=== PATIENT | female | born 1965 | race African-American/Black ===

== ENCOUNTER 2017-01-18 07:54 | Inpatient (IN) ==
--- NOTE | 2017-01-18 08:09 | Oncology History&Physical ---
History of Present Illness History of present illness: Ms. Nicole is a 51 year old female with sickle cell disease who is admitted in crisis. She was supposed to be a direct admit but her medical care is being disrupted by the fact that she is down in admissions when she should be up here on the floor. She is admitted with recurrent sickle crisis and I am planning to transfuse her. I am also planning to administer her usual pain medications. Ms. Niocle is a 51 year old female that I have followed for a long time for sickle cell disease. She is admitted intermittently for blood transfusions and for pain control. Her pain was actually worse last night. At that point she hurt all over. She has had a cough and scratchy throat but no sputum production and no pleurisy. She is currently having pain in her right arm that is fairly severe. This patient is not drug seeking and therefore I do not hesitate to administer parenteral narcotics in her case. She actually sounds better today than she did last night. 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 She complains of diffuse bone pains without focal areas that are particularly severe. Past medical history: She is allergic to hydromorphone, butorphanol, meperidine and morphine. She has multiple admissions for sickle cell crises. She has had a cholecystectomy. 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 He has had breast biopsies in the past because of breast lumps but no malignancy. Social history: She does not use alcohol or tobacco Family history: Positive for sickle cell disease and schizophrenia in her sister and positive for colon cancer and pancreatic cancer in her brother. Her brother of pancreatic cancer. Review of systems: Gen.: She usually remains active. She is not drug seeking and takes narcotics very sparingly. Eyes: She has had some problem with her retina the required surgery on her right eye recently. She has a gas bubble in the right eye and the pupil is dilated. ENT: No history of chronic sinus infections, epistaxis, carcinoma or malignancies of the head or neck, chronic hoarseness or loss of hearing. Pulmonary: Pulmonary: No history of asthma, emphysema or pneumonia, TB or chronic pleuritic chest pain or pain with respiration. Cardiovascular: No history of coronary artery disease, congestive heart failure , heart valvular disease, cardiac chest pain, syncope or arrhythmias. She does have a history of a flow murmur. GI: Negative for chronic GI disorders including liver, pancreas, stomach, large bowel, colitis, hematemesis, melena or hematochezia. : She has occasional urinary tract infections but these are not chronic or recurrent on a regular basis and there is no history of kidney stones, hematuria or renal failure. Musculoskeletal: She has had significant bone pain with sickle crises and she's had aseptic necrosis of the femoral heads as result of her sickle cell disease and crisis. Neurologic: Negative for seizures, convulsions or paralysis. Psychiatric: Negative for psychiatric illness or psychosis. Also negative for mood swings or memory loss. Breasts: Positive for fibrocystic disease. No history of breast malignancies. Skin: Negative for chronic skin rashes or infections. Physical examination: Gen.: The patient appears acutely ill but in only moderate distress. Eyes: Normal lids and conjunctivae. Her right pupil is dilated and there appears to be a gas bubble in the anterior chamber. ENT: She has significant nasal congestion. Oral mucosa and pharynx are normal. Trachea is midline. There are no neck masses. Her hearing is normal. Thyroid is normal. Lungs: Breath sounds are normal except for a few faint rales without rubs or rhonchi. There is symmetrical unlabored chest motion with respiration. Cardiovascular: Her heart rhythm is regular with grade 3/6 systolic ejection murmur heard best in the second right intercostal space adjacent to the sternum. There is no jugular venous distention, clubbing, cyanosis or edema. Abdomen: She has no abdominal masses, organomegaly or significant tenderness. Bowel sounds are hyperactive. Musculoskeletal: There is no focal muscle atrophy or bone or joint deformity. Neurologic: Cranial nerves II through XII are intact and no focal neurologic deficits. Psychiatric: She is oriented to time, place, person and situation with normal mood and affect Skin: Skin turgor is poor. Breasts: She has fibrocystic changes in her breasts but no actual solid lumps or masses. Impression: Acute upper respiratory tract infection. Influenza has been ruled out. Acute sickle cell crisis Required red cell antibodies Anemia low enough to warrant transfusion Additional complications of sickle cell disease including aseptic necrosis of the femoral heads and cholelithiasis Home Medications Medication Instructions Recorded Confirmed Type HYDROcodone/ACETAMIN 10-325 [[place] 1 tablet PO Q4H PRN 07/07/15 12/03/16 History 10-325] Folic Acid Tab 1 mg PO DAILY tablet 03/16/16 12/03/16 Rx Levofloxacin Tab [Levaquin Tab] 750 mg PO DAILY tablet 12/05/16 Rx Ketorolac Tab [Toradol Tab] 10 mg PO Q8H #14 tablet 01/03/17 Rx Allergies Allergy/AdvReac Type Severity Reaction Status Date / Time Hydromorphone [From Dilaudid] Allergy Mild ITCHING Verified 01/03/17 20:23 butorphanol [From Stadol] AdvReac Severe Chest Pain Verified 01/03/17 20:23 meperidine AdvReac Mild ITCHING Verified 01/03/17 20:23 morphine AdvReac RASH Verified 01/03/17 20:23 Medical,Surgical,& Family Hx - Medical History Cardio: History of: Cardiovascular Problems (heart murmur) Neurology: No history of: Seizures HEENT: History of: Eye Problem (surgery for torn retina 08/30/16) Respiratory: History of: Respiratory Problems (sickle cell crisis) Genitourinary: No history of: Problems Gastrointestinal: History of: GERD (doesn/t use ppi) Musculoskeletal: History of: Musculoskeletal Problems (pain in all joints) Hematology: History of: Anemia, Sickle Cell Disease No history of: Blood Transfusion Reaction (has multiple antibodies) Reproductive: History of: Reproductive Problems (partial hysterectomy) Other: No history of: Anesthesia Reactions - Surgical History Cardiac Surgeries: Sugical HX of: Vascular Access Devices (mediport to right chest) Patient Denies: Cardiac Catheterization Thoracic Surgeries: Patient denies;: Organ Transplant HEENT Surgeries: Surgical HX of: Eye Surgery (08/30/16) Patient denies: Tonsilectomy & Adenoidectomy Abdominal Surgeries: Surgical HX of: Abdominal Surgery, Cholecystectomy, Colonoscopy, EGD Reproductive Surgeries: Surgical HX of;: Breast Surgery (breast biopsy), Gynecologic Surgery, Hysterectomy Orthopedic Surgeries: Surgical HX of;: Total Hip Replacement (Right) - Family History Family History: Reports;: Family Cancer (brother, colon ca, sister, breast ca), Family Diabetes - Social History Smoking Status: Never smoker Results - Labs CBC & BMP: 01/18/17 08:46
[2017-01-18] MEDS ORDERED: chlorproMAZINE INJ 25 MG in SODIUM CHLORIDE 0.9% 100 ML IV PRN (08:30)
[2017-01-18] MEDS ORDERED: BENZTROPINE 2 MG/2 ML AMP IV PRN (08:30)
[2017-01-18] MEDS ORDERED: ACETAMINOPHEN 325 MG TABLET PO PRN (08:30)
[2017-01-18] MEDS ORDERED: LOPERAMIDE 2 MG CAPSULE PO PRN ×2 (08:30)
[2017-01-18] MEDS ORDERED: LACTULOSE 20 GM/30 ML UDCUP PO PRN (08:30)
[2017-01-18] MEDS ORDERED: MYLANTA/LIDO VISC 2:1 300 ML BOTTLE SWISH/SWAL PRN (08:30)
[2017-01-18] MEDS ORDERED: TEMAZEPAM 7.5 MG CAPSULE PO PRN (08:30)
[2017-01-18] MEDS ORDERED: chlorproMAZINE INJ 50 MG in SODIUM CHLORIDE 0.9% 100 ML IV PRN (08:30)
[2017-01-18] MEDS ORDERED: MAGNESIUM HYDROXIDE SUSP 30 ML UDCUP PO PRN (08:30)
[2017-01-18] MEDS ORDERED: ALUMINUM/MAGNES/SIMETH MAX STR 30 ML UDCUP PO PRN (08:30)
[2017-01-18] MEDS ORDERED: traMADol 50 MG TABLET PO PRN (08:30)
[2017-01-18] MEDS ORDERED: MYLANTA/LIDO VISC 2:1 300 ML BOTTLE SWISH/SPIT PRN (08:30)
[2017-01-18] MEDS ORDERED: ALPRAZolam 0.25 MG TABLET PO PRN (08:30)
[2017-01-18] MEDS ORDERED: PROMETHAZINE INJ 25 MG in SODIUM CHLORIDE 0.9% 50 ML IV PRN (08:30)
[2017-01-18] MEDS ORDERED: diphenhydrAMINE CAP 25 MG CAPSULE PO PRN (08:30)
[2017-01-18] MEDS ORDERED: chlorproMAZINE 25 MG TABLET PO PRN (08:30)
[2017-01-18 08:56] LABS: Basophils % 0.2 % (0.0-0.8); Eosinophils # 0.1 10*3/uL (0.0-0.87); Eosinophils % 1.1 % (0.00-10.9); Hematocrit 20.9 VOL% (35.7-47.0); Hemoglobin 7.5 GM/DL (12.0-16.0); Immature Granulocytes % 0.6 %; Immature Granulocytes Absolute 0.07 #; Lymphocytes # 3.5 10*3/uL (1.4-4.0); Lymphocytes % 30.8 % (21.3-54.2); Mean Corpuscular HGB Conc 35.9 GM/DL (32-36); Mean Corpuscular Hemoglobin 36 PG (27-34); Mean Platelet Volume 11.4 FL (9.6-12.0); Monocytes # 1.6 10*3/uL (0.11-0.8); Monocytes % 14.3 % (1.7-12.7); NRBC # 0.86 10*3/uL; Platelet Count 230 T/CUMM (130-400); Red Blood Count 2.07 MC/CUMM (3.8-5.5); Red Cell Distribution Width 24.4 % (9.3-17.3); White Blood Count 11.3 T/CUMM (4-12)
[2017-01-18] MEDS: SODIUM CHLORIDE 0.9% 1,000 ML IV SCH ×2 (09:01→20:26)
[2017-01-18 09:22] LABS: Band Neutrophils 2 % (0-10); Eosinophils 2 % (0-10); Lymphocytes 31 % (20-55); Myelocytes 1 %; Nucleated Red Blood Cells 9 (0-5); Segmented Neutrophils 50 % (50-85); Total Cells Counted 100
[2017-01-18 09:23] LABS: Elliptocytes Few; Hypochromasia 1+; Macrocytosis Slight; Platelet Estimate Adequate; Polychromasia Slight; Sickle Cells Few; Target Cells Few
[2017-01-18] MEDS ORDERED: fentaNYL 25 MCG/HR PATCH TRANSDERM SCH (09:30)
[2017-01-18 10:22] LABS: Albumin 3.9 G/DL (3.4-5.0); Bilirubin,Total 7.1 MG/DL (0.2-1.0); Magnesium 2.1 MG/DL (1.8-2.4); Osmolality,Calculated 276.4 MOS/KG (273-304); Potassium 4.1 MMOL/L (3.5-5.1); Uric Acid 7.9 MG/DL (2.6-6.0)
[2017-01-18] MEDS: ONDANSETRON 4 MG/2 ML VIAL IV PRN ×2 (11:11→23:46)
[2017-01-18] MEDS: fentaNYL 100 MCG/2 ML VIAL IV PRN ×3 (11:14→23:44)
[2017-01-18 16:10] LABS: Apearance,Urine CLEAR (Clear); Bilirubin,Urine Negative (Negative); Blood, Urine Small mg/dL (Negative); Glucose,Urine (UA) Negative (Negative); Ketones,Urine Negative (Negative); Nitrite,Urine Negative (Negative); Protein,Urine Negative; RBC,Urine 1 /HPF (0-4); Squamous Epithelial Cell,Urine Occasional /HPF (0-10); Urine Color Yellow (Yellow); Urine Specific Gravity 1.005 (1.001-1.035); WBC,Urine 2 /HPF (0-6)
[2017-01-18] MEDS: guaiFENesin 200 MG/10 ML UDCUP PO PRN ×2 (18:37→22:57)
[2017-01-19] MEDS: fentaNYL 100 MCG/2 ML VIAL IV PRN (06:04)
[2017-01-19 08:02] LABS: Basophils # 0.1 10*3/uL (0.0-0.2); Basophils % 0.5 % (0.0-0.8); Eosinophils # 0.2 10*3/uL (0.0-0.87); Eosinophils % 2.1 % (0.00-10.9); Hematocrit 23.6 VOL% (35.7-47.0); Hemoglobin 8.3 GM/DL (12.0-16.0); Immature Granulocytes % 0.7 %; Immature Granulocytes Absolute 0.08 #; Lymphocytes # 3.9 10*3/uL (1.4-4.0); Lymphocytes % 36.1 % (21.3-54.2); Mean Corpuscular HGB Conc 35.2 GM/DL (32-36); Mean Corpuscular Hemoglobin 34 PG (27-34); Mean Corpuscular Volume 97.9 FL (87-102); Monocytes # 1.4 10*3/uL (0.11-0.8); Monocytes % 13.2 % (1.7-12.7); NRBC # 0.99 10*3/uL; Neutrophils # 5.1 10*3/uL (1.4-7.4); Neutrophils % 47.4 % (38.7-73.9); Platelet Count 201 T/CUMM (130-400); Red Blood Count 2.41 MC/CUMM (3.8-5.5); Red Cell Distribution Width 23.9 % (9.3-17.3); White Blood Count 10.7 T/CUMM (4-12)
[2017-01-19 08:18] LABS: Band Neutrophils 1 % (0-10); Elliptocytes Few; Eosinophils 1 % (0-10); Hypochromasia 1+; Lymphocytes 37 % (20-55); Nucleated Red Blood Cells 4 (0-5); Platelet Estimate Adequate; Segmented Neutrophils 47 % (50-85); Sickle Cells Few; Total Cells Counted 100
[2017-01-19 08:19] LABS: Macrocytosis Slight; Polychromasia Slight; Target Cells Few
[2017-01-19 08:28] LABS: Albumin 3.5 G/DL (3.4-5.0); Bilirubin,Total 5.2 MG/DL (0.2-1.0); Calcium 9.7 MG/DL (8.5-10.1); Osmolality,Calculated 279.1 MOS/KG (273-304); Potassium 4.6 MMOL/L (3.5-5.1); Total Protein 7.3 G/DL (6.4-8.3)
[2017-01-19] MEDS ORDERED: SODIUM CHLORIDE 0.9% 250 ML IV PRN (09:05)
--- NOTE | 2017-01-19 09:05 | Oncology Progress Note ---
Oncology Subjective PN Interval history: This patient was admitted with sickle crisis. I attempted to direct admit her yesterday and was interfered with by admissions. She was admitted with sickle crisis. This is improved but I am continuing to monitor CBCs. Her hemoglobin is 8.3 today with a platelet count 201,000 white cell count of 10.7. Her hemoglobin was 7.5 on admission. I am proceeding with transfusion of a third unit of packed red cells today. Exam - Constitutional Vitals: Period Temp Pulse Resp BP Sys/[place] Pulse Ox Last 24 Hr 97.0 F-98.5 F 65-82 18-20 113-140/56-74 90-98 Results - Labs CBC & BMP: 01/19/17 07:30 01/19/17 07:30
[2017-01-19] MEDS: guaiFENesin 200 MG/10 ML UDCUP PO PRN (10:32)
[2017-01-19] MEDS: FOLIC ACID 1 MG TABLET PO SCH (10:33)
[2017-01-19] MEDS: OFLOXACIN 0.3% OPH SOLN 10 ML BOTTLE RIGHT EYE SCH ×2 (10:33→21:13)
[2017-01-19] MEDS: prednisoLONE ACETATE 1% OPH SUSP 5 ML BOTTLE RIGHT EYE SCH ×2 (10:33→21:13)
[2017-01-19] MEDS: SODIUM CHLORIDE 0.9% 1,000 ML IV SCH ×3 (11:27→21:21)
[2017-01-20 05:17] LABS: Basophils % 0.3 % (0.0-0.8); Eosinophils # 0.3 10*3/uL (0.0-0.87); Eosinophils % 2.7 % (0.00-10.9); Hematocrit 24.4 VOL% (35.7-47.0); Hemoglobin 8.3 GM/DL (12.0-16.0); Immature Granulocytes % 0.6 %; Immature Granulocytes Absolute 0.06 #; Lymphocytes # 4.2 10*3/uL (1.4-4.0); Lymphocytes % 38.8 % (21.3-54.2); Mean Corpuscular Hemoglobin 34 PG (27-34); Mean Corpuscular Volume 100.8 FL (87-102); Mean Platelet Volume 12.7 FL (9.6-12.0); Monocytes # 1.3 10*3/uL (0.11-0.8); Monocytes % 12.5 % (1.7-12.7); NRBC # 0.98 10*3/uL; Neutrophils # 4.9 10*3/uL (1.4-7.4); Neutrophils % 45.1 % (38.7-73.9); Platelet Count 187 T/CUMM (130-400); Red Blood Count 2.42 MC/CUMM (3.8-5.5); Red Cell Distribution Width 24.2 % (9.3-17.3); White Blood Count 10.7 T/CUMM (4-12)
[2017-01-20 05:29] LABS: Albumin 3.4 G/DL (3.4-5.0); Bilirubin,Total 4.9 MG/DL (0.2-1.0); Calcium 9.8 MG/DL (8.5-10.1); Osmolality,Calculated 281.1 MOS/KG (273-304); Potassium 4.7 MMOL/L (3.5-5.1); Total Protein 7.3 G/DL (6.4-8.3)
[2017-01-20 07:30] LABS: Eosinophils 5 % (0-10); Lymphocytes 41 % (20-55); Nucleated Red Blood Cells 13 (0-5); Segmented Neutrophils 47 % (50-85); Total Cells Counted 100
[2017-01-20 07:31] LABS: Elliptocytes Few; Hypochromasia 1+; Macrocytosis Slight; Platelet Estimate Normal; Polychromasia Slight; Sickle Cells Slight; Target Cells Few
--- NOTE | 2017-01-20 07:55 | Oncology Progress Note ---
Oncology Subjective PN Interval history: Patient with a long history of sickle cell disease with recurrent sickle cell crisis. She has a history of red cell antibodies making it difficult to crossmatch her. She was admitted with anemia and I have ordered blood transfusions. Lab work today includes white cell count of 10,700 with a hemoglobin of 8.3 and a platelet count of 187,000. Exam - Constitutional Vitals: Period Temp Pulse Resp BP Sys/[place] Pulse Ox Last 24 Hr 97.2 F-98.8 F 64-69 18-20 136-163/63-77 92-94 Results - Labs CBC & BMP: 01/20/17 04:37 01/20/17 04:37
[2017-01-20 08:05] VITALS: BP 158/77
[2017-01-20] MEDS: ONDANSETRON 4 MG/2 ML VIAL IV PRN (08:22)
[2017-01-20] MEDS: fentaNYL 100 MCG/2 ML VIAL IV PRN (08:24)
[2017-01-20] MEDS: SODIUM CHLORIDE 0.9% 1,000 ML IV SCH (09:37)
[2017-01-20] MEDS: prednisoLONE ACETATE 1% OPH SUSP 5 ML BOTTLE RIGHT EYE SCH (09:38)
[2017-01-20] MEDS: FOLIC ACID 1 MG TABLET PO SCH (09:39)
[2017-01-20] MEDS: OFLOXACIN 0.3% OPH SOLN 10 ML BOTTLE RIGHT EYE SCH (09:39)
--- NOTE | 2017-01-20 10:45 | Discharge Summary ---
Hospital Course - Hospital Course Hospital Course: Diagnoses: Acute sickle crisis requiring narcotic therapy Anemia requiring blood transfusion Autoantibodies to red cells causing difficulty in cross-matching Status post cholecystectomy due to sickle cell disease Status post surgical repair of aseptic necrosis of the femoral head fibrocystic disease of the breast This patient that I have been following for a long time was admitted with acute sickle crisis requiring blood transfusion. Lab work on admission included a white cell count of 11,300 with a hemoglobin of 7.5 and a platelet count of 230,000. The patient actually has 1 more unit of packed red cells to be transfused but it is hard to acquire it. She has been hydrated and her crisis has resolved. I am going to discharge her today. If she can be transfused prior to discharge , we will do so. It will be her third unit of packed red cells. If the blood does not arrive in a timely fashion, she will return outpatient. She already has an appointment to see me in follow-up. Discharge Plan - Discharge Data Disposition: Disch To Home/Self Care Condition at Discharge: Guarded Discharge Diet: advance to your usual diet Activity: resume usual activities as tolerated Hygiene: no restrictions Weight Bearing at Discharge: weight bear as tolerated Driving: other Contact your physician if you experience:: fever over 101, Difficulty voiding, Redness or swelling, Nausea/Vomiting, Shortness of breath, Bleeding, pain uncontrolled by pain medications - Discharge Medications Continue HYDROcodone/ACETAMIN 10-325 [[place] 10-325] 1 tablet PO Q4H PRN PRN Reason: Pain Mild To Moderate (1-7) Folic Acid Tab 1 mg PO DAILY tablet Ofloxacin [Ofloxacin 0.3% Oph Soln] 1 drop RIGHT EYE BID prednisoLONE acetate [PrednisoLONE Acetate 1% Oph Susp] 1 drop RIGHT EYE BID - Follow Up or Referral - Forms/Instructions Additional Discharge Instructions: Discharge today. Transfuse the third unit of packed red cells of possible before discharge. If it is not available today , she can return outpatient to receive it. She had an appointment to see me that she should keep. Exam - Constitutional Vitals: Period Temp Pulse Resp BP Sys/[place] Pulse Ox Last 24 Hr 97.2 F-98.8 F 59-69 18-20 147-163/65-77 92-94 Discharge Results Procedures and tests throughout hospitalization: Pending Orders 01/19/17 09:05 Red Blood Cells Leuko Red Stat 01/21/17 04:00 Comp Blood Count Auto Diff IN AM Comprehensive Metabolic Panel IN AM LDH [Lactate Dehydrogenase] IN AM 01/22/17 04:00 Comp Blood Count Auto Diff IN AM Comprehensive Metabolic Panel IN AM LDH [Lactate Dehydrogenase] IN AM 01/23/17 04:00 Comp Blood Count Auto Diff IN AM Comprehensive Metabolic Panel IN AM LDH [Lactate Dehydrogenase] IN AM 01/24/17 04:00 Comp Blood Count Auto Diff IN AM Comprehensive Metabolic Panel IN AM LDH [Lactate Dehydrogenase] IN AM 01/25/17 04:00 Comp Blood Count Auto Diff IN AM Comprehensive Metabolic Panel IN AM LDH [Lactate Dehydrogenase] IN AM 01/26/17 04:00 Comp Blood Count Auto Diff IN AM Comprehensive Metabolic Panel IN AM Labs on day of discharge: Labs from last 24 hours 01/20/17 01/20/17 04:37 04:37 WBC 10.7 RBC 2.42 L Hgb 8.3 L Hct 24.4 L MCV 100.8 MCH 34 MCHC 34.0 RDW 24.2 H Plt Count 187 MPV 12.7 H Neut % (Auto) 45.1 Lymph % (Auto) 38.8 [place] % (Auto) 12.5 Eos % (Auto) 2.7 Baso % (Auto) 0.3 Neut # (Auto) 4.9 Lymph # (Auto) 4.2 H [place] # (Auto) 1.3 H Eos # (Auto) 0.3 Baso # (Auto) 0.0 Total Counted 100 Immature Gran % 0.6 Nucleated RBC % 9.1 Immature Gran # 0.06 Segmented Neutrophils 47 L Lymphocytes 41 Monocytes 7 Eosinophils 5 Nucleated RBCs 13 H Nucleated RBCs # 0.98 Platelet Estimate Normal Polychromasia Slight Hypochromasia 1+ Macrocytosis Slight Sickle Cells Slight Target Cells Few Elliptocytes Few Morphology Comment Sodium 142 Potassium 4.7 Chloride 109 H Carbon Dioxide 26 Anion Gap 11.7 BUN 9 Creatinine 0.50 L GFR Calculation 148 BUN/Creatinine Ratio 18.00 Glucose 96 Calculated Osmolality 281.1 Calcium 9.8 Total Bilirubin 4.90 H AST 69 H ALT 32 Alkaline Phosphatase 155 H Lactate Dehydrogenase 528 H Total Protein 7.3 Albumin 3.4 Globulin 3.9 H Albumin/Globulin Ratio 0.8 L DS: Provider Date of admission: 01/18/17 08:01 Primary care physician: Heath Saenz MD Attending physician on admission: Heath Saenz MD Discharging clinician: Heath Sanez MD
[2017-01-20] MEDS ORDERED: HEPARIN LOCK FLUSH 500 UNIT/5 ML SYRINGE IV PRN (11:05)
[2017-01-20] MEDS ORDERED: HEPARIN LOCK FLUSH 500 UNIT/5 ML SYRINGE IV ONE (11:07)
== END 2017-01-20 12:44 | disposition home or self-care (01) | DRG 812 ==
LOC: N.4E
PROVIDERS: ADMIT Specialist; ATTEND Specialist

== ENCOUNTER 2017-03-21 14:07 | Inpatient (IN) ==
[2017-03-21] MEDS ORDERED: ASPIRIN 325 MG TABLET PO STA (15:26)
[2017-03-21] MEDS ORDERED: ALUM/MAG/SIMETH/LIDO VISC 1:1 30 ML BOTTLE PO STA (15:27)
--- NOTE | 2017-03-21 15:30 | EKG Report ---
Stationary ECG Study [facility] ER Test Date: 03/21/2017 2:25:40 PM Pat Name: RANULFO MEDEROS Department: Room: 418 Gender: F [employer] Representative: : 1965 Requested by: Pravin Rivera Order Number: [id number] Reading MD: IQRA ALBERTS Intervals [place] Rate: 71 P: 61 NC: 181 QRS: 46 QRSD: 97 T: 12 QT: 404 QTc: 427 Interpretive Statements SINUS RHYTHM NONSPECIFIC T WAVE ABNORMALITY Electronically Signed On 03-22-17 17:06:15 CDT by IQRA ALBERTS [email or web address]
[2017-03-21] MEDS ORDERED: ASPIRIN 325 MG TABLET ONE (15:36)
[2017-03-21] MEDS ORDERED: ALUM/MAG/SIMETH/LIDO VISC 1:1 30 ML BOTTLE PO ONE (15:36)
--- NOTE | 2017-03-21 15:43 | Emergency Department Note ---
Eli Fraser Gwan, am scribing for, and in the presence of, Pravin Street MD 15:36 . Yenifer Fraser James D, MD, personally performed the services described in this documentation, ascribed by Jose Francisco Benitez in my presence, and it is both accurate and complete [id number] . Arrival - Arrival Chief Complaint: Chest Pain Stated Complaint: chest pain, sob ED Nursing Triage Note: c/o chest tightness onset yesterday. states is worrse today. pt had eye surgery yesterday before pain started. + sob. states pain doesnt feel like sc crisis pain. cp increased with walking Mode of Arrival: Ambulatory Limitations: No Limitations Source: Patient, Old Records Reviewed, RN Notes Reviewed Time Seen by Provider: 03/21/17 15:20 - History of Present Illness HPI Narrative: Patient is a 51 y/o black female who presents to the ED with a c/o chest tightness and generalized soreness with an onset yesterday. Patient has a PMHx of sickle cell disease. She confirmed that she had eye surgery performed yesterday by Dr. Chavez in [place] due to detached retina in her right eye. Her associated sxs have been nausea and SOB that worsens with exertion. With onset of sxs today, pt stated that she called her PCP Dr. Saenz office and was instructed by staff to report to ED for further evaluation. Patient then said that this discomfort is similar to that of a sickle cell crisis and that she has had this discomfort before but she denies remembering when her last blood transfusion was. She is scheduled to report back to Dr. Chavez tomorrow at [facility] for f/u. While in ED, pt stated that she is nauseous. No other problems/complaints reported in ED. Onset (ago): day(s) Consistency: constant Severity: moderate Date of Last Menstrual Period: part-hyst Allergies/Adverse Reactions: Allergies Allergy/AdvReac Type Severity Reaction Status Date / Time Hydromorphone [From Dilaudid] Allergy Mild ITCHING Verified 01/03/17 20:23 butorphanol [From Stadol] AdvReac Severe Chest Pain Verified 01/03/17 20:23 meperidine AdvReac Mild ITCHING Verified 01/03/17 20:23 morphine AdvReac RASH Verified 01/03/17 20:23 Home Medications: Home Medications Medication Instructions Recorded Confirmed Type HYDROcodone/ACETAMIN 10-325 [[place] 1 tablet PO Q4H PRN 07/07/15 03/21/17 History 10-325] Ofloxacin [Ofloxacin 0.3% Oph Soln] 1 drop RIGHT EYE BID 01/18/17 01/18/17 History prednisoLONE acetate [PrednisoLONE 1 drop RIGHT EYE BID 01/18/17 01/18/17 History Acetate 1% Oph Susp] Review of System - Review of System 12 point system: reviewed and no additional remarkable complaints except as stated - Review of System Constitutional: Absent: chills, fever Eyes: Absent: discharge Head/Ears/Nose/Throat: Absent: earache Respiratory: Absent: cough Cardiovascular: Present: as per HPI, chest pain Gastrointestinal: Present: as per HPI, nausea. Absent: abdominal pain, vomiting Genitourinary female: Absent: dysuria Musculoskeletal: Absent: arm pain, arthralgia, leg pain, neck pain Skin: Absent: rash, lesions Neurological: Absent: headache, weakness Medical,Surgical,& Family Hx - Medical History Cardio: History of: Cardiovascular Problems (heart murmur) Neurology: No history of: Seizures HEENT: History of: Eye Problem (surgery for torn retina 08/30/16) Respiratory: History of: Respiratory Problems (sickle cell crisis) Genitourinary: No history of: Problems Gastrointestinal: History of: GERD (doesn/t use ppi) Musculoskeletal: History of: Musculoskeletal Problems (pain in all joints) Hematology: History of: Anemia, Sickle Cell Disease No history of: Blood Transfusion Reaction (has multiple antibodies) Reproductive: History of: Reproductive Problems (partial hysterectomy) Other: No history of: Anesthesia Reactions - Surgical History Cardiac Surgeries: Sugical HX of: Vascular Access Devices (mediport to right chest) Patient Denies: Cardiac Catheterization Thoracic Surgeries: Patient denies;: Organ Transplant HEENT Surgeries: Surgical HX of: Eye Surgery (08/30/16) Patient denies: Tonsilectomy & Adenoidectomy Abdominal Surgeries: Surgical HX of: Abdominal Surgery, Cholecystectomy, Colonoscopy, EGD Reproductive Surgeries: Surgical HX of;: Breast Surgery (breast biopsy), Gynecologic Surgery, Hysterectomy Orthopedic Surgeries: Surgical HX of;: Total Hip Replacement (Right) - Family History Family History: Reports;: Family Cancer (brother, colon ca, sister, breast ca), Family Diabetes - Social History Smoking Status: Never smoker Frequency of Alcohol Use: None Type of Drug Use: None Exam Physical Examination: GENERAL: This is a black female in no apparent distress. VITAL SIGNS: HEENT: Head is normocephalic and atraumatic. Pupils are equally round and reactive to light. Extraocular movement are intact. Oropharynx is benign with moist mucous membranes. NECK: Neck is soft and supple without tenderness. There are no masses. There is no lymphadenopathy. LUNGS: Lungs are clear to auscultation bilaterally. Chest rises symmetrically. There is no chest wall tenderness. CV: Heart is regular rate and rhythm without murmurs, rubs, or gallops. ABDOMEN: Abdomen is soft, non-tender to palpation. There are no abnormal masses palpated. There is no organomegaly. Bowel sounds are present and active. SKIN: Skin is warm and dry. No rash. EXTREMITIES: Patient has full range of motion without tenderness. There is no pedal edema. NEUROLOGIC: Awake, alert, and oriented x4. Cranial nerves II through XII are grossly intact. There are no motorsensory deficits. PSYCHIATRIC: Normal affect. Normal mood. Vital Signs: Vital Signs Temperature 97.7 F 03/21/17 15:20 Pulse Rate 82 03/21/17 15:20 Respiratory Rate 18 03/21/17 15:20 Blood Pressure 156/84 03/21/17 15:20 O2 Sat by Pulse Oximetry 94 L 03/21/17 14:21 Course - Consultations Consultation #1: Discussed with Dr. Shepherd carbon paper coating machine setter for Dr. Saenz. Patient will be admitted to Dr. Saenz service. Care will be assumed by hematology upon patient's arrival to the [facility]. Time: 17:06 Results - Labs CBC & BMP: 03/21/17 15:57 03/21/17 15:57 Lab Results: I have reviewed the patients labs Labs: Laboratory Tests 03/21/17 03/21/17 03/21/17 15:57 15:57 15:57 WBC 12.8 H RBC 2.11 L Hgb 7.6 L Hct 21.0 L MCH 36 H MCHC 36.2 H RDW 23.9 H Plt Count 209 [place] % (Auto) 13.2 H Lymph # (Auto) 5.9 H [place] # (Auto) 1.7 H INR 1.1 PT Patient/Control Mix 11.2 Circ Anticoag PTT 49.7 H D Urine Opiates Screen Positive H Ur Barbiturates Screen Negative Ur Phencyclidine Scrn Negative U Amphetamine/Methamph Negative U Benzodiazepines Scrn Positive H U Cocaine Metab Screen Negative U Cannabinoids Screen Negative Laboratory Tests 03/21/17 03/21/17 15:57 15:57 Sodium 142 Potassium 4.0 Chloride 109 H Carbon Dioxide 23 BUN 10 Creatinine 0.60 Glucose 114 H Calcium 10.5 H Total Bilirubin 5.10 H AST 65 H Alkaline Phosphatase 156 H Globulin 4.0 H Albumin/Globulin Ratio 0.9 L Lipase 157.0 Blood Type O POSITIVE Antibody Screen Positive - EKG EKG results: interpreted by ERMD - Impressions EKG: Normal sinus rhythm with a rate of 71, nonspecific ST-T wave changes. Normal axis. - Diagnostic Findings Procedure: Abdominal x-ray: report reviewed by me (no acute abdominal process is identified. ), Chest x-ray: image reviewed by me, report reviewed by me (1. Cardiomegaly. 2. The interstitial markings are slightly prominent bilaterally, which could reflect mild pulmonary edema. There is also minimal atelectasis or scarring within the left mid/lower lung zone. ) Disposition Clinical Impression: Chest pain, Sickle cell disease, Abdominal pain Case discussed with: patient Disposition: Still a Patient Condition: Stable Time of Disposition: 17:03
--- NOTE | 2017-03-21 15:52 | XRay Report ---
Exam: Chest 2 views Date: March 21, 2017 at 3:37 PM Comparison: Chest one view portable December 03, 2016 Reason: Chest pain Findings: A right-sided Mediport is in place with its distal tip within the right atrium. The cardiac silhouette is again enlarged. The interstitial markings are slightly prominent bilaterally, which could reflect mild pulmonary edema. There is also minimal atelectasis or scarring within the left mid/lower lung zone. No pneumothorax or pleural effusion is identified. No acute osseous process is seen. Surgical clips are noted within the right abdomen. Impression: 1. Cardiomegaly. 2. The interstitial markings are slightly prominent bilaterally, which could reflect mild pulmonary edema. There is also minimal atelectasis or scarring within the left mid/lower lung zone. PROCEDURE INTERPRETED AT [facility] DEPARTMENT OF RADIOLOGY Final Report Signed by: Dr. Nate Black
--- NOTE | 2017-03-21 15:54 | XRay Report ---
Referring Physician: Pravin Street Exam: XR abdomen 2V Date: March 21, 2017 at 3:37 PM Reason: Generalized abdominal pain Comparison: [facility] February 28, 2014 Findings: There are surgical clips within the right upper abdomen, suggesting cholecystectomy. There is no evidence of bowel obstruction or free air. Moderate stool is noted within the colon. No definite renal calculi are identified. The patient is status post right total hip replacement. No acute osseous process is seen. Impression: No acute abdominal process is identified. PROCEDURE INTERPRETED AT [facility] DEPARTMENT OF RADIOLOGY Final Report Signed by: Dr. Nate Black
[2017-03-21 16:09] LABS: Basophils % 0.2 % (0.0-0.8); Eosinophils % 0.3 % (0.00-10.9); Hemoglobin 7.6 GM/DL (12.0-16.0); Immature Granulocytes % 0.3 %; Immature Granulocytes Absolute 0.04 #; Lymphocytes # 5.9 10*3/uL (1.4-4.0); Lymphocytes % 46.6 % (21.3-54.2); Mean Corpuscular HGB Conc 36.2 GM/DL (32-36); Mean Corpuscular Hemoglobin 36 PG (27-34); Mean Corpuscular Volume 99.5 FL (87-102); Mean Platelet Volume 11.3 FL (9.6-12.0); Monocytes # 1.7 10*3/uL (0.11-0.8); Monocytes % 13.2 % (1.7-12.7); NRBC # 0.41 10*3/uL; Neutrophils % 39.4 % (38.7-73.9); Platelet Count 209 T/CUMM (130-400); Red Blood Count 2.11 MC/CUMM (3.8-5.5); Red Cell Distribution Width 23.9 % (9.3-17.3); White Blood Count 12.8 T/CUMM (4-12)
[2017-03-21 16:20] LABS: INR 1.1; PT Patient Result 11.2 SECS
[2017-03-21 16:21] LABS: Partial Thromboplastin Time 49.7 SECS (0-40)
[2017-03-21 16:28] LABS: Barbiturates Screen,Urine Negative (Negative); Benzodiazepines Screen,Urine Positive (Negative); Cannabinoid Screen,Urine Negative (Negative); Opiate Screen,Urine Positive (Negative); Phencyclidine Screen,Urine Negative (Negative)
[2017-03-21 16:57] LABS: Albumin 3.8 G/DL (3.4-5.0); Bilirubin,Total 5.1 MG/DL (0.2-1.0); Calcium 10.5 MG/DL (8.5-10.1); Osmolality,Calculated 282.1 MOS/KG (273-304); Total Protein 7.8 G/DL (6.4-8.3)
[2017-03-21] MEDS ORDERED: diphenhydrAMINE CAP 25 MG CAPSULE PO PRN ×2 (18:06→18:35)
[2017-03-21] MEDS ORDERED: guaiFENesin 200 MG/10 ML UDCUP PO PRN ×2 (18:06→18:35)
[2017-03-21] MEDS ORDERED: chlorproMAZINE 25 MG TABLET PO PRN ×2 (18:06→18:35)
[2017-03-21] MEDS ORDERED: ALUMINUM/MAGNES/SIMETH MAX STR 30 ML UDCUP PO PRN ×2 (18:06→18:35)
[2017-03-21] MEDS ORDERED: MAGNESIUM HYDROXIDE SUSP 30 ML UDCUP PO PRN ×2 (18:06→18:35)
[2017-03-21] MEDS ORDERED: PROMETHAZINE INJ 25 MG in SODIUM CHLORIDE 0.9% 50 ML IV PRN ×2 (18:06→18:35)
[2017-03-21] MEDS ORDERED: MYLANTA/LIDO VISC 2:1 300 ML BOTTLE SWISH/SWAL PRN ×2 (18:06→18:35)
[2017-03-21] MEDS ORDERED: fentaNYL 100 MCG/2 ML VIAL IV PRN (18:06)
[2017-03-21] MEDS ORDERED: ACETAMINOPHEN 325 MG TABLET PO PRN ×2 (18:06→18:35)
[2017-03-21] MEDS ORDERED: MYLANTA/LIDO VISC 2:1 300 ML BOTTLE SWISH/SPIT PRN ×2 (18:06→18:35)
[2017-03-21] MEDS ORDERED: TEMAZEPAM 7.5 MG CAPSULE PO PRN ×2 (18:06→18:35)
[2017-03-21] MEDS ORDERED: BENZTROPINE 2 MG/2 ML AMP IV PRN ×2 (18:06→18:35)
[2017-03-21] MEDS ORDERED: ALPRAZolam 0.25 MG TABLET PO PRN ×2 (18:06→18:35)
[2017-03-21] MEDS ORDERED: LACTULOSE 20 GM/30 ML UDCUP PO PRN ×2 (18:06→18:35)
[2017-03-21] MEDS ORDERED: LOPERAMIDE 2 MG CAPSULE PO PRN ×4 (18:06→18:35)
[2017-03-21] MEDS ORDERED: chlorproMAZINE INJ 50 MG in SODIUM CHLORIDE 0.9% 100 ML IV PRN ×2 (18:06→18:35)
[2017-03-21] MEDS ORDERED: ONDANSETRON 4 MG/2 ML VIAL IV PRN (18:35)
[2017-03-21] MEDS ORDERED: chlorproMAZINE INJ 25 MG in SODIUM CHLORIDE 0.9% 100 ML IV PRN (18:35)
[2017-03-21] MEDS: SODIUM CHLORIDE 0.9% 1,000 ML IV SCH (19:07)
[2017-03-21] MEDS: fentaNYL 25 MCG/HR PATCH TRANSDERM SCH (19:07)
[2017-03-21] MEDS: ONDANSETRON 4 MG/2 ML VIAL IV PRN (19:07)
[2017-03-21] MEDS: fentaNYL 100 MCG/2 ML VIAL IV PRN ×2 (20:29→22:08)
[2017-03-22] MEDS: fentaNYL 100 MCG/2 ML VIAL IV PRN ×6 (01:14→22:44)
[2017-03-22 05:40] LABS: Basophils % 0.3 % (0.0-0.8); Eosinophils # 0.1 10*3/uL (0.0-0.87); Eosinophils % 0.5 % (0.00-10.9); Hematocrit 19.7 VOL% (35.7-47.0); Hemoglobin 6.9 GM/DL (12.0-16.0); Immature Granulocytes % 0.6 %; Immature Granulocytes Absolute 0.07 #; Lymphocytes # 5.6 10*3/uL (1.4-4.0); Lymphocytes % 49.3 % (21.3-54.2); Mean Corpuscular Hemoglobin 35 PG (27-34); Mean Platelet Volume 12.4 FL (9.6-12.0); Monocytes # 1.2 10*3/uL (0.11-0.8); Monocytes % 10.8 % (1.7-12.7); NRBC # 0.44 10*3/uL; Neutrophils # 4.3 10*3/uL (1.4-7.4); Neutrophils % 38.5 % (38.7-73.9); Platelet Count 187 T/CUMM (130-400); Red Blood Count 1.97 MC/CUMM (3.8-5.5); Red Cell Distribution Width 22.9 % (9.3-17.3); White Blood Count 11.3 T/CUMM (4-12)
[2017-03-22 06:06] LABS: Band Neutrophils 1 % (0-10); Lymphocytes 55 % (20-55); Segmented Neutrophils 38 % (50-85); Total Cells Counted 100
[2017-03-22 06:07] LABS: Anisocytosis 2+; Hypochromasia 2+; Macrocytosis 1+; Microcytosis 1+; Ovalocytes 1+; Platelet Estimate Normal
[2017-03-22 06:08] LABS: Target Cells 1+
[2017-03-22] MEDS ORDERED: diphenhydrAMINE 50 MG/1 ML VIAL IV ONE (06:17)
[2017-03-22] MEDS ORDERED: methylPREDNISolone SOD SUC 40 MG/1 ML VIAL IV ONE (06:17)
[2017-03-22] MEDS ORDERED: diphenhydrAMINE 50 MG/1 ML VIAL ONE (06:19)
[2017-03-22] MEDS ORDERED: methylPREDNISolone SOD SUC 40 MG/1 ML VIAL ONE (06:19)
--- NOTE | 2017-03-22 07:35 | Oncology History&Physical ---
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 Ms. Nicole is a 51 year old female with sickle cell disease who was admitted with chest pain. This pain is described by the patient has constricting substernal with radiation into her arms. I have identified a relatively loud systolic murmur over the aortic valve region in the past and it appears lateral on this admission. She also has had left flank pain but this is less intense. Lab work on this admission included a white cell count of 12,800 with a hemoglobin of 7.6 yesterday that dropped to 6.9 today and a platelet count of 209,000. In addition, a lipase was checked and is normal. Troponins were checked and they are normal. Her total bilirubin is 5.1 and she does have an elevated serum calcium of 10.5 with a normal albumin of 3.8. Her alkaline phosphatase is 156. Toxicology screen tested positive for opiates but the patient has prescription narcotics that she takes occasionally for pain. I do not consider her to be a narcotic abuser. I am proceeding with cardiac workup while she is here because her heart murmur seems louder on this visit than usual. In addition, she identified an upper outer quadrant left breast mass that I think is a cyst. I reexamined it today and it is stable. Past medical history: She is allergic to hydromorphone, butorphanol, meperidine and morphine. She has multiple admissions for sickle cell crises. She has had a cholecystectomy. 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 He has had breast biopsies in the past because of breast lumps but no malignancy. Social history: She does not use alcohol or tobacco Family history: Positive for sickle cell disease and schizophrenia in her sister and positive for colon cancer and pancreatic cancer in her brother. Her brother of pancreatic cancer. Review of systems: Gen.: She usually remains active. She is not drug seeking and takes narcotics very sparingly. Eyes: She has had some problem with her retina the required surgery on her right eye recently. She has a gas bubble in the right eye and the pupil is dilated. ENT: No history of chronic sinus infections, epistaxis, carcinoma or malignancies of the head or neck, chronic hoarseness or loss of hearing. Pulmonary: Pulmonary: No history of asthma, emphysema or pneumonia, TB or chronic pleuritic chest pain or pain with respiration. Cardiovascular: She has been having more chest pain than usual and she describes it is constricting and resulting in radiation of the pain into her neck and both arms. No history of coronary artery disease, congestive heart failure, heart valvular disease, cardiac chest pain, syncope or arrhythmias. She does have a history of a flow murmur and it is louder on this admission than I recall it being. GI: She has previously undergone cholecystectomy. Negative for chronic GI disorders including liver, pancreas, stomach, large bowel, colitis, hematemesis , melena or hematochezia. : She is having left flank pain that may or may not be . I am checking a renal ultrasound. She has occasional urinary tract infections but these are not chronic or recurrent on a regular basis and there is no history of kidney stones, hematuria or renal failure. Musculoskeletal: She has had significant bone pain with sickle crises and she's had aseptic necrosis of the femoral heads as result of her sickle cell disease and crisis. Neurologic: Negative for seizures, convulsions or paralysis. Psychiatric: Negative for psychiatric illness or psychosis. Also negative for mood swings or memory loss. Breasts: Positive for fibrocystic disease. No history of breast malignancies. Skin: Negative for chronic skin rashes or infections. Physical examination: Gen.: The patient appears acutely ill but in only moderate distress. Eyes: Her right eye is patched due to recent surgery. Her left lids and conjunctivae appear normal. ENT: She has significant nasal congestion. Oral mucosa and pharynx are normal. Trachea is midline. There are no neck masses. Her hearing is normal. Thyroid is normal. Lungs: Breath sounds are normal except for a few faint rales without rubs or rhonchi. There is symmetrical unlabored chest motion with respiration. Cardiovascular: Her heart rhythm is regular with grade 4/6 systolic ejection murmur heard best in the second right intercostal space adjacent to the sternum. There is no jugular venous distention, clubbing, cyanosis or edema. Abdomen: She has no abdominal masses, organomegaly or significant tenderness. Bowel sounds are hyperactive. Musculoskeletal: There is no focal muscle atrophy or bone or joint deformity. Neurologic: Cranial nerves II through XII are intact and no focal neurologic deficits. Psychiatric: She is oriented to time, place, person and situation with normal mood and affect Skin: Skin turgor is poor. Breasts: She has fibrocystic changes in her breasts and I examined her closely because of recent identification of 1 more prominent lump in the upper outer quadrant of her left breast. It is smooth and less than a centimeter and nontender I suspect it is a cyst. 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 Home Medications Medication Instructions Recorded Confirmed Type HYDROcodone/ACETAMIN 10-325 [[place] 1 tablet PO Q4H PRN 07/07/15 03/21/17 History 10-325] Ofloxacin [Ofloxacin 0.3% Oph Soln] 1 drop RIGHT EYE BID 01/18/17 03/21/17 History prednisoLONE acetate [PrednisoLONE 1 drop RIGHT EYE BID 01/18/17 03/21/17 History Acetate 1% Oph Susp] Allergies Allergy/AdvReac Type Severity Reaction Status Date / Time Hydromorphone [From Dilaudid] Allergy Mild ITCHING Verified 01/03/17 20:23 butorphanol [From Stadol] AdvReac Severe Chest Pain Verified 01/03/17 20:23 meperidine AdvReac Mild ITCHING Verified 01/03/17 20:23 morphine AdvReac RASH Verified 01/03/17 20:23 Medical,Surgical,& Family Hx - Medical History Cardio: History of: Cardiovascular Problems (heart murmur) Neurology: No history of: Seizures HEENT: History of: Eye Problem (surgery for torn retina 03/20/17) Respiratory: History of: Respiratory Problems (sickle cell crisis) Genitourinary: No history of: Problems Gastrointestinal: History of: GERD (doesn/t use ppi) Musculoskeletal: History of: Musculoskeletal Problems (pain in all joints) Hematology: History of: Anemia, Sickle Cell Disease No history of: Blood Transfusion Reaction (has multiple antibodies) Reproductive: History of: Reproductive Problems (partial hysterectomy) Other: No history of: Anesthesia Reactions - Surgical History Cardiac Surgeries: Sugical HX of: Vascular Access Devices (mediport to right chest) Patient Denies: Cardiac Catheterization Thoracic Surgeries: Patient denies;: Organ Transplant HEENT Surgeries: Surgical HX of: Eye Surgery (08/30/16) Patient denies: Tonsilectomy & Adenoidectomy Abdominal Surgeries: Surgical HX of: Abdominal Surgery, Cholecystectomy, Colonoscopy, EGD Reproductive Surgeries: Surgical HX of;: Breast Surgery (breast biopsy), Gynecologic Surgery, Hysterectomy Orthopedic Surgeries: Surgical HX of;: Total Hip Replacement (Right) - Family History Family History: Reports;: Family Cancer (brother, colon ca, sister, breast ca), Family Diabetes - Social History Smoking Status: Never smoker Frequency of Alcohol Use: None Type of Drug Use: None Exam - Constitutional Vitals: Period Temp Pulse Resp BP Sys/Borrego Pulse Ox Last 24 Hr 97.3 F-98.5 F 56-82 16-18 125-157/61-84 90-98 Results - Labs CBC & BMP: 03/22/17 04:00 03/21/17 15:57
--- NOTE | 2017-03-22 08:20 | EKG Report ---
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
[2017-03-22] MEDS: PANTOPRAZOLE 40 MG VIAL IV SCH (09:37)
[2017-03-22] MEDS: OFLOXACIN 0.3% OPH SOLN 10 ML BOTTLE RIGHT EYE SCH ×2 (10:00→22:06)
[2017-03-22] MEDS: prednisoLONE ACETATE 1% OPH SUSP 5 ML BOTTLE RIGHT EYE SCH ×2 (10:00→22:06)
[2017-03-22] MEDS: SODIUM CHLORIDE 0.9% 1,000 ML IV SCH ×2 (13:15→22:05)
[2017-03-22 15:13] LABS: Apearance,Urine CLEAR (Clear); Bilirubin,Urine Negative (Negative); Blood, Urine Moderate mg/dL (Negative); Glucose,Urine (UA) Negative (Negative); Ketones,Urine Negative (Negative); Mucus,Urine Occasional /LPF (Occasional); Nitrite,Urine Negative (Negative); Protein,Urine 100 MG/DL; RBC,Urine <1 /HPF (0-4); Squamous Epithelial Cell,Urine Occasional /HPF (0-10); Urine Color Yellow (Yellow); Urine Specific Gravity 1.009 (1.001-1.035); Urine Urobilinogen < 2.0 EU/DL (0.2-1.0); WBC,Urine <1 /HPF (0-6)
--- NOTE | 2017-03-22 15:17 | ECHO Report ---
Deena Nicole Exam Date: 03/22/2017 10:27 Referring Physician: Technologist: Eladia Linn Age: 51 Ht (in): 69 Wt (lb): 185 Gender: F Exam Location: [facility] Echo Indications: heart murmur, abd. pain, sickle cell disease, chest pain, anemia BP: 136 / 65 HR: 65 Rhythm: Sinus Technical Quality: Fair IMPRESSIONS Moderate concentric left ventricular hypertrophy. Left ventricular ejection fraction is estimated at 55-60 %. Mildly increased right ventricular size. Moderately increased right atrial size. Severely increased left atrial diameter. Mild mitral valve sclerosis. Mild mitral valve regurgitation. Mild aortic valve sclerosis without stenosis or regurgitation. Morphologically normal tricuspid valve. Mild tricuspid valve regurgitation. Tricuspid regurgitation velocities suggest a PAP of 34 mmHg. Morphologically normal pulmonic valve. No pericardial effusion. Normal size aortic root and proximal ascending aorta. MEASUREMENTS (Male / Female) Normal Values 2D ECHO LV Diastolic Diameter PLAX 5.5 cm 4.2 - 5.9 / 3.9 - 5.3 cm LV Systolic Diameter PLAX 3.6 cm LV Fractional Shortening PLAX 34.3 % IVS Diastolic Thickness 1.4 cm 0.6 - 1.0 / 0.6 - 0.9 cm LVPW Diastolic Thickness 1.6 cm 0.6 - 1.0 / 0.6 - 0.9 cm RV Internal Dim ED PLAX 2.5 cm Aortic Root Diameter 3.1 cm LA Systolic Diameter LX 4.9 cm 3.0 - 4.0 / 2.7 - 3.8 cm DOPPLER TR Peak Velocity 243.0 cm/s TR Peak Gradient 23.6 mmHg FINDINGS Left Ventricle Moderate concentric left ventricular hypertrophy. Left ventricular ejection fraction is estimated at 55-60 %. Right Ventricle Mildly increased right ventricular size. Right Atrium Moderately increased right atrial size. Left Atrium Severely increased left atrial diameter. Mitral Valve Mild mitral valve sclerosis. Mild mitral valve regurgitation. Aortic Valve Mild aortic valve sclerosis without stenosis or regurgitation. Tricuspid Valve Morphologically normal tricuspid valve. Mild tricuspid valve regurgitation. Tricuspid regurgitation velocities suggest a PAP of 34 mmHg. Pulmonic Valve Morphologically normal pulmonic valve. Pericardium No pericardial effusion. Aorta Normal size aortic root and proximal ascending aorta. Jaren Ac MD (Electronically Signed) Final Date: 22 March 2017 15:16
--- NOTE | 2017-03-22 15:31 | Cardiology Consult Note ---
Jori Fraser Vanessa RN, am scribing for, and in the presence of, Jaren Ac MD 15:30. Assessment and Plan - Time spent with patient Time spent with patient: Greater than 30 minutes (Due to assessment, planning, documentation, and medication review) (1) Chest pain Status: Acute Current Visit: Yes (2) Cardiac murmur Status: Acute Assessment and plan: 2D echocardiogram was ordered and we will review Current Visit: Yes (3) Anemia of chronic disease Status: Chronic Assessment and plan: Chronic anemia. Her hemoglobin has decreased somewhat this morning and is 6.9. She is receiving 2 units PRBCs today. Current Visit: No (4) Sickle cell pain crisis Status: Acute Assessment and plan: She is routinely followed by Dr. Saenz. 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 AC ([facility]) CARDIOLOGY NOTE: CHEST PAIN, CARDIAC MURMUR Ms. Nicole is a 51 year old black female with no identifiable risk factors for coronary artery disease. 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 She is routinely followed by Dr. Saenz. Reports she has been evaluated by a geodetic survey director before (Dr. George) but this was many years ago. Denies previous cardiac history except for being told she has an "enlarged heart" in the past. Denies family history of coronary artery disease. Reports she has a sister who also has undergone cardiac cath at [facility] per Dr. Urban and had no significant coronary disease. She presented to [facility] ER on the afternoon of March 21 with complaints of chest tightness/soreness with associated shortness of breath and nausea. Reported this was different from pain she normally experiences during sickle cell crises. EKG was negative for acute ischemic finding, and troponin level was normal. Chest x-ray with interstitial markings bilaterally possibly suggestive of mild pulmonary edema with slight atelectasis in left mid and lower lung lobe. She was admitted to Dr. Saenz's service. Cardiology is asked to see for further cardiac workup of chest pain and also evaluation cardiac murmur noted to be more pronounced than previous exams. Patient is awake and alert upon exam and in no acute distress. She is being transfused with a total of 2 units PRBCs currently as her hemoglobin is decreased from 7.9 yesterday to 6.9 this morning. HCT is 19.7. Serial troponin levels have all been normal. 12 lead EKG this morning reveals sinus rhythm with pulse rate in the 60s and no acute ST segment changes or dysrhythmia seen. Patient describes intermittent episodes of exertional substernal chest tightness and "pressure" for the past 2-3 weeks. She tells me she has been trying to get back into a normal exercise routine, and when she is attempting to walk, she is having to stop and rest at least twice due her symptoms. She has associated shortness of breath with these episodes, some dizziness, and yesterday she experienced nausea with no vomiting. Confirms radiation down bilateral arms and once into scapular area. Reports radiation of chest pain into her legs at times, and states some left flank pain but none currently. She has taken Mylanta a few times over the past few weeks as she thought she was experiencing acid reflux, but this did not relieve her discomfort. BP stable, 140/73. She has not experienced orthopnea, PND, palpitations, or lower extremity edema. No dysphagia, abdominal pain, black/tarry stools, hemoptysis, hematuria. Labs reviewed. As above. Sodium 142. Potassium 4.0. Creatinine 0.6 with GFR 140. Urine tox screen positive for opiates and benzodiazepines, but she has prescribed pain medication which is noted is taken sparingly. Of note, she has had several procedures recently due to having a detached retina , and she did have a procedure yesterday morning. She initially contributed her nausea yesterday as a side effect of sedation she received. Echocardiogram has been ordered, and we will review this. She has mild mitral and tricuspid insufficiency. She has normal LV function and of course her chest pain could easily be microvascular insufficiency. I think is reasonable to continue as you plan currently and treat her underlying issues with cautious hydration and oxygen supplementation. She I think overall is reasonably stable. CC: Heath Saenz MD - Home Medications and Allergies Home Medications: Home Medications Medication Instructions Recorded Confirmed Type HYDROcodone/ACETAMIN 10-325 [[place] 1 tablet PO Q4H PRN 07/07/15 03/21/17 History 10-325] Ofloxacin [Ofloxacin 0.3% Oph Soln] 1 drop RIGHT EYE BID 01/18/17 03/21/17 History prednisoLONE acetate [PrednisoLONE 1 drop RIGHT EYE BID 01/18/17 03/21/17 History Acetate 1% Oph Susp] Allergies/Adverse Reactions: Allergies Allergy/AdvReac Type Severity Reaction Status Date / Time Hydromorphone [From Dilaudid] Allergy Mild ITCHING Verified 01/03/17 20:23 butorphanol [From Stadol] AdvReac Severe Chest Pain Verified 01/03/17 20:23 meperidine AdvReac Mild ITCHING Verified 01/03/17 20:23 morphine AdvReac RASH Verified 01/03/17 20:23 - Constitutional Constitutional: Present: as per HPI - EENT Eyes: Present: as per HPI Nose, mouth and throat: Present: as per HPI - Cardiovascular Cardiovascular: Present: as per HPI - Respiratory Respiratory: Present: as per HPI - Gastrointestinal Gastrointestinal: Present: as per HPI - Genitourinary Genitourinary: Present: as per HPI - Musculoskeletal Musculoskeletal: Present: as per HPI - Neurological Neurological: Present: as per HPI - Psychiatric Psychiatric: Present: as per HPI - Endocrine Endocrine: Present: as per HPI - Hematologic/Lymphatic Hematologic/Lymphatic: Present: as per HPI Medical,Surgical,& Family Hx - Medical History Cardio: History of: Cardiovascular Problems (heart murmur) No history of: Aneurysm, Cardiac Dysrhythmia, CAD, Hypertension, CA Psychological: No history of: Anxiety Disorders, Depression Neurology: No history of: Cerebrovascular Accident, Seizures, TIA HEENT: History of: Eye Problem (surgery for torn retina 03/20/17) Endocrine: No history of: Diabetes Mellitus (IDDM), Diabetes Mellitus (NIDDM), Dyslipidemia, Thyroid Disorder Respiratory: No history of: COPD, Obstructive Sleep Apnea Genitourinary: No history of: Problems Gastrointestinal: History of: GERD Musculoskeletal: History of: Musculoskeletal Problems (pain in all joints) Hematology: History of: Anemia, Sickle Cell Disease No history of: Blood Transfusion Reaction (has multiple antibodies) Reproductive: History of: Reproductive Problems (partial hysterectomy) Other: No history of: Anesthesia Reactions - Surgical History Cardiac Surgeries: Sugical HX of: Vascular Access Devices (mediport to right chest) Patient Denies: Cardiac Catheterization, Carotid Endarterectomy Thoracic Surgeries: Patient denies;: Organ Transplant HEENT Surgeries: Surgical HX of: Eye Surgery (08/30/16) Patient denies: Tonsilectomy & Adenoidectomy Abdominal Surgeries: Surgical HX of: Abdominal Surgery, Cholecystectomy, Colonoscopy, EGD Reproductive Surgeries: Surgical HX of;: Breast Surgery (breast biopsy), Gynecologic Surgery, Hysterectomy Orthopedic Surgeries: Surgical HX of;: Total Hip Replacement (Right) - Family History Family History: Reports;: Family Cancer (brother, colon ca, sister, breast ca), Family Diabetes - Social History Smoking Status: Never smoker Frequency of Alcohol Use: None Type of Drug Use: None Functional capacity: independent ambulation Physical Examination Vital Signs Temp Pulse Resp BP Pulse Ox 97.7 F 82 18 156/84 94 L 03/21/17 14:21 03/21/17 14:21 03/21/17 14:21 03/21/17 14:21 03/21/17 14:21 General: Present: No Apparent Distress, Other (well developed) HEENT: Present: PERRL, Normocephaly Neck: Present: Supple Neck, Midline Trachea, No JVD/HJR, No Masses, No Bruit Cardiac: Present: Reg Rate and Rhythm, Systolic Murmur Lungs: Present: Normal Exam, Normal Breath Sounds, No Wheeze, Rales, Rhonchi. Absent: Oxygen Neuro: Present: Grossly Intact. Absent: Numbness, Tingling, Resting Tremor, Essential Tremor Abdomen: Present: Soft, Active Bowel Sounds, No Pulsations/Bruits. Absent: Ascites, Tender, Firm, Distended Skin: Present: Clear. Absent: Rash, Suspicious Lesions Extremities: Present: No Clubbing, No Cyanosis, No Edema, Normal Upper Extr. Pulses (3+ bilaterally), Normal Lower Extr. Pulses (3+ bilaterally), Capillary Refill (Normal) Result/EKG - Labs CBC & BMP: 03/22/17 04:00 03/21/17 15:57 Lab Results: I have reviewed the past 24 hour labs Labs: Laboratory Results - last 24 hr 03/21/17 03/21/17 03/21/17 15:57 15:57 15:57 WBC RBC Hgb Hct MCV MCH MCHC RDW Plt Count MPV Neut % (Auto) Lymph % (Auto) [place] % (Auto) Eos % (Auto) Baso % (Auto) Neut # (Auto) Lymph # (Auto) [place] # (Auto) Eos # (Auto) Baso # (Auto) Total Counted Immature Gran % Nucleated RBC % Immature Gran # Segmented Neutrophils Band Neutrophils Lymphocytes Monocytes Nucleated RBCs # Platelet Estimate Hypochromasia Anisocytosis Microcytosis Macrocytosis Target Cells Ovalocytes INR 1.1 PT Patient/Control Mix 11.2 Circ Anticoag PTT 49.7 H D Sodium 142 Potassium 4.0 Chloride 109 H Carbon Dioxide 23 Anion Gap 14.0 BUN 10 Creatinine 0.60 GFR Calculation 140 BUN/Creatinine Ratio 16.00 Glucose 114 H Calculated Osmolality 282.1 Calcium 10.5 H Total Bilirubin 5.10 H AST 65 H ALT 35 Alkaline Phosphatase 156 H Troponin I Total Protein 7.8 Albumin 3.8 Globulin 4.0 H Albumin/Globulin Ratio 0.9 L Lipase 157.0 Urine Opiates Screen Positive H Ur Barbiturates Screen Negative Ur Phencyclidine Scrn Negative U Amphetamine/Methamph Negative U Benzodiazepines Scrn Positive H U Cocaine Metab Screen Negative U Cannabinoids Screen Negative Blood Type Antibody Screen Antibody Identification Crossmatch Blood Bank Comment 03/21/17 03/21/17 03/21/17 15:57 15:57 15:57 WBC 12.8 H RBC 2.11 L Hgb 7.6 L Hct 21.0 L MCV 99.5 MCH 36 H MCHC 36.2 H RDW 23.9 H Plt Count 209 MPV 11.3 Neut % (Auto) 39.4 Lymph % (Auto) 46.6 [place] % (Auto) 13.2 H Eos % (Auto) 0.3 Baso % (Auto) 0.2 Neut # (Auto) 5.0 Lymph # (Auto) 5.9 H [place] # (Auto) 1.7 H Eos # (Auto) 0.0 Baso # (Auto) 0.0 Total Counted Immature Gran % 0.3 Nucleated RBC % 3.2 Immature Gran # 0.04 Segmented Neutrophils Band Neutrophils Lymphocytes Monocytes Nucleated RBCs # 0.41 Platelet Estimate Hypochromasia Anisocytosis Microcytosis Macrocytosis Target Cells Ovalocytes INR PT Patient/Control Mix Circ Anticoag PTT Sodium Potassium Chloride Carbon Dioxide Anion Gap BUN Creatinine GFR Calculation BUN/Creatinine Ratio Glucose Calculated Osmolality Calcium Total Bilirubin AST ALT Alkaline Phosphatase Troponin I < 0.015 Total Protein Albumin Globulin Albumin/Globulin Ratio Lipase Urine Opiates Screen Ur Barbiturates Screen Ur Phencyclidine Scrn U Amphetamine/Methamph U Benzodiazepines Scrn U Cocaine Metab Screen U Cannabinoids Screen Blood Type O POSITIVE Antibody Screen Positive Antibody Identification Cancelled Crossmatch Blood Bank Comment 03/21/17 03/21/17 03/21/17 15:57 18:02 22:38 WBC RBC Hgb Hct MCV MCH MCHC RDW Plt Count MPV Neut % (Auto) Lymph % (Auto) [place] % (Auto) Eos % (Auto) Baso % (Auto) Neut # (Auto) Lymph # (Auto) [place] # (Auto) Eos # (Auto) Baso # (Auto) Total Counted Immature Gran % Nucleated RBC % Immature Gran # Segmented Neutrophils Band Neutrophils Lymphocytes Monocytes Nucleated RBCs # Platelet Estimate Hypochromasia Anisocytosis Microcytosis Macrocytosis Target Cells Ovalocytes INR PT Patient/Control Mix Circ Anticoag PTT Sodium Potassium Chloride Carbon Dioxide Anion Gap BUN Creatinine GFR Calculation BUN/Creatinine Ratio Glucose Calculated Osmolality Calcium Total Bilirubin AST ALT Alkaline Phosphatase Troponin I < 0.015 < 0.015 Total Protein Albumin Globulin Albumin/Globulin Ratio Lipase Urine Opiates Screen Ur Barbiturates Screen Ur Phencyclidine Scrn U Amphetamine/Methamph U Benzodiazepines Scrn U Cocaine Metab Screen U Cannabinoids Screen Blood Type Cancelled Antibody Screen Cancelled Antibody Identification Crossmatch See Detail Blood Bank Comment Cancelled 03/22/17 04:00 WBC 11.3 RBC 1.97 L Hgb 6.9 L Hct 19.7 L MCV 100.0 MCH 35 H MCHC 35.0 RDW 22.9 H Plt Count 187 MPV 12.4 H Neut % (Auto) 38.5 L Lymph % (Auto) 49.3 [place] % (Auto) 10.8 Eos % (Auto) 0.5 Baso % (Auto) 0.3 Neut # (Auto) 4.3 Lymph # (Auto) 5.6 H [place] # (Auto) 1.2 H Eos # (Auto) 0.1 Baso # (Auto) 0.0 Total Counted 100 Immature Gran % 0.6 Nucleated RBC % 3.9 Immature Gran # 0.07 Segmented Neutrophils 38 L Band Neutrophils 1 Lymphocytes 55 Monocytes 6 Nucleated RBCs # 0.44 Platelet Estimate Normal Hypochromasia 2+ Anisocytosis 2+ Microcytosis 1+ Macrocytosis 1+ Target Cells 1+ Ovalocytes 1+ INR PT Patient/Control Mix Circ Anticoag PTT Sodium Potassium Chloride Carbon Dioxide Anion Gap BUN Creatinine GFR Calculation BUN/Creatinine Ratio Glucose Calculated Osmolality Calcium Total Bilirubin AST ALT Alkaline Phosphatase Troponin I Total Protein Albumin Globulin Albumin/Globulin Ratio Lipase Urine Opiates Screen Ur Barbiturates Screen Ur Phencyclidine Scrn U Amphetamine/Methamph U Benzodiazepines Scrn U Cocaine Metab Screen U Cannabinoids Screen Blood Type Antibody Screen Antibody Identification Crossmatch Blood Bank Comment - Diagnostic Findings Procedure: Chest x-ray: image reviewed by me, report reviewed by me - EKG EKG results: interpreted by me, no acute changes EKG shows: sinus rhythm Osorio Fraser Wesley, MD, personally performed the services described in this documentation, ascribed by Breanne Hsieh RN in my presence, and it is both accurate and complete [id number] .
--- NOTE | 2017-03-22 15:39 | Ultrasound Report ---
Bilateral renal ultrasound. Indication: Left flank pain. The kidneys are normal in size. The right kidney measures 11.3 x 6.8 x 6.3 cm and the left measures 12.3 x 6.7 x 5.2 cm. There is a 1 cm cyst at the lower pole of the right kidney. The parenchymal echogenicity is normal. The cortical thickness is normal. No solid masses. No abnormal calcifications. No hydronephrosis. Impression: Small right renal cyst. The exam is otherwise unremarkable. PROCEDURE INTERPRETED AT [facility] DEPARTMENT OF RADIOLOGY Final Report Signed by: Dr. Renata Cr
[2017-03-23] MEDS: fentaNYL 100 MCG/2 ML VIAL IV PRN ×4 (02:22→20:24)
[2017-03-23] MEDS: ONDANSETRON 4 MG/2 ML VIAL IV PRN (02:27)
--- NOTE | 2017-03-23 07:18 | Oncology Progress Note ---
Oncology Subjective PN Interval history: Lab work today is pending. I am ordering it stat. This is a patient who is admitted with anemia and was transfused. 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 She still has a cough and some congestion and I am rechecking a chest x-ray today. 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 However, none of her valvular heart disease appears to be significant. In addition, an ultrasound of her kidneys was normal also, therefore the left flank pain is more likely to be from sickle crisis or simply musculoskeletal because she has no GI symptoms. On physical examination she appears acutely ill. Lids and conjunctive are normal. Oral mucosa is normal. Her heart rhythm is regular with the loudest murmur being a systolic ejection murmur in the second left intercostal space adjacent to the sternum. She has rales in the right posterior and lateral lung base. She has no abdominal masses, organomegaly, distention or significant tenderness. Cranial nerves II through XII are intact. There are no focal neurologic deficits. She is fully oriented and alert. See my orders. Exam - Constitutional Vitals: Period Temp Pulse Resp BP Sys/[place]reg[place] Pulse Ox Last 24 Hr 97.5 F-98.6 F 61-68 18-20 127-164/60-78 95-97 Results - Labs CBC & BMP: 03/22/17 04:00 03/21/17 15:57
[2017-03-23 07:41] LABS: Basophils # 0.1 10*3/uL (0.0-0.2); Basophils % 0.4 % (0.0-0.8); Eosinophils % 0.2 % (0.00-10.9); Hematocrit 24.8 VOL% (35.7-47.0); Immature Granulocytes % 0.3 %; Immature Granulocytes Absolute 0.04 #; Lymphocytes # 5.4 10*3/uL (1.4-4.0); Lymphocytes % 41.5 % (21.3-54.2); Mean Corpuscular HGB Conc 35.5 GM/DL (32-36); Mean Corpuscular Hemoglobin 35 PG (27-34); Mean Platelet Volume 11.4 FL (9.6-12.0); Monocytes # 1.6 10*3/uL (0.11-0.8); NRBC # 0.72 10*3/uL; Neutrophils % 45.6 % (38.7-73.9); Platelet Count 189 T/CUMM (130-400); Red Cell Distribution Width 22.9 % (9.3-17.3); White Blood Count 13.1 T/CUMM (4-12)
[2017-03-23 07:53] LABS: Red Blood Count 2.53 MC/CUMM (3.8-5.5)
[2017-03-23 07:54] LABS: Hemoglobin 8.8 GM/DL (12.0-16.0)
[2017-03-23 07:59] LABS: Macrocytosis 1+; Sickle Cells Slight
[2017-03-23 08:00] LABS: Polychromasia Slight; Target Cells Few
[2017-03-23] MEDS ORDERED: SODIUM CHLORIDE 0.9% 250 ML IV PRN (08:00)
[2017-03-23 08:01] LABS: Hypochromasia 1+; Ovalocytes Few
[2017-03-23 08:02] LABS: Howell-Jolly Bodies Slight; Pappenheimer Bodies Slight
[2017-03-23 08:03] LABS: Platelet Estimate Normal
[2017-03-23 08:30] LABS: Albumin 3.3 G/DL (3.4-5.0); Bilirubin,Total 4.7 MG/DL (0.2-1.0); Calcium 10.2 MG/DL (8.5-10.1); Potassium 4.4 MMOL/L (3.5-5.1); Total Protein 7.1 G/DL (6.4-8.3)
[2017-03-23] MEDS: PANTOPRAZOLE 40 MG VIAL IV SCH (09:13)
[2017-03-23] MEDS: OFLOXACIN 0.3% OPH SOLN 10 ML BOTTLE RIGHT EYE SCH ×2 (09:15→20:28)
[2017-03-23] MEDS: prednisoLONE ACETATE 1% OPH SUSP 5 ML BOTTLE RIGHT EYE SCH ×2 (09:15→20:28)
[2017-03-23] MEDS: SODIUM CHLORIDE 0.9% 1,000 ML IV SCH (12:20)
--- NOTE | 2017-03-23 13:23 | Cardiology Progress Note ---
Jori Fraser Vanessa, RN, am scribing for, and in the presence of, Jaren Ac MD 13:23. Assessment and Plan - Time spent with patient Time spent with patient: Greater than 30 minutes (1) Chest pain Status: Acute Assessment and plan: Clinically, no findings for acute coronary syndrome. Chest pain could very easily be due to microvascular insufficiency. Recommended to continue current plan and treat underlying issues via cautious hydration and oxygen supplementation. Current Visit: Yes (2) Cardiac murmur Status: Acute Assessment and plan: 2D echocardiogram with mild mitral and tricuspid insufficiency and normal LV function. Current Visit: Yes (3) Anemia of chronic disease Status: Chronic Assessment and plan: Chronic anemia. Hemoglobin 8.8 today. She is planned to receive 1 unit PRBC today for a total of 3 units PRBCs since admission. Current Visit: No (4) Sickle cell pain crisis Status: Acute Assessment and plan: She is routinely followed by Dr. Saenz, and she has prescribed narcotics to take as needed. 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 Nicole is a 51 year old black female with no identifiable risk factors for coronary artery disease. 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 She is routinely followed by Dr. Saenz. 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 George) but this was many years ago. Denies previous cardiac history except for being told she has an "enlarged heart" in the past. Denies family history of coronary artery disease. Reports she has a sister who also has undergone cardiac cath at [facility] per Dr. Urban and had no significant coronary disease. She presented to [facility] ER on the afternoon of March 21 with complaints of chest tightness/soreness with associated shortness of breath and nausea. Reported this was different from pain she normally experiences during sickle cell crises. EKG was negative for acute ischemic finding, and troponin level was normal. Chest x-ray with interstitial markings bilaterally possibly suggestive of mild pulmonary edema with slight atelectasis in left mid and lower lung lobe. She was admitted to Dr. Saenz's service. Cardiology is asked to see for further cardiac workup of chest pain and also evaluation of cardiac murmur noted to be more pronounced than previous exams. March: 2D echo yesterday with mild mitral and tricuspid insufficiency and normal LV function. Afebrile overnight, vital signs overall stable with exception of systolic BP 150-160 mmHg. Patient is awake and alert eating lunch this morning without difficulty. No acute distress noted. Reports she has not had further chest pain, but did have some left arm pain earlier. Left arm pain resolved after receiving pain medication. Denies shortness of breath labs reviewed. WBC 13,100. H&H is 8.8/24.8. Noted she is receiving 1 unit PRBC today. Potassium 4.4. Creatinine 0.7 with a GFR of 134. She is hypertensive minimal try adding Norvasc 5 mg daily to see if that helps as far a her blood pressure is concerned. Exam (Progress Note) - Constitutional Vitals: Period Temp Pulse Resp BP Sys/Borreg[place] Pulse Ox Last 24 Hr 98.2 F-98.6 F 60-68 18-20 133-164/60-78 90-97 Exam: General: Present: No Apparent Distress, Other (well developed) HEENT: Present: PERRL, Normocephaly Neck: Present: Supple Neck, Midline Trachea, No JVD/HJR, No Masses, No Bruit Cardiac: Present: Reg Rate and Rhythm, Systolic Murmur Lungs: Present: Minimal rales bibasilarly. No Wheeze, Rhonchi. Absent: Oxygen Neuro: Present: Grossly Intact. Absent: Numbness, Tingling, Resting Tremor, Essential Tremor Abdomen: Present: Soft, Active Bowel Sounds, No Pulsations/Bruits. Absent: Ascites, Tender, Firm, Distended Skin: Present: Clear, warm, dry. Absent: Rash, Suspicious Lesions Extremities: Present: No Clubbing, No Cyanosis, No Edema, Normal Upper Extr. Pulses (3+ bilaterally), Normal Lower Extr. Pulses (3+ bilaterally), Capillary Refill (Normal) Result/EKG - Labs CBC & BMP: 03/23/17 07:30 03/23/17 07:34 Lab Results: I have reviewed the past 24 hour labs Labs: Laboratory Results - last 24 hr 03/21/17 03/22/17 03/23/17 15:57 14:45 07:30 WBC 13.1 H RBC 2.53 L D Hgb 8.8 L D Hct 24.8 L MCV 98.0 MCH 35 H MCHC 35.5 RDW 22.9 H Plt Count 189 MPV 11.4 Neut % (Auto) 45.6 Lymph % (Auto) 41.5 [place] % (Auto) 12.0 Eos % (Auto) 0.2 Baso % (Auto) 0.4 Neut # (Auto) 6.0 Lymph # (Auto) 5.4 H [place] # (Auto) 1.6 H Eos # (Auto) 0.0 Baso # (Auto) 0.1 Immature Gran % 0.3 Nucleated RBC % 5.5 Immature Gran # 0.04 Nucleated RBCs # 0.72 Platelet Estimate Normal Polychromasia Slight Hypochromasia 1+ Macrocytosis 1+ Pappenheimer Bodies Slight Sickle Cells Slight Target Cells Few Ovalocytes Few Reilly-[place]orn[place] Bodies Slight Morphology Comment Sodium Potassium Chloride Carbon Dioxide Anion Gap BUN Creatinine GFR Calculation BUN/Creatinine Ratio Glucose Calculated Osmolality Calcium Total Bilirubin AST ALT Alkaline Phosphatase Lactate Dehydrogenase Total Protein Albumin Globulin Albumin/Globulin Ratio Urine Color Yellow Urine Appearance Clear Urine pH 6.0 Ur Specific [place] 1.009 Urine Protein 100 Urine Glucose (UA) Negative Urine Ketones Negative Urine Blood Moderate Urine Nitrate Negative Urine Bilirubin Negative Urine Urobilinogen < 2.0 H Urine Leukocytes Negative Urine RBC <1 Urine WBC <1 Ur Squamous Epith Cells Occasional Urine Mucus Occasional Ur Culture Indicated? Not indicated Crossmatch See Detail 03/23/17 07:34 WBC RBC Hgb Hct MCV MCH MCHC RDW Plt Count MPV Neut % (Auto) Lymph % (Auto) [place] % (Auto) Eos % (Auto) Baso % (Auto) Neut # (Auto) Lymph # (Auto) [place] # (Auto) Eos # (Auto) Baso # (Auto) Immature Gran % Nucleated RBC % Immature Gran # Nucleated RBCs # Platelet Estimate Polychromasia Hypochromasia Macrocytosis Pappenheimer Bodies Sickle Cells Target Cells Ovalocytes [place]illy-[place] Bodies Morphology Comment Sodium 143 Potassium 4.4 Chloride 110 H Carbon Dioxide 28 Anion Gap 9.4 BUN 12 Creatinine 0.70 GFR Calculation 134 BUN/Creatinine Ratio 17.00 Glucose 94 Calculated Osmolality 284.0 Calcium 10.2 H Total Bilirubin 4.70 H AST 52 H ALT 32 Alkaline Phosphatase 143 H Lactate Dehydrogenase 476 H Total Protein 7.1 Albumin 3.3 L Globulin 3.8 H Albumin/Globulin Ratio 0.8 L Urine Color Urine Appearance Urine pH Ur Specific [place] Urine Protein Urine Glucose (UA) Urine Ketones Urine Blood Urine Nitrate Urine Bilirubin Urine Urobilinogen Urine Leukocytes Urine RBC Urine WBC Ur Squamous Epith Cells Urine Mucus Ur Culture Indicated? Crossmatch - EKG EKG results: interpreted by me, no acute changes EKG shows: sinus rhythm Osorio Fraser Wesley, MD, personally performed the services described in this documentation, ascribed by Breanne Hsieh RN in my presence, and it is both accurate and complete 323 .
[2017-03-23] MEDS ORDERED: methylPREDNISolone SOD SUC 125 MG/2 ML VIAL IV ONE (16:16)
[2017-03-23] MEDS ORDERED: diphenhydrAMINE 50 MG/1 ML VIAL IV ONE (16:17)
[2017-03-23] MEDS ORDERED: methylPREDNISolone SOD SUC 125 MG/2 ML VIAL ONE (16:22)
[2017-03-24 04:41] LABS: Hematocrit 28.5 VOL% (35.7-47.0); Immature Granulocytes % 0.5 %; Immature Granulocytes Absolute 0.04 #; Lymphocytes # 2.3 10*3/uL (1.4-4.0); Lymphocytes % 27.9 % (21.3-54.2); Mean Corpuscular HGB Conc 35.1 GM/DL (32-36); Mean Corpuscular Hemoglobin 34 PG (27-34); Mean Corpuscular Volume 96.6 FL (87-102); Mean Platelet Volume 11.9 FL (9.6-12.0); Monocytes # 0.9 10*3/uL (0.11-0.8); Monocytes % 10.3 % (1.7-12.7); NRBC # 0.74 10*3/uL; Neutrophils # 5.1 10*3/uL (1.4-7.4); Neutrophils % 61.3 % (38.7-73.9); Platelet Count 188 T/CUMM (130-400); Red Blood Count 2.95 MC/CUMM (3.8-5.5); Red Cell Distribution Width 22.6 % (9.3-17.3); White Blood Count 8.3 T/CUMM (4-12)
[2017-03-24] MEDS: SODIUM CHLORIDE 0.9% 1,000 ML IV SCH ×5 (04:44→18:11)
[2017-03-24 05:07] LABS: Hypochromasia 1+; Macrocytosis 1+; Sickle Cells Slight
[2017-03-24 05:08] LABS: Albumin 3.6 G/DL (3.4-5.0); Calcium 10.7 MG/DL (8.5-10.1); Osmolality,Calculated 282.1 MOS/KG (273-304); Potassium 4.4 MMOL/L (3.5-5.1); Total Protein 7.7 G/DL (6.4-8.3)
[2017-03-24 05:10] LABS: Ovalocytes Few; Polychromasia Slight
[2017-03-24 05:11] LABS: Anisocytosis 1+; Howell-Jolly Bodies Slight; Pappenheimer Bodies Slight; Platelet Estimate Adequate; Poikilocytosis 1+
--- NOTE | 2017-03-24 07:29 | Oncology Progress Note ---
Oncology Subjective PN Interval history: Ms. Nicole was admitted with severe symptomatic anemia and sickle crisis. She has been transfused to a hemoglobin of 10.0 as of today. She was having left flank pain and I obtained an ultrasound of her kidneys which is normal. She has had an echocardiogram of her heart because her heart murmurs have appeared to be latter on this admission than previously. She has sclerotic valves including mild aortic valve sclerosis without stenosis or regurgitation and mitral valve sclerosis with mitral valve regurgitation and she also has mild tricuspid valve regurgitation. She still has some pulmonary congestion and is not totally comfortable going home yet. She should be ready for discharge tomorrow and she should already have appointments set up to see me in follow-up. Her blood pressure is up a little bit today and she does not have a history of hypertension. I do not think I am going to prescribe anything for hypertension for her at this point. She should not need any additional medications when she is discharged. She is still on parenteral narcotics for pain. Exam - Constitutional Vitals: Period Temp Pulse Resp BP Sys/Borrego Pulse Ox Last 24 Hr 97.9 F-98.6 F 53-72 18-20 159-197/72-96 90-95 Results - Labs CBC & BMP: 03/24/17 04:10 03/24/17 04:10
[2017-03-24] MEDS: PANTOPRAZOLE 40 MG VIAL IV SCH (08:49)
[2017-03-24] MEDS: fentaNYL 25 MCG/HR PATCH TRANSDERM SCH (08:49)
[2017-03-24] MEDS: prednisoLONE ACETATE 1% OPH SUSP 5 ML BOTTLE RIGHT EYE SCH ×2 (08:50→21:19)
[2017-03-24] MEDS: OFLOXACIN 0.3% OPH SOLN 10 ML BOTTLE RIGHT EYE SCH ×2 (08:50→21:19)
[2017-03-24] MEDS: ONDANSETRON 4 MG/2 ML VIAL IV PRN (09:02)
--- NOTE | 2017-03-24 11:23 | XRay Report ---
History: Rales in right lung base Date: 03/24/2017 Study: Chest x-ray PA and lateral Comparison exam: March 21, 2017 The cardiac silhouette is mildly prominent. There is no mediastinal mass. The pulmonary vasculature is upper normal. A right upper extremity Mediport-type catheter is stable in position. There is no confluent airspace disease to suggest pneumonia. There is mild coarsening of interstitial markings in the lower lung zones which could represent some stable chronic interstitial disease rather than mild residual pulmonary edema or acute interstitial infiltrate. There is no obvious interval worsening. Osseous structures are similar. Impression: The exam is grossly unchanged from the previous study PROCEDURE INTERPRETED AT [facility] DEPARTMENT OF RADIOLOGY Final Report Signed by: Dr. Francia Marcano
--- NOTE | 2017-03-24 15:48 | Cardiology Progress Note ---
Jori Fraser Vanessa, RN, am scribing for, and in the presence of, Jaren Ac MD 15:48. Assessment and Plan - Time spent with patient Time spent with patient: Greater than 30 minutes (1) Chest pain Status: Acute Assessment and plan: Clinically, no findings for acute coronary syndrome. Chest pain could very easily be due to microvascular insufficiency. Recommended to continue current plan and treat underlying issues via cautious hydration and oxygen supplementation. Current Visit: Yes (2) Cardiac murmur Status: Acute Assessment and plan: 2D echocardiogram with mild mitral and tricuspid insufficiency and normal LV function. Current Visit: Yes (3) Anemia of chronic disease Status: Chronic Assessment and plan: Chronic anemia. Hemoglobin 8.8 today. She is planned to receive 1 unit PRBC today for a total of 3 units PRBCs since admission. Current Visit: No (4) Sickle cell pain crisis Status: Acute Assessment and plan: She is routinely followed by Dr. Saenz, and she has prescribed narcotics to take as needed. 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 Nicole is a 51 year old black female with no identifiable risk factors for coronary artery disease. 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 She is routinely followed by Dr. Saenz. Reports she has been evaluated by a sandwich board carrier before (Dr. George) but this was many years ago. Denies previous cardiac history except for being told she has an "enlarged heart" in the past. Denies family history of coronary artery disease. Reports she has a sister who also has undergone cardiac cath at [place] per Dr. Urban and had no significant coronary disease. She presented to [place] ER on the afternoon of March 21 with complaints of chest tightness/soreness with associated shortness of breath and nausea. Reported this was different from pain she normally experiences during sickle cell crises. EKG was negative for acute ischemic finding, and troponin level was normal. Chest x-ray with interstitial markings bilaterally possibly suggestive of mild pulmonary edema with slight atelectasis in left mid and lower lung lobe. She was admitted to Dr. Saenz's service. Cardiology is asked to see for further cardiac workup of chest pain and also evaluation of cardiac murmur noted to be more pronounced than previous exams. March: Ms. Nicole is doing well this morning and she is pleasant and in no acute distress. Appetite is good at breakfast. No chest pain or overt shortness of breath. Reports she had a "bad night" and just "didn't feel good" due to some congestion. H&H 10.0/28.5. She will not require blood transfusion. Electrolytes within acceptable range. Systolic BP is 165-185 mmHg. She is tentatively planned for discharge home tomorrow pending no acute changes. Exam (Progress Note) - Constitutional Vitals: Period Temp Pulse Resp BP Sys/Borrego Pulse Ox Last 24 Hr 97.9 F-98.6 F 53-72 16-20 159-197/72-96 90-96 Exam: General: Present: No Apparent Distress, Other (well developed) HEENT: Present: PERRL, Normocephaly Neck: Present: Supple Neck, Midline Trachea, No JVD/HJR, No Masses, No Bruit Cardiac: Present: Reg Rate and Rhythm, Systolic Murmur Lungs: Present: Minimal rales improving and lungs overall CTA. No Wheeze, Rhonchi. Absent: Oxygen Neuro: Present: Grossly Intact. Absent: Numbness, Tingling, Resting Tremor, Essential Tremor Abdomen: Present: Soft, Active Bowel Sounds, No Pulsations/Bruits. Absent: Ascites, Tender, Firm, Distended Skin: Present: Clear, warm, dry. Absent: Rash, Suspicious Lesions Extremities: Present: No Clubbing, No Cyanosis, No Edema, Normal Upper Extr. Pulses (3+ bilaterally), Normal Lower Extr. Pulses (3+ bilaterally), Capillary Refill (Normal) Result/EKG - Labs CBC & BMP: 03/24/17 04:10 03/24/17 04:10 Lab Results: I have reviewed the past 24 hour labs Labs: Laboratory Results - last 24 hr 03/23/17 03/24/17 03/24/17 08:00 04:10 04:10 WBC 8.3 D RBC 2.95 L Hgb 10.0 L Hct 28.5 L MCV 96.6 MCH 34 MCHC 35.1 RDW 22.6 H Plt Count 188 MPV 11.9 Neut % (Auto) 61.3 Lymph % (Auto) 27.9 [place] % (Auto) 10.3 Eos % (Auto) 0.0 Baso % (Auto) 0.0 Neut # (Auto) 5.1 Lymph # (Auto) 2.3 [place] # (Auto) 0.9 H Eos # (Auto) 0.0 Baso # (Auto) 0.0 Immature Gran % 0.5 Nucleated RBC % 8.9 Immature Gran # 0.04 Nucleated RBCs # 0.74 Platelet Estimate Adequate Polychromasia Slight Hypochromasia 1+ Poikilocytosis 1+ Anisocytosis 1+ Macrocytosis 1+ Pappenheimer Bodies Slight Sickle Cells Slight Ovalocytes Few [place] Bodies Slight Morphology Comment Sodium 142 Potassium 4.4 Chloride 107 Carbon Dioxide 27 Anion Gap 12.4 BUN 11 Creatinine 0.60 GFR Calculation 141 BUN/Creatinine Ratio 18.00 Glucose 119 H Calculated Osmolality 282.1 Calcium 10.7 H Total Bilirubin 5.00 AST 53 H ALT 34 Alkaline Phosphatase 156 H Lactate Dehydrogenase 510 H Total Protein 7.7 Albumin 3.6 Globulin 4.1 H Albumin/Globulin Ratio 0.8 L Blood Type Cancelled Antibody Screen Cancelled Crossmatch See Detail Blood Bank Comment Cancelled - EKG EKG results: interpreted by me, no acute changes IOsorio Wesley, MD, personally performed the services described in this documentation, ascribed by Breanne Hsieh RN in my presence, and it is both accurate and complete .
[2017-03-25] MEDS: ONDANSETRON 4 MG/2 ML VIAL IV PRN (00:12)
[2017-03-25] MEDS: fentaNYL 100 MCG/2 ML VIAL IV PRN (00:15)
[2017-03-25 05:33] LABS: Basophils % 0.3 % (0.0-0.8); Eosinophils # 0.1 10*3/uL (0.0-0.87); Eosinophils % 0.6 % (0.00-10.9); Hematocrit 28.4 VOL% (35.7-47.0); Hemoglobin 9.8 GM/DL (12.0-16.0); Immature Granulocytes % 0.5 %; Immature Granulocytes Absolute 0.06 #; Lymphocytes # 4.5 10*3/uL (1.4-4.0); Lymphocytes % 40.4 % (21.3-54.2); Mean Corpuscular HGB Conc 34.5 GM/DL (32-36); Mean Corpuscular Hemoglobin 34 PG (27-34); Mean Corpuscular Volume 97.3 FL (87-102); Mean Platelet Volume 11.7 FL (9.6-12.0); Monocytes # 1.1 10*3/uL (0.11-0.8); Monocytes % 9.7 % (1.7-12.7); NRBC # 0.58 10*3/uL; Neutrophils # 5.3 10*3/uL (1.4-7.4); Neutrophils % 48.5 % (38.7-73.9); Platelet Count 178 T/CUMM (130-400); Red Blood Count 2.92 MC/CUMM (3.8-5.5); Red Cell Distribution Width 22.1 % (9.3-17.3)
[2017-03-25 07:18] LABS: Albumin 3.3 G/DL (3.4-5.0); Bilirubin,Total 5.4 MG/DL (0.2-1.0); Calcium 10.3 MG/DL (8.5-10.1); Potassium 4.4 MMOL/L (3.5-5.1); Total Protein 7.1 G/DL (6.4-8.3)
[2017-03-25 07:37] LABS: Hypochromasia Slight; Macrocytosis 1+; Microcytosis 1+; Polychromasia Slight; Sickle Cells 2+
[2017-03-25 07:38] LABS: Pappenheimer Bodies Few
--- NOTE | 2017-03-25 08:48 | Cardiology Progress Note ---
Assessment and Plan (1) Chest pain Status: Acute Assessment and plan: Clinically, no findings for acute coronary syndrome. Chest pain could very easily be due to microvascular insufficiency. Recommended to continue current plan and treat underlying issues via cautious hydration and oxygen supplementation. 03/25: Patient remains clinically stable and without ischemic symptoms. Continue hydration and pain medications as you plan. Current Visit: Yes (2) Cardiac murmur Status: Acute Assessment and plan: 2D echocardiogram with mild mitral and tricuspid insufficiency and normal LV function. Current Visit: Yes (3) Anemia of chronic disease Status: Chronic Assessment and plan: Chronic anemia. Hemoglobin 8.8 today. She is planned to receive 1 unit PRBC today for a total of 3 units PRBCs since admission. Current Visit: No (4) Sickle cell pain crisis Status: Acute Assessment and plan: She is routinely followed by Dr. Saenz, and she has prescribed narcotics to take as needed. Current Visit: No Cardiology - PN: Subj Interval history: 51-year-old lady with sickle cell disease presents with chest discomfort. Her pain is atypical enzymes are negative and she is much improved and likely will be discharged a little later today. She will continue follow-up as outlined and I will see her on a as needed basis. Exam (Progress Note) - Constitutional Vitals: Period Temp Pulse Resp BP Sys/Borrego Pulse Ox Last 24 Hr 97.2 F-98.6 F 52-65 18-20 151-193/70-86 88-98 Exam: General: Present: No Apparent Distress, Other (well developed) HEENT: Present: PERRL, Normocephaly Neck: Present: Supple Neck, Midline Trachea, No JVD/HJR, No Masses, No Bruit Cardiac: Present: Reg Rate and Rhythm, Systolic Murmur Lungs: Present: Minimal rales improving and lungs overall CTA. No Wheeze, Rhonchi. Absent: Oxygen Neuro: Present: Grossly Intact. Absent: Numbness, Tingling, Resting Tremor, Essential Tremor Abdomen: Present: Soft, Active Bowel Sounds, No Pulsations/Bruits. Absent: Ascites, Tender, Firm, Distended Skin: Present: Clear, warm, dry. Absent: Rash, Suspicious Lesions Extremities: Present: No Clubbing, No Cyanosis, No Edema, Normal Upper Extr. Pulses (3+ bilaterally), Normal Lower Extr. Pulses (3+ bilaterally), Capillary Refill (Normal) Result/EKG - Labs CBC & BMP: 03/25/17 04:00 03/25/17 04:00 Labs: Laboratory Results - last 24 hr 03/24/17 03/25/17 03/25/17 04:10 04:00 04:00 WBC 11.0 D RBC 2.92 L Hgb 9.8 L Hct 28.4 L MCV 97.3 MCH 34 MCHC 34.5 RDW 22.1 H Plt Count 178 MPV 11.7 Neut % (Auto) 48.5 Lymph % (Auto) 40.4 [place] % (Auto) 9.7 Eos % (Auto) 0.6 Baso % (Auto) 0.3 Neut # (Auto) 5.3 Lymph # (Auto) 4.5 H [place] # (Auto) 1.1 H Eos # (Auto) 0.1 Baso # (Auto) 0.0 Immature Gran % 0.5 Nucleated RBC % 5.3 Immature Gran # 0.06 Nucleated RBCs # 0.58 Polychromasia Slight Hypochromasia Slight Microcytosis 1+ Macrocytosis 1+ Pappenheimer Bodies Few Sickle Cells 2+ Sodium 143 Potassium 4.4 Chloride 108 H Carbon Dioxide 27 Anion Gap 12.4 BUN 17 Creatinine 0.70 GFR Calculation 134 BUN/Creatinine Ratio 24.00 H Glucose 90 Calculated Osmolality 286.0 Calcium 10.3 H Magnesium Total Bilirubin 5.00 H 5.40 H AST 49 H ALT 31 Alkaline Phosphatase 155 H Lactate Dehydrogenase 471 H Total Protein 7.1 Albumin 3.3 L Globulin 3.8 H Albumin/Globulin Ratio 0.8 L 03/25/17 04:00 WBC RBC Hgb Hct MCV MCH MCHC RDW Plt Count MPV Neut % (Auto) Lymph % (Auto) [place] % (Auto) Eos % (Auto) Baso % (Auto) Neut # (Auto) Lymph # (Auto) [place] # (Auto) Eos # (Auto) Baso # (Auto) Immature Gran % Nucleated RBC % Immature Gran # Nucleated RBCs # Polychromasia Hypochromasia Microcytosis Macrocytosis Pappenheimer Bodies Sickle Cells Sodium Potassium Chloride Carbon Dioxide Anion Gap BUN Creatinine GFR Calculation BUN/Creatinine Ratio Glucose Calculated Osmolality Calcium Magnesium 2.0 Total Bilirubin AST ALT Alkaline Phosphatase Lactate Dehydrogenase Total Protein Albumin Globulin Albumin/Globulin Ratio
[2017-03-25] MEDS: PANTOPRAZOLE 40 MG VIAL IV SCH (09:28)
[2017-03-25] MEDS: prednisoLONE ACETATE 1% OPH SUSP 5 ML BOTTLE RIGHT EYE SCH (09:29)
[2017-03-25] MEDS: OFLOXACIN 0.3% OPH SOLN 10 ML BOTTLE RIGHT EYE SCH (09:29)
--- NOTE | 2017-03-25 09:40 | Discharge Summary ---
Hospital Course - Hospital Course Hospital Course: 51 year old female with PMHx of SSD, retinal detachment admitted for URI and pain crisis. Per patient pain and breathing is much improved today and she feels ready to go home. During her hospitalization she had some chest pain which was atypical for her pain crisis. She was evaluated by cardiology and acute coronary syndrome was ruled out. Chest pain has improved as pain crisis has improved. She states her blurry eye vision is stable and she had appropriate follow up with ophthalmology. She states she is not typically hypertensive and that her blood pressure is elevated secondary to her eye and pain. She does not wish for medications for her blood pressure and is asymptomatic from the elevation. Diagnosis - Discharge Diagnosis (1) Acute sickle cell crisis Status: Acute Specialty Discharge - Follow Up or Referrals Follow up with: Heath Saenz MD [Primary Care Provider] - Discharge Plan - Discharge Data Disposition: Disch To Home/Self Care Condition at Discharge: Stable Discharge Diet: regular diet Activity: resume usual activities as tolerated Hygiene: no restrictions Weight Bearing at Discharge: full weight bearing Driving: no restrictions Contact your physician if you experience:: fever over 101, Difficulty voiding, Nausea/Vomiting, Shortness of breath, pain uncontrolled by pain medications - Discharge Medications No Action HYDROcodone/ACETAMIN 10-325 [[place] 10-325] 1 tablet PO Q4H PRN PRN Reason: Pain Mild To Moderate (1-7) Ofloxacin [Ofloxacin 0.3% Oph Soln] 1 drop RIGHT EYE BID prednisoLONE acetate [PrednisoLONE Acetate 1% Oph Susp] 1 drop RIGHT EYE BID - Follow Up or Referral - Forms/Instructions Additional Discharge Instructions: Please seek medical attention if worsening of pain or change in vision. Please call patient line if fevers, nausea, vomiting, or diarrhea. Please follow up with scheduled appointment with Dr. Saenz. Exam - Constitutional Vitals: Period Temp Pulse Resp BP Sys/Borrgeo Pulse Ox Last 24 Hr 97.2 F-98.6 F 52-65 18-20 151-193/70-86 88-98 General appearance: no acute distress - Eye Eye exam: Present: EOMI Pupils: Present: [place] - Neck Neck exam: Present: normal inspection - Respiratory Respiratory exam: Present: clear to auscultation bilaterally - Cardiovascular Cardiovascular exam: Present: regular rate and rhythm - GI/Abdominal GI/Abdominal exam: Present: normal bowel sounds, soft. Absent: distended, tenderness - Neurological Exam Neurological exam: Present: alert, oriented X3 - Skin Skin exam: Present: warm Discharge Results Procedures and tests throughout hospitalization: Pending Orders 03/26/17 04:00 Comp Blood Count Auto Diff IN AM Comprehensive Metabolic Panel IN AM LDH [Lactate Dehydrogenase] IN AM 03/27/17 04:00 Comp Blood Count Auto Diff IN AM Comprehensive Metabolic Panel IN AM LDH [Lactate Dehydrogenase] IN AM 03/28/17 04:00 Comp Blood Count Auto Diff IN AM Comprehensive Metabolic Panel IN AM LDH [Lactate Dehydrogenase] IN AM 03/29/17 04:00 Comp Blood Count Auto Diff IN AM Comprehensive Metabolic Panel IN AM Labs on day of discharge: Labs from last 24 hours 03/25/17 03/25/17 03/25/17 04:00 04:00 04:00 WBC 11.0 D RBC 2.92 L Hgb 9.8 L Hct 28.4 L MCV 97.3 MCH 34 MCHC 34.5 RDW 22.1 H Plt Count 178 MPV 11.7 Neut % (Auto) 48.5 Lymph % (Auto) 40.4 [place] % (Auto) 9.7 Eos % (Auto) 0.6 Baso % (Auto) 0.3 Neut # (Auto) 5.3 Lymph # (Auto) 4.5 H [place] # (Auto) 1.1 H Eos # (Auto) 0.1 Baso # (Auto) 0.0 Immature Gran % 0.5 Nucleated RBC % 5.3 Immature Gran # 0.06 Nucleated RBCs # 0.58 Polychromasia Slight Hypochromasia Slight Microcytosis 1+ Macrocytosis 1+ Pappenheimer Bodies Few Sickle Cells 2+ Sodium 143 Potassium 4.4 Chloride 108 H Carbon Dioxide 27 Anion Gap 12.4 BUN 17 Creatinine 0.70 GFR Calculation 134 BUN/Creatinine Ratio 24.00 H Glucose 90 Calculated Osmolality 286.0 Calcium 10.3 H Magnesium 2.0 Total Bilirubin 5.40 H AST 49 H ALT 31 Alkaline Phosphatase 155 H Lactate Dehydrogenase 471 H Total Protein 7.1 Albumin 3.3 L Globulin 3.8 H Albumin/Globulin Ratio 0.8 L 03/24/17 04:10 WBC RBC Hgb Hct MCV MCH MCHC RDW Plt Count MPV Neut % (Auto) Lymph % (Auto) [place] % (Auto) Eos % (Auto) Baso % (Auto) Neut # (Auto) Lymph # (Auto) [place] # (Auto) Eos # (Auto) Baso # (Auto) Immature Gran % Nucleated RBC % Immature Gran # Nucleated RBCs # Polychromasia Hypochromasia Microcytosis Macrocytosis Pappenheimer Bodies Sickle Cells Sodium Potassium Chloride Carbon Dioxide Anion Gap BUN Creatinine GFR Calculation BUN/Creatinine Ratio Glucose Calculated Osmolality Calcium Magnesium Total Bilirubin 5.00 H AST ALT Alkaline Phosphatase Lactate Dehydrogenase Total Protein Albumin Globulin Albumin/Globulin Ratio - Imaging and Cardiology Procedure: Chest x-ray: image reviewed by me DS: Provider Date of admission: 03/21/17 17:09 Primary care physician: Heath Saenz MD Attending physician on admission: Heath Saenz MD Consults: 03/22/17 08:19 Consult to Physician [CONS] Routine Comment: Chest pain and louder mumur aortic area Consulting Provider: Marck Bull Person Notified: Eladia Date Notified: 03/22/17 Time Notified: 08:55 Discharging clinician: Hira Bryan MD
[2017-03-25 11:52] VITALS: BP 168/82
== END 2017-03-25 12:10 | disposition home or self-care (01) | DRG 812 ==
LOC: N.ED 14:07 → N.EDINP 17:09 → N.4E 17:23
PROVIDERS: ADMIT Specialist; ATTEND Specialist

== ENCOUNTER 2017-06-01 22:47 | Inpatient (IN) ==
[2017-06-01] MEDS ORDERED: traMADol 50 MG TABLET PO PRN (23:08)
[2017-06-01] MEDS ORDERED: chlorproMAZINE 25 MG TABLET PO PRN (23:08)
[2017-06-01] MEDS ORDERED: MAGNESIUM HYDROXIDE SUSP 30 ML UDCUP PO PRN (23:08)
[2017-06-01] MEDS ORDERED: diphenhydrAMINE CAP 25 MG CAPSULE PO PRN (23:08)
[2017-06-01] MEDS ORDERED: ALPRAZolam 0.25 MG TABLET PO PRN (23:08)
[2017-06-01] MEDS ORDERED: ALUMINUM/MAGNES/SIMETH MAX STR 30 ML UDCUP PO PRN (23:08)
[2017-06-01] MEDS ORDERED: LOPERAMIDE 2 MG CAPSULE PO PRN ×2 (23:08)
[2017-06-01] MEDS ORDERED: chlorproMAZINE INJ 25 MG in SODIUM CHLORIDE 0.9% 100 ML IV PRN (23:08)
[2017-06-01] MEDS ORDERED: guaiFENesin 200 MG/10 ML UDCUP PO PRN (23:08)
[2017-06-01] MEDS ORDERED: TEMAZEPAM 7.5 MG CAPSULE PO PRN (23:08)
[2017-06-01] MEDS ORDERED: chlorproMAZINE INJ 50 MG in SODIUM CHLORIDE 0.9% 100 ML IV PRN (23:08)
[2017-06-01] MEDS ORDERED: MYLANTA/LIDO VISC 2:1 300 ML BOTTLE SWISH/SWAL PRN (23:08)
[2017-06-01] MEDS ORDERED: LACTULOSE 20 GM/30 ML UDCUP PO PRN (23:08)
[2017-06-01] MEDS ORDERED: BENZTROPINE 2 MG/2 ML AMP IV PRN (23:08)
[2017-06-01] MEDS ORDERED: MYLANTA/LIDO VISC 2:1 300 ML BOTTLE SWISH/SPIT PRN (23:08)
[2017-06-01] MEDS ORDERED: SODIUM CHLORIDE 0.9% 250 ML IV PRN (23:10)
[2017-06-02] MEDS: SODIUM CHLORIDE 0.9% 1,000 ML IV SCH ×3 (00:15→16:17)
[2017-06-02 00:34] LABS: Basophils % 0.2 % (0.0-0.8); Eosinophils # 0.1 10*3/uL (0.0-0.87); Eosinophils % 1.1 % (0.00-10.9); Hematocrit 20.6 VOL% (35.7-47.0); Hemoglobin 7.6 GM/DL (12.0-16.0); Immature Granulocytes % 0.9 %; Immature Granulocytes Absolute 0.09 #; Lymphocytes # 4.1 10*3/uL (1.4-4.0); Mean Corpuscular HGB Conc 36.9 GM/DL (32-36); Mean Corpuscular Hemoglobin 37 PG (27-34); Mean Corpuscular Volume 99.5 FL (87-102); Mean Platelet Volume 11.9 FL (9.6-12.0); Monocytes # 1.3 10*3/uL (0.11-0.8); Neutrophils # 4.9 10*3/uL (1.4-7.4); Neutrophils % 46.8 % (38.7-73.9); Platelet Count 224 T/CUMM (130-400); Red Blood Count 2.07 MC/CUMM (3.8-5.5); Red Cell Distribution Width 23.9 % (9.3-17.3); White Blood Count 10.5 T/CUMM (4-12)
[2017-06-02 01:37] LABS: Anisocytosis 2+; Ovalocytes 1+; Sickle Cells 2+
[2017-06-02 01:38] LABS: Hypochromasia 1+; Platelet Estimate Normal; Target Cells Few
[2017-06-02] MEDS: fentaNYL 100 MCG/2 ML VIAL IV PRN ×7 (01:40→22:40)
[2017-06-02] MEDS: ONDANSETRON 4 MG/2 ML VIAL IV PRN (01:45)
[2017-06-02 01:59] LABS: Apearance,Urine CLEAR (Clear); Bacteria,Urine Occasional /HPF (Few); Bilirubin,Urine Negative (Negative); Blood, Urine Moderate mg/dL (Negative); Glucose,Urine (UA) Negative (Negative); Ketones,Urine Negative (Negative); Nitrite,Urine Negative (Negative); Protein,Urine 30 MG/DL; RBC,Urine 1 /HPF (0-4); Squamous Epithelial Cell,Urine Occasional /HPF (0-10); Urine Color Yellow (Yellow); Urine Specific Gravity 1.005 (1.001-1.035); Urine Urobilinogen < 2.0 EU/DL (0.2-1.0); WBC,Urine 1 /HPF (0-6)
[2017-06-02 02:08] LABS: Albumin 3.7 G/DL (3.4-5.0); Bilirubin,Total 4.3 MG/DL (0.2-1.0); Magnesium 2.2 MG/DL (1.8-2.4); Osmolality,Calculated 281.3 MOS/KG (273-304); Potassium 4.9 MMOL/L (3.5-5.1); Total Protein 7.8 G/DL (6.4-8.3); Uric Acid 8.1 MG/DL (2.6-6.0)
[2017-06-02] MEDS ORDERED: fentaNYL 25 MCG/HR PATCH TRANSDERM SCH (04:30)
[2017-06-02 05:43] LABS: Basophils % 0.3 % (0.0-0.8); Eosinophils # 0.2 10*3/uL (0.0-0.87); Eosinophils % 1.5 % (0.00-10.9); Hematocrit 19.1 VOL% (35.7-47.0); Hemoglobin 6.9 GM/DL (12.0-16.0); Immature Granulocytes % 0.7 %; Immature Granulocytes Absolute 0.07 #; Lymphocytes # 4.3 10*3/uL (1.4-4.0); Lymphocytes % 41.3 % (21.3-54.2); Mean Corpuscular HGB Conc 36.1 GM/DL (32-36); Mean Corpuscular Hemoglobin 37 PG (27-34); Mean Corpuscular Volume 101.1 FL (87-102); Mean Platelet Volume 12.4 FL (9.6-12.0); Monocytes # 1.4 10*3/uL (0.11-0.8); Monocytes % 13.4 % (1.7-12.7); Neutrophils # 4.5 10*3/uL (1.4-7.4); Neutrophils % 42.8 % (38.7-73.9); Platelet Count 195 T/CUMM (130-400); Red Blood Count 1.89 MC/CUMM (3.8-5.5); White Blood Count 10.5 T/CUMM (4-12)
[2017-06-02 06:18] LABS: Anisocytosis 1+; Howell-Jolly Bodies Few; Ovalocytes 2+
[2017-06-02 06:19] LABS: Platelet Estimate Normal; Sickle Cells Few
--- NOTE | 2017-06-02 07:16 | Oncology History&Physical ---
History of Present Illness History of present illness: Ms. Nicole is a 51 year old female with sickle cell disease who was admitted with active crisis. She developed severe generalized pain that started in her legs but has subsequently extended throughout her body. She had no focal signs or symptoms of infection except for an apparent sinus infection almost 2 weeks ago. She has developed antibodies to red cells and she is difficult to crossmatch. We have ordered blood for transfusion but she has not received yet. Her condition usually improves dramatically after transfusion. She is having intense bone pain presently because she is on a fentanyl patch, 25 mcg and she says that it is not holding. She generally does not use a great deal of narcotics and in fact the [place] that she takes as an outpatient by last her several months on occasion. Lab work on this admission includes a white cell count of 10,500 with a hemoglobin of 6.9 after hydration. Her platelet count is normal at 195,000. Her comprehensive metabolic profile and LDH are normal except for the LDH being elevated at 660 with an alkaline phosphatase of 183 and an AST of 80. Her total bilirubin is also elevated at 4.3. It is usually elevated. Her uric acid level is 8.1. In addition, she recently identified an upper outer quadrant left breast mass that I think is a cyst. Past medical history: She is allergic to hydromorphone, butorphanol, meperidine and morphine. She has multiple admissions for sickle cell crises. She has had a cholecystectomy. 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 He has had breast biopsies in the past because of breast lumps but no malignancy. Social history: She does not use alcohol or tobacco Family history: Positive for sickle cell disease and schizophrenia in her sister and positive for colon cancer and pancreatic cancer in her brother. Her brother of pancreatic cancer. Review of systems: Gen.: She usually remains active. She is not drug seeking and takes narcotics very sparingly. Eyes: She has had some problem with her retina the required surgery on her right eye recently. She has a gas bubble in the right eye and the pupil is dilated. ENT: No history of chronic sinus infections, epistaxis, carcinoma or malignancies of the head or neck, chronic hoarseness or loss of hearing. Pulmonary: Pulmonary: No history of asthma, emphysema or pneumonia, TB or chronic pleuritic chest pain or pain with respiration. Cardiovascular: She has been having more chest pain than usual and she describes it is constricting and resulting in radiation of the pain into her neck and both arms. No history of coronary artery disease, congestive heart failure, heart valvular disease, cardiac chest pain, syncope or arrhythmias. She does have a history of a flow murmur and it is louder on this admission than I recall it being. GI: She has previously undergone cholecystectomy. Negative for chronic GI disorders including liver, pancreas, stomach, large bowel, colitis, hematemesis , melena or hematochezia. : She is having left flank pain that may or may not be . I am checking a renal ultrasound. She has occasional urinary tract infections but these are not chronic or recurrent on a regular basis and there is no history of kidney stones, hematuria or renal failure. Musculoskeletal: She has had significant bone pain with sickle crises and she's had aseptic necrosis of the femoral heads as result of her sickle cell disease and crisis. Neurologic: Negative for seizures, convulsions or paralysis. Psychiatric: Negative for psychiatric illness or psychosis. Also negative for mood swings or memory loss. Breasts: Positive for fibrocystic disease. No history of breast malignancies. Skin: Negative for chronic skin rashes or infections. Physical examination: General: The patient appears acutely ill. She appears to be in pain and is significantly uncomfortable. Eyes: Lids and conjunctivae are normal. ENT: Her oral mucosa and pharynx are normal. Her trachea is midline and she has no neck masses. Her hearing is normal. Lungs: Breath sounds are normal throughout without rubs, rales or rhonchi. Abdomen: She has no abdominal masses, organomegaly, distention, tenderness or ascites. Cardiovascular: I can usually hear a murmur but I could not hear one this morning. It is a systolic ejection murmur in the second interspace on the right side of the sternum. There is no clubbing, cyanosis or edema. Musculoskeletal: She has generalized muscle tenderness in bone and joint stiffness but I palpate no bony abnormalities or swelling of the muscles or redness or heat. Neurologic: Cranial nerves II through XII are intact. The no focal neurologic deficits. Nodes: There is no cervical, supraclavicular, submandibular, middle or axillary adenopathy. Breasts: She has significant breast cysts bilaterally related to her fibrocystic disease of the breast. Skin: I see no significant rashes. Impression: Acute sickle crisis: Usually once she is transfused, her crisis clears and she goes home. She actually has an appointment to see me this coming Monday which she may or may not need to keep. 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 Home Medications Medication Instructions Recorded Confirmed Type HYDROcodone/ACETAMIN 10-325 [[place] 1 tablet PO Q4H PRN 07/07/15 06/02/17 History 10-325] Allergies Allergy/AdvReac Type Severity Reaction Status Date / Time Hydromorphone [From Dilaudid] Allergy Mild ITCHING Verified 01/03/17 20:23 butorphanol [From Stadol] AdvReac Severe Chest Pain Verified 01/03/17 20:23 meperidine AdvReac Mild ITCHING Verified 01/03/17 20:23 morphine AdvReac RASH Verified 01/03/17 20:23 Medical,Surgical,& Family Hx - Medical History Cardio: History of: Cardiovascular Problems (heart murmur) No history of: Aneurysm, Cardiac Dysrhythmia, CAD, Hypertension, AL Psychological: No history of: Anxiety Disorders, Depression Neurology: No history of: Cerebrovascular Accident, Seizures, TIA HEENT: History of: Eye Problem (surgery for torn retina 03/20/17) Endocrine: No history of: Diabetes Mellitus (IDDM), Diabetes Mellitus (NIDDM), Dyslipidemia, Thyroid Disorder Respiratory: History of: Respiratory Problems (sickle cell crisis) No history of: COPD, Obstructive Sleep Apnea Genitourinary: No history of: Problems Gastrointestinal: History of: GERD Musculoskeletal: History of: Musculoskeletal Problems (pain in all joints) Hematology: History of: Anemia, Sickle Cell Disease No history of: Blood Transfusion Reaction (has multiple antibodies) Reproductive: History of: Reproductive Problems (partial hysterectomy) Other: No history of: Anesthesia Reactions - Surgical History Cardiac Surgeries: Sugical HX of: Vascular Access Devices (mediport to right chest) Patient Denies: Cardiac Catheterization, Carotid Endarterectomy Thoracic Surgeries: Patient denies;: Organ Transplant HEENT Surgeries: Surgical HX of: Eye Surgery (08/30/16) Patient denies: Carotid Endarterectomy, Tonsilectomy & Adenoidectomy Abdominal Surgeries: Surgical HX of: Abdominal Surgery, Cholecystectomy, Colonoscopy, EGD Reproductive Surgeries: Surgical HX of;: Breast Surgery (breast biopsy), Gynecologic Surgery, Hysterectomy Orthopedic Surgeries: Surgical HX of;: Total Hip Replacement (Right) - Family History Family History: Reports;: Family Cancer (brother, colon ca, sister, breast ca), Family Diabetes - Social History Smoking Status: Never smoker Frequency of Alcohol Use: None Type of Drug Use: None Exam - Constitutional Vitals: Period Temp Pulse Resp BP Sys/[place] Pulse Ox Last 24 Hr 96.8 F-97.6 F -70 18-20 133-136/66-71 91-97 Results - Labs CBC & BMP: 06/02/17 04:00 06/02/17 00:02
[2017-06-02] MEDS: fentaNYL 50 MCG/HR PATCH TRANSDERM SCH (10:36)
[2017-06-02] MEDS ORDERED: methylPREDNISolone SOD SUC 40 MG/1 ML VIAL IV ONE (22:29)
[2017-06-02] MEDS ORDERED: diphenhydrAMINE 50 MG/1 ML VIAL IV ONE (22:29)
[2017-06-03] MEDS: fentaNYL 100 MCG/2 ML VIAL IV PRN ×3 (04:31→19:02)
[2017-06-03] MEDS: SODIUM CHLORIDE 0.9% 1,000 ML IV SCH ×2 (04:37→20:50)
[2017-06-03 06:37] LABS: Basophils % 0.2 % (0.0-0.8); Hematocrit 24.1 VOL% (35.7-47.0); Immature Granulocytes % 1.7 %; Immature Granulocytes Absolute 0.14 #; Lymphocytes # 1.4 10*3/uL (1.4-4.0); Mean Corpuscular HGB Conc 36.1 GM/DL (32-36); Mean Corpuscular Hemoglobin 35 PG (27-34); Mean Corpuscular Volume 95.6 FL (87-102); Mean Platelet Volume 11.9 FL (9.6-12.0); Monocytes # 0.2 10*3/uL (0.11-0.8); Monocytes % 1.8 % (1.7-12.7); NRBC # 0.98 10*3/uL; Neutrophils # 6.4 10*3/uL (1.4-7.4); Neutrophils % 79.3 % (38.7-73.9); Platelet Count 207 T/CUMM (130-400); White Blood Count 8.1 T/CUMM (4-12)
[2017-06-03 06:49] LABS: Hemoglobin 8.7 GM/DL (12.0-16.0); Red Blood Count 2.52 MC/CUMM (3.8-5.5)
[2017-06-03 07:08] LABS: Band Neutrophils 1 % (0-10); Hypochromasia 1+; Lymphocytes 20 % (20-55); Nucleated Red Blood Cells 20 (0-5); Segmented Neutrophils 77 % (50-85); Total Cells Counted 100
[2017-06-03 07:09] LABS: Microcytosis 1+; Sickle Cells Few; Target Cells Few
[2017-06-03 07:10] LABS: Pappenheimer Bodies Slight; Platelet Estimate Normal; Polychromasia Slight
[2017-06-03 07:11] LABS: Anisocytosis 1+
--- NOTE | 2017-06-03 07:57 | Oncology Progress Note ---
Oncology Subjective PN Interval history: Ms. Nicole received red blood cells last night. She is stable at this time and breathing comfortable on room air. She tells me that she has had some recent right retinal surgery. She does not report any specific pain at the moment. She is receiving IV narcotics. She does have evidence of hemolytic crisis by elevated LDH. We will continue to support her as indicated. Exam - Constitutional Vitals: Period Temp Pulse Resp BP Sys/[place] Pulse Ox Last 24 Hr 97.5 F-98.4 F 64-94 18-20 114-159/57-77 91-97 Results - Labs CBC & BMP: 06/03/17 05:40 06/02/17 00:02
[2017-06-03] MEDS ORDERED: SODIUM CHLORIDE 0.9% 1,000 ML IV SCH (08:00)
[2017-06-03] MEDS: FOLIC ACID 1 MG TABLET PO SCH (08:30)
[2017-06-03] MEDS: ONDANSETRON 4 MG/2 ML VIAL IV PRN (19:01)
[2017-06-04] MEDS: fentaNYL 100 MCG/2 ML VIAL IV PRN ×4 (04:36→23:20)
[2017-06-04] MEDS: ONDANSETRON 4 MG/2 ML VIAL IV PRN ×2 (07:42→17:08)
[2017-06-04] MEDS: FOLIC ACID 1 MG TABLET PO SCH ×2 (07:44→10:14)
[2017-06-04] MEDS: SODIUM CHLORIDE 0.9% 1,000 ML IV SCH ×2 (07:50→17:09)
[2017-06-04 08:06] LABS: Basophils % 0.4 % (0.0-0.8); Eosinophils % 0.4 % (0.00-10.9); Hematocrit 22.9 VOL% (35.7-47.0); Hemoglobin 8.4 GM/DL (12.0-16.0); Immature Granulocytes % 0.5 %; Immature Granulocytes Absolute 0.06 #; Lymphocytes # 5.7 10*3/uL (1.4-4.0); Mean Corpuscular HGB Conc 36.7 GM/DL (32-36); Mean Corpuscular Hemoglobin 35 PG (27-34); Mean Corpuscular Volume 95.4 FL (87-102); Mean Platelet Volume 11.4 FL (9.6-12.0); Monocytes # 1.2 10*3/uL (0.11-0.8); Monocytes % 10.6 % (1.7-12.7); NRBC # 1.25 10*3/uL; Neutrophils # 4.4 10*3/uL (1.4-7.4); Neutrophils % 38.1 % (38.7-73.9); Platelet Count 211 T/CUMM (130-400); Red Cell Distribution Width 24.8 % (9.3-17.3); White Blood Count 11.4 T/CUMM (4-12)
[2017-06-04 08:37] LABS: Band Neutrophils 1 % (0-10); Lymphocytes 55 % (20-55); Nucleated Red Blood Cells 11 (0-5); Polychromasia Slight; Segmented Neutrophils 41 % (50-85); Target Cells Few; Total Cells Counted 100
[2017-06-04 08:38] LABS: Anisocytosis 1+; Hypochromasia 1+; Microcytosis 1+; Ovalocytes Few; Sickle Cells Few
[2017-06-04 08:39] LABS: Pappenheimer Bodies Few; Platelet Estimate Normal
[2017-06-04 08:45] LABS: Albumin 3.5 G/DL (3.4-5.0); Bilirubin,Total 4.6 MG/DL (0.2-1.0); Calcium 10.2 MG/DL (8.5-10.1); Osmolality,Calculated 276.5 MOS/KG (273-304); Potassium 4.7 MMOL/L (3.5-5.1); Total Protein 7.6 G/DL (6.4-8.3)
--- NOTE | 2017-06-04 10:19 | Oncology Progress Note ---
Oncology Subjective PN Interval history: Patient is resting this morning. She said some escalation of pain during the overnight hours. We actually had stopped her IV fluids for brief period in anticipation of discharge. She has some mild dyspnea with O2 in use. No significant peripheral edema is appreciated. Her lungs are clear to auscultation bilaterally. Awake alert and oriented appropriately. Continuing current pain control with the addition of some moderate dose nonsteroidals Exam - Constitutional Vitals: Period Temp Pulse Resp BP Sys/[place] Pulse Ox Last 24 Hr 97.3 F-98.6 F 60-93 18-19 130-184/72-83 82-97 Results - Labs CBC & BMP: 06/04/17 07:51 06/04/17 07:51
[2017-06-04] MEDS: IBUPROFEN 400 MG TABLET PO SCH ×3 (10:24→20:26)
[2017-06-05] MEDS: ACETAMINOPHEN 325 MG TABLET PO PRN ×2 (03:05→18:23)
--- NOTE | 2017-06-05 07:51 | Oncology Progress Note ---
Oncology Subjective PN Interval history: Ms. Nicole was admitted with acute sickle crisis and anemia. She has been transfused with 2 units of packed red cells her hemoglobin is 8.4 today. Her white cell count is 11,400 and her platelet count is 211,000. She is continuing to receive parenteral narcotics and she continues to have some pain so I am going to go ahead and transfuse a third unit of packed red cells today. Exam - Constitutional Vitals: Period Temp Pulse Resp BP Sys/[place] Pulse Ox Last 24 Hr 96.9 F-98.3 F 59-93 16-20 137-191/67-91 90-94 Results - Labs CBC & BMP: 06/04/17 07:51 06/04/17 07:51
[2017-06-05] MEDS: IBUPROFEN 400 MG TABLET PO SCH ×2 (08:16→15:04)
[2017-06-05] MEDS: fentaNYL 50 MCG/HR PATCH TRANSDERM SCH (08:17)
[2017-06-05] MEDS: FOLIC ACID 1 MG TABLET PO SCH (08:20)
[2017-06-05] MEDS: ONDANSETRON 4 MG/2 ML VIAL IV PRN (10:55)
[2017-06-05] MEDS: SODIUM CHLORIDE 0.9% 1,000 ML IV SCH (22:13)
[2017-06-06] MEDS: IBUPROFEN 400 MG TABLET PO SCH ×2 (00:53→09:07)
[2017-06-06] MEDS: PROMETHAZINE INJ 25 MG in SODIUM CHLORIDE 0.9% 50 ML IV PRN ×2 (04:01→22:04)
[2017-06-06] MEDS: fentaNYL 100 MCG/2 ML VIAL IV PRN ×3 (04:19→22:05)
[2017-06-06 05:22] LABS: Basophils % 0.5 % (0.0-0.8); Eosinophils # 0.1 10*3/uL (0.0-0.87); Eosinophils % 1.6 % (0.00-10.9); Hematocrit 25.4 VOL% (35.7-47.0); Hemoglobin 9.1 GM/DL (12.0-16.0); Immature Granulocytes % 0.6 %; Immature Granulocytes Absolute 0.05 #; Lymphocytes % 34.1 % (21.3-54.2); Mean Corpuscular HGB Conc 35.8 GM/DL (32-36); Mean Corpuscular Hemoglobin 33 PG (27-34); Mean Corpuscular Volume 92.7 FL (87-102); Mean Platelet Volume 11.8 FL (9.6-12.0); Monocytes # 1.1 10*3/uL (0.11-0.8); Monocytes % 12.1 % (1.7-12.7); NRBC # 1.03 10*3/uL; Neutrophils # 4.5 10*3/uL (1.4-7.4); Neutrophils % 51.1 % (38.7-73.9); Platelet Count 195 T/CUMM (130-400); Red Blood Count 2.74 MC/CUMM (3.8-5.5); White Blood Count 8.8 T/CUMM (4-12)
[2017-06-06 05:51] LABS: Band Neutrophils 1 % (0-10); Elliptocytes Few; Eosinophils 2 % (0-10); Lymphocytes 30 % (20-55); Nucleated Red Blood Cells 12 (0-5); Platelet Estimate Adequate; Segmented Neutrophils 59 % (50-85); Sickle Cells 1+; Total Cells Counted 100
[2017-06-06 05:52] LABS: Giant Platelets Few; Howell-Jolly Bodies Slight; Hypochromasia 1+; Macrocytosis 1+; Pappenheimer Bodies Few; Polychromasia 1+; Target Cells Few
--- NOTE | 2017-06-06 07:51 | Oncology Progress Note ---
Oncology Subjective PN Interval history: Ms. Nicole was admitted with acute sickle crisis and severe symptomatic anemia. She has received 3 units of packed red cells now. Lab work today includes a white cell count of 8800 with a hemoglobin of 9.1 and a platelet count of 195,000. She still having some pain from her sickle crisis she still taking parenteral narcotics. I anticipate discharge tomorrow if she is relatively pain-free. She takes a minimal amount of narcotics, ordinarily, so if she is still taking parenteral narcotics she is in significant pain. Exam - Constitutional Vitals: Period Temp Pulse Resp BP Sys/[place] Pulse Ox Last 24 Hr 97.5 F-98.1 F 58-86 16-20 155-190/72-95 89-95 Results - Labs CBC & BMP: 06/06/17 04:51 06/04/17 07:51
[2017-06-06] MEDS: FOLIC ACID 1 MG TABLET PO SCH (09:06)
[2017-06-06] MEDS: SODIUM CHLORIDE 0.9% 1,000 ML IV SCH (13:58)
[2017-06-06] MEDS ORDERED: PROMETHAZINE 25 MG/1 ML VIAL ONE (21:57)
[2017-06-07] MEDS: SODIUM CHLORIDE 0.9% 1,000 ML IV SCH ×2 (00:38→16:57)
[2017-06-07] MEDS: fentaNYL 100 MCG/2 ML VIAL IV PRN ×4 (06:32→20:17)
--- NOTE | 2017-06-07 08:38 | Oncology Progress Note ---
Oncology Subjective PN Interval history: Ms. Nicole is still having pain and requiring parenteral narcotics. She also has low O2 saturations. She was admitted with sickle crisis. On transfusing her fourth unit of packed red cells. Her sister suffered acute chest syndrome and almost so I am going to get her blood counts up to a more satisfactory level before considering discharge. I will reconsider discharge tomorrow. She has long-standing sickle cell disease with intermittent crises and is currently being treated for acute sickle crisis with parenteral narcotics and with blood transfusions. Exam - Constitutional Vitals: Period Temp Pulse Resp BP Sys/[place] Pulse Ox Last 24 Hr 97.8 F-98.3 F 69-86 18-20 151-177/75-83 89-91 Results - Labs CBC & BMP: 06/06/17 04:51 06/04/17 07:51
[2017-06-07] MEDS: FOLIC ACID 1 MG TABLET PO SCH (08:39)
[2017-06-07 09:38] LABS: Basophils % 0.2 % (0.0-0.8); Eosinophils # 0.1 10*3/uL (0.0-0.87); Eosinophils % 1.2 % (0.00-10.9); Hematocrit 26.9 VOL% (35.7-47.0); Hemoglobin 9.5 GM/DL (12.0-16.0); Immature Granulocytes % 0.6 %; Immature Granulocytes Absolute 0.05 #; Lymphocytes # 3.2 10*3/uL (1.4-4.0); Lymphocytes % 35.7 % (21.3-54.2); Mean Corpuscular HGB Conc 35.3 GM/DL (32-36); Mean Corpuscular Hemoglobin 33 PG (27-34); Mean Corpuscular Volume 93.1 FL (87-102); Mean Platelet Volume 12.4 FL (9.6-12.0); Monocytes # 1.2 10*3/uL (0.11-0.8); Monocytes % 13.9 % (1.7-12.7); Neutrophils # 4.3 10*3/uL (1.4-7.4); Neutrophils % 48.4 % (38.7-73.9); Platelet Count 181 T/CUMM (130-400); Red Blood Count 2.89 MC/CUMM (3.8-5.5); Red Cell Distribution Width 26.6 % (9.3-17.3); White Blood Count 8.9 T/CUMM (4-12)
[2017-06-07] MEDS: ONDANSETRON 4 MG/2 ML VIAL IV PRN ×2 (09:57→16:55)
[2017-06-07 10:06] LABS: Elliptocytes Few; Eosinophils 1 % (0-10); Giant Platelets Few; Howell-Jolly Bodies Slight; Hypochromasia 1+; Lymphocytes 33 % (20-55); Macrocytosis 1+; Nucleated Red Blood Cells 13 (0-5); Pappenheimer Bodies Slight; Platelet Estimate Normal; Polychromasia 1+; Segmented Neutrophils 58 % (50-85); Sickle Cells 1+; Total Cells Counted 100
[2017-06-07 10:18] LABS: Albumin 3.3 G/DL (3.4-5.0); Bilirubin,Total 5.3 MG/DL (0.2-1.0); Calcium 9.7 MG/DL (8.5-10.1); Osmolality,Calculated 281.3 MOS/KG (273-304); Potassium 4.3 MMOL/L (3.5-5.1); Total Protein 7.6 G/DL (6.4-8.3)
[2017-06-07] MEDS ORDERED: diphenhydrAMINE 50 MG/1 ML VIAL IV ONE (14:09)
[2017-06-07] MEDS ORDERED: methylPREDNISolone SOD SUC 125 MG/2 ML VIAL IV ONE (14:09)
[2017-06-08] MEDS: fentaNYL 100 MCG/2 ML VIAL IV PRN (01:29)
[2017-06-08 04:27] LABS: Basophils % 0.2 % (0.0-0.8); Hemoglobin 10.3 GM/DL (12.0-16.0); Immature Granulocytes % 0.4 %; Immature Granulocytes Absolute 0.02 #; Lymphocytes # 1.3 10*3/uL (1.4-4.0); Lymphocytes % 24.7 % (21.3-54.2); Mean Corpuscular HGB Conc 35.5 GM/DL (32-36); Mean Corpuscular Hemoglobin 32 PG (27-34); Mean Corpuscular Volume 90.9 FL (87-102); Mean Platelet Volume 11.6 FL (9.6-12.0); Monocytes # 0.6 10*3/uL (0.11-0.8); Monocytes % 10.5 % (1.7-12.7); NRBC # 1.06 10*3/uL; Neutrophils # 3.4 10*3/uL (1.4-7.4); Neutrophils % 64.2 % (38.7-73.9); Platelet Count 161 T/CUMM (130-400); Red Blood Count 3.19 MC/CUMM (3.8-5.5); Red Cell Distribution Width 25.9 % (9.3-17.3); White Blood Count 5.3 T/CUMM (4-12)
[2017-06-08 04:56] LABS: Band Neutrophils 2 % (0-10); Hypochromasia 1+; Lymphocytes 25 % (20-55); Macrocytosis 1+; Nucleated Red Blood Cells 21 (0-5); Platelet Estimate Normal; Segmented Neutrophils 62 % (50-85); Sickle Cells 1+; Total Cells Counted 100
[2017-06-08 04:57] LABS: Elliptocytes Few; Howell-Jolly Bodies Slight; Pappenheimer Bodies Slight; Polychromasia Slight; Target Cells Few
[2017-06-08] MEDS: SODIUM CHLORIDE 0.9% 1,000 ML IV SCH (06:40)
--- NOTE | 2017-06-08 08:04 | Oncology Progress Note ---
Oncology Subjective PN Interval history: Diagnoses: Severe symptomatic anemia: Acute sickle crisis: Sickle cell disease: Patient admitted with sickle crisis and symptomatic anemia.She apparently received 4 units of red cells now. 2 were leukocyte reduced and the other 2 were "split units". Her hemoglobin today is 10.3. She was treated with parenteral narcotics and remained on them until today. She had generalized bone aches and pains. She had no focal evidence of infection. At this point her condition is stable and I am discharging her to return to my office for a CBC weekly on an appointment to see me in 3 weeks. Exam - Constitutional Vitals: Period Temp Pulse Resp BP Sys/[place] Pulse Ox Last 24 Hr 96.9 F-98.5 F 62-98 18-20 160-186/75-87 90-95 Results - Labs CBC & BMP: 06/08/17 04:00 06/07/17 08:15
[2017-06-08] MEDS: FOLIC ACID 1 MG TABLET PO SCH (08:14)
[2017-06-08 08:31] VITALS: BP 172/74
--- NOTE | 2017-06-08 08:55 | Discharge Summary ---
Hospital Course - Hospital Course Hospital Course: Diagnoses: Severe symptomatic anemia: Acute sickle crisis: Sickle cell disease: Acquired red cell antibodies resulting in difficulty in cross-matching the patient: Patient admitted with sickle crisis and symptomatic anemia.She apparently received 4 units of red cells now. 2 were leukocyte reduced and the other 2 were "split units". Her hemoglobin today is 10.3. She was treated with parenteral narcotics and remained on them until today. She had generalized bone aches and pains. She had no focal evidence of infection. At this point her condition is stable and I am discharging her to return to my office for a CBC weekly on an appointment to see me in 3 weeks. 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 It took us a while to obtain red cells to transfuse her. Discharge Plan - Discharge Data Disposition: Disch To Home/Self Care Condition at Discharge: Guarded Discharge Diet: advance to your usual diet Activity: resume usual activities as tolerated Hygiene: no restrictions Weight Bearing at Discharge: weight bear as tolerated Driving: other Contact your physician if you experience:: fever over 101, Difficulty voiding, Redness or swelling, Nausea/Vomiting, Shortness of breath, Bleeding, pain uncontrolled by pain medications - Discharge Medications Continue HYDROcodone/ACETAMIN 10-325 [[place] 10-325] 1 tablet PO Q4H PRN PRN Reason: Pain Mild To Moderate (1-7) - Follow Up or Referral - Forms/Instructions Additional Discharge Instructions: Discharge today. CBC in 1 and 2 weeks. Appointment to see me in 3 weeks with CBC, CMP and LDH and red top tube. Exam - Constitutional Vitals: Period Temp Pulse Resp BP Sys/[place] Pulse Ox Last 24 Hr 96.9 F-98.5 F 62-98 18-20 160-186/74-87 90-95 Discharge Results Labs on day of discharge: Labs from last 24 hours 06/08/17 06/07/17 06/07/17 04:00 08:31 08:15 WBC 5.3 D RBC 3.19 L Hgb 10.3 L Hct 29.0 L MCV 90.9 MCH 32 MCHC 35.5 RDW 25.9 H Plt Count 161 MPV 11.6 Neut % (Auto) 64.2 Lymph % (Auto) 24.7 [place] % (Auto) 10.5 Eos % (Auto) 0.0 Baso % (Auto) 0.2 Neut # (Auto) 3.4 Lymph # (Auto) 1.3 L [place] # (Auto) 0.6 Eos # (Auto) 0.0 Baso # (Auto) 0.0 Total Counted 100 Immature Gran % 0.4 Nucleated RBC % 20.0 Immature Gran # 0.02 Segmented Neutrophils 62 Band Neutrophils 2 Lymphocytes 25 Monocytes 11 Eosinophils Nucleated RBCs 21 H Nucleated RBCs # 1.06 Platelet Estimate Normal Giant Platelets Immature Plt Fraction 0.0 Polychromasia Slight Hypochromasia 1+ Macrocytosis 1+ Pappenheimer Bodies Slight Sickle Cells 1+ Target Cells Few Reilly-[place] Bodies Slight Elliptocytes Few Sodium 141 Potassium 4.3 Chloride 105 Carbon Dioxide 26 Anion Gap 14.3 BUN 9 Creatinine 0.60 GFR Calculation 141 BUN/Creatinine Ratio 15.00 Glucose 136 H Calculated Osmolality 281.3 Calcium 9.7 Total Bilirubin 5.30 H AST 81 H ALT 27 Alkaline Phosphatase 180 H Total Protein 7.6 Albumin 3.3 L Globulin 4.3 H Albumin/Globulin Ratio 0.7 L Blood Type Cancelled Antibody Screen Cancelled Crossmatch See Detail Blood Bank Comment Cancelled 06/07/17 08:15 WBC 8.9 RBC 2.89 L Hgb 9.5 L Hct 26.9 L MCV 93.1 MCH 33 MCHC 35.3 RDW 26.6 H Plt Count 181 MPV 12.4 H Neut % (Auto) 48.4 Lymph % (Auto) 35.7 [place] % (Auto) 13.9 H Eos % (Auto) 1.2 Baso % (Auto) 0.2 Neut # (Auto) 4.3 Lymph # (Auto) 3.2 [place] # (Auto) 1.2 H Eos # (Auto) 0.1 Baso # (Auto) 0.0 Total Counted 100 Immature Gran % 0.6 Nucleated RBC % 13.5 Immature Gran # 0.05 Segmented Neutrophils 58 Band Neutrophils Lymphocytes 33 Monocytes 8 Eosinophils 1 Nucleated RBCs 13 H Nucleated RBCs # 1.20 Platelet Estimate Normal Giant Platelets Few Immature Plt Fraction 0.0 Polychromasia 1+ Hypochromasia 1+ Macrocytosis 1+ Pappenheimer Bodies Slight Sickle Cells 1+ Target Cells Reilly-[place] Bodies Slight Elliptocytes Few Sodium Potassium Chloride Carbon Dioxide Anion Gap BUN Creatinine GFR Calculation BUN/Creatinine Ratio Glucose Calculated Osmolality Calcium Total Bilirubin AST ALT Alkaline Phosphatase Total Protein Albumin Globulin Albumin/Globulin Ratio Blood Type Antibody Screen Crossmatch Blood Bank Comment DS: Provider Date of admission: 06/01/17 23:08 Primary care physician: Heath Saenz MD Attending physician on admission: Heath Saenz MD Discharging clinician: Heath Saenz MD
[2017-06-08] MEDS: fentaNYL 50 MCG/HR PATCH TRANSDERM SCH (10:13)
[2017-06-08] MEDS ORDERED: HEPARIN LOCK FLUSH 500 UNIT/5 ML SYRINGE IV ONE (11:13)
== END 2017-06-08 11:56 | disposition home or self-care (01) | DRG 812 ==
LOC: N.4E 23:08
PROVIDERS: ADMIT Specialist; ATTEND Specialist

== ENCOUNTER 2017-11-21 15:54 | Inpatient (IN) ==
[2017-11-21] MEDS ORDERED: SODIUM CHLORIDE 0.9% 1,000 ML IV STA (16:13)
[2017-11-21] MEDS ORDERED: fentaNYL 100 MCG/2 ML VIAL IV STA (16:13)
[2017-11-21] MEDS ORDERED: fentaNYL 100 MCG/2 ML VIAL ONE (17:07)
[2017-11-21 17:08] LABS: Basophils % 0.1 % (0.0-0.8); Hematocrit 23.5 VOL% (35.7-47.0); Hemoglobin 8.6 GM/DL (12.0-16.0); Immature Granulocytes % 1.2 %; Lymphocytes # 1.5 10*3/uL (1.4-4.0); Lymphocytes % 17.7 % (21.3-54.2); Mean Corpuscular HGB Conc 36.6 GM/DL (32-36); Mean Corpuscular Hemoglobin 37 PG (27-34); Mean Corpuscular Volume 101.3 FL (87-102); Mean Platelet Volume 11.1 FL (9.6-12.0); Monocytes # 0.6 10*3/uL (0.11-0.8); Monocytes % 7.3 % (1.7-12.7); NRBC # 0.89 10*3/uL; Neutrophils # 6.4 10*3/uL (1.4-7.4); Neutrophils % 73.7 % (38.7-73.9); Platelet Count 225 T/CUMM (130-400); Red Blood Count 2.32 MC/CUMM (3.8-5.5); Red Cell Distribution Width 23.7 % (9.3-17.3); White Blood Count 8.7 T/CUMM (4-12)
[2017-11-21] MEDS ORDERED: ONDANSETRON 4 MG/2 ML VIAL ONE (17:12)
[2017-11-21 17:18] LABS: INR 1.1; PT Patient Result 11.2 SECS
[2017-11-21 17:38] LABS: Albumin 3.8 G/DL (3.4-5.0); Bilirubin,Total 6.7 MG/DL (0.2-1.0); Calcium 10.1 MG/DL (8.5-10.1); Osmolality,Calculated 278.7 MOS/KG (273-304); Potassium 3.9 MMOL/L (3.5-5.1); Total Protein 8.8 G/DL (6.4-8.3)
[2017-11-21] MEDS ORDERED: LEVOFLOXACIN INJ 750 MG in PREMIX 1 EACH IV STA (17:38)
[2017-11-21 17:41] LABS: Troponin I Only < 0.015 NG/ML (0.00-0.045)
[2017-11-21 18:04] LABS: Poikilocytosis 2+; Polychromasia 1+
[2017-11-21 18:05] LABS: Anisocytosis 1+; Macrocytosis 1+; Ovalocytes 1+; Sickle Cells 1+
[2017-11-21] MEDS ORDERED: hydrALAZINE 20 MG/1 ML VIAL IV STA (18:23)
[2017-11-21] MEDS ORDERED: LEVOFLOXACIN INJ 0 ML IV ONE (19:16)
[2017-11-21] MEDS ORDERED: hydrALAZINE 20 MG/1 ML VIAL ONE (19:16)
[2017-11-21] MEDS ORDERED: fentaNYL 100 MCG/2 ML VIAL IV PRN (23:06)
[2017-11-21] MEDS ORDERED: ALBUTEROL/IPRATROPIUM 3 ML NEB RESP TX PRN (23:06)
[2017-11-21] MEDS: LEVOFLOXACIN INJ 750 MG in PREMIX 1 EACH IV SCH (23:47)
[2017-11-21] MEDS: ONDANSETRON 4 MG/2 ML VIAL IV PRN (23:49)
[2017-11-22] MEDS: PANTOPRAZOLE 40 MG TABLET PO SCH (08:57)
[2017-11-22] MEDS: fentaNYL 100 MCG/2 ML VIAL IV PRN ×3 (10:23→22:03)
[2017-11-22] MEDS: fentaNYL 25 MCG/HR PATCH TRANSDERM SCH (10:58)
[2017-11-22] MEDS: DEXTROSE 5% NACL 0.9% 1,000 ML IV SCH ×2 (14:08→19:50)
[2017-11-22 15:08] LABS: Apearance,Urine CLEAR (Clear); Bacteria,Urine Occasional /HPF (Few); Bilirubin,Urine Negative (Negative); Blood, Urine Small mg/dL (Negative); Glucose,Urine (UA) Negative (Negative); Ketones,Urine Negative (Negative); Nitrite,Urine Negative (Negative); Protein,Urine Negative; Squamous Epithelial Cell,Urine Occasional /HPF (0-10); Urine Color Yellow (Yellow); Urine Specific Gravity 1.005 (1.001-1.035); WBC,Urine 10 /HPF (0-6)
[2017-11-22] MEDS: ONDANSETRON 4 MG/2 ML VIAL IV PRN ×2 (15:13→22:07)
[2017-11-22] MEDS ORDERED: SODIUM CHLORIDE 0.9% 1,000 ML IV PRN (20:10)
[2017-11-22] MEDS ORDERED: ACETAMINOPHEN 325 MG TABLET PO ONE (20:11)
[2017-11-22] MEDS ORDERED: diphenhydrAMINE 50 MG/1 ML VIAL IV ONE (20:11)
[2017-11-22] MEDS: LEVOFLOXACIN INJ 750 MG in PREMIX 1 EACH IV SCH (23:30)
[2017-11-23] MEDS: fentaNYL 100 MCG/2 ML VIAL IV PRN ×5 (05:29→23:45)
[2017-11-23] MEDS: DEXTROSE 5% NACL 0.9% 1,000 ML IV SCH ×3 (05:29→20:19)
[2017-11-23] MEDS ORDERED: methylPREDNISolone SOD SUC 125 MG/2 ML VIAL IV SCH (09:30)
[2017-11-23] MEDS ORDERED: diphenhydrAMINE 50 MG/1 ML VIAL IV SCH (09:30)
[2017-11-23] MEDS ORDERED: ACETAMINOPHEN 325 MG TABLET PO SCH (09:30)
[2017-11-23] MEDS: PANTOPRAZOLE 40 MG TABLET PO SCH (09:55)
[2017-11-23] MEDS: ONDANSETRON 4 MG/2 ML VIAL IV PRN ×2 (10:15→23:49)
[2017-11-23] MEDS: prednisoLONE ACETATE 1% OPH SUSP 5 ML BOTTLE RIGHT EYE SCH ×2 (11:41→20:19)
[2017-11-23] MEDS: LEVOFLOXACIN INJ 750 MG in PREMIX 1 EACH IV SCH (23:32)
[2017-11-24] MEDS: fentaNYL 100 MCG/2 ML VIAL IV PRN ×3 (02:11→10:42)
[2017-11-24 04:45] LABS: Basophils % 0.1 % (0.0-0.8); Hematocrit 26.8 VOL% (35.7-47.0); Hemoglobin 9.3 GM/DL (12.0-16.0); Immature Granulocytes % 0.4 %; Immature Granulocytes Absolute 0.04 #; Lymphocytes # 2.8 10*3/uL (1.4-4.0); Lymphocytes % 29.3 % (21.3-54.2); Mean Corpuscular HGB Conc 34.7 GM/DL (32-36); Mean Corpuscular Hemoglobin 34 PG (27-34); Mean Corpuscular Volume 99.3 FL (87-102); Mean Platelet Volume 11.8 FL (9.6-12.0); Monocytes # 1.5 10*3/uL (0.11-0.8); Monocytes % 15.3 % (1.7-12.7); Neutrophils # 5.3 10*3/uL (1.4-7.4); Neutrophils % 54.9 % (38.7-73.9); Platelet Count 196 T/CUMM (130-400); Red Cell Distribution Width 23.6 % (9.3-17.3); White Blood Count 9.7 T/CUMM (4-12)
[2017-11-24 05:23] LABS: Giant Platelets Few; Hypochromasia 1+; Lymphocytes 23 % (20-55); Macrocytosis Slight; Nucleated Red Blood Cells 14 (0-5); Platelet Estimate Adequate; Polychromasia Slight; Segmented Neutrophils 62 % (50-85); Sickle Cells 1+; Target Cells Few; Total Cells Counted 100
[2017-11-24] MEDS: DEXTROSE 5% NACL 0.9% 1,000 ML IV SCH ×5 (06:11→22:11)
[2017-11-24] MEDS: ONDANSETRON 4 MG/2 ML VIAL IV PRN (07:55)
[2017-11-24] MEDS: prednisoLONE ACETATE 1% OPH SUSP 5 ML BOTTLE RIGHT EYE SCH ×2 (09:09→22:07)
[2017-11-24] MEDS: PANTOPRAZOLE 40 MG TABLET PO SCH (09:09)
[2017-11-24] MEDS: IBUPROFEN 400 MG TABLET PO SCH ×2 (10:38→22:01)
[2017-11-24] MEDS: LEVOFLOXACIN INJ 750 MG in PREMIX 1 EACH IV SCH (22:10)
[2017-11-25] MEDS: ONDANSETRON 4 MG/2 ML VIAL IV PRN (01:27)
[2017-11-25 08:05] VITALS: BP 167/81
[2017-11-25] MEDS: IBUPROFEN 400 MG TABLET PO SCH (08:29)
[2017-11-25] MEDS: PANTOPRAZOLE 40 MG TABLET PO SCH (08:31)
[2017-11-25] MEDS: prednisoLONE ACETATE 1% OPH SUSP 5 ML BOTTLE RIGHT EYE SCH (08:31)
[2017-11-25] MEDS: fentaNYL 25 MCG/HR PATCH TRANSDERM SCH (08:31)
[2017-11-25] MEDS: DEXTROSE 5% NACL 0.9% 1,000 ML IV SCH ×2 (08:32→11:54)
[2017-11-25 10:10] LABS: Basophils % 0.4 % (0.0-0.8); Eosinophils # 0.1 10*3/uL (0.0-0.87); Eosinophils % 0.7 % (0.00-10.9); Hematocrit 26.6 VOL% (35.7-47.0); Hemoglobin 9.3 GM/DL (12.0-16.0); Immature Granulocytes % 0.5 %; Immature Granulocytes Absolute 0.05 #; Lymphocytes # 4.2 10*3/uL (1.4-4.0); Lymphocytes % 40.8 % (21.3-54.2); Mean Corpuscular Hemoglobin 35 PG (27-34); Mean Corpuscular Volume 100.8 FL (87-102); Mean Platelet Volume 12.2 FL (9.6-12.0); Monocytes # 1.3 10*3/uL (0.11-0.8); Monocytes % 12.4 % (1.7-12.7); Neutrophils # 4.7 10*3/uL (1.4-7.4); Neutrophils % 45.2 % (38.7-73.9); Platelet Count 172 T/CUMM (130-400); Red Blood Count 2.64 MC/CUMM (3.8-5.5); Red Cell Distribution Width 23.7 % (9.3-17.3); White Blood Count 10.4 T/CUMM (4-12)
[2017-11-25 10:27] LABS: Hypochromasia 1+; Macrocytosis 1+; Target Cells Slight
[2017-11-25 10:28] LABS: Anisocytosis 1+; Ovalocytes Few; Sickle Cells Few
[2017-11-25 10:29] LABS: Albumin 3.2 G/DL (3.4-5.0); Bilirubin,Total 5.3 MG/DL (0.2-1.0); Calcium 9.2 MG/DL (8.5-10.1); Howell-Jolly Bodies Slight; Osmolality,Calculated 282.1 MOS/KG (273-304); Pappenheimer Bodies Slight; Platelet Estimate Adequate; Potassium 3.9 MMOL/L (3.5-5.1); Total Protein 6.8 G/DL (6.4-8.3)
[2017-11-25] MEDS ORDERED: HEPARIN LOCK FLUSH 500 UNIT/5 ML SYRINGE IV ONE (12:20)
== END 2017-11-25 12:50 | disposition home or self-care (01) | DRG 812 ==
LOC: N.ED 15:54 → N.EDINP 19:35 → N.4E 21:51
PROVIDERS: ADMIT Specialist; ATTEND Specialist

== ENCOUNTER 2017-12-01 02:36 | Inpatient (IN) ==
[2017-12-01] MEDS ORDERED: SODIUM CHLORIDE 0.9% 1,000 ML IV STA (03:11)
[2017-12-01] MEDS ORDERED: ONDANSETRON 4 MG/2 ML VIAL IV STA (03:13)
[2017-12-01] MEDS ORDERED: fentaNYL 100 MCG/2 ML VIAL IV STA ×2 (03:13→04:52)
[2017-12-01] MEDS ORDERED: ONDANSETRON 4 MG/2 ML VIAL ONE (03:16)
[2017-12-01] MEDS ORDERED: fentaNYL 100 MCG/2 ML VIAL ONE ×2 (03:17→05:12)
[2017-12-01 03:38] LABS: Basophils % 0.2 % (0.0-0.8); Hematocrit 24.1 VOL% (35.7-47.0); Hemoglobin 8.4 GM/DL (12.0-16.0); Immature Granulocytes % 2.5 %; Immature Granulocytes Absolute 0.32 #; Lymphocytes # 3.1 10*3/uL (1.4-4.0); Mean Corpuscular HGB Conc 34.9 GM/DL (32-36); Mean Corpuscular Hemoglobin 35 PG (27-34); Mean Corpuscular Volume 99.2 FL (87-102); Mean Platelet Volume 11.4 FL (9.6-12.0); Monocytes # 2.2 10*3/uL (0.11-0.8); Monocytes % 17.1 % (1.7-12.7); NRBC # 0.47 10*3/uL; Neutrophils # 7.2 10*3/uL (1.4-7.4); Neutrophils % 56.2 % (38.7-73.9); Platelet Count 208 T/CUMM (130-400); Red Blood Count 2.43 MC/CUMM (3.8-5.5); Red Cell Distribution Width 22.2 % (9.3-17.3); White Blood Count 12.8 T/CUMM (4-12)
[2017-12-01 04:00] LABS: Albumin 3.5 G/DL (3.4-5.0); Bilirubin,Total 5.5 MG/DL (0.2-1.0); Calcium 9.3 MG/DL (8.5-10.1); Osmolality,Calculated 282.1 MOS/KG (273-304); Potassium 3.8 MMOL/L (3.5-5.1); Total Protein 7.2 G/DL (6.4-8.3)
[2017-12-01 04:05] LABS: Anisocytosis 1+; Band Neutrophils 1 % (0-10); Lymphocytes 34 % (20-55); Macrocytosis 3+; Nucleated Red Blood Cells 4 (0-5); Platelet Estimate Normal; Poikilocytosis 1+; Segmented Neutrophils 56 % (50-85); Sickle Cells 1+; Total Cells Counted 100
[2017-12-01] MEDS ORDERED: DIPH/TET/ACEL PERT BOOSTER VACCINE 0.5 ML VIAL IM ONE (05:47)
[2017-12-01] MEDS ORDERED: IBUPROFEN 800 MG TABLET ONE (06:00)
[2017-12-01] MEDS ORDERED: IBUPROFEN 800 MG TABLET PO ONE (06:03)
[2017-12-01] MEDS ORDERED: ENOXAPARIN 40 MG/0.4 ML SYRINGE ONE (06:15)
[2017-12-01] MEDS: ENOXAPARIN 40 MG/0.4 ML SYRINGE SUBCUT SCH (06:38)
[2017-12-01] MEDS ORDERED: KETOROLAC 30 MG/1 ML VIAL ONE (06:44)
[2017-12-01] MEDS: KETOROLAC 30 MG/1 ML VIAL IV PRN ×3 (06:48→21:38)
[2017-12-01] MEDS: SODIUM CHLORIDE 0.9% 1,000 ML IV SCH ×3 (06:49→23:26)
[2017-12-01] MEDS: PANTOPRAZOLE 40 MG TABLET PO SCH (09:18)
[2017-12-01] MEDS: predniSONE 20 MG TABLET PO SCH (09:18)
[2017-12-01] MEDS ORDERED: diphenhydrAMINE CAP 25 MG CAPSULE PO PRN (13:29)
[2017-12-01] MEDS ORDERED: ALUMINUM/MAGNES/SIMETH MAX STR 30 ML UDCUP PO PRN (13:30)
[2017-12-02] MEDS: KETOROLAC 30 MG/1 ML VIAL IV PRN ×3 (05:42→18:48)
[2017-12-02 06:30] LABS: Basophils % 0.2 % (0.0-0.8); Eosinophils % 0.2 % (0.00-10.9); Hematocrit 23.7 VOL% (35.7-47.0); Hemoglobin 8.1 GM/DL (12.0-16.0); Immature Granulocytes % 0.9 %; Immature Granulocytes Absolute 0.15 #; Lymphocytes % 43.4 % (21.3-54.2); Mean Corpuscular HGB Conc 34.2 GM/DL (32-36); Mean Corpuscular Hemoglobin 34 PG (27-34); Mean Corpuscular Volume 99.6 FL (87-102); Mean Platelet Volume 12.3 FL (9.6-12.0); Monocytes % 12.6 % (1.7-12.7); NRBC # 0.69 10*3/uL; Neutrophils # 6.9 10*3/uL (1.4-7.4); Neutrophils % 42.7 % (38.7-73.9); Platelet Count 199 T/CUMM (130-400); Red Blood Count 2.38 MC/CUMM (3.8-5.5); Red Cell Distribution Width 23.3 % (9.3-17.3); White Blood Count 16.2 T/CUMM (4-12)
[2017-12-02 06:48] LABS: Albumin 3.1 G/DL (3.4-5.0); Bilirubin,Total 5.2 MG/DL (0.2-1.0); Calcium 9.9 MG/DL (8.5-10.1); Osmolality,Calculated 283.8 MOS/KG (273-304); Total Protein 6.9 G/DL (6.4-8.3)
[2017-12-02] MEDS: SODIUM CHLORIDE 0.9% 1,000 ML IV SCH ×3 (07:40→18:35)
[2017-12-02 07:42] LABS: Lymphocytes 43 % (20-55); Nucleated Red Blood Cells 10 (0-5); Platelet Estimate Adequate; Segmented Neutrophils 45 % (50-85); Sickle Cells 1+; Target Cells Slight; Total Cells Counted 100
[2017-12-02] MEDS: PANTOPRAZOLE 40 MG TABLET PO SCH (08:28)
[2017-12-02] MEDS: predniSONE 20 MG TABLET PO SCH (08:28)
[2017-12-02] MEDS: ENOXAPARIN 40 MG/0.4 ML SYRINGE SUBCUT SCH (08:28)
[2017-12-02] MEDS ORDERED: MAGNESIUM HYDROXIDE SUSP 30 ML UDCUP PO PRN (12:41)
[2017-12-03] MEDS: KETOROLAC 30 MG/1 ML VIAL IV PRN ×2 (01:42→09:29)
[2017-12-03] MEDS: SODIUM CHLORIDE 0.9% 1,000 ML IV SCH ×5 (01:47→19:41)
[2017-12-03 07:13] LABS: Basophils % 0.2 % (0.0-0.8); Eosinophils # 0.1 10*3/uL (0.0-0.87); Eosinophils % 0.4 % (0.00-10.9); Hematocrit 24.7 VOL% (35.7-47.0); Hemoglobin 8.4 GM/DL (12.0-16.0); Immature Granulocytes % 0.7 %; Immature Granulocytes Absolute 0.11 #; Lymphocytes # 6.9 10*3/uL (1.4-4.0); Lymphocytes % 41.5 % (21.3-54.2); Mean Corpuscular Hemoglobin 34 PG (27-34); Mean Platelet Volume 12.2 FL (9.6-12.0); Monocytes # 2.2 10*3/uL (0.11-0.8); Monocytes % 13.1 % (1.7-12.7); Neutrophils # 7.4 10*3/uL (1.4-7.4); Neutrophils % 44.1 % (38.7-73.9); Platelet Count 225 T/CUMM (130-400); Red Blood Count 2.47 MC/CUMM (3.8-5.5); Red Cell Distribution Width 22.9 % (9.3-17.3); White Blood Count 16.6 T/CUMM (4-12)
[2017-12-03 07:39] LABS: Anisocytosis 1+; Macrocytosis 2+
[2017-12-03 07:40] LABS: Poikilocytosis Few; Sickle Cells Few
[2017-12-03] MEDS: PANTOPRAZOLE 40 MG TABLET PO SCH (08:55)
[2017-12-03] MEDS: predniSONE 20 MG TABLET PO SCH (08:56)
[2017-12-03] MEDS: ENOXAPARIN 40 MG/0.4 ML SYRINGE SUBCUT SCH (08:56)
[2017-12-03] MEDS: fentaNYL 25 MCG/HR PATCH TRANSDERM SCH (12:38)
[2017-12-03] MEDS ORDERED: KETOROLAC 15 MG/1 ML VIAL IV ONE (13:06)
[2017-12-03] MEDS ORDERED: SODIUM CHLORIDE 0.9% 1,000 ML IV PRN (13:26)
[2017-12-03] MEDS ORDERED: fentaNYL 100 MCG/2 ML VIAL IV PRN (13:27)
[2017-12-03] MEDS: ONDANSETRON 4 MG/2 ML VIAL IV PRN (13:54)
[2017-12-03] MEDS: fentaNYL 100 MCG/2 ML VIAL IV PRN ×2 (16:01→21:24)
[2017-12-03] MEDS ORDERED: methylPREDNISolone SOD SUC 125 MG/2 ML VIAL IV ONE (21:30)
[2017-12-03] MEDS ORDERED: diphenhydrAMINE 50 MG/1 ML VIAL IV ONE (21:30)
[2017-12-03] MEDS ORDERED: ACETAMINOPHEN 500 MG TABLET PO ONE (21:30)
[2017-12-04] MEDS: SODIUM CHLORIDE 0.9% 1,000 ML IV SCH ×3 (00:22→20:34)
[2017-12-04] MEDS: fentaNYL 100 MCG/2 ML VIAL IV PRN ×3 (03:35→15:49)
[2017-12-04 05:05] LABS: Basophils % 0.1 % (0.0-0.8); Hematocrit 30.6 VOL% (35.7-47.0); Immature Granulocytes % 0.5 %; Immature Granulocytes Absolute 0.04 #; Lymphocytes # 1.1 10*3/uL (1.4-4.0); Lymphocytes % 13.7 % (21.3-54.2); Mean Corpuscular HGB Conc 35.9 GM/DL (32-36); Mean Corpuscular Hemoglobin 33 PG (27-34); Mean Corpuscular Volume 92.7 FL (87-102); Mean Platelet Volume 11.3 FL (9.6-12.0); Monocytes # 0.1 10*3/uL (0.11-0.8); Monocytes % 1.5 % (1.7-12.7); Neutrophils # 6.5 10*3/uL (1.4-7.4); Neutrophils % 84.2 % (38.7-73.9); Platelet Count 203 T/CUMM (130-400); Red Cell Distribution Width 23.7 % (9.3-17.3)
[2017-12-04 05:23] LABS: White Blood Count 7.8 T/CUMM (4-12)
[2017-12-04 05:29] LABS: Elliptocytes Few; Giant Platelets Few; Hypochromasia 1+; Lymphocytes 19 % (20-55); Nucleated Red Blood Cells 13 (0-5); Platelet Estimate Adequate; Segmented Neutrophils 81 % (50-85); Total Cells Counted 100
[2017-12-04 05:30] LABS: Macrocytosis Slight; Polychromasia Slight; Sickle Cells Few
[2017-12-04] MEDS: PANTOPRAZOLE 40 MG TABLET PO SCH (09:08)
[2017-12-04] MEDS: ENOXAPARIN 40 MG/0.4 ML SYRINGE SUBCUT SCH (09:08)
[2017-12-04] MEDS: ONDANSETRON 4 MG/2 ML VIAL IV PRN ×2 (09:26→15:50)
[2017-12-04 16:47] LABS: Albumin 3.3 G/DL (3.4-5.0); Bilirubin,Total 5.5 MG/DL (0.2-1.0); Calcium 10.2 MG/DL (8.5-10.1); Osmolality,Calculated 281.3 MOS/KG (273-304)
[2017-12-05] MEDS: fentaNYL 100 MCG/2 ML VIAL IV PRN ×3 (01:18→18:04)
[2017-12-05] MEDS: ONDANSETRON 4 MG/2 ML VIAL IV PRN ×3 (01:20→18:05)
[2017-12-05 03:57] LABS: Basophils % 0.2 % (0.0-0.8); Eosinophils % 0.2 % (0.00-10.9); Hemoglobin 9.7 GM/DL (12.0-16.0); Immature Granulocytes % 0.4 %; Immature Granulocytes Absolute 0.05 #; Lymphocytes % 40.4 % (21.3-54.2); Mean Corpuscular HGB Conc 34.6 GM/DL (32-36); Mean Corpuscular Hemoglobin 33 PG (27-34); Mean Corpuscular Volume 95.6 FL (87-102); Mean Platelet Volume 11.5 FL (9.6-12.0); Monocytes # 1.5 10*3/uL (0.11-0.8); Monocytes % 12.2 % (1.7-12.7); NRBC # 0.96 10*3/uL; Neutrophils # 5.7 10*3/uL (1.4-7.4); Neutrophils % 46.6 % (38.7-73.9); Platelet Count 161 T/CUMM (130-400); Red Blood Count 2.93 MC/CUMM (3.8-5.5); Red Cell Distribution Width 24.4 % (9.3-17.3); White Blood Count 12.3 T/CUMM (4-12)
[2017-12-05 04:24] LABS: Sickle Cells Few
[2017-12-05 04:25] LABS: Anisocytosis 1+; Macrocytosis 2+; Platelet Estimate Normal
[2017-12-05] MEDS: SODIUM CHLORIDE 0.9% 1,000 ML IV SCH ×2 (06:38→14:05)
[2017-12-05] MEDS: ENOXAPARIN 40 MG/0.4 ML SYRINGE SUBCUT SCH (09:17)
[2017-12-05] MEDS: PANTOPRAZOLE 40 MG TABLET PO SCH (09:17)
[2017-12-06] MEDS: fentaNYL 100 MCG/2 ML VIAL IV PRN ×2 (00:19→04:39)
[2017-12-06] MEDS: ONDANSETRON 4 MG/2 ML VIAL IV PRN (00:21)
[2017-12-06] MEDS: SODIUM CHLORIDE 0.9% 1,000 ML IV SCH ×2 (00:22→07:19)
[2017-12-06 05:15] LABS: Basophils % 0.2 % (0.0-0.8); Eosinophils # 0.1 10*3/uL (0.0-0.87); Eosinophils % 0.7 % (0.00-10.9); Hematocrit 29.5 VOL% (35.7-47.0); Hemoglobin 10.5 GM/DL (12.0-16.0); Immature Granulocytes % 0.6 %; Immature Granulocytes Absolute 0.07 #; Lymphocytes # 3.2 10*3/uL (1.4-4.0); Lymphocytes % 28.2 % (21.3-54.2); Mean Corpuscular HGB Conc 35.6 GM/DL (32-36); Mean Corpuscular Hemoglobin 34 PG (27-34); Mean Corpuscular Volume 94.6 FL (87-102); Mean Platelet Volume 12.1 FL (9.6-12.0); Monocytes # 1.5 10*3/uL (0.11-0.8); Monocytes % 12.9 % (1.7-12.7); NRBC # 0.75 10*3/uL; Neutrophils # 6.6 10*3/uL (1.4-7.4); Neutrophils % 57.4 % (38.7-73.9); Platelet Count 170 T/CUMM (130-400); Red Blood Count 3.12 MC/CUMM (3.8-5.5); Red Cell Distribution Width 24.4 % (9.3-17.3); White Blood Count 11.5 T/CUMM (4-12)
[2017-12-06 05:44] LABS: Hypochromasia 1+; Lymphocytes 35 % (20-55); Nucleated Red Blood Cells 7 (0-5); Segmented Neutrophils 55 % (50-85); Total Cells Counted 100
[2017-12-06 05:45] LABS: Macrocytosis 1+; Sickle Cells Few; Target Cells Slight
[2017-12-06 05:46] LABS: Howell-Jolly Bodies Slight; Pappenheimer Bodies Few; Platelet Estimate Adequate
[2017-12-06 05:50] LABS: Calcium 9.6 MG/DL (8.5-10.1); Osmolality,Calculated 279.3 MOS/KG (273-304); Potassium 3.9 MMOL/L (3.5-5.1)
[2017-12-06] MEDS: ENOXAPARIN 40 MG/0.4 ML SYRINGE SUBCUT SCH (09:19)
[2017-12-06] MEDS: fentaNYL 25 MCG/HR PATCH TRANSDERM SCH (09:19)
[2017-12-06] MEDS: PANTOPRAZOLE 40 MG TABLET PO SCH (09:19)
[2017-12-06 11:26] VITALS: BP 174/85
[2017-12-06] MEDS ORDERED: amLODIPine 5 MG TABLET PO SCH (13:30)
[2017-12-06] MEDS ORDERED: HEPARIN LOCK FLUSH 500 UNIT/5 ML SYRINGE IV ONE ×2 (13:40→13:48)
== END 2017-12-06 14:00 | disposition home or self-care (01) | DRG 812 ==
LOC: EDBD → EDUNIT# → N.ED 02:36 → SUATTDRO 05:55 → N.EDINP 05:55 → N.5E 06:13 → N.4E 12-03 13:34
PROVIDERS: ADMIT Internal Medicine Nephrology; ATTEND Internal Medicine

== ENCOUNTER 2018-04-05 10:23 | Inpatient (IN) ==
[2018-04-05] MEDS ORDERED: ENOXAPARIN 100 MG/ML SYRINGE SUBCUT STA (11:26)
[2018-04-05] MEDS ORDERED: ASPIRIN 325 MG TABLET PO STA (11:26)
[2018-04-05] MEDS ORDERED: SODIUM CHLORIDE 0.9% 1,000 ML IV STA (11:26)
[2018-04-05] MEDS ORDERED: NITROGLYCERIN SL 0.4 MG TABLET SL PRN (11:26)
[2018-04-05 12:09] LABS: Basophils % 0.3 % (0.0-0.8); Eosinophils # 0.1 10*3/uL (0.0-0.87); Eosinophils % 0.7 % (0.00-10.9); Hemoglobin 8.2 GM/DL (12.0-16.0); Immature Granulocytes % 0.6 %; Immature Granulocytes Absolute 0.07 #; Lymphocytes % 32.2 % (21.3-54.2); Mean Corpuscular HGB Conc 34.2 GM/DL (32-36); Mean Corpuscular Hemoglobin 32 PG (27-34); Mean Corpuscular Volume 94.9 FL (87-102); Mean Platelet Volume 11.6 FL (9.6-12.0); Monocytes # 1.7 10*3/uL (0.11-0.8); Monocytes % 13.7 % (1.7-12.7); NRBC # 0.68 10*3/uL; Neutrophils # 6.5 10*3/uL (1.4-7.4); Neutrophils % 52.5 % (38.7-73.9); Platelet Count 236 T/CUMM (130-400); Red Blood Count 2.53 MC/CUMM (3.8-5.5); Red Cell Distribution Width 27.1 % (9.3-17.3); White Blood Count 12.3 T/CUMM (4-12)
[2018-04-05 12:29] LABS: Albumin 3.6 G/DL (3.4-5.0); Bilirubin,Total 6.2 MG/DL (0.2-1.0); Calcium 9.8 MG/DL (8.5-10.1); Potassium 3.8 MMOL/L (3.5-5.1)
[2018-04-05 12:42] LABS: Hypochromasia 2+; Microcytosis 2+; Pappenheimer Bodies Few; Polychromasia Slight; Sickle Cells 2+; Target Cells Slight
[2018-04-05] MEDS ORDERED: SODIUM CHLORIDE 0.9% 1,000 ML IV PRN (12:45)
[2018-04-05] MEDS ORDERED: fentaNYL 100 MCG/2 ML VIAL IV STA (12:49)
[2018-04-05] MEDS ORDERED: ONDANSETRON 4 MG/2 ML VIAL ONE (13:02)
[2018-04-05] MEDS ORDERED: ONDANSETRON 4 MG/2 ML VIAL IV STA (13:03)
[2018-04-05] MEDS ORDERED: ACETAMINOPHEN 325 MG TABLET PO PRN (14:00)
[2018-04-05] MEDS: SODIUM CHLORIDE 0.9% 1,000 ML IV SCH (17:08)
[2018-04-05] MEDS: OFLOXACIN 0.3% OPH SOLN 10 ML BOTTLE RIGHT EYE SCH (19:41)
[2018-04-05] MEDS: DIFLUPREDNATE 0.05% OPH EMUL 5 ML BOTTLE RIGHT EYE SCH ×2 (19:41→21:55)
[2018-04-05 20:09] LABS: Apearance,Urine CLEAR (Clear); Bilirubin,Urine Negative (Negative); Blood, Urine Moderate mg/dL (Negative); Glucose,Urine (UA) Negative (Negative); Ketones,Urine Negative (Negative); Nitrite,Urine Negative (Negative); Protein,Urine 30 MG/DL; Squamous Epithelial Cell,Urine Occasional /HPF (0-10); Urine Color Yellow (Yellow); Urine Specific Gravity 1.005 (1.001-1.035); WBC,Urine 13 /HPF (0-6)
[2018-04-05 20:11] LABS: Bacteria,Urine Occasional /HPF (Few)
[2018-04-05] MEDS: fentaNYL 100 MCG/2 ML VIAL IV PRN (22:02)
[2018-04-06] MEDS: OFLOXACIN 0.3% OPH SOLN 10 ML BOTTLE RIGHT EYE SCH ×5 (01:29→20:27)
[2018-04-06] MEDS: ONDANSETRON 4 MG/2 ML VIAL IV PRN ×2 (03:36→16:20)
[2018-04-06] MEDS: SODIUM CHLORIDE 0.9% 1,000 ML IV SCH ×2 (06:25→23:01)
[2018-04-06] MEDS: fentaNYL 100 MCG/2 ML VIAL IV PRN ×3 (06:25→20:23)
[2018-04-06 06:44] LABS: Basophils # 0.1 10*3/uL (0.0-0.2); Basophils % 0.4 % (0.0-0.8); Eosinophils # 0.1 10*3/uL (0.0-0.87); Eosinophils % 0.7 % (0.00-10.9); Hematocrit 22.8 VOL% (35.7-47.0); Hemoglobin 7.9 GM/DL (12.0-16.0); Immature Granulocytes % 0.4 %; Immature Granulocytes Absolute 0.06 #; Lymphocytes # 3.7 10*3/uL (1.4-4.0); Lymphocytes % 26.8 % (21.3-54.2); Mean Corpuscular HGB Conc 34.6 GM/DL (32-36); Mean Corpuscular Hemoglobin 33 PG (27-34); Mean Corpuscular Volume 96.2 FL (87-102); Mean Platelet Volume 12.1 FL (9.6-12.0); Monocytes # 1.9 10*3/uL (0.11-0.8); Monocytes % 13.8 % (1.7-12.7); NRBC # 0.74 10*3/uL; Neutrophils # 7.9 10*3/uL (1.4-7.4); Neutrophils % 57.9 % (38.7-73.9); Platelet Count 205 T/CUMM (130-400); Red Blood Count 2.37 MC/CUMM (3.8-5.5); Red Cell Distribution Width 26.9 % (9.3-17.3); White Blood Count 13.6 T/CUMM (4-12)
[2018-04-06 06:47] LABS: Calcium 9.3 MG/DL (8.5-10.1); Potassium 3.6 MMOL/L (3.5-5.1)
[2018-04-06 06:56] LABS: Bilirubin,Direct 1.63 MG/DL (0.0-0.20); Bilirubin,Indirect 6.3 MG/DL (0.0-1.0); Bilirubin,Total 7.9 MG/DL (0.2-1.0); Total Protein 7.5 G/DL (6.4-8.3)
[2018-04-06 07:10] LABS: Anisocytosis 1+; Elliptocytes Few; Macrocytosis 2+; Poikilocytosis 1+; Sickle Cells Few
[2018-04-06 07:11] LABS: Platelet Estimate Normal
[2018-04-06] MEDS: PANTOPRAZOLE 40 MG TABLET PO SCH (08:57)
[2018-04-06] MEDS: DIFLUPREDNATE 0.05% OPH EMUL 5 ML BOTTLE RIGHT EYE SCH ×4 (08:58→20:27)
[2018-04-06] MEDS ORDERED: fentaNYL 25 MCG/HR PATCH TRANSDERM SCH (09:00)
[2018-04-06] MEDS ORDERED: diphenhydrAMINE CAP 25 MG CAPSULE PO ONE (10:29)
[2018-04-06] MEDS ORDERED: methylPREDNISolone SOD SUC 125 MG/2 ML VIAL IV ONE (10:32)
[2018-04-06] MEDS ORDERED: methylPREDNISolone SOD SUC 125 MG/2 ML VIAL ONE (10:47)
[2018-04-06] MEDS ORDERED: diphenhydrAMINE CAP 50 MG CAPSULE ONE (10:47)
[2018-04-06] MEDS ORDERED: diphenhydrAMINE CAP 25 MG CAPSULE ONE (11:03)
[2018-04-06] MEDS ORDERED: MAGNESIUM HYDROXIDE SUSP 30 ML UDCUP PO PRN (21:27)
[2018-04-07] MEDS ORDERED: hydrALAZINE 20 MG/1 ML VIAL IV PRN (02:45)
[2018-04-07 07:09] LABS: Basophils % 0.1 % (0.0-0.8); Hematocrit 27.4 VOL% (35.7-47.0); Hemoglobin 9.5 GM/DL (12.0-16.0); Immature Granulocytes % 0.3 %; Immature Granulocytes Absolute 0.03 #; Lymphocytes % 24.9 % (21.3-54.2); Mean Corpuscular HGB Conc 34.7 GM/DL (32-36); Mean Corpuscular Hemoglobin 33 PG (27-34); Mean Corpuscular Volume 93.8 FL (87-102); Mean Platelet Volume 11.5 FL (9.6-12.0); Monocytes # 1.8 10*3/uL (0.11-0.8); Monocytes % 15.5 % (1.7-12.7); Neutrophils % 59.2 % (38.7-73.9); Platelet Count 199 T/CUMM (130-400); Red Blood Count 2.92 MC/CUMM (3.8-5.5); Red Cell Distribution Width 25.1 % (9.3-17.3); White Blood Count 11.9 T/CUMM (4-12)
[2018-04-07 07:26] LABS: Calcium 9.7 MG/DL (8.5-10.1); Osmolality,Calculated 279.3 MOS/KG (273-304); Potassium 3.5 MMOL/L (3.5-5.1)
[2018-04-07 07:28] LABS: Albumin 3.3 G/DL (3.4-5.0); Bilirubin,Direct 1.43 MG/DL (0.0-0.20); Bilirubin,Indirect 4.2 MG/DL (0.0-1.0); Bilirubin,Total 5.6 MG/DL (0.2-1.0); Total Protein 7.8 G/DL (6.4-8.3)
[2018-04-07 07:57] LABS: Hypochromasia 2+; Macrocytosis 2+; Pappenheimer Bodies Few; Polychromasia Slight; Sickle Cells 1+; Target Cells Slight
[2018-04-07] MEDS ORDERED: cefTRIAXone 1,000 MG in SYRINGE 1 EACH IV SCH (09:00)
[2018-04-07] MEDS: OFLOXACIN 0.3% OPH SOLN 10 ML BOTTLE RIGHT EYE SCH (09:27)
[2018-04-07] MEDS: DIFLUPREDNATE 0.05% OPH EMUL 5 ML BOTTLE RIGHT EYE SCH (09:27)
[2018-04-07] MEDS: PANTOPRAZOLE 40 MG TABLET PO SCH (09:27)
[2018-04-07] MEDS: ONDANSETRON 4 MG/2 ML VIAL IV PRN (11:08)
[2018-04-07] MEDS: fentaNYL 100 MCG/2 ML VIAL IV PRN (11:11)
[2018-04-07 13:05] VITALS: BP 170/79
[2018-04-07] MEDS ORDERED: HEPARIN LOCK FLUSH 500 UNIT/5 ML SYRINGE IV ONE (14:05)
== END 2018-04-07 14:18 | disposition home or self-care (01) | DRG 812 ==
LOC: N.ED 10:23 → SUATTDRO 13:51 → N.EDINP 13:51 → N.4E 14:46
PROVIDERS: ADMIT Internal Medicine; ATTEND Phlebology

== ENCOUNTER 2018-04-20 08:49 | Inpatient (IN) ==
[2018-04-20] MEDS ORDERED: guaiFENesin 200 MG/10 ML UDCUP PO PRN (11:30)
[2018-04-20] MEDS ORDERED: traMADol 50 MG TABLET PO PRN (11:30)
[2018-04-20] MEDS ORDERED: MAGNESIUM HYDROXIDE SUSP 30 ML UDCUP PO PRN (11:30)
[2018-04-20] MEDS ORDERED: PROMETHAZINE INJ 25 MG in SODIUM CHLORIDE 0.9% 50 ML IV PRN (11:30)
[2018-04-20] MEDS ORDERED: chlorproMAZINE INJ 25 MG in SODIUM CHLORIDE 0.9% 100 ML IV PRN (11:30)
[2018-04-20] MEDS ORDERED: ONDANSETRON 4 MG/2 ML VIAL IV PRN (11:30)
[2018-04-20] MEDS ORDERED: BENZTROPINE 2 MG/2 ML AMP IV PRN (11:30)
[2018-04-20] MEDS ORDERED: ALPRAZolam 0.25 MG TABLET PO PRN (11:30)
[2018-04-20] MEDS ORDERED: LACTULOSE 20 GM/30 ML UDCUP PO PRN (11:30)
[2018-04-20] MEDS ORDERED: MYLANTA/LIDO VISC 2:1 300 ML BOTTLE SWISH/SPIT PRN (11:30)
[2018-04-20] MEDS ORDERED: ALUMINUM/MAGNES/SIMETH MAX STR 30 ML UDCUP PO PRN (11:30)
[2018-04-20] MEDS ORDERED: diphenhydrAMINE CAP 25 MG CAPSULE PO PRN (11:30)
[2018-04-20] MEDS ORDERED: TEMAZEPAM 7.5 MG CAPSULE PO PRN (11:30)
[2018-04-20] MEDS ORDERED: chlorproMAZINE 25 MG TABLET PO PRN (11:30)
[2018-04-20] MEDS ORDERED: ACETAMINOPHEN 325 MG TABLET PO PRN (11:30)
[2018-04-20] MEDS ORDERED: chlorproMAZINE INJ 50 MG in SODIUM CHLORIDE 0.9% 100 ML IV PRN (11:30)
[2018-04-20] MEDS ORDERED: LOPERAMIDE 2 MG CAPSULE PO PRN ×2 (11:30)
[2018-04-20] MEDS ORDERED: MYLANTA/LIDO VISC 2:1 300 ML BOTTLE SWISH/SWAL PRN (11:30)
[2018-04-20] MEDS ORDERED: fentaNYL 100 MCG/2 ML VIAL IV PRN (14:37)
[2018-04-20] MEDS: SODIUM BICARB INJ 50 MEQ in DEXTROSE 5% NACL 0.45% 1,000 ML IV SCH (20:43)
[2018-04-21] MEDS: SODIUM BICARB INJ 50 MEQ in DEXTROSE 5% NACL 0.45% 1,000 ML IV SCH (03:26)
[2018-04-21] MEDS ORDERED: HEPARIN LOCK FLUSH 500 UNIT/5 ML SYRINGE IV ONE (11:39)
[2018-04-21 13:41] VITALS: BP 155/75
== END 2018-04-21 13:42 | disposition home or self-care (01) | DRG 812 ==
LOC: N.4E 11:49
PROVIDERS: ADMIT Specialist; ATTEND Specialist

== ENCOUNTER 2018-06-11 09:26 | Inpatient (IN) ==
[2018-06-11] MEDS ORDERED: SODIUM CHLORIDE 0.9% 1,000 ML IV STA (10:28)
[2018-06-11] MEDS ORDERED: KETOROLAC 30 MG/1 ML VIAL IV STA (10:28)
[2018-06-11 10:36] LABS: Basophils # 0.1 10*3/uL (0.0-0.2); Basophils % 0.6 % (0.0-0.8); Eosinophils # 0.1 10*3/uL (0.0-0.87); Eosinophils % 1.1 % (0.00-10.9); Hemoglobin 8.7 GM/DL (12.0-16.0); Immature Granulocytes % 0.6 %; Immature Granulocytes Absolute 0.05 #; Lymphocytes % 33.4 % (21.3-54.2); Mean Corpuscular HGB Conc 34.8 GM/DL (32-36); Mean Corpuscular Hemoglobin 33 PG (27-34); Mean Corpuscular Volume 95.4 FL (87-102); Mean Platelet Volume 11.4 FL (9.6-12.0); Monocytes # 1.5 10*3/uL (0.11-0.8); Monocytes % 17.2 % (1.7-12.7); NRBC # 0.33 10*3/uL; Neutrophils # 4.2 10*3/uL (1.4-7.4); Neutrophils % 47.1 % (38.7-73.9); Platelet Count 241 T/CUMM (130-400); Red Blood Count 2.62 MC/CUMM (3.8-5.5); Red Cell Distribution Width 22.5 % (9.3-17.3); White Blood Count 8.8 T/CUMM (4-12)
[2018-06-11 10:59] LABS: Eosinophils 2 % (0-10); Hypochromasia 1+; Lymphocytes 33 % (20-55); Nucleated Red Blood Cells 3 (0-5); Platelet Estimate Adequate; Segmented Neutrophils 56 % (50-85); Target Cells Few; Total Cells Counted 100
[2018-06-11 10:59] LABS: Albumin 3.7 G/DL (3.4-5.0); Bilirubin,Total 5.5 MG/DL (0.2-1.0); Calcium 10.4 MG/DL (8.5-10.1); Osmolality,Calculated 280.1 MOS/KG (273-304); Potassium 4.3 MMOL/L (3.5-5.1); Total Protein 8.6 G/DL (6.4-8.3)
[2018-06-11 11:00] LABS: Microcytosis Slight; Sickle Cells Slight
[2018-06-11] MEDS ORDERED: ONDANSETRON 4 MG/2 ML VIAL IV STA (11:26)
[2018-06-11] MEDS ORDERED: fentaNYL 100 MCG/2 ML VIAL IV STA (11:26)
[2018-06-11] MEDS ORDERED: SODIUM CHLORIDE 0.9% 1,000 ML IV PRN (11:29)
[2018-06-11] MEDS ORDERED: LOPERAMIDE 2 MG CAPSULE PO PRN ×2 (12:30)
[2018-06-11] MEDS ORDERED: ALUMINUM/MAGNES/SIMETH MAX STR 30 ML UDCUP PO PRN (12:30)
[2018-06-11] MEDS ORDERED: chlorproMAZINE INJ 50 MG in SODIUM CHLORIDE 0.9% 100 ML IV PRN (12:30)
[2018-06-11] MEDS ORDERED: ACETAMINOPHEN 325 MG TABLET PO PRN (12:30)
[2018-06-11] MEDS ORDERED: PROMETHAZINE INJ 25 MG in SODIUM CHLORIDE 0.9% 50 ML IV PRN (12:30)
[2018-06-11] MEDS ORDERED: TEMAZEPAM 7.5 MG CAPSULE PO PRN (12:30)
[2018-06-11] MEDS ORDERED: BENZTROPINE 2 MG/2 ML AMP IV PRN (12:30)
[2018-06-11] MEDS ORDERED: LACTULOSE 20 GM/30 ML UDCUP PO PRN (12:30)
[2018-06-11] MEDS ORDERED: chlorproMAZINE INJ 25 MG in SODIUM CHLORIDE 0.9% 100 ML IV PRN (12:30)
[2018-06-11] MEDS ORDERED: MYLANTA/LIDO VISC 2:1 300 ML BOTTLE SWISH/SWAL PRN (12:30)
[2018-06-11] MEDS ORDERED: guaiFENesin 200 MG/10 ML UDCUP PO PRN (12:30)
[2018-06-11] MEDS ORDERED: MYLANTA/LIDO VISC 2:1 300 ML BOTTLE SWISH/SPIT PRN (12:30)
[2018-06-11] MEDS ORDERED: ALPRAZolam 0.25 MG TABLET PO PRN (12:30)
[2018-06-11] MEDS ORDERED: chlorproMAZINE 25 MG TABLET PO PRN (12:30)
[2018-06-11] MEDS ORDERED: MAGNESIUM HYDROXIDE SUSP 30 ML UDCUP PO PRN (12:30)
[2018-06-11] MEDS ORDERED: diphenhydrAMINE CAP 50 MG CAPSULE PO ONE (17:19)
[2018-06-11] MEDS ORDERED: methylPREDNISolone SOD SUC 125 MG/2 ML VIAL IV ONE (17:21)
[2018-06-11] MEDS ORDERED: ACETAMINOPHEN 325 MG TABLET PO ONE (17:21)
[2018-06-11] MEDS: fentaNYL 100 MCG/2 ML VIAL IV PRN ×2 (17:31→21:34)
[2018-06-11] MEDS: SODIUM CHLORIDE 0.9% 1,000 ML IV SCH (17:33)
[2018-06-11] MEDS: SODIUM BICARB INJ 50 MEQ in DEXTROSE 5% 1,000 ML IV SCH (21:41)
[2018-06-12] MEDS: SODIUM CHLORIDE 0.9% 1,000 ML IV SCH ×2 (04:43→15:17)
[2018-06-12] MEDS: ONDANSETRON 4 MG/2 ML VIAL IV PRN ×2 (05:03→15:15)
[2018-06-12] MEDS: fentaNYL 100 MCG/2 ML VIAL IV PRN ×3 (05:04→21:16)
[2018-06-12 05:15] LABS: Basophils % 0.2 % (0.0-0.8); Hematocrit 30.5 VOL% (35.7-47.0); Hemoglobin 10.2 GM/DL (12.0-16.0); Immature Granulocytes % 0.8 %; Immature Granulocytes Absolute 0.05 #; Lymphocytes # 1.4 10*3/uL (1.4-4.0); Lymphocytes % 23.1 % (21.3-54.2); Mean Corpuscular HGB Conc 33.4 GM/DL (32-36); Mean Corpuscular Hemoglobin 31 PG (27-34); Mean Corpuscular Volume 93.3 FL (87-102); Mean Platelet Volume 11.7 FL (9.6-12.0); Monocytes # 0.2 10*3/uL (0.11-0.8); Monocytes % 2.7 % (1.7-12.7); NRBC # 0.25 10*3/uL; Neutrophils # 4.6 10*3/uL (1.4-7.4); Neutrophils % 73.2 % (38.7-73.9); Platelet Count 239 T/CUMM (130-400); Red Blood Count 3.27 MC/CUMM (3.8-5.5); Red Cell Distribution Width 21.8 % (9.3-17.3); White Blood Count 6.2 T/CUMM (4-12)
[2018-06-12 05:53] LABS: Albumin 3.4 G/DL (3.4-5.0); Bilirubin,Total 4.6 MG/DL (0.2-1.0); Calcium 9.9 MG/DL (8.5-10.1); Osmolality,Calculated 281.4 MOS/KG (273-304); Potassium 4.5 MMOL/L (3.5-5.1); Total Protein 8.6 G/DL (6.4-8.3)
[2018-06-12] MEDS: SODIUM BICARB INJ 50 MEQ in DEXTROSE 5% 1,000 ML IV SCH ×2 (09:11→17:45)
[2018-06-13] MEDS: SODIUM BICARB INJ 50 MEQ in DEXTROSE 5% 1,000 ML IV SCH ×3 (02:02→16:14)
[2018-06-13] MEDS: fentaNYL 100 MCG/2 ML VIAL IV PRN ×5 (05:00→20:27)
[2018-06-13] MEDS: SODIUM CHLORIDE 0.9% 1,000 ML IV SCH ×2 (05:05→17:19)
[2018-06-13 05:38] LABS: Basophils % 0.3 % (0.0-0.8); Eosinophils % 0.3 % (0.00-10.9); Hematocrit 27.2 VOL% (35.7-47.0); Hemoglobin 9.1 GM/DL (12.0-16.0); Immature Granulocytes % 0.4 %; Immature Granulocytes Absolute 0.05 #; Lymphocytes # 5.3 10*3/uL (1.4-4.0); Lymphocytes % 40.4 % (21.3-54.2); Mean Corpuscular HGB Conc 33.5 GM/DL (32-36); Mean Corpuscular Hemoglobin 32 PG (27-34); Mean Corpuscular Volume 94.4 FL (87-102); Monocytes # 1.7 10*3/uL (0.11-0.8); Monocytes % 13.3 % (1.7-12.7); NRBC # 0.27 10*3/uL; Neutrophils % 45.3 % (38.7-73.9); Platelet Count 207 T/CUMM (130-400); Red Blood Count 2.88 MC/CUMM (3.8-5.5); Red Cell Distribution Width 23.2 % (9.3-17.3); White Blood Count 13.1 T/CUMM (4-12)
[2018-06-13 05:59] LABS: Elliptocytes Few; Hypochromasia 1+; Macrocytosis Slight; Polychromasia Slight; Target Cells Few
[2018-06-13 06:00] LABS: Sickle Cells Slight
[2018-06-13 06:06] LABS: Bilirubin,Total 5.4 MG/DL (0.2-1.0); Calcium 9.7 MG/DL (8.5-10.1); Osmolality,Calculated 282.1 MOS/KG (273-304); Potassium 3.9 MMOL/L (3.5-5.1); Total Protein 7.7 G/DL (6.4-8.3)
[2018-06-13] MEDS ORDERED: CETIRIZINE 10 MG TABLET PO PRN (08:25)
[2018-06-13] MEDS: diphenhydrAMINE CAP 25 MG CAPSULE PO PRN (20:32)
[2018-06-14] MEDS: fentaNYL 100 MCG/2 ML VIAL IV PRN ×5 (04:28→21:02)
[2018-06-14 06:02] LABS: Basophils # 0.1 10*3/uL (0.0-0.2); Basophils % 0.4 % (0.0-0.8); Eosinophils # 0.1 10*3/uL (0.0-0.87); Eosinophils % 0.9 % (0.00-10.9); Hematocrit 28.2 VOL% (35.7-47.0); Hemoglobin 9.7 GM/DL (12.0-16.0); Immature Granulocytes % 0.5 %; Immature Granulocytes Absolute 0.06 #; Lymphocytes # 4.2 10*3/uL (1.4-4.0); Lymphocytes % 36.5 % (21.3-54.2); Mean Corpuscular HGB Conc 34.4 GM/DL (32-36); Mean Corpuscular Hemoglobin 32 PG (27-34); Mean Corpuscular Volume 91.9 FL (87-102); Mean Platelet Volume 12.1 FL (9.6-12.0); Monocytes # 1.7 10*3/uL (0.11-0.8); Monocytes % 14.7 % (1.7-12.7); NRBC # 0.28 10*3/uL; Neutrophils # 5.4 10*3/uL (1.4-7.4); Platelet Count 220 T/CUMM (130-400); Red Blood Count 3.07 MC/CUMM (3.8-5.5); Red Cell Distribution Width 23.4 % (9.3-17.3); White Blood Count 11.5 T/CUMM (4-12)
[2018-06-14 06:29] LABS: Elliptocytes 1+; Hypochromasia 2+; Platelet Estimate Normal; Target Cells 2+
[2018-06-14 06:30] LABS: Anisocytosis 1+; Microcytosis 1+; Polychromasia Few
[2018-06-14 07:01] LABS: Albumin 3.2 G/DL (3.4-5.0); Bilirubin,Total 5.6 MG/DL (0.2-1.0); Calcium 9.8 MG/DL (8.5-10.1); Osmolality,Calculated 280.1 MOS/KG (273-304); Potassium 3.9 MMOL/L (3.5-5.1); Total Protein 7.8 G/DL (6.4-8.3)
[2018-06-14] MEDS: SODIUM CHLORIDE 0.9% 1,000 ML IV SCH (07:14)
[2018-06-14] MEDS: SODIUM BICARB INJ 50 MEQ in DEXTROSE 5% 1,000 ML IV SCH (11:50)
[2018-06-14] MEDS: diphenhydrAMINE CAP 25 MG CAPSULE PO PRN (21:02)
[2018-06-15 04:51] LABS: Basophils % 0.3 % (0.0-0.8); Eosinophils # 0.2 10*3/uL (0.0-0.87); Eosinophils % 1.4 % (0.00-10.9); Hemoglobin 9.3 GM/DL (12.0-16.0); Immature Granulocytes % 0.4 %; Immature Granulocytes Absolute 0.04 #; Lymphocytes # 3.9 10*3/uL (1.4-4.0); Lymphocytes % 36.8 % (21.3-54.2); Mean Corpuscular HGB Conc 34.4 GM/DL (32-36); Mean Corpuscular Hemoglobin 32 PG (27-34); Mean Corpuscular Volume 91.8 FL (87-102); Mean Platelet Volume 12.6 FL (9.6-12.0); Monocytes # 1.5 10*3/uL (0.11-0.8); Monocytes % 13.8 % (1.7-12.7); NRBC # 0.25 10*3/uL; Neutrophils % 47.3 % (38.7-73.9); Platelet Count 169 T/CUMM (130-400); Red Blood Count 2.94 MC/CUMM (3.8-5.5); Red Cell Distribution Width 22.8 % (9.3-17.3); White Blood Count 10.6 T/CUMM (4-12)
[2018-06-15 05:17] LABS: Elliptocytes Few; Hypochromasia 1+; Platelet Estimate Adequate; Sickle Cells Slight; Target Cells Few
[2018-06-15 05:18] LABS: Howell-Jolly Bodies Few
[2018-06-15 05:19] LABS: Macrocytosis Slight; Polychromasia Slight
[2018-06-15 05:22] LABS: Albumin 3.1 G/DL (3.4-5.0); Bilirubin,Total 5.4 MG/DL (0.2-1.0); Calcium 9.6 MG/DL (8.5-10.1); Osmolality,Calculated 279.3 MOS/KG (273-304); Potassium 3.7 MMOL/L (3.5-5.1); Total Protein 7.5 G/DL (6.4-8.3)
[2018-06-15 09:20] VITALS: BP 165/77
[2018-06-15] MEDS ORDERED: HEPARIN LOCK FLUSH 500 UNIT/5 ML SYRINGE IV ONE (09:47)
== END 2018-06-15 10:20 | disposition home or self-care (01) | DRG 812 ==
LOC: N.ED 09:26 → N.EDINP 09:26 → N.4E 11:42
PROVIDERS: ADMIT Specialist; ATTEND Specialist

== ENCOUNTER 2018-08-07 08:16 | Inpatient (IN) ==
[2018-08-07 09:02] LABS: Basophils # 0.1 10*3/uL (0.0-0.2); Basophils % 0.5 % (0.0-0.8); Eosinophils # 0.1 10*3/uL (0.0-0.87); Eosinophils % 0.4 % (0.00-10.9); Hematocrit 25.3 VOL% (35.7-47.0); Hemoglobin 8.4 GM/DL (12.0-16.0); Immature Granulocytes % 0.6 %; Immature Granulocytes Absolute 0.09 #; Lymphocytes # 3.5 10*3/uL (1.4-4.0); Lymphocytes % 23.5 % (21.3-54.2); Mean Corpuscular HGB Conc 33.2 GM/DL (32-36); Mean Corpuscular Hemoglobin 33 PG (27-34); Mean Platelet Volume 12.7 FL (9.6-12.0); Monocytes % 13.3 % (1.7-12.7); NRBC # 1.82 10*3/uL; Neutrophils # 9.2 10*3/uL (1.4-7.4); Neutrophils % 61.7 % (38.7-73.9); Platelet Count 272 T/CUMM (130-400); Red Blood Count 2.53 MC/CUMM (3.8-5.5); Red Cell Distribution Width 23.7 % (9.3-17.3); White Blood Count 14.8 T/CUMM (4-12)
[2018-08-07 09:23] LABS: Lymphocytes 25 % (20-55); Macrocytosis Slight; Nucleated Red Blood Cells 11 (0-5); Platelet Estimate Adequate; Polychromasia Slight; Segmented Neutrophils 66 % (50-85); Sickle Cells Slight; Target Cells Few; Total Cells Counted 100
[2018-08-07] MEDS ORDERED: MYLANTA/LIDO VISC 2:1 300 ML BOTTLE SWISH/SWAL PRN (09:23)
[2018-08-07] MEDS ORDERED: TEMAZEPAM 7.5 MG CAPSULE PO PRN (09:23)
[2018-08-07] MEDS ORDERED: MAGNESIUM HYDROXIDE SUSP 30 ML UDCUP PO PRN (09:23)
[2018-08-07] MEDS ORDERED: ALUMINUM/MAGNES/SIMETH MAX STR 30 ML UDCUP PO PRN (09:23)
[2018-08-07] MEDS ORDERED: chlorproMAZINE INJ 25 MG in SODIUM CHLORIDE 0.9% 100 ML IV PRN (09:23)
[2018-08-07] MEDS ORDERED: chlorproMAZINE 25 MG TABLET PO PRN (09:23)
[2018-08-07] MEDS ORDERED: diphenhydrAMINE CAP 25 MG CAPSULE PO PRN (09:23)
[2018-08-07] MEDS ORDERED: MYLANTA/LIDO VISC 2:1 300 ML BOTTLE SWISH/SPIT PRN (09:23)
[2018-08-07] MEDS ORDERED: PROMETHAZINE INJ 25 MG in SODIUM CHLORIDE 0.9% 50 ML IV PRN (09:23)
[2018-08-07] MEDS ORDERED: traMADol 50 MG TABLET PO PRN (09:23)
[2018-08-07] MEDS ORDERED: BENZTROPINE 2 MG/2 ML AMP IV PRN (09:23)
[2018-08-07] MEDS ORDERED: ALPRAZolam 0.25 MG TABLET PO PRN (09:23)
[2018-08-07] MEDS ORDERED: LOPERAMIDE 2 MG CAPSULE PO PRN ×2 (09:23)
[2018-08-07] MEDS ORDERED: chlorproMAZINE INJ 50 MG in SODIUM CHLORIDE 0.9% 100 ML IV PRN (09:23)
[2018-08-07] MEDS ORDERED: ONDANSETRON 4 MG/2 ML VIAL IV PRN (09:23)
[2018-08-07] MEDS ORDERED: ACETAMINOPHEN 325 MG TABLET PO PRN (09:23)
[2018-08-07] MEDS ORDERED: LACTULOSE 20 GM/30 ML UDCUP PO PRN (09:23)
[2018-08-07] MEDS ORDERED: guaiFENesin 200 MG/10 ML UDCUP PO PRN (09:23)
[2018-08-07 09:24] LABS: Elliptocytes Few
[2018-08-07 09:25] LABS: Albumin 3.4 G/DL (3.4-5.0); Calcium 9.6 MG/DL (8.5-10.1); Hypochromasia Slight; Osmolality,Calculated 274.5 MOS/KG (273-304); Potassium 3.4 MMOL/L (3.5-5.1); Total Protein 9.1 G/DL (6.4-8.3)
[2018-08-07] MEDS ORDERED: POTASSIUM CHLORIDE INJ 20 MEQ in DEXTROSE 5% NACL 0.45% 1,000 ML IV SCH (09:30)
[2018-08-07] MEDS ORDERED: cefTRIAXone 1,000 MG in SYRINGE 1 EACH IV ONE (10:00)
[2018-08-07] MEDS: DEXT 5% NACL 0.45% KCL 20 MEQ 20 MEQ/1,000 ML BAG IV SCH ×2 (11:30→22:55)
[2018-08-07] MEDS: fentaNYL 100 MCG/2 ML VIAL IV PRN ×3 (11:45→23:32)
[2018-08-07] MEDS ORDERED: SODIUM CHLORIDE 0.9% 1,000 ML IV PRN (15:36)
[2018-08-07 16:22] LABS: Apearance,Urine Slightly Hazy (Clear); Bacteria,Urine Occasional /HPF (Few); Bilirubin,Urine Negative (Negative); Blood, Urine Small mg/dL (Negative); Calcium Oxalate Crystals,Urine Occasional /HPF (Few); Glucose,Urine (UA) Negative (Negative); Ketones,Urine Negative (Negative); Nitrite,Urine Negative (Negative); Protein,Urine 30 MG/DL; RBC,Urine 2 /HPF (0-4); Squamous Epithelial Cell,Urine Occasional /HPF (0-10); Urine Color Amber (Yellow); Urine Specific Gravity 1.008 (1.001-1.035); WBC,Urine 32 /HPF (0-6)
[2018-08-07] MEDS ORDERED: OFLOXACIN 0.3% OPH SOLN 10 ML BOTTLE RIGHT EYE SCH (21:00)
[2018-08-07] MEDS ORDERED: DIFLUPREDNATE 0.05% OPH EMUL 5 ML BOTTLE RIGHT EYE SCH (21:00)
[2018-08-08] MEDS: fentaNYL 100 MCG/2 ML VIAL IV PRN ×4 (03:57→21:33)
[2018-08-08 05:03] LABS: Basophils % 0.3 % (0.0-0.8); Eosinophils # 0.1 10*3/uL (0.0-0.87); Eosinophils % 0.8 % (0.00-10.9); Hemoglobin 7.3 GM/DL (12.0-16.0); Immature Granulocytes % 0.7 %; Lymphocytes # 3.9 10*3/uL (1.4-4.0); Lymphocytes % 28.6 % (21.3-54.2); Mean Corpuscular HGB Conc 33.2 GM/DL (32-36); Mean Corpuscular Hemoglobin 34 PG (27-34); Mean Corpuscular Volume 102.8 FL (87-102); Mean Platelet Volume 11.9 FL (9.6-12.0); Monocytes % 14.3 % (1.7-12.7); Neutrophils # 7.6 10*3/uL (1.4-7.4); Neutrophils % 55.3 % (38.7-73.9); Platelet Count 254 T/CUMM (130-400); Red Blood Count 2.14 MC/CUMM (3.8-5.5); Red Cell Distribution Width 23.7 % (9.3-17.3); White Blood Count 13.7 T/CUMM (4-12)
[2018-08-08 05:28] LABS: Albumin 2.9 G/DL (3.4-5.0); Bilirubin,Total 4.3 MG/DL (0.2-1.0); Calcium 9.3 MG/DL (8.5-10.1); Osmolality,Calculated 279.3 MOS/KG (273-304); Potassium 3.7 MMOL/L (3.5-5.1); Total Protein 8.2 G/DL (6.4-8.3)
[2018-08-08 05:32] LABS: Eosinophils 1 % (0-10); Hypochromasia 1+; Lymphocytes 26 % (20-55); Microcytosis 1+; Nucleated Red Blood Cells 7 (0-5); Platelet Estimate Normal; Polychromasia Few; Segmented Neutrophils 66 % (50-85); Sickle Cells Few; Total Cells Counted 100
[2018-08-08] MEDS ORDERED: diphenhydrAMINE CAP 50 MG CAPSULE PO ONE (06:30)
[2018-08-08] MEDS ORDERED: fentaNYL 25 MCG/HR PATCH TRANSDERM SCH (09:00)
[2018-08-08] MEDS: DEXT 5% NACL 0.45% KCL 20 MEQ 20 MEQ/1,000 ML BAG IV SCH ×2 (14:23→23:06)
[2018-08-09] MEDS: fentaNYL 100 MCG/2 ML VIAL IV PRN (02:12)
[2018-08-09 05:58] LABS: Basophils % 0.2 % (0.0-0.8); Eosinophils # 0.1 10*3/uL (0.0-0.87); Eosinophils % 0.9 % (0.00-10.9); Hematocrit 24.8 VOL% (35.7-47.0); Immature Granulocytes % 0.6 %; Immature Granulocytes Absolute 0.07 #; Lymphocytes # 2.9 10*3/uL (1.4-4.0); Lymphocytes % 26.4 % (21.3-54.2); Mean Corpuscular HGB Conc 32.3 GM/DL (32-36); Mean Corpuscular Hemoglobin 30 PG (27-34); Mean Corpuscular Volume 93.2 FL (87-102); Mean Platelet Volume 12.8 FL (9.6-12.0); Monocytes # 1.5 10*3/uL (0.11-0.8); Monocytes % 13.4 % (1.7-12.7); NRBC # 0.84 10*3/uL; Neutrophils # 6.5 10*3/uL (1.4-7.4); Neutrophils % 58.5 % (38.7-73.9); Red Blood Count 2.66 MC/CUMM (3.8-5.5); Red Cell Distribution Width 25.8 % (9.3-17.3); White Blood Count 11.1 T/CUMM (4-12)
[2018-08-09 06:05] LABS: Platelet Count 128 T/CUMM (130-400)
[2018-08-09 06:19] LABS: Albumin 2.5 G/DL (3.4-5.0); Bilirubin,Total 4.1 MG/DL (0.2-1.0); Calcium 7.8 MG/DL (8.5-10.1); Osmolality,Calculated 279.1 MOS/KG (273-304); Potassium 3.6 MMOL/L (3.5-5.1); Total Protein 6.6 G/DL (6.4-8.3)
[2018-08-09 06:21] LABS: Platelet Estimate Decreased
[2018-08-09 06:22] LABS: Hypochromasia 2+
[2018-08-09 06:23] LABS: Acanthocytes 1+; Polychromasia 2+; Sickle Cells 1+; Target Cells 3+
[2018-08-09 06:24] LABS: Anisocytosis 2+; Elliptocytes 1+; Macrocytosis 2+; Ovalocytes 2+; Poikilocytosis 3+
[2018-08-09 08:05] VITALS: BP 162/78
[2018-08-09] MEDS ORDERED: cefTRIAXone 1,000 MG in SYRINGE 1 EACH IV ONE (09:03)
[2018-08-09] MEDS ORDERED: HEPARIN LOCK FLUSH 500 UNIT/5 ML SYRINGE IV ONE (10:06)
== END 2018-08-09 10:47 | disposition home or self-care (01) | DRG 812 ==
LOC: N.4E
PROVIDERS: ADMIT Specialist; ATTEND Specialist

== ENCOUNTER 2018-09-22 14:21 | Inpatient (IN) ==
[2018-09-22] MEDS ORDERED: SODIUM CHLORIDE 0.9% 1,000 ML IV STA (15:01)
[2018-09-22] MEDS ORDERED: fentaNYL 100 MCG/2 ML VIAL IV STA (15:09)
[2018-09-22] MEDS ORDERED: ONDANSETRON 4 MG/2 ML VIAL IM STA (15:19)
[2018-09-22] MEDS ORDERED: ONDANSETRON 4 MG/2 ML VIAL ONE (15:19)
[2018-09-22 15:23] LABS: Basophils % 0.1 % (0.0-0.8); Eosinophils % 0.1 % (0.00-10.9); Hematocrit 30.6 VOL% (35.7-47.0); Hemoglobin 10.2 GM/DL (12.0-16.0); Immature Granulocytes % 0.6 %; Immature Granulocytes Absolute 0.12 #; Lymphocytes # 3.1 10*3/uL (1.4-4.0); Lymphocytes % 15.8 % (21.3-54.2); Mean Corpuscular HGB Conc 33.3 GM/DL (32-36); Mean Corpuscular Hemoglobin 32 PG (27-34); Mean Corpuscular Volume 94.4 FL (87-102); Mean Platelet Volume 10.6 FL (9.6-12.0); Monocytes # 3.4 10*3/uL (0.11-0.8); Monocytes % 17.3 % (1.7-12.7); NRBC # 0.16 10*3/uL; Neutrophils # 12.9 10*3/uL (1.4-7.4); Neutrophils % 66.1 % (38.7-73.9); Platelet Count 338 T/CUMM (130-400); Red Blood Count 3.24 MC/CUMM (3.8-5.5); Red Cell Distribution Width 18.6 % (9.3-17.3); White Blood Count 19.5 T/CUMM (4-12)
[2018-09-22] MEDS ORDERED: ONDANSETRON 4 MG/2 ML VIAL IV STA (15:25)
[2018-09-22 15:44] LABS: Albumin 3.3 G/DL (3.4-5.0); Bilirubin,Direct 1.2 MG/DL (0.0-0.20); Bilirubin,Total 4.2 MG/DL (0.2-1.0); Calcium 10.1 MG/DL (8.5-10.1); Osmolality,Calculated 280.4 MOS/KG (273-304); Potassium 3.2 MMOL/L (3.5-5.1); Total Protein 8.3 G/DL (6.4-8.3)
[2018-09-22 16:19] LABS: Apearance,Urine CLEAR (Clear); Bilirubin,Urine Negative (Negative); Blood, Urine Small mg/dL (Negative); Glucose,Urine (UA) Negative (Negative); Hyaline Casts,Urine 3 /LPF (0-3); Ketones,Urine Negative (Negative); Mucus,Urine Occasional /LPF (Occasional); Nitrite,Urine Negative (Negative); Protein,Urine 30 MG/DL; RBC,Urine 3 /HPF (0-4); Urine Color Yellow (Yellow); WBC,Urine 2 /HPF (0-6)
[2018-09-22] MEDS: SODIUM CHLORIDE 0.9% 1,000 ML IV SCH (18:00)
[2018-09-22] MEDS: fentaNYL 100 MCG/2 ML VIAL IV PRN ×3 (18:05→22:33)
[2018-09-22 18:16] LABS: Lymphocytes 9 % (20-55); Segmented Neutrophils 69 % (50-85); Total Cells Counted 100
[2018-09-22 18:17] LABS: Elliptocytes Few; Hypochromasia 1+; Target Cells 1+
[2018-09-22 18:18] LABS: Macrocytosis Slight
[2018-09-22 18:19] LABS: Platelet Estimate Adequate; Sickle Cells Few
[2018-09-22] MEDS: IBUPROFEN 800 MG TABLET PO PRN (19:07)
[2018-09-22] MEDS ORDERED: POTASSIUM CHLORIDE INJ 40 MEQ in SODIUM CHLORIDE 0.9% 380 ML IV SCH (21:00)
[2018-09-22] MEDS: CARVEDILOL 25 MG TABLET PO SCH (21:07)
[2018-09-22] MEDS: traZODone 50 MG TABLET PO PRN (21:07)
[2018-09-23] MEDS: fentaNYL 100 MCG/2 ML VIAL IV PRN ×8 (01:15→23:28)
[2018-09-23] MEDS: IBUPROFEN 800 MG TABLET PO PRN ×4 (03:17→20:59)
[2018-09-23] MEDS: ONDANSETRON 4 MG/2 ML VIAL IV PRN ×2 (03:18→21:26)
[2018-09-23 06:46] LABS: Basophils % 0.1 % (0.0-0.8); Eosinophils % 0.1 % (0.00-10.9); Hematocrit 27.7 VOL% (35.7-47.0); Hemoglobin 9.1 GM/DL (12.0-16.0); Immature Granulocytes % 0.5 %; Immature Granulocytes Absolute 0.08 #; Lymphocytes # 2.7 10*3/uL (1.4-4.0); Lymphocytes % 17.5 % (21.3-54.2); Mean Corpuscular HGB Conc 32.9 GM/DL (32-36); Mean Corpuscular Hemoglobin 31 PG (27-34); Mean Corpuscular Volume 94.5 FL (87-102); Mean Platelet Volume 10.9 FL (9.6-12.0); Monocytes # 2.6 10*3/uL (0.11-0.8); Monocytes % 16.9 % (1.7-12.7); NRBC # 0.12 10*3/uL; Neutrophils % 64.9 % (38.7-73.9); Platelet Count 346 T/CUMM (130-400); Red Blood Count 2.93 MC/CUMM (3.8-5.5); Red Cell Distribution Width 17.9 % (9.3-17.3); White Blood Count 15.4 T/CUMM (4-12)
[2018-09-23 07:16] LABS: Albumin 2.7 G/DL (3.4-5.0); Bilirubin,Total 4.3 MG/DL (0.2-1.0); Calcium 9.1 MG/DL (8.5-10.1); Osmolality,Calculated 282.1 MOS/KG (273-304); Potassium 3.4 MMOL/L (3.5-5.1); Total Protein 7.3 G/DL (6.4-8.3)
[2018-09-23] MEDS: predniSONE 20 MG TABLET PO SCH (09:02)
[2018-09-23] MEDS: CARVEDILOL 25 MG TABLET PO SCH ×2 (09:02→16:03)
[2018-09-23] MEDS: PANTOPRAZOLE 40 MG TABLET PO SCH (09:02)
[2018-09-23] MEDS: FOLIC ACID 1 MG TABLET PO SCH (09:02)
[2018-09-23] MEDS ORDERED: KETOROLAC 15 MG/1 ML VIAL IV ONE ×2 (10:04→23:00)
[2018-09-23] MEDS ORDERED: POTASSIUM CHLORIDE 20 MEQ TABLET PO ONE (11:23)
[2018-09-23 12:14] LABS: Lymphocytes 15 % (20-55); Segmented Neutrophils 72 % (50-85); Target Cells Few; Total Cells Counted 100
[2018-09-23 12:15] LABS: Elliptocytes Few
[2018-09-23 12:16] LABS: Hypochromasia 1+; Platelet Estimate Adequate; Sickle Cells Slight
[2018-09-23] MEDS: SODIUM CHLORIDE 0.9% 1,000 ML IV SCH (12:38)
[2018-09-23] MEDS: amLODIPine 5 MG TABLET PO SCH (14:52)
[2018-09-23] MEDS: traZODone 50 MG TABLET PO PRN (21:00)
[2018-09-23] MEDS ORDERED: fentaNYL 50 MCG/HR PATCH TRANSDERM SCH (21:00)
[2018-09-23] MEDS ORDERED: POTASSIUM CHLORIDE INJ 30 MEQ in SODIUM CHLORIDE 0.9% 285 ML IV SCH (23:30)
[2018-09-24] MEDS: fentaNYL 100 MCG/2 ML VIAL IV PRN ×10 (01:41→22:50)
[2018-09-24] MEDS: SODIUM CHLORIDE 0.9% 1,000 ML IV SCH (04:31)
[2018-09-24 07:01] LABS: Basophils % 0.1 % (0.0-0.8); Hematocrit 27.4 VOL% (35.7-47.0); Hemoglobin 9.4 GM/DL (12.0-16.0); Immature Granulocytes % 0.7 %; Immature Granulocytes Absolute 0.14 #; Lymphocytes # 2.3 10*3/uL (1.4-4.0); Lymphocytes % 11.3 % (21.3-54.2); Mean Corpuscular HGB Conc 34.3 GM/DL (32-36); Mean Corpuscular Hemoglobin 33 PG (27-34); Mean Corpuscular Volume 94.8 FL (87-102); Mean Platelet Volume 10.9 FL (9.6-12.0); Monocytes # 3.1 10*3/uL (0.11-0.8); Monocytes % 15.1 % (1.7-12.7); NRBC # 0.04 10*3/uL; Neutrophils # 14.9 10*3/uL (1.4-7.4); Neutrophils % 72.8 % (38.7-73.9); Platelet Count 340 T/CUMM (130-400); Red Blood Count 2.89 MC/CUMM (3.8-5.5); Red Cell Distribution Width 17.7 % (9.3-17.3); White Blood Count 20.4 T/CUMM (4-12)
[2018-09-24 07:43] LABS: Albumin 2.9 G/DL (3.4-5.0); Calcium 9.8 MG/DL (8.5-10.1); Osmolality,Calculated 280.3 MOS/KG (273-304); Potassium 3.9 MMOL/L (3.5-5.1); Total Protein 7.7 G/DL (6.4-8.3)
[2018-09-24] MEDS ORDERED: SODIUM CHLORIDE 0.9% 1,000 ML IV PRN (08:37)
[2018-09-24 08:39] LABS: Band Neutrophils 1 % (0-10); Hypochromasia 1+; Lymphocytes 11 % (20-55); Segmented Neutrophils 76 % (50-85); Total Cells Counted 100
[2018-09-24 08:40] LABS: Target Cells Slight
[2018-09-24 08:41] LABS: Macrocytosis Slight; Pappenheimer Bodies Slight
[2018-09-24 08:42] LABS: Howell-Jolly Bodies Slight; Ovalocytes Slight; Platelet Estimate Normal
[2018-09-24 08:43] LABS: Sickle Cells Slight
[2018-09-24] MEDS: ERGOCALCIFEROL 50,000 UNIT CAPSULE PO SCH (09:35)
[2018-09-24] MEDS: VANCOMYCIN INJ 1,000 MG in SODIUM CHLORIDE 0.9% 250 ML IV SCH ×2 (09:36→20:55)
[2018-09-24] MEDS: FOLIC ACID 1 MG TABLET PO SCH ×3 (09:36→20:53)
[2018-09-24] MEDS: CARVEDILOL 25 MG TABLET PO SCH ×4 (09:36→16:26)
[2018-09-24] MEDS: amLODIPine 5 MG TABLET PO SCH ×2 (09:36→20:55)
[2018-09-24] MEDS: predniSONE 20 MG TABLET PO SCH ×2 (09:36→09:46)
[2018-09-24] MEDS: PANTOPRAZOLE 40 MG TABLET PO SCH (09:36)
[2018-09-24] MEDS ORDERED: MAGNESIUM SULF RIDER 2 GM in PREMIX 1 EACH IV ONE (14:22)
[2018-09-24] MEDS: ENOXAPARIN 40 MG/0.4 ML SYRINGE SUBCUT SCH (16:16)
[2018-09-24] MEDS: traZODone 50 MG TABLET PO PRN (20:52)
[2018-09-24] MEDS: ONDANSETRON 4 MG/2 ML VIAL IV PRN (22:53)
[2018-09-25] MEDS: fentaNYL 100 MCG/2 ML VIAL IV PRN ×9 (01:29→22:14)
[2018-09-25 05:12] LABS: Basophils % 0.1 % (0.0-0.8); Hematocrit 25.6 VOL% (35.7-47.0); Hemoglobin 8.5 GM/DL (12.0-16.0); Immature Granulocytes % 0.8 %; Immature Granulocytes Absolute 0.19 #; Lymphocytes # 2.3 10*3/uL (1.4-4.0); Lymphocytes % 9.1 % (21.3-54.2); Mean Corpuscular HGB Conc 33.2 GM/DL (32-36); Mean Corpuscular Hemoglobin 32 PG (27-34); Mean Corpuscular Volume 94.8 FL (87-102); Mean Platelet Volume 10.6 FL (9.6-12.0); Monocytes # 3.5 10*3/uL (0.11-0.8); Monocytes % 13.9 % (1.7-12.7); NRBC # 0.03 10*3/uL; Neutrophils # 18.9 10*3/uL (1.4-7.4); Neutrophils % 76.1 % (38.7-73.9); Platelet Count 321 T/CUMM (130-400); Red Cell Distribution Width 17.2 % (9.3-17.3); White Blood Count 24.9 T/CUMM (4-12)
[2018-09-25 05:40] LABS: Hypochromasia 1+; Lymphocytes 8 % (20-55); Macrocytosis Slight; Platelet Estimate Adequate; Segmented Neutrophils 76 % (50-85); Target Cells Few; Total Cells Counted 100
[2018-09-25 05:42] LABS: Albumin 2.6 G/DL (3.4-5.0); Bilirubin,Total 4.3 MG/DL (0.2-1.0); Osmolality,Calculated 274.7 MOS/KG (273-304); Potassium 3.8 MMOL/L (3.5-5.1); Total Protein 7.4 G/DL (6.4-8.3)
[2018-09-25] MEDS: fentaNYL 75 MCG/HR PATCH TRANSDERM SCH (09:36)
[2018-09-25] MEDS: VANCOMYCIN INJ 1,000 MG in SODIUM CHLORIDE 0.9% 250 ML IV SCH ×2 (11:39→20:39)
[2018-09-25] MEDS: CARVEDILOL 25 MG TABLET PO SCH ×3 (11:39→19:32)
[2018-09-25] MEDS: predniSONE 20 MG TABLET PO SCH ×2 (11:40→12:49)
[2018-09-25] MEDS: FOLIC ACID 1 MG TABLET PO SCH ×2 (11:40→12:49)
[2018-09-25] MEDS: amLODIPine 5 MG TABLET PO SCH ×2 (11:42→20:09)
[2018-09-25] MEDS: PANTOPRAZOLE 40 MG TABLET PO SCH (11:42)
[2018-09-25] MEDS: ENOXAPARIN 40 MG/0.4 ML SYRINGE SUBCUT SCH (14:52)
[2018-09-25] MEDS: SODIUM CHLORIDE 0.9% 1,000 ML IV SCH ×3 (19:36→20:48)
[2018-09-25] MEDS: traZODone 50 MG TABLET PO PRN (20:39)
[2018-09-25] MEDS ORDERED: diphenhydrAMINE CAP 50 MG CAPSULE PO ONE (20:58)
[2018-09-25] MEDS ORDERED: DEXAMETHASONE 10 MG/1 ML VIAL IV ONE (21:00)
[2018-09-25] MEDS: ACETAMINOPHEN 325 MG TABLET PO PRN (21:58)
[2018-09-26] MEDS: fentaNYL 100 MCG/2 ML VIAL IV PRN ×8 (04:31→23:51)
[2018-09-26 06:17] LABS: Basophils % 0.1 % (0.0-0.8); Hemoglobin 10.4 GM/DL (12.0-16.0); Immature Granulocytes % 0.5 %; Immature Granulocytes Absolute 0.09 #; Lymphocytes # 0.6 10*3/uL (1.4-4.0); Lymphocytes % 3.1 % (21.3-54.2); Mean Corpuscular HGB Conc 33.5 GM/DL (32-36); Mean Corpuscular Hemoglobin 31 PG (27-34); Mean Corpuscular Volume 91.7 FL (87-102); Mean Platelet Volume 10.7 FL (9.6-12.0); Monocytes # 0.4 10*3/uL (0.11-0.8); Monocytes % 2.3 % (1.7-12.7); NRBC # 0.02 10*3/uL; Neutrophils # 17.5 10*3/uL (1.4-7.4); Platelet Count 331 T/CUMM (130-400); Red Blood Count 3.38 MC/CUMM (3.8-5.5); Red Cell Distribution Width 16.9 % (9.3-17.3); White Blood Count 18.6 T/CUMM (4-12)
[2018-09-26 06:34] LABS: Calcium 10.7 MG/DL (8.5-10.1); Osmolality,Calculated 283.4 MOS/KG (273-304); Potassium 3.9 MMOL/L (3.5-5.1)
[2018-09-26 06:37] LABS: Albumin 2.7 G/DL (3.4-5.0); Bilirubin,Total 3.7 MG/DL (0.2-1.0); Calcium 10.8 MG/DL (8.5-10.1); Osmolality,Calculated 283.4 MOS/KG (273-304); Potassium 3.9 MMOL/L (3.5-5.1); Total Protein 7.8 G/DL (6.4-8.3)
[2018-09-26 06:42] LABS: Eosinophils 1 % (0-10); Hypochromasia 1+; Lymphocytes 8 % (20-55); Ovalocytes Slight; Platelet Estimate Adequate; Segmented Neutrophils 86 % (50-85); Target Cells Few; Total Cells Counted 100
[2018-09-26 06:43] LABS: Macrocytosis Slight
[2018-09-26] MEDS: CARVEDILOL 25 MG TABLET PO SCH ×3 (08:19→18:09)
[2018-09-26] MEDS: FOLIC ACID 1 MG TABLET PO SCH (08:19)
[2018-09-26] MEDS: predniSONE 20 MG TABLET PO SCH (08:19)
[2018-09-26] MEDS: PANTOPRAZOLE 40 MG TABLET PO SCH (08:19)
[2018-09-26] MEDS: VANCOMYCIN INJ 1,000 MG in SODIUM CHLORIDE 0.9% 250 ML IV SCH ×2 (08:20→20:22)
[2018-09-26] MEDS: amLODIPine 5 MG TABLET PO SCH ×2 (08:20→20:22)
[2018-09-26] MEDS: SODIUM CHLORIDE 0.9% 1,000 ML IV SCH ×2 (08:30→17:12)
[2018-09-26] MEDS: ENOXAPARIN 40 MG/0.4 ML SYRINGE SUBCUT SCH (14:35)
[2018-09-26] MEDS: traZODone 50 MG TABLET PO PRN (20:34)
[2018-09-27] MEDS: fentaNYL 100 MCG/2 ML VIAL IV PRN ×8 (02:57→20:35)
[2018-09-27 06:07] LABS: Basophils % 0.1 % (0.0-0.8); Hematocrit 34.1 VOL% (35.7-47.0); Hemoglobin 11.3 GM/DL (12.0-16.0); Immature Granulocytes % 0.9 %; Immature Granulocytes Absolute 0.22 #; Lymphocytes # 2.2 10*3/uL (1.4-4.0); Lymphocytes % 9.1 % (21.3-54.2); Mean Corpuscular HGB Conc 33.1 GM/DL (32-36); Mean Corpuscular Hemoglobin 31 PG (27-34); Mean Corpuscular Volume 93.4 FL (87-102); Mean Platelet Volume 11.1 FL (9.6-12.0); Monocytes # 2.8 10*3/uL (0.11-0.8); Monocytes % 11.5 % (1.7-12.7); NRBC # 0.02 10*3/uL; Neutrophils % 78.4 % (38.7-73.9); Platelet Count 377 T/CUMM (130-400); Red Blood Count 3.65 MC/CUMM (3.8-5.5); Red Cell Distribution Width 16.9 % (9.3-17.3); White Blood Count 24.2 T/CUMM (4-12)
[2018-09-27 06:25] LABS: Albumin 2.9 G/DL (3.4-5.0); Bilirubin,Total 2.9 MG/DL (0.2-1.0); Calcium 11.1 MG/DL (8.5-10.1); Potassium 3.4 MMOL/L (3.5-5.1); Total Protein 8.2 G/DL (6.4-8.3)
[2018-09-27] MEDS: CARVEDILOL 25 MG TABLET PO SCH ×2 (07:45→17:50)
[2018-09-27] MEDS: SODIUM CHLORIDE 0.9% 1,000 ML IV SCH (07:47)
[2018-09-27 07:55] LABS: Anisocytosis Slight; Band Neutrophils 6 % (0-10); Lymphocytes 17 % (20-55); Macrocytosis Slight; Metamyelocytes 3 %; Platelet Estimate Normal; Segmented Neutrophils 69 % (50-85); Total Cells Counted 100
[2018-09-27 07:56] LABS: Atypical Lymphocytes Few
[2018-09-27] MEDS: amLODIPine 5 MG TABLET PO SCH ×2 (09:25→20:40)
[2018-09-27] MEDS: predniSONE 20 MG TABLET PO SCH (09:25)
[2018-09-27] MEDS: FOLIC ACID 1 MG TABLET PO SCH (09:25)
[2018-09-27] MEDS: PANTOPRAZOLE 40 MG TABLET PO SCH (09:25)
[2018-09-27] MEDS: VANCOMYCIN INJ 1,000 MG in SODIUM CHLORIDE 0.9% 250 ML IV SCH ×2 (09:25→20:38)
[2018-09-27] MEDS: ENOXAPARIN 40 MG/0.4 ML SYRINGE SUBCUT SCH (16:06)
[2018-09-27] MEDS: LACTULOSE 20 GM/30 ML UDCUP PO SCH (17:51)
[2018-09-27] MEDS: traZODone 50 MG TABLET PO PRN (20:41)
[2018-09-27] MEDS: IBUPROFEN 800 MG TABLET PO PRN (20:44)
[2018-09-28] MEDS: LACTULOSE 20 GM/30 ML UDCUP PO SCH ×5 (01:14→23:50)
[2018-09-28] MEDS: SODIUM CHLORIDE 0.9% 1,000 ML IV SCH ×2 (01:20→21:35)
[2018-09-28] MEDS: fentaNYL 100 MCG/2 ML VIAL IV PRN ×4 (01:21→11:24)
[2018-09-28 05:50] LABS: Albumin 2.9 G/DL (3.4-5.0); Bilirubin,Total 3.8 MG/DL (0.2-1.0); Calcium 10.6 MG/DL (8.5-10.1); Osmolality,Calculated 284.1 MOS/KG (273-304); Potassium 3.2 MMOL/L (3.5-5.1); Total Protein 7.7 G/DL (6.4-8.3)
[2018-09-28 05:53] LABS: Basophils % 0.1 % (0.0-0.8); Hematocrit 31.6 VOL% (35.7-47.0); Hemoglobin 10.6 GM/DL (12.0-16.0); Immature Granulocytes % 0.5 %; Lymphocytes # 2.6 10*3/uL (1.4-4.0); Lymphocytes % 13.8 % (21.3-54.2); Mean Corpuscular HGB Conc 33.5 GM/DL (32-36); Mean Corpuscular Hemoglobin 31 PG (27-34); Mean Corpuscular Volume 91.9 FL (87-102); Mean Platelet Volume 11.1 FL (9.6-12.0); Monocytes # 2.9 10*3/uL (0.11-0.8); Monocytes % 15.6 % (1.7-12.7); NRBC # 0.03 10*3/uL; Platelet Count 331 T/CUMM (130-400); Red Blood Count 3.44 MC/CUMM (3.8-5.5); White Blood Count 18.6 T/CUMM (4-12)
[2018-09-28] MEDS: POTASSIUM CHLORIDE RIDER 10 MEQ in PREMIX 1 EACH IV PRN ×2 (06:06→08:07)
[2018-09-28 06:40] LABS: Hypochromasia Slight; Lymphocytes 19 % (20-55); Platelet Estimate Normal; Polychromasia Few; Segmented Neutrophils 74 % (50-85); Target Cells Few; Total Cells Counted 100
[2018-09-28] MEDS: fentaNYL 75 MCG/HR PATCH TRANSDERM SCH (09:33)
[2018-09-28] MEDS: FOLIC ACID 1 MG TABLET PO SCH (09:36)
[2018-09-28] MEDS: amLODIPine 5 MG TABLET PO SCH ×2 (09:36→20:55)
[2018-09-28] MEDS: CARVEDILOL 25 MG TABLET PO SCH ×2 (09:36→18:11)
[2018-09-28] MEDS: PANTOPRAZOLE 40 MG TABLET PO SCH (09:37)
[2018-09-28] MEDS: predniSONE 20 MG TABLET PO SCH (09:37)
[2018-09-28] MEDS: VANCOMYCIN INJ 1,000 MG in SODIUM CHLORIDE 0.9% 250 ML IV SCH (09:40)
[2018-09-28] MEDS: POTASSIUM CHLORIDE RIDER 20 MEQ in PREMIX 1 EACH IV PRN (11:31)
[2018-09-28] MEDS: IBUPROFEN 800 MG TABLET PO PRN ×2 (15:13→23:58)
[2018-09-28] MEDS: ENOXAPARIN 40 MG/0.4 ML SYRINGE SUBCUT SCH (15:14)
[2018-09-28] MEDS: VANCOMYCIN INJ 1,500 MG in SODIUM CHLORIDE 0.9% 500 ML IV SCH (22:17)
[2018-09-29 03:04] LABS: Basophils % 0.1 % (0.0-0.8); Eosinophils % 0.1 % (0.00-10.9); Hematocrit 32.9 VOL% (35.7-47.0); Hemoglobin 10.8 GM/DL (12.0-16.0); Immature Granulocytes % 0.6 %; Immature Granulocytes Absolute 0.08 #; Lymphocytes # 1.8 10*3/uL (1.4-4.0); Lymphocytes % 12.4 % (21.3-54.2); Mean Corpuscular HGB Conc 32.8 GM/DL (32-36); Mean Corpuscular Hemoglobin 31 PG (27-34); Mean Corpuscular Volume 93.7 FL (87-102); Mean Platelet Volume 12.4 FL (9.6-12.0); Monocytes # 2.4 10*3/uL (0.11-0.8); Monocytes % 16.4 % (1.7-12.7); NRBC # 0.02 10*3/uL; Neutrophils # 10.2 10*3/uL (1.4-7.4); Neutrophils % 70.4 % (38.7-73.9); Platelet Count 161 T/CUMM (130-400); Red Blood Count 3.51 MC/CUMM (3.8-5.5); Red Cell Distribution Width 16.1 % (9.3-17.3); White Blood Count 14.5 T/CUMM (4-12)
[2018-09-29 03:25] LABS: Albumin 3.1 G/DL (3.4-5.0); Bilirubin,Total 3.1 MG/DL (0.2-1.0); Calcium 10.2 MG/DL (8.5-10.1); Potassium 3.2 MMOL/L (3.5-5.1)
[2018-09-29 04:25] LABS: Hypochromasia 2+; Lymphocytes 15 % (20-55); Platelet Estimate Normal; Segmented Neutrophils 67 % (50-85); Total Cells Counted 100
[2018-09-29 04:26] LABS: Acanthocytes Few; Anisocytosis 1+; Macrocytosis 1+; Ovalocytes 1+; Sickle Cells Few; Target Cells 2+
[2018-09-29] MEDS: LACTULOSE 20 GM/30 ML UDCUP PO SCH ×3 (05:17→17:26)
[2018-09-29] MEDS: hydrALAZINE 20 MG/1 ML VIAL IV PRN ×2 (08:55→14:48)
[2018-09-29] MEDS: POTASSIUM CHLORIDE RIDER 20 MEQ in PREMIX 1 EACH IV PRN ×2 (08:56→14:23)
[2018-09-29] MEDS: IBUPROFEN 800 MG TABLET PO PRN ×2 (09:02→20:56)
[2018-09-29] MEDS: amLODIPine 5 MG TABLET PO SCH ×2 (10:44→20:54)
[2018-09-29] MEDS: FOLIC ACID 1 MG TABLET PO SCH (10:44)
[2018-09-29] MEDS: CARVEDILOL 25 MG TABLET PO SCH ×2 (10:44→17:26)
[2018-09-29] MEDS: PANTOPRAZOLE 40 MG TABLET PO SCH (10:45)
[2018-09-29] MEDS: predniSONE 20 MG TABLET PO SCH (10:47)
[2018-09-29] MEDS: VANCOMYCIN INJ 1,500 MG in SODIUM CHLORIDE 0.9% 500 ML IV SCH ×2 (12:17→20:59)
[2018-09-29] MEDS: fentaNYL 100 MCG/2 ML VIAL IV PRN (16:31)
[2018-09-29] MEDS: ENOXAPARIN 40 MG/0.4 ML SYRINGE SUBCUT SCH (17:26)
[2018-09-29] MEDS: SODIUM CHLORIDE 0.9% 1,000 ML IV SCH (19:32)
[2018-09-30] MEDS: LACTULOSE 20 GM/30 ML UDCUP PO SCH ×5 (00:04→23:41)
[2018-09-30] MEDS: fentaNYL 100 MCG/2 ML VIAL IV PRN ×2 (01:46→21:06)
[2018-09-30 04:47] LABS: Basophils % 0.1 % (0.0-0.8); Eosinophils % 0.2 % (0.00-10.9); Hematocrit 29.5 VOL% (35.7-47.0); Hemoglobin 9.7 GM/DL (12.0-16.0); Immature Granulocytes % 0.5 %; Immature Granulocytes Absolute 0.07 #; Lymphocytes # 2.4 10*3/uL (1.4-4.0); Lymphocytes % 15.8 % (21.3-54.2); Mean Corpuscular HGB Conc 32.9 GM/DL (32-36); Mean Corpuscular Hemoglobin 31 PG (27-34); Mean Corpuscular Volume 92.8 FL (87-102); Mean Platelet Volume 11.6 FL (9.6-12.0); Monocytes # 2.4 10*3/uL (0.11-0.8); Monocytes % 15.8 % (1.7-12.7); Neutrophils # 10.4 10*3/uL (1.4-7.4); Neutrophils % 67.6 % (38.7-73.9); Platelet Count 313 T/CUMM (130-400); Red Blood Count 3.18 MC/CUMM (3.8-5.5); Red Cell Distribution Width 15.9 % (9.3-17.3); White Blood Count 15.3 T/CUMM (4-12)
[2018-09-30 05:16] LABS: Albumin 2.9 G/DL (3.4-5.0); Bilirubin,Total 2.5 MG/DL (0.2-1.0); Calcium 10.7 MG/DL (8.5-10.1); Osmolality,Calculated 281.1 MOS/KG (273-304); Potassium 3.1 MMOL/L (3.5-5.1)
[2018-09-30] MEDS: IBUPROFEN 800 MG TABLET PO PRN ×3 (06:02→23:39)
[2018-09-30 06:03] LABS: Lymphocytes 12 % (20-55); Platelet Estimate Normal; Polychromasia Few; Segmented Neutrophils 80 % (50-85); Target Cells Few; Total Cells Counted 100
[2018-09-30] MEDS: amLODIPine 5 MG TABLET PO SCH ×2 (09:28→21:06)
[2018-09-30] MEDS: POTASSIUM CHLORIDE 20 MEQ TABLET PO SCH ×4 (09:28→21:06)
[2018-09-30] MEDS: CARVEDILOL 25 MG TABLET PO SCH ×2 (09:28→17:35)
[2018-09-30] MEDS: PANTOPRAZOLE 40 MG TABLET PO SCH (09:28)
[2018-09-30] MEDS: FOLIC ACID 1 MG TABLET PO SCH (09:28)
[2018-09-30] MEDS: predniSONE 20 MG TABLET PO SCH (09:29)
[2018-09-30] MEDS: SODIUM CHLORIDE 0.9% 1,000 ML IV SCH (12:31)
[2018-09-30] MEDS: ENOXAPARIN 40 MG/0.4 ML SYRINGE SUBCUT SCH (17:35)
[2018-09-30] MEDS: hydrALAZINE 20 MG/1 ML VIAL IV PRN (19:41)
[2018-09-30] MEDS: VANCOMYCIN INJ 1,250 MG in SODIUM CHLORIDE 0.9% 250 ML IV SCH (21:10)
[2018-09-30] MEDS: traZODone 50 MG TABLET PO PRN (23:40)
[2018-10-01] MEDS: SODIUM CHLORIDE 0.9% 1,000 ML IV SCH ×3 (02:00→20:10)
[2018-10-01 05:16] LABS: Calcium 10.1 MG/DL (8.5-10.1); Osmolality,Calculated 278.3 MOS/KG (273-304); Potassium 3.7 MMOL/L (3.5-5.1)
[2018-10-01] MEDS: LACTULOSE 20 GM/30 ML UDCUP PO SCH ×3 (06:05→17:38)
[2018-10-01 06:09] LABS: Basophils % 0.2 % (0.0-0.8); Eosinophils # 0.1 10*3/uL (0.0-0.87); Eosinophils % 0.4 % (0.00-10.9); Hematocrit 29.7 VOL% (35.7-47.0); Hemoglobin 9.9 GM/DL (12.0-16.0); Immature Granulocytes % 0.6 %; Immature Granulocytes Absolute 0.11 #; Lymphocytes # 2.2 10*3/uL (1.4-4.0); Lymphocytes % 12.9 % (21.3-54.2); Mean Corpuscular HGB Conc 33.3 GM/DL (32-36); Mean Corpuscular Hemoglobin 31 PG (27-34); Mean Corpuscular Volume 92.8 FL (87-102); Mean Platelet Volume 11.2 FL (9.6-12.0); Monocytes # 2.3 10*3/uL (0.11-0.8); Neutrophils # 12.6 10*3/uL (1.4-7.4); Neutrophils % 72.9 % (38.7-73.9); Platelet Count 326 T/CUMM (130-400); Red Cell Distribution Width 15.7 % (9.3-17.3); White Blood Count 17.3 T/CUMM (4-12)
[2018-10-01] MEDS: fentaNYL 75 MCG/HR PATCH TRANSDERM SCH (08:55)
[2018-10-01] MEDS: amLODIPine 5 MG TABLET PO SCH ×2 (08:55→20:07)
[2018-10-01] MEDS: predniSONE 20 MG TABLET PO SCH (08:55)
[2018-10-01] MEDS: ERGOCALCIFEROL 50,000 UNIT CAPSULE PO SCH (08:55)
[2018-10-01] MEDS: CARVEDILOL 25 MG TABLET PO SCH ×2 (08:55→17:36)
[2018-10-01] MEDS: FOLIC ACID 1 MG TABLET PO SCH (08:55)
[2018-10-01] MEDS: PANTOPRAZOLE 40 MG TABLET PO SCH (08:55)
[2018-10-01] MEDS: VANCOMYCIN INJ 1,250 MG in SODIUM CHLORIDE 0.9% 250 ML IV SCH ×2 (09:00→20:10)
[2018-10-01] MEDS: IBUPROFEN 800 MG TABLET PO PRN ×2 (10:38→20:07)
[2018-10-01] MEDS: ENOXAPARIN 40 MG/0.4 ML SYRINGE SUBCUT SCH (15:16)
[2018-10-01] MEDS: traZODone 50 MG TABLET PO PRN (20:07)
[2018-10-01] MEDS: fentaNYL 100 MCG/2 ML VIAL IV PRN (23:26)
[2018-10-02] MEDS: LACTULOSE 20 GM/30 ML UDCUP PO SCH ×4 (00:11→18:03)
[2018-10-02] MEDS: POTASSIUM CHLORIDE RIDER 10 MEQ in PREMIX 1 EACH IV PRN ×4 (00:17→20:45)
[2018-10-02] MEDS: IBUPROFEN 800 MG TABLET PO PRN ×2 (04:06→15:18)
[2018-10-02 04:51] LABS: Basophils % 0.1 % (0.0-0.8); Eosinophils # 0.1 10*3/uL (0.0-0.87); Eosinophils % 0.5 % (0.00-10.9); Hematocrit 26.4 VOL% (35.7-47.0); Hemoglobin 8.6 GM/DL (12.0-16.0); Immature Granulocytes % 0.6 %; Lymphocytes # 3.2 10*3/uL (1.4-4.0); Lymphocytes % 18.2 % (21.3-54.2); Mean Corpuscular HGB Conc 32.6 GM/DL (32-36); Mean Corpuscular Hemoglobin 30 PG (27-34); Mean Corpuscular Volume 93.3 FL (87-102); Mean Platelet Volume 11.1 FL (9.6-12.0); Monocytes # 2.3 10*3/uL (0.11-0.8); Monocytes % 13.1 % (1.7-12.7); Neutrophils # 11.8 10*3/uL (1.4-7.4); Neutrophils % 67.5 % (38.7-73.9); Platelet Count 240 T/CUMM (130-400); Red Blood Count 2.83 MC/CUMM (3.8-5.5); Red Cell Distribution Width 15.9 % (9.3-17.3); White Blood Count 17.4 T/CUMM (4-12)
[2018-10-02 05:11] LABS: Calcium 10.1 MG/DL (8.5-10.1); Osmolality,Calculated 277.5 MOS/KG (273-304); Potassium 3.6 MMOL/L (3.5-5.1)
[2018-10-02 05:13] LABS: Platelet Estimate Adequate
[2018-10-02 05:14] LABS: Polychromasia Few
[2018-10-02] MEDS ORDERED: chlorproMAZINE INJ 25 MG in SODIUM CHLORIDE 0.9% 100 ML IV ONE (06:00)
[2018-10-02] MEDS ORDERED: chlorproMAZINE INJ 50 MG in SODIUM CHLORIDE 0.9% 100 ML IV PRN (07:45)
[2018-10-02] MEDS ORDERED: MAGNESIUM SULF RIDER 4 GM in PREMIX 1 EACH IV PRN (08:20)
[2018-10-02] MEDS: CARVEDILOL 25 MG TABLET PO SCH ×2 (08:28→17:56)
[2018-10-02] MEDS: FOLIC ACID 1 MG TABLET PO SCH (08:28)
[2018-10-02] MEDS: amLODIPine 5 MG TABLET PO SCH (08:28)
[2018-10-02] MEDS: PANTOPRAZOLE 40 MG TABLET PO SCH (08:28)
[2018-10-02] MEDS: SODIUM CHLORIDE 0.9% 1,000 ML IV SCH (08:31)
[2018-10-02 08:43] LABS: Hepatitis A Ab IgM Quant 0.13 Index; Hepatitis A Ab IgM Result Negative (Negative); Hepatitis B Core IgM Quant 0.06 Index; Hepatitis B Core IgM Result Negative (Negative); Hepatitis B Surface Ag Quant < 0.10 Index; Hepatitis B Surface Ag Result Negative (Negative); Hepatitis C Virus Ab Quant 0.44 Index; Hepatitis C Virus Ab Result Negative (Negative)
[2018-10-02 10:03] LABS: Albumin 2.8 G/DL (3.4-5.0); Bilirubin,Total 1.5 MG/DL (0.2-1.0); Calcium 10.1 MG/DL (8.5-10.1); Osmolality,Calculated 278.5 MOS/KG (273-304); Potassium 3.6 MMOL/L (3.5-5.1); Total Protein 7.3 G/DL (6.4-8.3)
[2018-10-02] MEDS: MAGNESIUM SULF RIDER 2 GM in PREMIX 1 EACH IV PRN (10:26)
[2018-10-02] MEDS ORDERED: BUPIVACAINE 0.5% 50 ML VIAL ONE (13:58)
[2018-10-02] MEDS ORDERED: LIDOCAINE 1%/EPI INJ 20 ML VIAL ONE (13:58)
[2018-10-02] MEDS: ENOXAPARIN 40 MG/0.4 ML SYRINGE SUBCUT SCH (15:18)
[2018-10-02] MEDS ORDERED: TISSUE ADHESIVE 1 EACH APPLICATOR TOP ONE (16:24)
[2018-10-02] MEDS ORDERED: PROPOFOL 200 MG/20 ML VIAL IV ONE (16:39)
[2018-10-02] MEDS ORDERED: MIDAZOLAM 2 MG/2 ML VIAL ONE (16:39)
[2018-10-03] MEDS: LACTULOSE 20 GM/30 ML UDCUP PO SCH ×5 (01:56→23:37)
[2018-10-03] MEDS: amLODIPine 5 MG TABLET PO SCH ×4 (01:56→20:08)
[2018-10-03] MEDS: fentaNYL 100 MCG/2 ML VIAL IV PRN (03:52)
[2018-10-03 05:29] LABS: Basophils % 0.3 % (0.0-0.8); Eosinophils # 0.1 10*3/uL (0.0-0.87); Eosinophils % 0.6 % (0.00-10.9); Hematocrit 27.3 VOL% (35.7-47.0); Hemoglobin 8.8 GM/DL (12.0-16.0); Immature Granulocytes % 0.6 %; Immature Granulocytes Absolute 0.08 #; Lymphocytes # 1.7 10*3/uL (1.4-4.0); Lymphocytes % 12.8 % (21.3-54.2); Mean Corpuscular HGB Conc 32.2 GM/DL (32-36); Mean Corpuscular Hemoglobin 30 PG (27-34); Mean Corpuscular Volume 93.2 FL (87-102); Mean Platelet Volume 10.8 FL (9.6-12.0); Monocytes % 14.8 % (1.7-12.7); Neutrophils # 9.5 10*3/uL (1.4-7.4); Neutrophils % 70.9 % (38.7-73.9); Platelet Count 310 T/CUMM (130-400); Red Blood Count 2.93 MC/CUMM (3.8-5.5); White Blood Count 13.4 T/CUMM (4-12)
[2018-10-03 05:55] LABS: Albumin 2.8 G/DL (3.4-5.0); Bilirubin,Total 1.7 MG/DL (0.2-1.0); Osmolality,Calculated 285.1 MOS/KG (273-304); Potassium 3.8 MMOL/L (3.5-5.1); Total Protein 7.8 G/DL (6.4-8.3)
[2018-10-03] MEDS: IBUPROFEN 800 MG TABLET PO PRN (06:10)
[2018-10-03] MEDS: SODIUM CHLORIDE 0.9% 1,000 ML IV SCH (06:25)
[2018-10-03] MEDS ORDERED: DEXTROSE 5% 1,000 ML IV SCH (08:00)
[2018-10-03 09:53] LABS: Ferritin 4604.9 ng/ml (8-252)
[2018-10-03] MEDS: PANTOPRAZOLE 40 MG TABLET PO SCH (10:49)
[2018-10-03] MEDS: CARVEDILOL 25 MG TABLET PO SCH ×2 (10:50→16:59)
[2018-10-03] MEDS: FOLIC ACID 1 MG TABLET PO SCH (10:50)
[2018-10-03] MEDS: predniSONE 20 MG TABLET PO SCH (10:52)
[2018-10-03 11:51] LABS: PT Patient Result 10.7 SECS
[2018-10-03] MEDS: SODIUM BICARB INJ 50 MEQ in DEXTROSE 5% 1,000 ML IV SCH (15:55)
[2018-10-03] MEDS: ENOXAPARIN 40 MG/0.4 ML SYRINGE SUBCUT SCH (16:59)
[2018-10-03] MEDS: OLANZapine 2.5 MG TABLET PO SCH (20:04)
[2018-10-04] MEDS: SODIUM BICARB INJ 50 MEQ in DEXTROSE 5% 1,000 ML IV SCH ×2 (00:16→05:00)
[2018-10-04 04:32] LABS: Basophils % 0.1 % (0.0-0.8); Eosinophils % 0.2 % (0.00-10.9); Hematocrit 27.5 VOL% (35.7-47.0); Hemoglobin 8.9 GM/DL (12.0-16.0); Immature Granulocytes % 0.4 %; Immature Granulocytes Absolute 0.08 #; Lymphocytes # 2.1 10*3/uL (1.4-4.0); Lymphocytes % 11.7 % (21.3-54.2); Mean Corpuscular HGB Conc 32.4 GM/DL (32-36); Mean Corpuscular Hemoglobin 30 PG (27-34); Mean Corpuscular Volume 91.7 FL (87-102); Mean Platelet Volume 10.9 FL (9.6-12.0); Monocytes # 2.4 10*3/uL (0.11-0.8); Monocytes % 13.3 % (1.7-12.7); Neutrophils # 13.4 10*3/uL (1.4-7.4); Neutrophils % 74.3 % (38.7-73.9); Platelet Count 316 T/CUMM (130-400); Red Cell Distribution Width 15.8 % (9.3-17.3); White Blood Count 18.1 T/CUMM (4-12)
[2018-10-04 04:50] LABS: Albumin 3.1 G/DL (3.4-5.0); Bilirubin,Total 1.8 MG/DL (0.2-1.0); Calcium 10.9 MG/DL (8.5-10.1); Osmolality,Calculated 282.4 MOS/KG (273-304); Potassium 3.2 MMOL/L (3.5-5.1); Total Protein 8.1 G/DL (6.4-8.3)
[2018-10-04] MEDS: LACTULOSE 20 GM/30 ML UDCUP PO SCH ×3 (06:12→17:04)
[2018-10-04] MEDS ORDERED: chlorproMAZINE 25 MG TABLET PO SCH (09:00)
[2018-10-04] MEDS: fentaNYL 50 MCG/HR PATCH TRANSDERM SCH (09:33)
[2018-10-04] MEDS: POTASSIUM CHLORIDE 20 MEQ TABLET PO PRN ×4 (09:34→21:12)
[2018-10-04] MEDS: PANTOPRAZOLE 40 MG TABLET PO SCH (09:34)
[2018-10-04] MEDS: FOLIC ACID 1 MG TABLET PO SCH (09:34)
[2018-10-04] MEDS: OLANZapine 2.5 MG TABLET PO SCH (09:34)
[2018-10-04] MEDS: amLODIPine 5 MG TABLET PO SCH ×2 (09:34→21:15)
[2018-10-04] MEDS: hydrALAZINE 10 MG TABLET PO SCH ×2 (09:34→21:13)
[2018-10-04] MEDS: CARVEDILOL 25 MG TABLET PO SCH ×2 (09:35→16:48)
[2018-10-04] MEDS ORDERED: HALOPERIDOL 5 MG/ML AMP IM ONE (10:46)
[2018-10-04] MEDS ORDERED: LORazepam 2 MG/1 ML VIAL IM ONE (10:47)
[2018-10-04] MEDS: ENOXAPARIN 40 MG/0.4 ML SYRINGE SUBCUT SCH (16:04)
[2018-10-04] MEDS: ZOLPIDEM 5 MG TABLET PO SCH (21:13)
[2018-10-04] MEDS: HALOPERIDOL CONCENTRATE 2 MG/ML 15 ML BOTTLE PO SCH (21:14)
[2018-10-05] MEDS: LACTULOSE 20 GM/30 ML UDCUP PO SCH ×5 (02:08→23:35)
[2018-10-05 06:04] LABS: Basophils % 0.3 % (0.0-0.8); Eosinophils # 0.1 10*3/uL (0.0-0.87); Eosinophils % 0.6 % (0.00-10.9); Hematocrit 25.9 VOL% (35.7-47.0); Hemoglobin 8.5 GM/DL (12.0-16.0); Immature Granulocytes % 0.4 %; Immature Granulocytes Absolute 0.05 #; Lymphocytes # 2.9 10*3/uL (1.4-4.0); Lymphocytes % 22.8 % (21.3-54.2); Mean Corpuscular HGB Conc 32.8 GM/DL (32-36); Mean Corpuscular Hemoglobin 31 PG (27-34); Mean Corpuscular Volume 92.8 FL (87-102); Mean Platelet Volume 11.3 FL (9.6-12.0); Monocytes # 1.8 10*3/uL (0.11-0.8); Monocytes % 13.6 % (1.7-12.7); Neutrophils % 62.3 % (38.7-73.9); Platelet Count 312 T/CUMM (130-400); Red Blood Count 2.79 MC/CUMM (3.8-5.5); Red Cell Distribution Width 15.9 % (9.3-17.3); White Blood Count 12.9 T/CUMM (4-12)
[2018-10-05 06:40] LABS: Bilirubin,Total 1.9 MG/DL (0.2-1.0); Calcium 11.3 MG/DL (8.5-10.1); Osmolality,Calculated 283.3 MOS/KG (273-304); Potassium 4.3 MMOL/L (3.5-5.1); Total Protein 8.2 G/DL (6.4-8.3)
[2018-10-05] MEDS ORDERED: SODIUM CHLORIDE 0.9% 1,000 ML IV PRN (07:51)
[2018-10-05] MEDS ORDERED: DEXAMETHASONE INJ 20 MG in SODIUM CHLORIDE 0.9% 50 ML IV ONE (08:30)
[2018-10-05] MEDS: FOLIC ACID 1 MG TABLET PO SCH (09:25)
[2018-10-05] MEDS: PANTOPRAZOLE 40 MG TABLET PO SCH (09:25)
[2018-10-05] MEDS: CARVEDILOL 25 MG TABLET PO SCH ×2 (09:25→18:15)
[2018-10-05] MEDS: hydrALAZINE 10 MG TABLET PO SCH ×2 (09:25→20:27)
[2018-10-05] MEDS: predniSONE 20 MG TABLET PO SCH (09:25)
[2018-10-05] MEDS: amLODIPine 5 MG TABLET PO SCH ×2 (09:25→20:27)
[2018-10-05] MEDS: HALOPERIDOL CONCENTRATE 2 MG/ML 15 ML BOTTLE PO SCH ×2 (09:28→20:28)
[2018-10-05] MEDS: SODIUM CHLORIDE 0.9% IV PRN ×2 (14:20→22:37)
[2018-10-05] MEDS: CHLORPROMAZINE IV PRN ×2 (14:20→22:37)
[2018-10-05] MEDS: SODIUM BICARB INJ 50 MEQ in DEXTROSE 5% 1,000 ML IV SCH ×3 (15:08→23:35)
[2018-10-05] MEDS: ENOXAPARIN 40 MG/0.4 ML SYRINGE SUBCUT SCH (16:19)
[2018-10-05] MEDS: fentaNYL 100 MCG/2 ML VIAL IV PRN ×2 (18:51→22:04)
[2018-10-05] MEDS: ACETAMINOPHEN 325 MG TABLET PO PRN (21:57)
[2018-10-05] MEDS: ZOLPIDEM 5 MG TABLET PO SCH (21:58)
[2018-10-05] MEDS: traZODone 50 MG TABLET PO PRN (22:04)
[2018-10-06] MEDS: CHLORPROMAZINE IV PRN ×3 (04:57→20:45)
[2018-10-06] MEDS: SODIUM CHLORIDE 0.9% IV PRN ×3 (04:57→20:45)
[2018-10-06] MEDS: fentaNYL 100 MCG/2 ML VIAL IV PRN ×5 (05:15→20:47)
[2018-10-06 05:41] LABS: Hematocrit 29.7 VOL% (35.7-47.0); Immature Granulocytes % 0.6 %; Immature Granulocytes Absolute 0.05 #; Lymphocytes # 0.7 10*3/uL (1.4-4.0); Lymphocytes % 8.4 % (21.3-54.2); Mean Corpuscular HGB Conc 33.7 GM/DL (32-36); Mean Corpuscular Hemoglobin 30 PG (27-34); Monocytes # 0.1 10*3/uL (0.11-0.8); Monocytes % 0.8 % (1.7-12.7); Neutrophils # 7.7 10*3/uL (1.4-7.4); Neutrophils % 90.2 % (38.7-73.9); Platelet Count 324 T/CUMM (130-400); Red Cell Distribution Width 16.7 % (9.3-17.3); White Blood Count 8.6 T/CUMM (4-12)
[2018-10-06 06:00] LABS: Albumin 2.9 G/DL (3.4-5.0); Bilirubin,Total 1.9 MG/DL (0.2-1.0); Calcium 11.4 MG/DL (8.5-10.1); Osmolality,Calculated 281.8 MOS/KG (273-304); Potassium 4.3 MMOL/L (3.5-5.1); Total Protein 8.4 G/DL (6.4-8.3)
[2018-10-06] MEDS: LACTULOSE 20 GM/30 ML UDCUP PO SCH ×3 (06:11→18:22)
[2018-10-06] MEDS: SODIUM BICARB INJ 50 MEQ in DEXTROSE 5% 1,000 ML IV SCH ×3 (06:23→21:59)
[2018-10-06 06:40] LABS: Band Neutrophils 2 % (0-10); Lymphocytes 8 % (20-55); Segmented Neutrophils 88 % (50-85); Total Cells Counted 100
[2018-10-06 06:41] LABS: Anisocytosis 1+; Platelet Estimate Adequate; Target Cells Few
[2018-10-06 07:05] LABS: Apearance,Urine CLEAR (Clear); Bacteria,Urine Occasional /HPF (Few); Bilirubin,Urine Negative (Negative); Blood, Urine Negative (Negative); Glucose,Urine (UA) Negative (Negative); Ketones,Urine Negative (Negative); Mucus,Urine Occasional /LPF (Occasional); Nitrite,Urine Negative (Negative); Protein,Urine Negative; RBC,Urine <1 /HPF (0-4); Squamous Epithelial Cell,Urine Occasional /HPF (0-10); Urine Color Yellow (Yellow); Urine Specific Gravity 1.011 (1.001-1.035); Urine Urobilinogen < 2.0 EU/DL (0.2-1.0); WBC,Urine 3 /HPF (0-6)
[2018-10-06] MEDS: hydrALAZINE 10 MG TABLET PO SCH ×2 (09:54→20:46)
[2018-10-06] MEDS: PANTOPRAZOLE 40 MG TABLET PO SCH (09:54)
[2018-10-06] MEDS: CARVEDILOL 25 MG TABLET PO SCH ×2 (09:54→18:07)
[2018-10-06] MEDS: amLODIPine 5 MG TABLET PO SCH ×2 (09:54→20:46)
[2018-10-06] MEDS: FOLIC ACID 1 MG TABLET PO SCH (09:54)
[2018-10-06] MEDS: HALOPERIDOL CONCENTRATE 2 MG/ML 15 ML BOTTLE PO SCH (09:58)
[2018-10-06] MEDS: ENOXAPARIN 40 MG/0.4 ML SYRINGE SUBCUT SCH (15:46)
[2018-10-06] MEDS: traZODone 50 MG TABLET PO PRN (20:46)
[2018-10-06] MEDS: ZOLPIDEM 5 MG TABLET PO SCH (20:52)
[2018-10-07] MEDS: LACTULOSE 20 GM/30 ML UDCUP PO SCH ×4 (00:14→18:28)
[2018-10-07] MEDS: SODIUM BICARB INJ 50 MEQ in DEXTROSE 5% 1,000 ML IV SCH ×3 (04:47→21:17)
[2018-10-07] MEDS: SODIUM CHLORIDE 0.9% IV PRN (04:48)
[2018-10-07] MEDS: CHLORPROMAZINE IV PRN (04:48)
[2018-10-07] MEDS: fentaNYL 100 MCG/2 ML VIAL IV PRN ×3 (04:49→12:03)
[2018-10-07 05:14] LABS: Basophils % 0.1 % (0.0-0.8); Eosinophils % 0.1 % (0.00-10.9); Hematocrit 27.4 VOL% (35.7-47.0); Hemoglobin 9.1 GM/DL (12.0-16.0); Immature Granulocytes % 0.5 %; Immature Granulocytes Absolute 0.07 #; Lymphocytes # 3.2 10*3/uL (1.4-4.0); Mean Corpuscular HGB Conc 33.2 GM/DL (32-36); Mean Corpuscular Hemoglobin 30 PG (27-34); Mean Corpuscular Volume 89.8 FL (87-102); Mean Platelet Volume 10.5 FL (9.6-12.0); Monocytes # 1.6 10*3/uL (0.11-0.8); Monocytes % 10.6 % (1.7-12.7); Neutrophils # 10.3 10*3/uL (1.4-7.4); Neutrophils % 67.7 % (38.7-73.9); Platelet Count 320 T/CUMM (130-400); Red Blood Count 3.05 MC/CUMM (3.8-5.5); Red Cell Distribution Width 16.2 % (9.3-17.3); White Blood Count 15.2 T/CUMM (4-12)
[2018-10-07 05:46] LABS: Albumin 2.7 G/DL (3.4-5.0); Bilirubin,Total 1.4 MG/DL (0.2-1.0); Calcium 10.6 MG/DL (8.5-10.1); Osmolality,Calculated 281.7 MOS/KG (273-304); Potassium 3.5 MMOL/L (3.5-5.1); Total Protein 7.4 G/DL (6.4-8.3)
[2018-10-07] MEDS: POTASSIUM CHLORIDE RIDER 10 MEQ in PREMIX 1 EACH IV PRN ×2 (06:11→07:30)
[2018-10-07] MEDS: FOLIC ACID 1 MG TABLET PO SCH (10:14)
[2018-10-07] MEDS: PANTOPRAZOLE 40 MG TABLET PO SCH (10:14)
[2018-10-07] MEDS: hydrALAZINE 10 MG TABLET PO SCH ×2 (10:14→21:14)
[2018-10-07] MEDS: CARVEDILOL 25 MG TABLET PO SCH ×2 (10:14→16:54)
[2018-10-07] MEDS: predniSONE 20 MG TABLET PO SCH (10:14)
[2018-10-07] MEDS: amLODIPine 5 MG TABLET PO SCH ×2 (10:14→21:15)
[2018-10-07] MEDS: fentaNYL 50 MCG/HR PATCH TRANSDERM SCH (10:17)
[2018-10-07] MEDS: hydrALAZINE 20 MG/1 ML VIAL IV PRN (12:06)
[2018-10-07] MEDS: ENOXAPARIN 40 MG/0.4 ML SYRINGE SUBCUT SCH (16:54)
[2018-10-07] MEDS: ZOLPIDEM 5 MG TABLET PO SCH (21:15)
[2018-10-08] MEDS: LACTULOSE 20 GM/30 ML UDCUP PO SCH ×5 (00:11→23:50)
[2018-10-08] MEDS: SODIUM BICARB INJ 50 MEQ in DEXTROSE 5% 1,000 ML IV SCH ×3 (03:41→19:00)
[2018-10-08 05:45] LABS: Basophils % 0.1 % (0.0-0.8); Eosinophils % 0.1 % (0.00-10.9); Hematocrit 27.1 VOL% (35.7-47.0); Hemoglobin 8.7 GM/DL (12.0-16.0); Immature Granulocytes % 0.5 %; Immature Granulocytes Absolute 0.07 #; Lymphocytes # 3.1 10*3/uL (1.4-4.0); Lymphocytes % 20.5 % (21.3-54.2); Mean Corpuscular HGB Conc 32.1 GM/DL (32-36); Mean Corpuscular Hemoglobin 29 PG (27-34); Mean Corpuscular Volume 90.9 FL (87-102); Mean Platelet Volume 11.2 FL (9.6-12.0); Monocytes # 2.1 10*3/uL (0.11-0.8); Monocytes % 13.7 % (1.7-12.7); Neutrophils # 9.8 10*3/uL (1.4-7.4); Neutrophils % 65.1 % (38.7-73.9); Platelet Count 362 T/CUMM (130-400); Red Blood Count 2.98 MC/CUMM (3.8-5.5); Red Cell Distribution Width 15.9 % (9.3-17.3)
[2018-10-08 06:30] LABS: Albumin 2.8 G/DL (3.4-5.0); Bilirubin,Total 1.1 MG/DL (0.2-1.0); Calcium 10.2 MG/DL (8.5-10.1); Potassium 3.3 MMOL/L (3.5-5.1); Total Protein 7.3 G/DL (6.4-8.3)
[2018-10-08] MEDS: amLODIPine 5 MG TABLET PO SCH ×2 (09:38→20:50)
[2018-10-08] MEDS: POTASSIUM CHLORIDE 20 MEQ TABLET PO PRN ×3 (09:38→18:22)
[2018-10-08] MEDS: CARVEDILOL 25 MG TABLET PO SCH ×2 (09:38→18:21)
[2018-10-08] MEDS: hydrALAZINE 10 MG TABLET PO SCH ×2 (09:38→20:50)
[2018-10-08] MEDS: PANTOPRAZOLE 40 MG TABLET PO SCH (09:39)
[2018-10-08] MEDS: FOLIC ACID 1 MG TABLET PO SCH (09:39)
[2018-10-08] MEDS: ENOXAPARIN 40 MG/0.4 ML SYRINGE SUBCUT SCH (18:21)
[2018-10-08] MEDS: ZOLPIDEM 5 MG TABLET PO SCH (20:50)
[2018-10-09] MEDS: LACTULOSE 20 GM/30 ML UDCUP PO SCH ×4 (05:39→23:42)
[2018-10-09 06:43] LABS: Calcium 10.3 MG/DL (8.5-10.1); Osmolality,Calculated 276.8 MOS/KG (273-304); Potassium 3.6 MMOL/L (3.5-5.1)
[2018-10-09] MEDS: POTASSIUM CHLORIDE 20 MEQ TABLET PO PRN ×2 (08:31→11:43)
[2018-10-09] MEDS: FOLIC ACID 1 MG TABLET PO SCH (08:31)
[2018-10-09] MEDS: predniSONE 20 MG TABLET PO SCH (08:31)
[2018-10-09] MEDS: PANTOPRAZOLE 40 MG TABLET PO SCH (08:32)
[2018-10-09] MEDS: CARVEDILOL 25 MG TABLET PO SCH ×2 (08:32→18:48)
[2018-10-09] MEDS: hydrALAZINE 10 MG TABLET PO SCH ×2 (08:32→20:23)
[2018-10-09] MEDS: amLODIPine 5 MG TABLET PO SCH ×2 (08:32→20:23)
[2018-10-09] MEDS: fentaNYL 100 MCG/2 ML VIAL IV PRN (08:32)
[2018-10-09] MEDS: SODIUM CHLORIDE 0.9% 1,000 ML IV SCH ×2 (08:33→18:48)
[2018-10-09] MEDS: SODIUM BICARB INJ 50 MEQ in DEXTROSE 5% 1,000 ML IV SCH (10:29)
[2018-10-09] MEDS: MAGNESIUM HYDROXIDE SUSP 30 ML UDCUP PO PRN (11:43)
[2018-10-09] MEDS: ENOXAPARIN 40 MG/0.4 ML SYRINGE SUBCUT SCH (18:48)
[2018-10-09] MEDS: traZODone 50 MG TABLET PO PRN (20:24)
[2018-10-09] MEDS: ZOLPIDEM 5 MG TABLET PO SCH (20:25)
[2018-10-10] MEDS: CHLORPROMAZINE IV PRN (00:19)
[2018-10-10] MEDS: SODIUM CHLORIDE 0.9% IV PRN (00:19)
[2018-10-10] MEDS: LACTULOSE 20 GM/30 ML UDCUP PO SCH ×3 (05:03→18:21)
[2018-10-10 08:04] LABS: Basophils % 0.1 % (0.0-0.8); Eosinophils # 0.1 10*3/uL (0.0-0.87); Eosinophils % 0.6 % (0.00-10.9); Hematocrit 29.2 VOL% (35.7-47.0); Hemoglobin 9.3 GM/DL (12.0-16.0); Immature Granulocytes % 0.5 %; Immature Granulocytes Absolute 0.07 #; Lymphocytes # 2.2 10*3/uL (1.4-4.0); Mean Corpuscular HGB Conc 31.8 GM/DL (32-36); Mean Corpuscular Hemoglobin 29 PG (27-34); Mean Corpuscular Volume 91.8 FL (87-102); Mean Platelet Volume 10.6 FL (9.6-12.0); Monocytes # 2.1 10*3/uL (0.11-0.8); Monocytes % 14.3 % (1.7-12.7); Neutrophils # 10.4 10*3/uL (1.4-7.4); Neutrophils % 69.5 % (38.7-73.9); Platelet Count 356 T/CUMM (130-400); Red Blood Count 3.18 MC/CUMM (3.8-5.5); Red Cell Distribution Width 15.1 % (9.3-17.3)
[2018-10-10 08:33] LABS: Bilirubin,Total 1.4 MG/DL (0.2-1.0); Osmolality,Calculated 279.7 MOS/KG (273-304); Potassium 3.8 MMOL/L (3.5-5.1)
[2018-10-10] MEDS ORDERED: DEXTROSE 5% 1,000 ML IV SCH (09:00)
[2018-10-10] MEDS: CARVEDILOL 25 MG TABLET PO SCH ×2 (10:08→18:21)
[2018-10-10] MEDS: amLODIPine 5 MG TABLET PO SCH ×2 (10:08→20:44)
[2018-10-10] MEDS: FOLIC ACID 1 MG TABLET PO SCH (10:08)
[2018-10-10] MEDS: hydrALAZINE 10 MG TABLET PO SCH ×2 (10:08→20:45)
[2018-10-10] MEDS: PANTOPRAZOLE 40 MG TABLET PO SCH (10:08)
[2018-10-10] MEDS: fentaNYL 50 MCG/HR PATCH TRANSDERM SCH (10:08)
[2018-10-10] MEDS: SODIUM BICARB INJ 50 MEQ in DEXTROSE 5% 1,000 ML IV SCH ×2 (10:15→20:15)
[2018-10-10] MEDS: ENOXAPARIN 40 MG/0.4 ML SYRINGE SUBCUT SCH (18:21)
[2018-10-10] MEDS: fentaNYL 100 MCG/2 ML VIAL IV PRN ×2 (20:40→23:41)
[2018-10-10] MEDS: traZODone 50 MG TABLET PO PRN (20:45)
[2018-10-10] MEDS: ZOLPIDEM 5 MG TABLET PO SCH (22:31)
[2018-10-11] MEDS: SODIUM CHLORIDE 0.9% IV PRN (00:36)
[2018-10-11] MEDS: CHLORPROMAZINE IV PRN (00:36)
[2018-10-11] MEDS: LACTULOSE 20 GM/30 ML UDCUP PO SCH ×4 (03:06→17:33)
[2018-10-11] MEDS: SODIUM BICARB INJ 50 MEQ in DEXTROSE 5% 1,000 ML IV SCH ×3 (04:49→22:23)
[2018-10-11 05:23] LABS: Basophils % 0.2 % (0.0-0.8); Eosinophils # 0.2 10*3/uL (0.0-0.87); Eosinophils % 1.1 % (0.00-10.9); Hematocrit 27.3 VOL% (35.7-47.0); Immature Granulocytes % 0.3 %; Immature Granulocytes Absolute 0.04 #; Lymphocytes # 3.1 10*3/uL (1.4-4.0); Lymphocytes % 22.7 % (21.3-54.2); Mean Corpuscular Hemoglobin 30 PG (27-34); Mean Corpuscular Volume 91.6 FL (87-102); Mean Platelet Volume 10.8 FL (9.6-12.0); Monocytes # 1.9 10*3/uL (0.11-0.8); Monocytes % 13.5 % (1.7-12.7); Neutrophils # 8.5 10*3/uL (1.4-7.4); Neutrophils % 62.2 % (38.7-73.9); Platelet Count 332 T/CUMM (130-400); Red Blood Count 2.98 MC/CUMM (3.8-5.5); White Blood Count 13.7 T/CUMM (4-12)
[2018-10-11 05:42] LABS: Albumin 2.7 G/DL (3.4-5.0); Bilirubin,Total 1.7 MG/DL (0.2-1.0); Calcium 10.5 MG/DL (8.5-10.1); Potassium 3.2 MMOL/L (3.5-5.1); Total Protein 7.5 G/DL (6.4-8.3)
[2018-10-11] MEDS: POTASSIUM CHLORIDE RIDER 10 MEQ in PREMIX 1 EACH IV PRN (06:09)
[2018-10-11] MEDS: amLODIPine 5 MG TABLET PO SCH ×2 (10:06→21:16)
[2018-10-11] MEDS: PANTOPRAZOLE 40 MG TABLET PO SCH (10:07)
[2018-10-11] MEDS: FOLIC ACID 1 MG TABLET PO SCH (10:07)
[2018-10-11] MEDS: CARVEDILOL 25 MG TABLET PO SCH ×2 (10:07→17:33)
[2018-10-11] MEDS: POTASSIUM CHLORIDE 20 MEQ TABLET PO PRN ×2 (10:07→14:11)
[2018-10-11] MEDS: predniSONE 20 MG TABLET PO SCH (10:07)
[2018-10-11] MEDS: hydrALAZINE 10 MG TABLET PO SCH ×2 (10:07→21:16)
[2018-10-11] MEDS: fentaNYL 100 MCG/2 ML VIAL IV PRN ×3 (10:08→21:23)
[2018-10-11] MEDS: SODIUM CHLORIDE 0.9% 1,000 ML IV SCH (10:12)
[2018-10-11] MEDS: ENOXAPARIN 40 MG/0.4 ML SYRINGE SUBCUT SCH (14:12)
[2018-10-11] MEDS: ZOLPIDEM 5 MG TABLET PO SCH (21:01)
[2018-10-11] MEDS: ONDANSETRON 4 MG/2 ML VIAL IV PRN (23:56)
[2018-10-12] MEDS: fentaNYL 100 MCG/2 ML VIAL IV PRN ×5 (00:04→20:14)
[2018-10-12] MEDS: LACTULOSE 20 GM/30 ML UDCUP PO SCH ×5 (01:14→23:11)
[2018-10-12 04:59] LABS: Basophils % 0.2 % (0.0-0.8); Eosinophils # 0.1 10*3/uL (0.0-0.87); Eosinophils % 0.6 % (0.00-10.9); Hematocrit 28.5 VOL% (35.7-47.0); Hemoglobin 9.6 GM/DL (12.0-16.0); Immature Granulocytes % 0.4 %; Immature Granulocytes Absolute 0.06 #; Lymphocytes # 2.8 10*3/uL (1.4-4.0); Lymphocytes % 18.4 % (21.3-54.2); Mean Corpuscular HGB Conc 33.7 GM/DL (32-36); Mean Corpuscular Hemoglobin 31 PG (27-34); Mean Corpuscular Volume 91.1 FL (87-102); Mean Platelet Volume 10.8 FL (9.6-12.0); Monocytes # 2.1 10*3/uL (0.11-0.8); Monocytes % 13.9 % (1.7-12.7); Neutrophils # 10.3 10*3/uL (1.4-7.4); Neutrophils % 66.5 % (38.7-73.9); Platelet Count 352 T/CUMM (130-400); Red Blood Count 3.13 MC/CUMM (3.8-5.5); Red Cell Distribution Width 14.9 % (9.3-17.3); White Blood Count 15.4 T/CUMM (4-12)
[2018-10-12 05:25] LABS: Albumin 3.1 G/DL (3.4-5.0); Bilirubin,Total 1.4 MG/DL (0.2-1.0); Calcium 11.2 MG/DL (8.5-10.1); Osmolality,Calculated 273.1 MOS/KG (273-304); Potassium 3.5 MMOL/L (3.5-5.1); Total Protein 8.5 G/DL (6.4-8.3)
[2018-10-12] MEDS: hydrALAZINE 10 MG TABLET PO SCH ×2 (09:12→20:21)
[2018-10-12] MEDS: FOLIC ACID 1 MG TABLET PO SCH (09:12)
[2018-10-12] MEDS: PANTOPRAZOLE 40 MG TABLET PO SCH (09:12)
[2018-10-12] MEDS: CARVEDILOL 25 MG TABLET PO SCH ×2 (09:12→17:44)
[2018-10-12] MEDS: amLODIPine 5 MG TABLET PO SCH ×2 (09:12→20:13)
[2018-10-12] MEDS: SODIUM BICARB INJ 50 MEQ in DEXTROSE 5% 1,000 ML IV SCH ×2 (09:17→20:17)
[2018-10-12] MEDS: ENOXAPARIN 40 MG/0.4 ML SYRINGE SUBCUT SCH (17:44)
[2018-10-12] MEDS: MAGNESIUM HYDROXIDE SUSP 30 ML UDCUP PO PRN (17:48)
[2018-10-12 18:18] LABS: % Iron Saturation 32.4 % (18-50)
[2018-10-13] MEDS: fentaNYL 100 MCG/2 ML VIAL IV PRN ×4 (00:51→21:29)
[2018-10-13] MEDS: LACTULOSE 20 GM/30 ML UDCUP PO SCH ×4 (00:55→18:48)
[2018-10-13 05:25] LABS: Basophils % 0.2 % (0.0-0.8); Eosinophils # 0.2 10*3/uL (0.0-0.87); Eosinophils % 1.2 % (0.00-10.9); Hematocrit 28.8 VOL% (35.7-47.0); Hemoglobin 9.3 GM/DL (12.0-16.0); Immature Granulocytes % 0.6 %; Immature Granulocytes Absolute 0.08 #; Lymphocytes # 2.2 10*3/uL (1.4-4.0); Lymphocytes % 17.9 % (21.3-54.2); Mean Corpuscular HGB Conc 32.3 GM/DL (32-36); Mean Corpuscular Hemoglobin 29 PG (27-34); Mean Corpuscular Volume 90.6 FL (87-102); Mean Platelet Volume 11.2 FL (9.6-12.0); Monocytes # 1.9 10*3/uL (0.11-0.8); Neutrophils # 8.1 10*3/uL (1.4-7.4); Neutrophils % 65.1 % (38.7-73.9); Platelet Count 332 T/CUMM (130-400); Red Blood Count 3.18 MC/CUMM (3.8-5.5); Red Cell Distribution Width 14.9 % (9.3-17.3); White Blood Count 12.5 T/CUMM (4-12)
[2018-10-13 05:46] LABS: Albumin 3.2 G/DL (3.4-5.0); Bilirubin,Direct 0.54 MG/DL (0.0-0.20); Bilirubin,Indirect 1.6 MG/DL (0.0-1.0); Bilirubin,Total 2.1 MG/DL (0.2-1.0); Total Protein 8.1 G/DL (6.4-8.3)
[2018-10-13 05:55] LABS: Albumin 3.1 G/DL (3.4-5.0); Bilirubin,Total 1.3 MG/DL (0.2-1.0); Calcium 10.2 MG/DL (8.5-10.1); Osmolality,Calculated 267.4 MOS/KG (273-304); Potassium 3.2 MMOL/L (3.5-5.1); Total Protein 8.1 G/DL (6.4-8.3)
[2018-10-13] MEDS: SODIUM BICARB INJ 50 MEQ in DEXTROSE 5% 1,000 ML IV SCH ×3 (06:08→21:32)
[2018-10-13] MEDS: fentaNYL 50 MCG/HR PATCH TRANSDERM SCH (10:38)
[2018-10-13] MEDS: hydrALAZINE 10 MG TABLET PO SCH ×2 (10:39→21:29)
[2018-10-13] MEDS: predniSONE 20 MG TABLET PO SCH (10:39)
[2018-10-13] MEDS: CARVEDILOL 25 MG TABLET PO SCH ×2 (10:39→18:46)
[2018-10-13] MEDS: FOLIC ACID 1 MG TABLET PO SCH (10:39)
[2018-10-13] MEDS: amLODIPine 5 MG TABLET PO SCH ×2 (10:40→21:29)
[2018-10-13] MEDS: PANTOPRAZOLE 40 MG TABLET PO SCH (10:40)
[2018-10-13] MEDS: ENOXAPARIN 40 MG/0.4 ML SYRINGE SUBCUT SCH (14:25)
[2018-10-14] MEDS: LACTULOSE 20 GM/30 ML UDCUP PO SCH ×4 (01:02→19:18)
[2018-10-14] MEDS: fentaNYL 100 MCG/2 ML VIAL IV PRN ×3 (01:03→20:16)
[2018-10-14 05:20] LABS: Basophils % 0.2 % (0.0-0.8); Eosinophils # 0.1 10*3/uL (0.0-0.87); Eosinophils % 0.6 % (0.00-10.9); Hematocrit 27.1 VOL% (35.7-47.0); Hemoglobin 9.1 GM/DL (12.0-16.0); Immature Granulocytes % 0.4 %; Immature Granulocytes Absolute 0.05 #; Lymphocytes # 3.3 10*3/uL (1.4-4.0); Lymphocytes % 26.4 % (21.3-54.2); Mean Corpuscular HGB Conc 33.6 GM/DL (32-36); Mean Corpuscular Hemoglobin 30 PG (27-34); Mean Platelet Volume 10.9 FL (9.6-12.0); Monocytes # 1.9 10*3/uL (0.11-0.8); Monocytes % 15.5 % (1.7-12.7); Neutrophils # 7.1 10*3/uL (1.4-7.4); Neutrophils % 56.9 % (38.7-73.9); Platelet Count 318 T/CUMM (130-400); Red Blood Count 3.01 MC/CUMM (3.8-5.5); Red Cell Distribution Width 14.7 % (9.3-17.3); White Blood Count 12.5 T/CUMM (4-12)
[2018-10-14 05:45] LABS: Bilirubin,Total 1.2 MG/DL (0.2-1.0); Calcium 10.9 MG/DL (8.5-10.1); Osmolality,Calculated 271.1 MOS/KG (273-304); Potassium 2.7 MMOL/L (3.5-5.1)
[2018-10-14 05:54] LABS: Albumin 3.2 G/DL (3.4-5.0); Bilirubin,Direct 0.46 MG/DL (0.0-0.20); Bilirubin,Indirect 0.8 MG/DL (0.0-1.0); Bilirubin,Total 1.3 MG/DL (0.2-1.0); Total Protein 7.6 G/DL (6.4-8.3)
[2018-10-14] MEDS: SODIUM BICARB INJ 50 MEQ in DEXTROSE 5% 1,000 ML IV SCH ×3 (06:08→23:41)
[2018-10-14] MEDS: FOLIC ACID 1 MG TABLET PO SCH (09:39)
[2018-10-14] MEDS: CARVEDILOL 25 MG TABLET PO SCH ×2 (09:39→18:26)
[2018-10-14] MEDS: PANTOPRAZOLE 40 MG TABLET PO SCH (09:39)
[2018-10-14] MEDS: hydrALAZINE 10 MG TABLET PO SCH ×2 (09:39→20:18)
[2018-10-14] MEDS: POTASSIUM CHLORIDE 20 MEQ TABLET PO SCH ×4 (09:39→18:26)
[2018-10-14] MEDS: amLODIPine 5 MG TABLET PO SCH ×2 (09:39→20:18)
[2018-10-14] MEDS: ONDANSETRON 4 MG/2 ML VIAL IV PRN ×2 (12:54→23:38)
[2018-10-14] MEDS: ENOXAPARIN 40 MG/0.4 ML SYRINGE SUBCUT SCH (18:26)
[2018-10-15] MEDS: LACTULOSE 20 GM/30 ML UDCUP PO SCH ×4 (01:06→18:08)
[2018-10-15] MEDS: fentaNYL 100 MCG/2 ML VIAL IV PRN ×3 (02:49→21:32)
[2018-10-15 05:01] LABS: Basophils % 0.2 % (0.0-0.8); Eosinophils # 0.1 10*3/uL (0.0-0.87); Eosinophils % 0.9 % (0.00-10.9); Hematocrit 27.8 VOL% (35.7-47.0); Hemoglobin 9.3 GM/DL (12.0-16.0); Immature Granulocytes % 0.4 %; Immature Granulocytes Absolute 0.05 #; Lymphocytes # 2.5 10*3/uL (1.4-4.0); Lymphocytes % 21.3 % (21.3-54.2); Mean Corpuscular HGB Conc 33.5 GM/DL (32-36); Mean Corpuscular Hemoglobin 31 PG (27-34); Mean Corpuscular Volume 91.1 FL (87-102); Mean Platelet Volume 11.3 FL (9.6-12.0); Monocytes # 1.8 10*3/uL (0.11-0.8); Monocytes % 15.8 % (1.7-12.7); Neutrophils # 7.2 10*3/uL (1.4-7.4); Neutrophils % 61.4 % (38.7-73.9); Platelet Count 323 T/CUMM (130-400); Red Blood Count 3.05 MC/CUMM (3.8-5.5); Red Cell Distribution Width 14.7 % (9.3-17.3); White Blood Count 11.7 T/CUMM (4-12)
[2018-10-15 05:18] LABS: Albumin 3.2 G/DL (3.4-5.0); Bilirubin,Total 1.8 MG/DL (0.2-1.0); Osmolality,Calculated 269.2 MOS/KG (273-304); Potassium 3.3 MMOL/L (3.5-5.1); Total Protein 8.4 G/DL (6.4-8.3)
[2018-10-15 05:48] LABS: Eosinophils 2 % (0-10); Lymphocytes 23 % (20-55); Platelet Estimate Normal; Polychromasia Few; Segmented Neutrophils 65 % (50-85); Total Cells Counted 100
[2018-10-15 09:55] LABS: CKMB % 0.8 %
[2018-10-15] MEDS: FOLIC ACID 1 MG TABLET PO SCH (10:41)
[2018-10-15] MEDS: SODIUM BICARB INJ 50 MEQ in DEXTROSE 5% 1,000 ML IV SCH ×2 (10:42→18:02)
[2018-10-15] MEDS: POTASSIUM CHLORIDE 20 MEQ TABLET PO SCH ×3 (10:45→17:57)
[2018-10-15] MEDS: amLODIPine 5 MG TABLET PO SCH ×2 (10:46→21:23)
[2018-10-15] MEDS: CARVEDILOL 25 MG TABLET PO SCH ×2 (10:46→17:57)
[2018-10-15] MEDS: PANTOPRAZOLE 40 MG TABLET PO SCH (10:46)
[2018-10-15] MEDS: hydrALAZINE 10 MG TABLET PO SCH ×2 (10:46→21:23)
[2018-10-15] MEDS: predniSONE 20 MG TABLET PO SCH (10:46)
[2018-10-15] MEDS: ENOXAPARIN 40 MG/0.4 ML SYRINGE SUBCUT SCH (17:57)
[2018-10-16] MEDS: LACTULOSE 20 GM/30 ML UDCUP PO SCH ×4 (00:03→17:25)
[2018-10-16] MEDS: SODIUM BICARB INJ 50 MEQ in DEXTROSE 5% 1,000 ML IV SCH ×3 (02:08→20:25)
[2018-10-16] MEDS: fentaNYL 100 MCG/2 ML VIAL IV PRN ×4 (02:19→20:17)
[2018-10-16 05:20] LABS: Basophils % 0.2 % (0.0-0.8); Eosinophils # 0.1 10*3/uL (0.0-0.87); Eosinophils % 0.4 % (0.00-10.9); Hematocrit 26.2 VOL% (35.7-47.0); Hemoglobin 8.6 GM/DL (12.0-16.0); Immature Granulocytes % 0.3 %; Immature Granulocytes Absolute 0.04 #; Lymphocytes # 3.5 10*3/uL (1.4-4.0); Lymphocytes % 28.4 % (21.3-54.2); Mean Corpuscular HGB Conc 32.8 GM/DL (32-36); Mean Corpuscular Hemoglobin 30 PG (27-34); Mean Corpuscular Volume 92.6 FL (87-102); Mean Platelet Volume 11.3 FL (9.6-12.0); Monocytes # 1.7 10*3/uL (0.11-0.8); Monocytes % 14.1 % (1.7-12.7); Neutrophils % 56.6 % (38.7-73.9); Platelet Count 311 T/CUMM (130-400); Red Blood Count 2.83 MC/CUMM (3.8-5.5); Red Cell Distribution Width 14.6 % (9.3-17.3); White Blood Count 12.3 T/CUMM (4-12)
[2018-10-16 05:51] LABS: Bilirubin,Total 1.2 MG/DL (0.2-1.0); Calcium 10.9 MG/DL (8.5-10.1); Potassium 4.1 MMOL/L (3.5-5.1); Total Protein 8.1 G/DL (6.4-8.3)
[2018-10-16] MEDS: CARVEDILOL 25 MG TABLET PO SCH ×2 (10:23→17:28)
[2018-10-16] MEDS: amLODIPine 5 MG TABLET PO SCH ×2 (10:23→20:28)
[2018-10-16] MEDS: hydrALAZINE 10 MG TABLET PO SCH ×2 (10:23→20:28)
[2018-10-16] MEDS: FOLIC ACID 1 MG TABLET PO SCH (10:24)
[2018-10-16] MEDS: fentaNYL 50 MCG/HR PATCH TRANSDERM SCH (10:24)
[2018-10-16] MEDS: PANTOPRAZOLE 40 MG TABLET PO SCH (10:24)
[2018-10-16] MEDS: ONDANSETRON 4 MG/2 ML VIAL IV PRN (10:31)
[2018-10-16] MEDS ORDERED: SODIUM CHLORIDE 0.9% 1,000 ML IV ONE (11:38)
[2018-10-16] MEDS: ENOXAPARIN 40 MG/0.4 ML SYRINGE SUBCUT SCH (15:15)
[2018-10-17] MEDS: ONDANSETRON 4 MG/2 ML VIAL IV PRN ×2 (00:03→09:51)
[2018-10-17] MEDS: fentaNYL 100 MCG/2 ML VIAL IV PRN ×3 (00:06→16:39)
[2018-10-17] MEDS: LACTULOSE 20 GM/30 ML UDCUP PO SCH ×5 (02:17→19:24)
[2018-10-17] MEDS: SODIUM BICARB INJ 50 MEQ in DEXTROSE 5% 1,000 ML IV SCH ×3 (04:00→20:15)
[2018-10-17 05:09] LABS: Basophils # 0.1 10*3/uL (0.0-0.2); Basophils % 0.4 % (0.0-0.8); Eosinophils # 0.1 10*3/uL (0.0-0.87); Eosinophils % 0.9 % (0.00-10.9); Hematocrit 25.4 VOL% (35.7-47.0); Hemoglobin 8.4 GM/DL (12.0-16.0); Immature Granulocytes % 1.2 %; Immature Granulocytes Absolute 0.14 #; Lymphocytes # 3.3 10*3/uL (1.4-4.0); Lymphocytes % 28.6 % (21.3-54.2); Mean Corpuscular HGB Conc 33.1 GM/DL (32-36); Mean Corpuscular Hemoglobin 31 PG (27-34); Mean Corpuscular Volume 92.4 FL (87-102); Mean Platelet Volume 11.4 FL (9.6-12.0); Monocytes # 1.5 10*3/uL (0.11-0.8); Monocytes % 13.2 % (1.7-12.7); Neutrophils # 6.4 10*3/uL (1.4-7.4); Neutrophils % 55.7 % (38.7-73.9); Platelet Count 297 T/CUMM (130-400); Red Blood Count 2.75 MC/CUMM (3.8-5.5); Red Cell Distribution Width 14.9 % (9.3-17.3); White Blood Count 11.5 T/CUMM (4-12)
[2018-10-17 05:35] LABS: Bilirubin,Direct 0.3 MG/DL (0.0-0.20); Bilirubin,Indirect 1.3 MG/DL (0.0-1.0); Bilirubin,Total 1.6 MG/DL (0.2-1.0); Calcium 10.6 MG/DL (8.5-10.1); Osmolality,Calculated 275.7 MOS/KG (273-304); Potassium 3.5 MMOL/L (3.5-5.1)
[2018-10-17] MEDS: CARVEDILOL 25 MG TABLET PO SCH ×2 (09:49→16:39)
[2018-10-17] MEDS: amLODIPine 5 MG TABLET PO SCH ×2 (09:49→20:14)
[2018-10-17] MEDS: PANTOPRAZOLE 40 MG TABLET PO SCH (09:50)
[2018-10-17] MEDS: CYCLOBENZAPRINE 10 MG TABLET PO SCH ×2 (09:50→20:13)
[2018-10-17] MEDS: POTASSIUM CHLORIDE 20 MEQ TABLET PO PRN ×2 (09:50→20:13)
[2018-10-17] MEDS: FOLIC ACID 1 MG TABLET PO SCH (09:50)
[2018-10-17] MEDS: predniSONE 20 MG TABLET PO SCH (09:54)
[2018-10-17] MEDS: hydrALAZINE 10 MG TABLET PO SCH ×2 (09:54→20:13)
[2018-10-17] MEDS ORDERED: MAGNESIUM SULF RIDER 2 GM in PREMIX 1 EACH IV ONE (13:14)
[2018-10-17] MEDS: ENOXAPARIN 40 MG/0.4 ML SYRINGE SUBCUT SCH (14:53)
[2018-10-18] MEDS: LACTULOSE 20 GM/30 ML UDCUP PO SCH ×4 (00:35→19:23)
[2018-10-18] MEDS: fentaNYL 100 MCG/2 ML VIAL IV PRN ×4 (02:06→23:39)
[2018-10-18] MEDS: SODIUM BICARB INJ 50 MEQ in DEXTROSE 5% 1,000 ML IV SCH ×3 (04:15→20:30)
[2018-10-18 05:18] LABS: Basophils % 0.3 % (0.0-0.8); Eosinophils # 0.1 10*3/uL (0.0-0.87); Eosinophils % 0.5 % (0.00-10.9); Hematocrit 24.2 VOL% (35.7-47.0); Hemoglobin 7.9 GM/DL (12.0-16.0); Immature Granulocytes % 0.4 %; Immature Granulocytes Absolute 0.04 #; Mean Corpuscular HGB Conc 32.6 GM/DL (32-36); Mean Corpuscular Hemoglobin 30 PG (27-34); Mean Platelet Volume 10.7 FL (9.6-12.0); Monocytes # 1.4 10*3/uL (0.11-0.8); Monocytes % 13.3 % (1.7-12.7); Neutrophils # 4.9 10*3/uL (1.4-7.4); Neutrophils % 47.5 % (38.7-73.9); Platelet Count 311 T/CUMM (130-400); Red Blood Count 2.63 MC/CUMM (3.8-5.5); White Blood Count 10.4 T/CUMM (4-12)
[2018-10-18 06:25] LABS: Bilirubin,Direct 0.4 MG/DL (0.0-0.20); Bilirubin,Indirect 0.8 MG/DL (0.0-1.0); Bilirubin,Total 1.2 MG/DL (0.2-1.0); Calcium 10.5 MG/DL (8.5-10.1); Osmolality,Calculated 267.2 MOS/KG (273-304); Potassium 3.4 MMOL/L (3.5-5.1); Total Protein 7.8 G/DL (6.4-8.3)
[2018-10-18] MEDS ORDERED: SODIUM CHLORIDE 0.9% 1,000 ML IV PRN (08:06)
[2018-10-18] MEDS: CYCLOBENZAPRINE 10 MG TABLET PO SCH ×2 (09:09→20:28)
[2018-10-18] MEDS: PANTOPRAZOLE 40 MG TABLET PO SCH (09:09)
[2018-10-18] MEDS: FOLIC ACID 1 MG TABLET PO SCH (09:09)
[2018-10-18] MEDS: CARVEDILOL 25 MG TABLET PO SCH ×2 (09:09→16:35)
[2018-10-18] MEDS: POTASSIUM CHLORIDE 20 MEQ TABLET PO PRN (09:09)
[2018-10-18] MEDS: hydrALAZINE 10 MG TABLET PO SCH ×2 (09:10→20:28)
[2018-10-18] MEDS: amLODIPine 5 MG TABLET PO SCH ×2 (09:10→20:29)
[2018-10-18] MEDS: POTASSIUM CHLORIDE 20 MEQ TABLET PO SCH ×2 (11:00→20:28)
[2018-10-18] MEDS: ENOXAPARIN 40 MG/0.4 ML SYRINGE SUBCUT SCH (16:36)
[2018-10-18] MEDS ORDERED: diphenhydrAMINE CAP 50 MG CAPSULE PO ONE (18:56)
[2018-10-18] MEDS ORDERED: methylPREDNISolone SOD SUC 40 MG/1 ML VIAL IV ONE (19:42)
[2018-10-18] MEDS: ACETAMINOPHEN 325 MG TABLET PO PRN (22:24)
[2018-10-18] MEDS: ONDANSETRON 4 MG/2 ML VIAL IV PRN (23:36)
[2018-10-19] MEDS: LACTULOSE 20 GM/30 ML UDCUP PO SCH ×4 (01:08→19:13)
[2018-10-19 08:14] LABS: Basophils % 0.2 % (0.0-0.8); Hematocrit 31.9 VOL% (35.7-47.0); Immature Granulocytes % 0.3 %; Immature Granulocytes Absolute 0.02 #; Lymphocytes # 1.3 10*3/uL (1.4-4.0); Lymphocytes % 21.7 % (21.3-54.2); Mean Corpuscular HGB Conc 31.7 GM/DL (32-36); Mean Corpuscular Hemoglobin 29 PG (27-34); Mean Corpuscular Volume 90.6 FL (87-102); Mean Platelet Volume 10.6 FL (9.6-12.0); Monocytes # 0.2 10*3/uL (0.11-0.8); Monocytes % 2.5 % (1.7-12.7); Neutrophils # 4.6 10*3/uL (1.4-7.4); Neutrophils % 75.3 % (38.7-73.9); Platelet Count 327 T/CUMM (130-400); Red Blood Count 3.52 MC/CUMM (3.8-5.5); Red Cell Distribution Width 16.1 % (9.3-17.3); White Blood Count 6.1 T/CUMM (4-12)
[2018-10-19 08:15] LABS: Hemoglobin 10.1 GM/DL (12.0-16.0)
[2018-10-19] MEDS: POTASSIUM CHLORIDE 20 MEQ TABLET PO SCH ×2 (08:38→20:58)
[2018-10-19] MEDS: CARVEDILOL 25 MG TABLET PO SCH ×2 (08:39→16:57)
[2018-10-19] MEDS: FOLIC ACID 1 MG TABLET PO SCH (08:39)
[2018-10-19] MEDS: hydrALAZINE 10 MG TABLET PO SCH ×2 (08:39→20:57)
[2018-10-19] MEDS: predniSONE 20 MG TABLET PO SCH (08:39)
[2018-10-19] MEDS: PANTOPRAZOLE 40 MG TABLET PO SCH (08:39)
[2018-10-19] MEDS: amLODIPine 5 MG TABLET PO SCH ×2 (08:39→20:57)
[2018-10-19] MEDS: CYCLOBENZAPRINE 10 MG TABLET PO SCH ×2 (08:39→20:57)
[2018-10-19] MEDS: fentaNYL 50 MCG/HR PATCH TRANSDERM SCH (08:40)
[2018-10-19] MEDS: fentaNYL 100 MCG/2 ML VIAL IV PRN ×2 (08:41→15:19)
[2018-10-19 08:42] LABS: Albumin 3.3 G/DL (3.4-5.0); Bilirubin,Direct 0.55 MG/DL (0.0-0.20); Bilirubin,Indirect 1.1 MG/DL (0.0-1.0); Bilirubin,Total 1.6 MG/DL (0.2-1.0); Calcium 11.1 MG/DL (8.5-10.1); Potassium 3.9 MMOL/L (3.5-5.1); Total Protein 8.5 G/DL (6.4-8.3)
[2018-10-19] MEDS: SODIUM BICARB INJ 50 MEQ in DEXTROSE 5% 1,000 ML IV SCH ×2 (12:17→20:12)
[2018-10-19] MEDS: ENOXAPARIN 40 MG/0.4 ML SYRINGE SUBCUT SCH (15:21)
[2018-10-19] MEDS: POTASSIUM CHLORIDE RIDER 10 MEQ in PREMIX 1 EACH IV PRN (20:58)
[2018-10-20] MEDS: LACTULOSE 20 GM/30 ML UDCUP PO SCH ×4 (01:37→18:31)
[2018-10-20] MEDS: fentaNYL 100 MCG/2 ML VIAL IV PRN ×5 (04:05→18:56)
[2018-10-20] MEDS: SODIUM BICARB INJ 50 MEQ in DEXTROSE 5% 1,000 ML IV SCH ×3 (05:16→22:31)
[2018-10-20 05:20] LABS: Basophils % 0.2 % (0.0-0.8); Eosinophils % 0.2 % (0.00-10.9); Hematocrit 29.4 VOL% (35.7-47.0); Hemoglobin 9.5 GM/DL (12.0-16.0); Immature Granulocytes % 0.5 %; Immature Granulocytes Absolute 0.07 #; Lymphocytes # 4.5 10*3/uL (1.4-4.0); Lymphocytes % 35.2 % (21.3-54.2); Mean Corpuscular HGB Conc 32.3 GM/DL (32-36); Mean Corpuscular Hemoglobin 29 PG (27-34); Mean Corpuscular Volume 89.6 FL (87-102); Mean Platelet Volume 10.4 FL (9.6-12.0); Monocytes # 1.5 10*3/uL (0.11-0.8); Monocytes % 11.7 % (1.7-12.7); NRBC # 0.02 10*3/uL; Neutrophils # 6.7 10*3/uL (1.4-7.4); Neutrophils % 52.2 % (38.7-73.9); Platelet Count 305 T/CUMM (130-400); Red Blood Count 3.28 MC/CUMM (3.8-5.5); Red Cell Distribution Width 16.1 % (9.3-17.3); White Blood Count 12.9 T/CUMM (4-12)
[2018-10-20 05:58] LABS: Albumin 3.1 G/DL (3.4-5.0); Bilirubin,Direct 0.41 MG/DL (0.0-0.20); Bilirubin,Indirect 1.4 MG/DL (0.0-1.0); Bilirubin,Total 1.8 MG/DL (0.2-1.0); Calcium 11.2 MG/DL (8.5-10.1); Osmolality,Calculated 276.8 MOS/KG (273-304); Potassium 4.3 MMOL/L (3.5-5.1); Total Protein 8.1 G/DL (6.4-8.3)
[2018-10-20] MEDS: hydrALAZINE 10 MG TABLET PO SCH ×2 (08:29→20:52)
[2018-10-20] MEDS: CARVEDILOL 25 MG TABLET PO SCH ×2 (08:29→16:28)
[2018-10-20] MEDS: FOLIC ACID 1 MG TABLET PO SCH (08:29)
[2018-10-20] MEDS: CYCLOBENZAPRINE 10 MG TABLET PO SCH ×2 (08:29→20:52)
[2018-10-20] MEDS: POTASSIUM CHLORIDE 20 MEQ TABLET PO SCH ×2 (08:29→20:53)
[2018-10-20] MEDS: amLODIPine 5 MG TABLET PO SCH ×2 (08:29→20:52)
[2018-10-20] MEDS: PANTOPRAZOLE 40 MG TABLET PO SCH (08:29)
[2018-10-20] MEDS: ENOXAPARIN 40 MG/0.4 ML SYRINGE SUBCUT SCH (14:23)
[2018-10-21] MEDS: LACTULOSE 20 GM/30 ML UDCUP PO SCH ×5 (00:54→17:17)
[2018-10-21] MEDS: fentaNYL 100 MCG/2 ML VIAL IV PRN ×4 (02:54→20:52)
[2018-10-21] MEDS: SODIUM BICARB INJ 50 MEQ in DEXTROSE 5% 1,000 ML IV SCH ×3 (06:17→22:20)
[2018-10-21 07:09] LABS: Basophils % 0.3 % (0.0-0.8); Eosinophils # 0.1 10*3/uL (0.0-0.87); Eosinophils % 0.9 % (0.00-10.9); Hematocrit 30.3 VOL% (35.7-47.0); Immature Granulocytes % 0.4 %; Immature Granulocytes Absolute 0.05 #; Lymphocytes # 4.1 10*3/uL (1.4-4.0); Lymphocytes % 36.4 % (21.3-54.2); Mean Corpuscular Hemoglobin 30 PG (27-34); Mean Corpuscular Volume 89.6 FL (87-102); Mean Platelet Volume 10.2 FL (9.6-12.0); Monocytes # 1.6 10*3/uL (0.11-0.8); Monocytes % 14.3 % (1.7-12.7); NRBC # 0.02 10*3/uL; Neutrophils # 5.3 10*3/uL (1.4-7.4); Neutrophils % 47.7 % (38.7-73.9); Platelet Count 290 T/CUMM (130-400); Red Blood Count 3.38 MC/CUMM (3.8-5.5); Red Cell Distribution Width 16.3 % (9.3-17.3); White Blood Count 11.1 T/CUMM (4-12)
[2018-10-21 07:45] LABS: Albumin 3.1 G/DL (3.4-5.0); Bilirubin,Direct 0.4 MG/DL (0.0-0.20); Bilirubin,Total 1.4 MG/DL (0.2-1.0); Calcium 10.8 MG/DL (8.5-10.1); Osmolality,Calculated 272.1 MOS/KG (273-304); Potassium 3.9 MMOL/L (3.5-5.1)
[2018-10-21] MEDS: hydrALAZINE 10 MG TABLET PO SCH ×2 (08:11→20:50)
[2018-10-21] MEDS: CYCLOBENZAPRINE 10 MG TABLET PO SCH ×2 (08:11→20:50)
[2018-10-21] MEDS: FOLIC ACID 1 MG TABLET PO SCH (08:11)
[2018-10-21] MEDS: predniSONE 20 MG TABLET PO SCH (08:11)
[2018-10-21] MEDS: CARVEDILOL 25 MG TABLET PO SCH ×2 (08:11→16:11)
[2018-10-21] MEDS: PANTOPRAZOLE 40 MG TABLET PO SCH (08:11)
[2018-10-21] MEDS: amLODIPine 5 MG TABLET PO SCH ×2 (08:12→20:50)
[2018-10-21] MEDS: POTASSIUM CHLORIDE 20 MEQ TABLET PO SCH ×2 (08:16→20:50)
[2018-10-21] MEDS: ENOXAPARIN 40 MG/0.4 ML SYRINGE SUBCUT SCH (16:11)
[2018-10-21] MEDS: MAGNESIUM HYDROXIDE SUSP 30 ML UDCUP PO PRN (20:49)
[2018-10-21] MEDS: traZODone 50 MG TABLET PO PRN (20:51)
[2018-10-22] MEDS: LACTULOSE 20 GM/30 ML UDCUP PO SCH ×4 (00:48→19:59)
[2018-10-22] MEDS: fentaNYL 100 MCG/2 ML VIAL IV PRN ×4 (02:44→23:10)
[2018-10-22 05:28] LABS: Basophils % 0.2 % (0.0-0.8); Eosinophils # 0.1 10*3/uL (0.0-0.87); Eosinophils % 0.7 % (0.00-10.9); Hematocrit 28.7 VOL% (35.7-47.0); Hemoglobin 9.3 GM/DL (12.0-16.0); Immature Granulocytes % 0.4 %; Immature Granulocytes Absolute 0.04 #; Lymphocytes # 4.1 10*3/uL (1.4-4.0); Lymphocytes % 37.3 % (21.3-54.2); Mean Corpuscular HGB Conc 32.4 GM/DL (32-36); Mean Corpuscular Hemoglobin 29 PG (27-34); Mean Platelet Volume 10.5 FL (9.6-12.0); Monocytes # 1.5 10*3/uL (0.11-0.8); Monocytes % 13.3 % (1.7-12.7); Neutrophils # 5.3 10*3/uL (1.4-7.4); Neutrophils % 48.1 % (38.7-73.9); Platelet Count 274 T/CUMM (130-400); Red Blood Count 3.19 MC/CUMM (3.8-5.5); White Blood Count 11.1 T/CUMM (4-12)
[2018-10-22 05:46] LABS: Albumin 3.1 G/DL (3.4-5.0); Bilirubin,Direct 0.29 MG/DL (0.0-0.20); Bilirubin,Indirect 0.9 MG/DL (0.0-1.0); Bilirubin,Total 1.2 MG/DL (0.2-1.0); Calcium 10.3 MG/DL (8.5-10.1); Osmolality,Calculated 273.1 MOS/KG (273-304); Potassium 3.9 MMOL/L (3.5-5.1); Total Protein 7.8 G/DL (6.4-8.3)
[2018-10-22] MEDS: SODIUM BICARB INJ 50 MEQ in DEXTROSE 5% 1,000 ML IV SCH ×2 (10:00→18:02)
[2018-10-22] MEDS: fentaNYL 75 MCG/HR PATCH TRANSDERM SCH (10:02)
[2018-10-22] MEDS: CYCLOBENZAPRINE 10 MG TABLET PO SCH ×2 (10:07→20:57)
[2018-10-22] MEDS: FOLIC ACID 1 MG TABLET PO SCH (10:07)
[2018-10-22] MEDS: hydrALAZINE 10 MG TABLET PO SCH ×2 (10:07→20:57)
[2018-10-22] MEDS: POTASSIUM CHLORIDE 20 MEQ TABLET PO SCH ×2 (10:07→20:57)
[2018-10-22] MEDS: CARVEDILOL 25 MG TABLET PO SCH ×2 (10:07→17:41)
[2018-10-22] MEDS: PANTOPRAZOLE 40 MG TABLET PO SCH (10:07)
[2018-10-22] MEDS: amLODIPine 5 MG TABLET PO SCH ×2 (10:07→20:56)
[2018-10-22] MEDS: ENOXAPARIN 40 MG/0.4 ML SYRINGE SUBCUT SCH (17:41)
[2018-10-23] MEDS: LACTULOSE 20 GM/30 ML UDCUP PO SCH ×5 (00:58→23:52)
[2018-10-23] MEDS: SODIUM BICARB INJ 50 MEQ in DEXTROSE 5% 1,000 ML IV SCH ×5 (02:09→19:00)
[2018-10-23 04:36] LABS: Basophils % 0.2 % (0.0-0.8); Eosinophils # 0.1 10*3/uL (0.0-0.87); Eosinophils % 1.3 % (0.00-10.9); Hematocrit 29.4 VOL% (35.7-47.0); Hemoglobin 9.5 GM/DL (12.0-16.0); Immature Granulocytes % 0.3 %; Immature Granulocytes Absolute 0.03 #; Lymphocytes # 3.6 10*3/uL (1.4-4.0); Lymphocytes % 35.4 % (21.3-54.2); Mean Corpuscular HGB Conc 32.3 GM/DL (32-36); Mean Corpuscular Hemoglobin 29 PG (27-34); Mean Corpuscular Volume 89.6 FL (87-102); Mean Platelet Volume 10.5 FL (9.6-12.0); Monocytes # 1.5 10*3/uL (0.11-0.8); Monocytes % 14.6 % (1.7-12.7); Neutrophils # 4.9 10*3/uL (1.4-7.4); Neutrophils % 48.2 % (38.7-73.9); Platelet Count 276 T/CUMM (130-400); Red Blood Count 3.28 MC/CUMM (3.8-5.5); Red Cell Distribution Width 16.4 % (9.3-17.3); White Blood Count 10.1 T/CUMM (4-12)
[2018-10-23 04:56] LABS: Albumin 3.3 G/DL (3.4-5.0); Calcium 10.6 MG/DL (8.5-10.1); Potassium 4.1 MMOL/L (3.5-5.1); Total Protein 7.9 G/DL (6.4-8.3)
[2018-10-23] MEDS: CARVEDILOL 25 MG TABLET PO SCH ×2 (08:05→17:15)
[2018-10-23] MEDS: FOLIC ACID 1 MG TABLET PO SCH (09:24)
[2018-10-23] MEDS: amLODIPine 5 MG TABLET PO SCH ×2 (09:24→20:31)
[2018-10-23] MEDS: PANTOPRAZOLE 40 MG TABLET PO SCH (09:24)
[2018-10-23] MEDS: POTASSIUM CHLORIDE 20 MEQ TABLET PO SCH ×2 (09:25→20:31)
[2018-10-23] MEDS: hydrALAZINE 10 MG TABLET PO SCH ×2 (09:25→20:31)
[2018-10-23] MEDS: CYCLOBENZAPRINE 10 MG TABLET PO SCH ×2 (09:25→20:31)
[2018-10-23] MEDS: predniSONE 20 MG TABLET PO SCH (09:25)
[2018-10-23] MEDS: fentaNYL 100 MCG/2 ML VIAL IV PRN ×3 (11:00→20:47)
[2018-10-23] MEDS: ENOXAPARIN 40 MG/0.4 ML SYRINGE SUBCUT SCH (15:55)
[2018-10-24] MEDS: SODIUM BICARB INJ 50 MEQ in DEXTROSE 5% 1,000 ML IV SCH ×3 (03:43→22:04)
[2018-10-24] MEDS: LACTULOSE 20 GM/30 ML UDCUP PO SCH ×3 (05:50→17:11)
[2018-10-24] MEDS: fentaNYL 100 MCG/2 ML VIAL IV PRN ×4 (05:55→21:49)
[2018-10-24 07:54] LABS: Basophils % 0.2 % (0.0-0.8); Eosinophils # 0.1 10*3/uL (0.0-0.87); Hematocrit 28.9 VOL% (35.7-47.0); Hemoglobin 9.3 GM/DL (12.0-16.0); Immature Granulocytes % 0.3 %; Immature Granulocytes Absolute 0.03 #; Lymphocytes # 4.1 10*3/uL (1.4-4.0); Lymphocytes % 36.6 % (21.3-54.2); Mean Corpuscular HGB Conc 32.2 GM/DL (32-36); Mean Corpuscular Hemoglobin 29 PG (27-34); Mean Corpuscular Volume 89.8 FL (87-102); Mean Platelet Volume 10.4 FL (9.6-12.0); Monocytes # 1.6 10*3/uL (0.11-0.8); Monocytes % 13.8 % (1.7-12.7); Neutrophils # 5.4 10*3/uL (1.4-7.4); Neutrophils % 48.1 % (38.7-73.9); Platelet Count 259 T/CUMM (130-400); Red Blood Count 3.22 MC/CUMM (3.8-5.5); Red Cell Distribution Width 16.2 % (9.3-17.3); White Blood Count 11.2 T/CUMM (4-12)
[2018-10-24 08:35] LABS: Albumin 3.2 G/DL (3.4-5.0); Bilirubin,Direct 0.4 MG/DL (0.0-0.20); Bilirubin,Total 1.4 MG/DL (0.2-1.0); Calcium 10.4 MG/DL (8.5-10.1); Osmolality,Calculated 271.1 MOS/KG (273-304); Total Protein 8.3 G/DL (6.4-8.3)
[2018-10-24] MEDS: PANTOPRAZOLE 40 MG TABLET PO SCH (09:06)
[2018-10-24] MEDS: amLODIPine 5 MG TABLET PO SCH ×2 (09:06→21:48)
[2018-10-24] MEDS: POTASSIUM CHLORIDE 20 MEQ TABLET PO SCH ×2 (09:06→21:48)
[2018-10-24] MEDS: hydrALAZINE 10 MG TABLET PO SCH ×2 (09:06→21:48)
[2018-10-24] MEDS: CYCLOBENZAPRINE 10 MG TABLET PO SCH ×2 (09:06→21:48)
[2018-10-24] MEDS: MAGNESIUM SULF RIDER 2 GM in PREMIX 1 EACH IV PRN (09:07)
[2018-10-24] MEDS: FOLIC ACID 1 MG TABLET PO SCH (09:07)
[2018-10-24] MEDS: CARVEDILOL 25 MG TABLET PO SCH ×2 (09:07→17:27)
[2018-10-24] MEDS ORDERED: MAGNESIUM SULF RIDER 2 GM in PREMIX 1 EACH IV ONE (09:25)
[2018-10-25] MEDS: LACTULOSE 20 GM/30 ML UDCUP PO SCH ×5 (00:03→23:43)
[2018-10-25] MEDS: fentaNYL 100 MCG/2 ML VIAL IV PRN ×3 (01:19→17:33)
[2018-10-25] MEDS ORDERED: DIAZEPAM 5 MG TABLET PO ONE (06:00)
[2018-10-25 06:10] LABS: Basophils % 0.4 % (0.0-0.8); Eosinophils # 0.2 10*3/uL (0.0-0.87); Eosinophils % 1.5 % (0.00-10.9); Hematocrit 31.2 VOL% (35.7-47.0); Immature Granulocytes % 0.5 %; Immature Granulocytes Absolute 0.06 #; Lymphocytes # 3.6 10*3/uL (1.4-4.0); Lymphocytes % 32.7 % (21.3-54.2); Mean Corpuscular HGB Conc 32.1 GM/DL (32-36); Mean Corpuscular Hemoglobin 29 PG (27-34); Mean Corpuscular Volume 89.9 FL (87-102); Mean Platelet Volume 10.6 FL (9.6-12.0); Monocytes # 1.4 10*3/uL (0.11-0.8); Neutrophils # 5.7 10*3/uL (1.4-7.4); Neutrophils % 51.9 % (38.7-73.9); Platelet Count 268 T/CUMM (130-400); Red Blood Count 3.47 MC/CUMM (3.8-5.5); Red Cell Distribution Width 16.2 % (9.3-17.3)
[2018-10-25 06:45] LABS: Albumin 3.4 G/DL (3.4-5.0); Bilirubin,Direct 0.48 MG/DL (0.0-0.20); Bilirubin,Indirect 1.3 MG/DL (0.0-1.0); Bilirubin,Total 1.8 MG/DL (0.2-1.0); Calcium 10.9 MG/DL (8.5-10.1); Osmolality,Calculated 269.2 MOS/KG (273-304); Potassium 4.4 MMOL/L (3.5-5.1); Total Protein 8.5 G/DL (6.4-8.3)
[2018-10-25] MEDS: LACTATED RINGERS 1,000 ML IV SCH (08:55)
[2018-10-25] MEDS ORDERED: TISSUE ADHESIVE 1 EACH APPLICATOR TOP ONE (10:22)
[2018-10-25] MEDS ORDERED: PROPOFOL 200 MG/20 ML VIAL IV ONE (10:47)
[2018-10-25] MEDS ORDERED: SEVOFLURANE 1 UNIT/15 MINUTE INH ONE (10:47)
[2018-10-25] MEDS ORDERED: fentaNYL 100 MCG/2 ML VIAL ONE (10:48)
[2018-10-25] MEDS ORDERED: METOPROLOL TARTRATE 5 MG/5 ML VIAL IV ONE (10:48)
[2018-10-25] MEDS ORDERED: methylPREDNISolone SOD SUC 125 MG/2 ML VIAL ONE (10:48)
[2018-10-25] MEDS ORDERED: MIDAZOLAM 2 MG/2 ML VIAL ONE (10:48)
[2018-10-25] MEDS ORDERED: ONDANSETRON 4 MG/2 ML VIAL ONE (10:48)
[2018-10-25] MEDS ORDERED: ROCURONIUM 100 MG/10 ML VIAL IV ONE (10:49)
[2018-10-25] MEDS ORDERED: NEOSTIGMINE 10 MG/10 ML VIAL ONE (10:49)
[2018-10-25] MEDS ORDERED: GLYCOPYRROLATE 0.4 MG/2 ML VIAL ONE (10:49)
[2018-10-25] MEDS: CYCLOBENZAPRINE 10 MG TABLET PO SCH ×2 (11:59→20:24)
[2018-10-25] MEDS: amLODIPine 5 MG TABLET PO SCH ×2 (11:59→20:24)
[2018-10-25] MEDS: CARVEDILOL 25 MG TABLET PO SCH ×2 (11:59→17:24)
[2018-10-25] MEDS: POTASSIUM CHLORIDE 20 MEQ TABLET PO SCH ×2 (11:59→20:24)
[2018-10-25] MEDS: hydrALAZINE 10 MG TABLET PO SCH ×2 (11:59→20:24)
[2018-10-25] MEDS: FOLIC ACID 1 MG TABLET PO SCH (11:59)
[2018-10-25] MEDS: PANTOPRAZOLE 40 MG TABLET PO SCH (12:00)
[2018-10-25] MEDS: predniSONE 20 MG TABLET PO SCH (12:00)
[2018-10-25] MEDS: fentaNYL 75 MCG/HR PATCH TRANSDERM SCH (12:04)
[2018-10-25] MEDS: SODIUM BICARB INJ 50 MEQ in DEXTROSE 5% 1,000 ML IV SCH ×2 (12:08→20:26)
[2018-10-26] MEDS: SODIUM BICARB INJ 50 MEQ in DEXTROSE 5% 1,000 ML IV SCH ×2 (00:54→03:37)
[2018-10-26] MEDS: LACTATED RINGERS 1,000 ML IV SCH (00:55)
[2018-10-26] MEDS: fentaNYL 100 MCG/2 ML VIAL IV PRN ×3 (02:56→17:34)
[2018-10-26 03:13] LABS: Basophils % 0.1 % (0.0-0.8); Hematocrit 25.6 VOL% (35.7-47.0); Hemoglobin 8.4 GM/DL (12.0-16.0); Immature Granulocytes % 0.3 %; Immature Granulocytes Absolute 0.03 #; Lymphocytes # 2.6 10*3/uL (1.4-4.0); Mean Corpuscular HGB Conc 32.8 GM/DL (32-36); Mean Corpuscular Hemoglobin 29 PG (27-34); Mean Corpuscular Volume 88.9 FL (87-102); Mean Platelet Volume 10.5 FL (9.6-12.0); Neutrophils % 68.6 % (38.7-73.9); Platelet Count 241 T/CUMM (130-400); Red Blood Count 2.88 MC/CUMM (3.8-5.5); White Blood Count 11.6 T/CUMM (4-12)
[2018-10-26 03:44] LABS: Bilirubin,Direct 0.52 MG/DL (0.0-0.20); Bilirubin,Indirect 1.2 MG/DL (0.0-1.0); Bilirubin,Total 1.7 MG/DL (0.2-1.0); Osmolality,Calculated 270.4 MOS/KG (273-304); Potassium 4.2 MMOL/L (3.5-5.1); Total Protein 7.8 G/DL (6.4-8.3)
[2018-10-26] MEDS: LACTULOSE 20 GM/30 ML UDCUP PO SCH ×4 (06:39→23:54)
[2018-10-26] MEDS: CARVEDILOL 25 MG TABLET PO SCH ×2 (08:21→17:33)
[2018-10-26] MEDS: FOLIC ACID 1 MG TABLET PO SCH (08:21)
[2018-10-26] MEDS: hydrALAZINE 10 MG TABLET PO SCH ×2 (08:21→20:09)
[2018-10-26] MEDS: amLODIPine 5 MG TABLET PO SCH ×2 (08:21→20:09)
[2018-10-26] MEDS: CYCLOBENZAPRINE 10 MG TABLET PO SCH ×2 (08:21→20:08)
[2018-10-26] MEDS: PANTOPRAZOLE 40 MG TABLET PO SCH (08:21)
[2018-10-26] MEDS: POTASSIUM CHLORIDE 20 MEQ TABLET PO SCH ×2 (08:21→20:08)
[2018-10-26] MEDS: ENOXAPARIN 40 MG/0.4 ML SYRINGE SUBCUT SCH (14:29)
[2018-10-27] MEDS: fentaNYL 100 MCG/2 ML VIAL IV PRN ×4 (01:49→20:25)
[2018-10-27 04:04] LABS: Basophils # 0.1 10*3/uL (0.0-0.2); Basophils % 0.4 % (0.0-0.8); Eosinophils # 0.1 10*3/uL (0.0-0.87); Eosinophils % 0.6 % (0.00-10.9); Hematocrit 25.7 VOL% (35.7-47.0); Hemoglobin 8.2 GM/DL (12.0-16.0); Immature Granulocytes % 0.4 %; Immature Granulocytes Absolute 0.05 #; Lymphocytes # 5.2 10*3/uL (1.4-4.0); Lymphocytes % 40.5 % (21.3-54.2); Mean Corpuscular HGB Conc 31.9 GM/DL (32-36); Mean Corpuscular Hemoglobin 29 PG (27-34); Mean Corpuscular Volume 89.9 FL (87-102); Mean Platelet Volume 10.4 FL (9.6-12.0); Monocytes # 1.6 10*3/uL (0.11-0.8); Monocytes % 12.5 % (1.7-12.7); Neutrophils # 5.9 10*3/uL (1.4-7.4); Neutrophils % 45.6 % (38.7-73.9); Platelet Count 229 T/CUMM (130-400); Red Blood Count 2.86 MC/CUMM (3.8-5.5); Red Cell Distribution Width 16.2 % (9.3-17.3)
[2018-10-27 04:25] LABS: Bilirubin,Direct 0.5 MG/DL (0.0-0.20); Bilirubin,Indirect 1.2 MG/DL (0.0-1.0); Bilirubin,Total 1.7 MG/DL (0.2-1.0); Calcium 8.9 MG/DL (8.5-10.1); Osmolality,Calculated 280.5 MOS/KG (273-304); Potassium 4.2 MMOL/L (3.5-5.1); Total Protein 7.4 G/DL (6.4-8.3)
[2018-10-27] MEDS: LACTULOSE 20 GM/30 ML UDCUP PO SCH ×4 (06:30→23:50)
[2018-10-27] MEDS: CARVEDILOL 25 MG TABLET PO SCH ×2 (09:02→16:25)
[2018-10-27] MEDS: predniSONE 20 MG TABLET PO SCH (09:03)
[2018-10-27] MEDS: hydrALAZINE 10 MG TABLET PO SCH ×2 (09:03→20:29)
[2018-10-27] MEDS: FOLIC ACID 1 MG TABLET PO SCH (09:03)
[2018-10-27] MEDS: amLODIPine 5 MG TABLET PO SCH ×2 (09:03→20:29)
[2018-10-27] MEDS: PANTOPRAZOLE 40 MG TABLET PO SCH (09:03)
[2018-10-27] MEDS: POTASSIUM CHLORIDE 20 MEQ TABLET PO SCH ×2 (09:03→20:28)
[2018-10-27] MEDS: CYCLOBENZAPRINE 10 MG TABLET PO SCH ×2 (09:05→20:29)
[2018-10-27] MEDS ORDERED: diphenhydrAMINE CAP 50 MG CAPSULE PO ONE (15:05)
[2018-10-27] MEDS ORDERED: ACETAMINOPHEN 500 MG TABLET PO ONE (15:05)
[2018-10-27] MEDS ORDERED: methylPREDNISolone SOD SUC 40 MG/1 ML VIAL IV ONE (15:06)
[2018-10-27] MEDS: ACETAMINOPHEN 325 MG TABLET PO PRN (15:14)
[2018-10-27] MEDS: ENOXAPARIN 40 MG/0.4 ML SYRINGE SUBCUT SCH (15:15)
[2018-10-28 05:21] LABS: Hematocrit 31.8 VOL% (35.7-47.0); Hemoglobin 10.2 GM/DL (12.0-16.0); Immature Granulocytes % 0.2 %; Immature Granulocytes Absolute 0.02 #; Lymphocytes # 2.6 10*3/uL (1.4-4.0); Lymphocytes % 27.9 % (21.3-54.2); Mean Corpuscular HGB Conc 32.1 GM/DL (32-36); Mean Corpuscular Hemoglobin 29 PG (27-34); Mean Corpuscular Volume 89.3 FL (87-102); Monocytes % 10.8 % (1.7-12.7); Neutrophils # 5.7 10*3/uL (1.4-7.4); Neutrophils % 61.1 % (38.7-73.9); Platelet Count 253 T/CUMM (130-400); Red Blood Count 3.56 MC/CUMM (3.8-5.5); Red Cell Distribution Width 16.1 % (9.3-17.3); White Blood Count 9.3 T/CUMM (4-12)
[2018-10-28] MEDS: LACTULOSE 20 GM/30 ML UDCUP PO SCH ×4 (05:31→23:42)
[2018-10-28 05:51] LABS: Albumin 3.1 G/DL (3.4-5.0); Bilirubin,Direct 0.46 MG/DL (0.0-0.20); Bilirubin,Indirect 0.8 MG/DL (0.0-1.0); Bilirubin,Total 1.3 MG/DL (0.2-1.0); Calcium 9.2 MG/DL (8.5-10.1); Osmolality,Calculated 279.5 MOS/KG (273-304); Total Protein 8.2 G/DL (6.4-8.3)
[2018-10-28] MEDS: amLODIPine 5 MG TABLET PO SCH ×2 (08:37→19:59)
[2018-10-28] MEDS: POTASSIUM CHLORIDE 20 MEQ TABLET PO SCH ×2 (08:37→19:59)
[2018-10-28] MEDS: FOLIC ACID 1 MG TABLET PO SCH (08:37)
[2018-10-28] MEDS: PANTOPRAZOLE 40 MG TABLET PO SCH (08:38)
[2018-10-28] MEDS: fentaNYL 100 MCG/2 ML VIAL IV PRN ×4 (08:38→19:43)
[2018-10-28] MEDS: hydrALAZINE 10 MG TABLET PO SCH ×2 (08:38→19:59)
[2018-10-28] MEDS: CARVEDILOL 25 MG TABLET PO SCH ×2 (08:38→16:20)
[2018-10-28] MEDS: fentaNYL 75 MCG/HR PATCH TRANSDERM SCH (08:38)
[2018-10-28] MEDS: CYCLOBENZAPRINE 10 MG TABLET PO SCH ×2 (08:42→19:59)
[2018-10-28] MEDS: ENOXAPARIN 40 MG/0.4 ML SYRINGE SUBCUT SCH (16:20)
[2018-10-29] MEDS: fentaNYL 100 MCG/2 ML VIAL IV PRN ×5 (00:08→20:51)
[2018-10-29] MEDS: LACTULOSE 20 GM/30 ML UDCUP PO SCH ×3 (06:08→17:34)
[2018-10-29] MEDS: CARVEDILOL 25 MG TABLET PO SCH ×3 (08:09→17:34)
[2018-10-29] MEDS: amLODIPine 5 MG TABLET PO SCH ×2 (08:09→20:54)
[2018-10-29] MEDS: hydrALAZINE 10 MG TABLET PO SCH ×2 (08:09→20:55)
[2018-10-29] MEDS: POTASSIUM CHLORIDE 20 MEQ TABLET PO SCH ×2 (08:09→20:54)
[2018-10-29] MEDS: FOLIC ACID 1 MG TABLET PO SCH (08:09)
[2018-10-29] MEDS: PANTOPRAZOLE 40 MG TABLET PO SCH (08:09)
[2018-10-29] MEDS: CYCLOBENZAPRINE 10 MG TABLET PO SCH ×2 (08:09→20:55)
[2018-10-29] MEDS: predniSONE 20 MG TABLET PO SCH (08:09)
[2018-10-29 08:45] LABS: Basophils % 0.2 % (0.0-0.8); Eosinophils # 0.1 10*3/uL (0.0-0.87); Eosinophils % 0.5 % (0.00-10.9); Hematocrit 32.5 VOL% (35.7-47.0); Hemoglobin 10.4 GM/DL (12.0-16.0); Immature Granulocytes % 0.3 %; Immature Granulocytes Absolute 0.04 #; Lymphocytes # 5.5 10*3/uL (1.4-4.0); Lymphocytes % 40.8 % (21.3-54.2); Mean Corpuscular Hemoglobin 29 PG (27-34); Mean Corpuscular Volume 90.3 FL (87-102); Monocytes # 1.5 10*3/uL (0.11-0.8); Monocytes % 11.4 % (1.7-12.7); Neutrophils # 6.3 10*3/uL (1.4-7.4); Neutrophils % 46.8 % (38.7-73.9); Platelet Count 250 T/CUMM (130-400); Red Cell Distribution Width 16.5 % (9.3-17.3); White Blood Count 13.4 T/CUMM (4-12)
[2018-10-29 09:29] LABS: Albumin 3.2 G/DL (3.4-5.0); Bilirubin,Total 1.8 MG/DL (0.2-1.0); Osmolality,Calculated 277.7 MOS/KG (273-304); Potassium 3.9 MMOL/L (3.5-5.1); Total Protein 7.9 G/DL (6.4-8.3)
[2018-10-29] MEDS: ENOXAPARIN 40 MG/0.4 ML SYRINGE SUBCUT SCH (15:55)
[2018-10-29] MEDS ORDERED: TUBERCULIN SKIN TEST 0.1 ML SYRINGE INTRADERM ONE (16:30)
[2018-10-30] MEDS: LACTULOSE 20 GM/30 ML UDCUP PO SCH ×3 (00:36→12:12)
[2018-10-30] MEDS: fentaNYL 100 MCG/2 ML VIAL IV PRN ×6 (01:37→22:56)
[2018-10-30] MEDS: PANTOPRAZOLE 40 MG TABLET PO SCH (08:07)
[2018-10-30] MEDS: hydrALAZINE 10 MG TABLET PO SCH ×2 (08:07→20:52)
[2018-10-30] MEDS: POTASSIUM CHLORIDE 20 MEQ TABLET PO SCH ×2 (08:07→20:52)
[2018-10-30] MEDS: amLODIPine 5 MG TABLET PO SCH ×2 (08:07→20:52)
[2018-10-30] MEDS: FOLIC ACID 1 MG TABLET PO SCH (08:07)
[2018-10-30] MEDS: CYCLOBENZAPRINE 10 MG TABLET PO SCH ×2 (08:07→20:52)
[2018-10-30] MEDS: CARVEDILOL 25 MG TABLET PO SCH ×2 (08:07→17:58)
[2018-10-30] MEDS: ENOXAPARIN 40 MG/0.4 ML SYRINGE SUBCUT SCH ×2 (13:54→14:08)
[2018-10-31] MEDS: fentaNYL 100 MCG/2 ML VIAL IV PRN ×4 (03:18→15:41)
[2018-10-31] MEDS: fentaNYL 75 MCG/HR PATCH TRANSDERM SCH (09:44)
[2018-10-31] MEDS: PANTOPRAZOLE 40 MG TABLET PO SCH (09:44)
[2018-10-31] MEDS: CYCLOBENZAPRINE 10 MG TABLET PO SCH ×2 (09:45→22:15)
[2018-10-31] MEDS: amLODIPine 5 MG TABLET PO SCH ×2 (09:45→22:15)
[2018-10-31] MEDS: POTASSIUM CHLORIDE 20 MEQ TABLET PO SCH ×2 (09:45→22:14)
[2018-10-31] MEDS: hydrALAZINE 10 MG TABLET PO SCH ×2 (09:45→22:15)
[2018-10-31] MEDS: FOLIC ACID 1 MG TABLET PO SCH (09:45)
[2018-10-31] MEDS: predniSONE 20 MG TABLET PO SCH (09:45)
[2018-10-31] MEDS: CARVEDILOL 25 MG TABLET PO SCH ×2 (09:45→18:09)
[2018-10-31] MEDS: ENOXAPARIN 40 MG/0.4 ML SYRINGE SUBCUT SCH (15:41)
[2018-11-01] MEDS: FOLIC ACID 1 MG TABLET PO SCH (09:16)
[2018-11-01] MEDS: PANTOPRAZOLE 40 MG TABLET PO SCH (09:17)
[2018-11-01] MEDS: POTASSIUM CHLORIDE 20 MEQ TABLET PO SCH ×2 (09:17→21:14)
[2018-11-01] MEDS: CARVEDILOL 25 MG TABLET PO SCH ×2 (09:17→16:44)
[2018-11-01] MEDS: CYCLOBENZAPRINE 10 MG TABLET PO SCH ×2 (09:18→21:14)
[2018-11-01] MEDS: amLODIPine 5 MG TABLET PO SCH ×2 (09:18→21:19)
[2018-11-01] MEDS: hydrALAZINE 10 MG TABLET PO SCH ×2 (09:18→21:14)
[2018-11-01] MEDS: GABAPENTIN 100 MG CAPSULE PO SCH ×2 (15:03→21:14)
[2018-11-01] MEDS: ENOXAPARIN 40 MG/0.4 ML SYRINGE SUBCUT SCH (15:04)
[2018-11-02] MEDS: GABAPENTIN 100 MG CAPSULE PO SCH ×2 (08:01→17:08)
[2018-11-02] MEDS: CARVEDILOL 25 MG TABLET PO SCH (08:02)
[2018-11-02] MEDS: predniSONE 20 MG TABLET PO SCH (08:02)
[2018-11-02] MEDS: hydrALAZINE 10 MG TABLET PO SCH (08:02)
[2018-11-02] MEDS: PANTOPRAZOLE 40 MG TABLET PO SCH (08:02)
[2018-11-02] MEDS: amLODIPine 5 MG TABLET PO SCH (08:02)
[2018-11-02] MEDS: FOLIC ACID 1 MG TABLET PO SCH (08:02)
[2018-11-02] MEDS: POTASSIUM CHLORIDE 20 MEQ TABLET PO SCH (08:02)
[2018-11-02] MEDS: CYCLOBENZAPRINE 10 MG TABLET PO SCH (08:02)
[2018-11-02] MEDS: ENOXAPARIN 40 MG/0.4 ML SYRINGE SUBCUT SCH (16:17)
[2018-11-02 16:21] VITALS: BP 187/66
== END 2018-11-02 17:05 | DRG 982 ==
LOC: EDBD → EDUNIT# → N.ED 14:21 → N.EDINP 16:39 → SUATTDRO 16:39 → N.EDINP 17:44 → N.4E 18:03
PROVIDERS: ADMIT Internal Medicine; ATTEND Family Medicine

== ENCOUNTER 2019-01-27 09:07 | Observation (INO) ==
[2019-01-27] MEDS ORDERED: LOPERAMIDE 2 MG CAPSULE PO PRN ×2 (09:34)
[2019-01-27] MEDS ORDERED: traMADol 50 MG TABLET PO PRN (09:34)
[2019-01-27] MEDS ORDERED: PROMETHAZINE INJ 25 MG in SODIUM CHLORIDE 0.9% 50 ML IV PRN (09:34)
[2019-01-27] MEDS ORDERED: MYLANTA/LIDO VISC 2:1 300 ML BOTTLE SWISH/SWAL PRN (09:34)
[2019-01-27] MEDS ORDERED: BENZTROPINE 2 MG/2 ML AMP IV PRN (09:34)
[2019-01-27] MEDS ORDERED: TEMAZEPAM 7.5 MG CAPSULE PO PRN (09:34)
[2019-01-27] MEDS ORDERED: chlorproMAZINE 25 MG TABLET PO PRN (09:34)
[2019-01-27] MEDS ORDERED: guaiFENesin 200 MG/10 ML UDCUP PO PRN (09:34)
[2019-01-27] MEDS ORDERED: LACTULOSE 20 GM/30 ML UDCUP PO PRN (09:34)
[2019-01-27] MEDS ORDERED: ALUMINUM/MAGNES/SIMETH MAX STR 30 ML UDCUP PO PRN (09:34)
[2019-01-27] MEDS ORDERED: MYLANTA/LIDO VISC 2:1 300 ML BOTTLE SWISH/SPIT PRN (09:34)
[2019-01-27] MEDS ORDERED: ACETAMINOPHEN 325 MG TABLET PO PRN (09:34)
[2019-01-27] MEDS ORDERED: ALPRAZolam 0.25 MG TABLET PO PRN (09:34)
[2019-01-27] MEDS ORDERED: MAGNESIUM HYDROXIDE SUSP 30 ML UDCUP PO PRN (09:34)
[2019-01-27] MEDS ORDERED: chlorproMAZINE INJ 50 MG in SODIUM CHLORIDE 0.9% 100 ML IV PRN (09:34)
[2019-01-27] MEDS ORDERED: chlorproMAZINE INJ 25 MG in SODIUM CHLORIDE 0.9% 100 ML IV PRN (09:34)
[2019-01-27] MEDS ORDERED: diphenhydrAMINE CAP 25 MG CAPSULE PO PRN (09:34)
[2019-01-27] MEDS: SODIUM BICARB INJ 150 MEQ in DEXTROSE 5% 1,000 ML IV SCH ×2 (10:10→23:26)
[2019-01-27 10:38] LABS: Basophils # 0.1 10*3/uL (0.0-0.2); Basophils % 0.4 % (0.0-0.8); Eosinophils # 0.1 10*3/uL (0.0-0.87); Eosinophils % 0.4 % (0.00-10.9); Hematocrit 23.7 VOL% (35.7-47.0); Hemoglobin 7.7 GM/DL (12.0-16.0); Immature Granulocytes % 1.4 %; Immature Granulocytes Absolute 0.23 #; Lymphocytes # 5.9 10*3/uL (1.4-4.0); Lymphocytes % 34.9 % (21.3-54.2); Mean Corpuscular HGB Conc 32.5 GM/DL (32-36); Mean Corpuscular Hemoglobin 31 PG (27-34); Mean Corpuscular Volume 94.4 FL (87-102); Mean Platelet Volume 10.8 FL (9.6-12.0); Monocytes # 2.4 10*3/uL (0.11-0.8); Monocytes % 13.8 % (1.7-12.7); NRBC # 0.63 10*3/uL; Neutrophils # 8.4 10*3/uL (1.4-7.4); Neutrophils % 49.1 % (38.7-73.9); Platelet Count 277 T/CUMM (130-400); Red Blood Count 2.51 MC/CUMM (3.8-5.5); Red Cell Distribution Width 23.9 % (9.3-17.3)
[2019-01-27 10:58] LABS: Albumin 3.4 G/DL (3.4-5.0); Bilirubin,Total 5.3 MG/DL (0.2-1.0); Calcium 8.8 MG/DL (8.5-10.1); Osmolality,Calculated 280.3 MOS/KG (273-304); Potassium 3.7 MMOL/L (3.5-5.1); Total Protein 8.1 G/DL (6.4-8.3); Uric Acid 7.8 MG/DL (2.6-6.0)
[2019-01-27 11:17] LABS: Anisocytosis 2+; Platelet Estimate Normal; Poikilocytosis 1+; Polychromasia 1+; Target Cells Few
[2019-01-27 11:22] LABS: Pappenheimer Bodies Few; Sickle Cells Few
[2019-01-27] MEDS: fentaNYL 100 MCG/2 ML VIAL IV PRN ×3 (12:19→20:23)
[2019-01-27] MEDS: ONDANSETRON 4 MG/2 ML VIAL IV PRN (16:00)
[2019-01-27] MEDS: CARVEDILOL 25 MG TABLET PO SCH (20:08)
[2019-01-27] MEDS: amLODIPine 5 MG TABLET PO SCH (20:08)
[2019-01-27] MEDS: GABAPENTIN 600 MG TABLET PO SCH (20:08)
[2019-01-27] MEDS: FOLIC ACID 1 MG TABLET PO SCH (20:08)
[2019-01-27] MEDS ORDERED: ACETAMINOPHEN 325 MG TABLET PO ONE (23:51)
[2019-01-27] MEDS ORDERED: diphenhydrAMINE 50 MG/1 ML VIAL IV ONE (23:52)
[2019-01-28] MEDS: fentaNYL 100 MCG/2 ML VIAL IV PRN ×4 (00:12→20:28)
[2019-01-28] MEDS ORDERED: methylPREDNISolone SOD SUC 125 MG/2 ML VIAL IV ONE (08:42)
[2019-01-28] MEDS: CARVEDILOL 25 MG TABLET PO SCH ×2 (08:57→17:46)
[2019-01-28] MEDS: FOLIC ACID 1 MG TABLET PO SCH ×2 (08:57→20:23)
[2019-01-28] MEDS: GABAPENTIN 600 MG TABLET PO SCH ×3 (08:57→20:23)
[2019-01-28] MEDS: amLODIPine 5 MG TABLET PO SCH ×2 (08:57→20:23)
[2019-01-28 09:32] LABS: Apearance,Urine CLEAR (Clear); Bacteria,Urine Occasional /HPF (Few); Bilirubin,Urine Negative (Negative); Blood, Urine Small mg/dL (Negative); Glucose,Urine (UA) Negative (Negative); Ketones,Urine Negative (Negative); Nitrite,Urine Negative (Negative); Protein,Urine 30 MG/DL; RBC,Urine <1 /HPF (0-4); Squamous Epithelial Cell,Urine Occasional /HPF (0-10); Urine Color Yellow (Yellow); Urine Specific Gravity 1.006 (1.001-1.035); WBC,Urine 15 /HPF (0-6)
[2019-01-28] MEDS: SODIUM BICARB INJ 150 MEQ in DEXTROSE 5% 1,000 ML IV SCH ×2 (18:32→21:26)
[2019-01-28] MEDS: ONDANSETRON 4 MG/2 ML VIAL IV PRN (21:30)
[2019-01-29] MEDS: fentaNYL 100 MCG/2 ML VIAL IV PRN (01:53)
[2019-01-29 05:37] LABS: Albumin 3.3 G/DL (3.4-5.0); Bilirubin,Total 5.6 MG/DL (0.2-1.0); Calcium 9.1 MG/DL (8.5-10.1); Osmolality,Calculated 280.3 MOS/KG (273-304); Potassium 3.6 MMOL/L (3.5-5.1)
[2019-01-29 06:00] LABS: Basophils % 0.1 % (0.0-0.8); Hematocrit 32.5 VOL% (35.7-47.0); Hemoglobin 11.1 GM/DL (12.0-16.0); Immature Granulocytes % 0.7 %; Immature Granulocytes Absolute 0.08 #; Lymphocytes % 25.3 % (21.3-54.2); Mean Corpuscular HGB Conc 34.2 GM/DL (32-36); Mean Corpuscular Hemoglobin 31 PG (27-34); Mean Corpuscular Volume 92.1 FL (87-102); Monocytes # 1.8 10*3/uL (0.11-0.8); Monocytes % 15.5 % (1.7-12.7); NRBC # 0.87 10*3/uL; Neutrophils # 6.9 10*3/uL (1.4-7.4); Neutrophils % 58.4 % (38.7-73.9); Platelet Count 287 T/CUMM (130-400); Red Blood Count 3.53 MC/CUMM (3.8-5.5); Red Cell Distribution Width 23.2 % (9.3-17.3); White Blood Count 11.8 T/CUMM (4-12)
[2019-01-29 07:58] VITALS: BP 136/84
[2019-01-29] MEDS: SODIUM BICARB INJ 150 MEQ in DEXTROSE 5% 1,000 ML IV SCH (08:56)
[2019-01-29] MEDS: amLODIPine 5 MG TABLET PO SCH (09:04)
[2019-01-29] MEDS: CARVEDILOL 25 MG TABLET PO SCH (09:05)
[2019-01-29] MEDS: GABAPENTIN 600 MG TABLET PO SCH (09:05)
[2019-01-29] MEDS: FOLIC ACID 1 MG TABLET PO SCH (09:05)
[2019-01-30] MEDS ORDERED: fentaNYL 75 MCG/HR PATCH TRANSDERM SCH (09:00)
== END 2019-01-29 10:38 | disposition home or self-care (01) ==
LOC: N.4EOUT 09:07 → N.4E 14:06 → INTOOBSV 14:06
PROVIDERS: ADMIT Specialist; ATTEND Specialist

== ENCOUNTER 2019-11-13 18:41 | Inpatient (IN) ==
[2019-11-13] MEDS ORDERED: fentaNYL 100 MCG/2 ML VIAL IV STA (20:33)
[2019-11-13] MEDS ORDERED: ASPIRIN 325 MG TABLET PO STA (20:33)
[2019-11-13] MEDS ORDERED: SODIUM CHLORIDE 0.9% 1,000 ML IV STA (20:33)
[2019-11-13] MEDS ORDERED: ONDANSETRON 4 MG/2 ML VIAL IV STA (20:33)
[2019-11-13 21:24] LABS: Basophils # 0.1 10*3/uL (0.0-0.2); Basophils % 0.3 % (0.0-0.8); Eosinophils # 0.1 10*3/uL (0.0-0.87); Eosinophils % 0.7 % (0.00-10.9); Hemoglobin 7.8 GM/DL (12.0-16.0); Immature Granulocytes % 1.1 %; Immature Granulocytes Absolute 0.17 #; Lymphocytes # 4.5 10*3/uL (1.4-4.0); Lymphocytes % 28.3 % (21.3-54.2); Mean Corpuscular HGB Conc 33.9 GM/DL (32-36); Mean Corpuscular Volume 98.7 FL (87-102); Mean Platelet Volume 11.1 FL (9.6-12.0); NRBC # 0.82 10*3/uL; Neutrophils % 57.6 % (38.7-73.9); Platelet Count 214 T/CUMM (130-400); Red Blood Count 2.33 MC/CUMM (3.8-5.5)
[2019-11-13 21:36] LABS: PT Patient Result 10.8 SECS (9.6-12.2)
[2019-11-13 21:43] LABS: Anisocytosis 1+; Polychromasia 1+; Target Cells Few
[2019-11-13 21:44] LABS: Elliptocytes Few; Hypochromasia 1+; Platelet Estimate Adequate; Schistocytes Few; Sickle Cells 1+
[2019-11-13 21:45] LABS: Albumin 3.4 G/DL (3.4-5.0); Bilirubin,Total 5.6 MG/DL (0.2-1.0); Calcium 8.6 MG/DL (8.5-10.1); Osmolality,Calculated 283.3 MOS/KG (273-304); Total Protein 7.3 G/DL (6.4-8.3)
[2019-11-13] MEDS: SODIUM CHLORIDE 0.9% 1,000 ML IV SCH (22:30)
[2019-11-13] MEDS ORDERED: ENOXAPARIN 100 MG/ML SYRINGE SUBCUT STA (23:29)
[2019-11-14] MEDS ORDERED: ONDANSETRON 4 MG/2 ML VIAL IV PRN (02:06)
[2019-11-14] MEDS ORDERED: DOCUSATE SODIUM 100 MG CAPSULE PO PRN (02:06)
[2019-11-14] MEDS ORDERED: ACETAMINOPHEN 325 MG TABLET PO PRN ×2 (02:06→02:46)
[2019-11-14] MEDS ORDERED: SODIUM CHLORIDE 0.9% 1,000 ML IV PRN ×2 (02:06→02:46)
[2019-11-14] MEDS ORDERED: diphenhydrAMINE CAP 25 MG CAPSULE PO PRN (02:46)
[2019-11-14] MEDS: fentaNYL 100 MCG/2 ML VIAL IV PRN ×4 (03:05→19:19)
[2019-11-14 03:10] LABS: Basophils # 0.1 10*3/uL (0.0-0.2); Basophils % 0.4 % (0.0-0.8); Eosinophils # 0.1 10*3/uL (0.0-0.87); Eosinophils % 0.8 % (0.00-10.9); Hemoglobin 7.7 GM/DL (12.0-16.0); Immature Granulocytes % 0.8 %; Immature Granulocytes Absolute 0.13 #; Lymphocytes # 5.5 10*3/uL (1.4-4.0); Lymphocytes % 32.2 % (21.3-54.2); Mean Corpuscular HGB Conc 33.5 GM/DL (32-36); Mean Corpuscular Volume 99.1 FL (87-102); Mean Platelet Volume 11.1 FL (9.6-12.0); Monocytes % 12.2 % (1.7-12.7); NRBC # 0.81 10*3/uL; Neutrophils % 53.6 % (38.7-73.9); Platelet Count 216 T/CUMM (130-400); Red Blood Count 2.32 MC/CUMM (3.8-5.5); Red Cell Distribution Width 25.6 % (9.3-17.3); White Blood Count 17.1 T/CUMM (4-12)
[2019-11-14 03:38] LABS: Howell-Jolly Bodies Slight; Hypochromasia 1+; Macrocytosis Slight; Pappenheimer Bodies Slight; Platelet Estimate Adequate; Polychromasia Slight; Sickle Cells 1+
[2019-11-14 03:39] LABS: Ovalocytes Slight
[2019-11-14 03:56] LABS: Albumin 3.4 G/DL (3.4-5.0); Bilirubin,Total 4.6 MG/DL (0.2-1.0); Calcium 8.1 MG/DL (8.5-10.1); Osmolality,Calculated 281.4 MOS/KG (273-304); Total Protein 7.6 G/DL (6.4-8.3)
[2019-11-14] MEDS: GABAPENTIN 600 MG TABLET PO SCH ×2 (08:57→21:19)
[2019-11-14] MEDS: amLODIPine 5 MG TABLET PO SCH (08:58)
[2019-11-14] MEDS: ENOXAPARIN 100 MG/ML SYRINGE SUBCUT SCH ×2 (08:58→21:18)
[2019-11-14] MEDS: FOLIC ACID 1 MG TABLET PO SCH (08:58)
[2019-11-14] MEDS: DULoxetine 30 MG CAPSULE PO SCH (08:58)
[2019-11-14 12:44] LABS: Apearance,Urine CLEAR (Clear); Bilirubin,Urine Negative (Negative); Blood, Urine Small mg/dL (Negative); Glucose,Urine (UA) Negative (Negative); Ketones,Urine Negative (Negative); Nitrite,Urine Negative (Negative); Protein,Urine Negative; RBC,Urine 1 /HPF (0-4); Squamous Epithelial Cell,Urine Occasional /HPF (0-10); Urine Color Yellow (Yellow); Urine Specific Gravity 1.011 (1.001-1.035); WBC,Urine 2 /HPF (0-6)
[2019-11-14] MEDS: SODIUM CHLORIDE 0.9% 1,000 ML IV SCH ×2 (12:51→19:23)
[2019-11-15] MEDS ORDERED: diphenhydrAMINE CAP 25 MG CAPSULE PO PRN (00:24)
[2019-11-15] MEDS ORDERED: ACETAMINOPHEN 325 MG TABLET PO PRN (00:24)
[2019-11-15] MEDS ORDERED: diphenhydrAMINE 25 MG/10 ML UDCUP PO PRN (00:30)
[2019-11-15] MEDS ORDERED: diphenhydrAMINE 50 MG/1 ML VIAL IV STA (00:54)
[2019-11-15] MEDS: SODIUM CHLORIDE 0.9% 1,000 ML IV SCH ×2 (05:30→09:59)
[2019-11-15 09:20] LABS: Basophils # 0.1 10*3/uL (0.0-0.2); Basophils % 0.4 % (0.0-0.8); Eosinophils # 0.2 10*3/uL (0.0-0.87); Eosinophils % 1.5 % (0.00-10.9); Hematocrit 27.1 VOL% (35.7-47.0); Immature Granulocytes % 0.6 %; Immature Granulocytes Absolute 0.07 #; Lymphocytes # 2.7 10*3/uL (1.4-4.0); Lymphocytes % 22.4 % (21.3-54.2); Mean Corpuscular HGB Conc 33.9 GM/DL (32-36); Mean Corpuscular Volume 94.4 FL (87-102); Mean Platelet Volume 10.9 FL (9.6-12.0); Monocytes % 14.4 % (1.7-12.7); NRBC # 0.66 10*3/uL; Neutrophils % 60.7 % (38.7-73.9); Platelet Count 201 T/CUMM (130-400); Red Blood Count 2.87 MC/CUMM (3.8-5.5); Red Cell Distribution Width 24.7 % (9.3-17.3); White Blood Count 11.9 T/CUMM (4-12)
[2019-11-15 09:21] LABS: Hemoglobin 9.2 GM/DL (12.0-16.0)
[2019-11-15 09:40] LABS: Albumin 3.1 G/DL (3.4-5.0); Bilirubin,Total 4.9 MG/DL (0.2-1.0); Calcium 8.4 MG/DL (8.5-10.1); Osmolality,Calculated 282.3 MOS/KG (273-304); Total Protein 7.4 G/DL (6.4-8.3)
[2019-11-15] MEDS: GABAPENTIN 600 MG TABLET PO SCH (09:57)
[2019-11-15] MEDS: FOLIC ACID 1 MG TABLET PO SCH (09:57)
[2019-11-15] MEDS: amLODIPine 5 MG TABLET PO SCH (09:57)
[2019-11-15] MEDS: DULoxetine 30 MG CAPSULE PO SCH (09:57)
[2019-11-15] MEDS: ENOXAPARIN 100 MG/ML SYRINGE SUBCUT SCH (09:58)
[2019-11-15 10:05] LABS: Howell-Jolly Bodies Slight; Hypochromasia 1+; Pappenheimer Bodies Slight; Platelet Estimate Adequate; Sickle Cells Few; Target Cells Few
[2019-11-15 10:06] LABS: Elliptocytes Few; Macrocytosis Slight; Polychromasia Slight
[2019-11-15 12:34] VITALS: BP 126/63
[2019-11-15] MEDS ORDERED: HEPARIN LOCK FLUSH 500 UNIT/5 ML SYRINGE IV ONE (13:31)
== END 2019-11-15 14:00 | disposition home or self-care (01) | DRG 175 ==
LOC: N.ED 18:41 → N.EDINP 11-14 01:41 → N.4E 11-14 02:05
PROVIDERS: ADMIT Internal Medicine; ATTEND Internal Medicine

== ENCOUNTER 2019-11-19 04:54 | Inpatient (IN) ==
[2019-11-19] MEDS ORDERED: SODIUM CHLORIDE 0.9% 1,000 ML IV STA (05:07)
[2019-11-19 05:24] LABS: Basophils # 0.1 10*3/uL (0.0-0.2); Basophils % 0.4 % (0.0-0.8); Eosinophils % 0.2 % (0.00-10.9); Hematocrit 24.3 VOL% (35.7-47.0); Hemoglobin 8.3 GM/DL (12.0-16.0); Immature Granulocytes % 4.5 %; Lymphocytes # 4.2 10*3/uL (1.4-4.0); Lymphocytes % 19.1 % (21.3-54.2); Mean Corpuscular HGB Conc 34.2 GM/DL (32-36); Mean Corpuscular Volume 94.2 FL (87-102); Mean Platelet Volume 11.2 FL (9.6-12.0); Monocytes % 14.3 % (1.7-12.7); NRBC # 0.57 10*3/uL; Neutrophils % 61.5 % (38.7-73.9); Platelet Count 164 T/CUMM (130-400); Red Blood Count 2.58 MC/CUMM (3.8-5.5)
[2019-11-19] MEDS ORDERED: ONDANSETRON 4 MG/2 ML VIAL IV ONE (05:38)
[2019-11-19] MEDS ORDERED: fentaNYL 100 MCG/2 ML VIAL IV STA ×2 (05:38→09:23)
[2019-11-19 05:45] LABS: Band Neutrophils 2 % (0-10); Hypochromasia 1+; Lymphocytes 21 % (20-55); Macrocytosis 1+; Metamyelocytes 2 %; Myelocytes 1 %; Nucleated Red Blood Cells 6 (0-5); Segmented Neutrophils 60 % (50-85); Total Cells Counted 100
[2019-11-19 05:46] LABS: Ovalocytes Slight; Pappenheimer Bodies Slight; Platelet Estimate Adequate; Polychromasia Slight; Target Cells Slight
[2019-11-19 05:47] LABS: Sickle Cells Few
[2019-11-19 06:08] LABS: Albumin 3.5 G/DL (3.4-5.0); Calcium 8.7 MG/DL (8.5-10.1); Osmolality,Calculated 278.7 MOS/KG (273-304); Total Protein 8.2 G/DL (6.4-8.3)
[2019-11-19 06:42] LABS: Apearance,Urine CLEAR (Clear); Bacteria,Urine Occasional /HPF (Few); Bilirubin,Urine Negative (Negative); Blood, Urine Moderate mg/dL (Negative); Glucose,Urine (UA) Negative (Negative); Ketones,Urine Negative (Negative); Mucus,Urine Occasional /LPF (Occasional); Nitrite,Urine Negative (Negative); Protein,Urine 100 MG/DL; RBC,Urine 6 /HPF (0-4); Squamous Epithelial Cell,Urine Few /HPF (0-10); Urine Color Amber (Yellow); Urine Specific Gravity 1.012 (1.001-1.035); WBC,Urine 4 /HPF (0-6)
[2019-11-19] MEDS ORDERED: ACETAMINOPHEN 325 MG TABLET PO PRN (08:01)
[2019-11-19 08:29] LABS: Thyroid Stimulating Hormone 3.98 uIU/ml (0.358-3.74)
[2019-11-19] MEDS ORDERED: ONDANSETRON 4 MG/2 ML VIAL IM STA (09:30)
[2019-11-19] MEDS: ENOXAPARIN 40 MG/0.4 ML SYRINGE SUBCUT SCH (11:19)
[2019-11-19] MEDS: SODIUM CHLORIDE 0.9% 1,000 ML IV SCH ×2 (11:19→18:25)
[2019-11-19] MEDS: predniSONE 20 MG TABLET PO SCH (11:20)
[2019-11-19] MEDS: DULoxetine 30 MG CAPSULE PO SCH (11:20)
[2019-11-19] MEDS: MONTELUKAST 10 MG TABLET PO SCH (11:20)
[2019-11-19] MEDS: GABAPENTIN 300 MG CAPSULE PO SCH ×2 (11:20→22:05)
[2019-11-19] MEDS: PANTOPRAZOLE 40 MG TABLET PO SCH (11:21)
[2019-11-19] MEDS: KETOROLAC 30 MG/1 ML VIAL IV PRN (11:32)
[2019-11-19] MEDS: fentaNYL 100 MCG/2 ML VIAL IV PRN ×3 (13:28→22:05)
[2019-11-19] MEDS ORDERED: fentaNYL 100 MCG/2 ML VIAL IV SCH (14:00)
[2019-11-19] MEDS: FOLIC ACID 1 MG TABLET PO SCH (22:06)
[2019-11-19] MEDS: DOCUSATE SODIUM 100 MG CAPSULE PO PRN (22:06)
[2019-11-19] MEDS: APIXABAN 5 MG TABLET PO SCH (22:06)
[2019-11-20] MEDS: KETOROLAC 30 MG/1 ML VIAL IV PRN (00:23)
[2019-11-20] MEDS: fentaNYL 100 MCG/2 ML VIAL IV PRN ×5 (02:15→20:36)
[2019-11-20] MEDS: SODIUM CHLORIDE 0.9% 1,000 ML IV SCH ×3 (02:15→16:38)
[2019-11-20 05:33] LABS: Basophils # 0.1 10*3/uL (0.0-0.2); Basophils % 0.4 % (0.0-0.8); Eosinophils # 0.1 10*3/uL (0.0-0.87); Eosinophils % 0.2 % (0.00-10.9); Hematocrit 19.4 VOL% (35.7-47.0); Hemoglobin 6.6 GM/DL (12.0-16.0); Immature Granulocytes % 4.4 %; Immature Granulocytes Absolute 0.98 #; Lymphocytes # 5.8 10*3/uL (1.4-4.0); Lymphocytes % 25.9 % (21.3-54.2); Mean Corpuscular Volume 95.6 FL (87-102); Mean Platelet Volume 11.7 FL (9.6-12.0); NRBC # 1.64 10*3/uL; Neutrophils % 55.1 % (38.7-73.9); Platelet Count 150 T/CUMM (130-400); Red Blood Count 2.03 MC/CUMM (3.8-5.5); White Blood Count 22.3 T/CUMM (4-12)
[2019-11-20 05:49] LABS: Bilirubin,Total 7.4 MG/DL (0.2-1.0); Calcium 8.2 MG/DL (8.5-10.1); Osmolality,Calculated 284.1 MOS/KG (273-304)
[2019-11-20 06:15] LABS: Band Neutrophils 3 % (0-10); Eosinophils 1 % (0-10); Lymphocytes 25 % (20-55); Metamyelocytes 1 %; Myelocytes 3 %; Nucleated Red Blood Cells 12 (0-5); Segmented Neutrophils 51 % (50-85); Total Cells Counted 100
[2019-11-20 06:16] LABS: Hypochromasia 1+; Macrocytosis 1+; Target Cells Slight
[2019-11-20 06:17] LABS: Pappenheimer Bodies Slight; Polychromasia Few; Sickle Cells Few
[2019-11-20 06:18] LABS: Anisocytosis 1+; Howell-Jolly Bodies Slight; Platelet Estimate Adequate
[2019-11-20] MEDS: fentaNYL 75 MCG/HR PATCH TRANSDERM SCH (08:45)
[2019-11-20] MEDS: MONTELUKAST 10 MG TABLET PO SCH (08:46)
[2019-11-20] MEDS: PANTOPRAZOLE 40 MG TABLET PO SCH (08:46)
[2019-11-20] MEDS: GABAPENTIN 300 MG CAPSULE PO SCH ×2 (08:46→20:37)
[2019-11-20] MEDS: DULoxetine 30 MG CAPSULE PO SCH (08:46)
[2019-11-20] MEDS: amLODIPine 10 MG TABLET PO SCH (08:46)
[2019-11-20] MEDS: ENOXAPARIN 40 MG/0.4 ML SYRINGE SUBCUT SCH (08:48)
[2019-11-20] MEDS: APIXABAN 5 MG TABLET PO SCH ×2 (08:52→20:37)
[2019-11-20] MEDS ORDERED: SODIUM CHLORIDE 0.9% 1,000 ML IV PRN (09:02)
[2019-11-20] MEDS ORDERED: diphenhydrAMINE 50 MG/1 ML VIAL IV ONE (11:16)
[2019-11-20] MEDS ORDERED: DEXAMETHASONE INJ 10 MG in SODIUM CHLORIDE 0.9% 50 ML IV ONE (11:17)
[2019-11-20] MEDS ORDERED: ACETAMINOPHEN 325 MG TABLET PO ONE (11:31)
[2019-11-20] MEDS: ONDANSETRON 4 MG/2 ML VIAL IV PRN (11:48)
[2019-11-20] MEDS ORDERED: VANCOMYCIN INJ 1,500 MG in SODIUM CHLORIDE 0.9% 500 ML IV SCH (18:30)
[2019-11-20] MEDS: DOCUSATE SODIUM 100 MG CAPSULE PO PRN (20:37)
[2019-11-20] MEDS: FOLIC ACID 1 MG TABLET PO SCH (20:37)
[2019-11-20 23:22] LABS: Hematocrit 23.4 VOL% (35.7-47.0); Hemoglobin 7.9 GM/DL (12.0-16.0)
[2019-11-21] MEDS: fentaNYL 100 MCG/2 ML VIAL IV PRN ×5 (00:56→19:54)
[2019-11-21] MEDS: SODIUM CHLORIDE 0.9% 1,000 ML IV SCH ×3 (05:24→20:01)
[2019-11-21 06:50] LABS: Basophils % 0.2 % (0.0-0.8); Hematocrit 22.9 VOL% (35.7-47.0); Hemoglobin 7.6 GM/DL (12.0-16.0); Immature Granulocytes % 4.3 %; Immature Granulocytes Absolute 0.73 #; Lymphocytes # 3.9 10*3/uL (1.4-4.0); Mean Corpuscular HGB Conc 33.2 GM/DL (32-36); Mean Corpuscular Volume 95.8 FL (87-102); Mean Platelet Volume 12.3 FL (9.6-12.0); NRBC # 3.71 10*3/uL; Neutrophils % 58.5 % (38.7-73.9); Platelet Count 154 T/CUMM (130-400); Red Blood Count 2.39 MC/CUMM (3.8-5.5); Red Cell Distribution Width 21.9 % (9.3-17.3); White Blood Count 16.9 T/CUMM (4-12)
[2019-11-21 06:54] LABS: Calcium 8.5 MG/DL (8.5-10.1); Osmolality,Calculated 279.4 MOS/KG (273-304)
[2019-11-21 07:12] LABS: Band Neutrophils 1 % (0-10); Hypochromasia 1+; Lymphocytes 12 % (20-55); Macrocytosis Slight; Nucleated Red Blood Cells 30 (0-5); Platelet Estimate Adequate; Polychromasia Slight; Segmented Neutrophils 74 % (50-85); Sickle Cells 1+; Target Cells Few; Total Cells Counted 100
[2019-11-21 07:13] LABS: Howell-Jolly Bodies Slight; Pappenheimer Bodies Slight
[2019-11-21] MEDS ORDERED: SODIUM CHLORIDE 0.9% 1,000 ML IV PRN (07:15)
[2019-11-21] MEDS: DOCUSATE SODIUM 100 MG CAPSULE PO PRN (09:25)
[2019-11-21] MEDS: MONTELUKAST 10 MG TABLET PO SCH (09:25)
[2019-11-21] MEDS: DULoxetine 30 MG CAPSULE PO SCH (09:25)
[2019-11-21] MEDS: amLODIPine 10 MG TABLET PO SCH (09:26)
[2019-11-21] MEDS: GABAPENTIN 300 MG CAPSULE PO SCH ×2 (09:26→20:01)
[2019-11-21] MEDS: APIXABAN 5 MG TABLET PO SCH ×2 (09:26→20:00)
[2019-11-21] MEDS: PANTOPRAZOLE 40 MG TABLET PO SCH (09:27)
[2019-11-21] MEDS: predniSONE 20 MG TABLET PO SCH (09:27)
[2019-11-21] MEDS: methylPREDNISolone SOD SUC 125 MG/2 ML VIAL IV SCH ×2 (09:42→20:00)
[2019-11-21] MEDS ORDERED: MYLANTA/LIDO VISC 2:1 300 ML BOTTLE SWISH/SPIT PRN (09:48)
[2019-11-21] MEDS ORDERED: MYLANTA/LIDO VISC 2:1 300 ML BOTTLE SWISH/SWAL PRN (09:48)
[2019-11-21] MEDS ORDERED: LACTULOSE 20 GM/30 ML UDCUP PO PRN (09:48)
[2019-11-21] MEDS ORDERED: traMADol 50 MG TABLET PO PRN (09:48)
[2019-11-21] MEDS ORDERED: ONDANSETRON 4 MG/2 ML VIAL IV PRN (09:48)
[2019-11-21] MEDS ORDERED: MAGNESIUM HYDROXIDE SUSP 30 ML UDCUP PO PRN (09:48)
[2019-11-21] MEDS ORDERED: TEMAZEPAM 7.5 MG CAPSULE PO PRN (09:48)
[2019-11-21] MEDS ORDERED: LOPERAMIDE 2 MG CAPSULE PO PRN ×2 (09:48)
[2019-11-21] MEDS ORDERED: guaiFENesin 200 MG/10 ML UDCUP PO PRN (09:48)
[2019-11-21] MEDS ORDERED: ALUMINUM/MAGNES/SIMETH MAX STR 30 ML UDCUP PO PRN (09:48)
[2019-11-21] MEDS ORDERED: chlorproMAZINE INJ 25 MG in SODIUM CHLORIDE 0.9% 100 ML IV PRN (09:48)
[2019-11-21] MEDS ORDERED: PROMETHAZINE INJ 25 MG in SODIUM CHLORIDE 0.9% 50 ML IV PRN (09:48)
[2019-11-21] MEDS ORDERED: chlorproMAZINE INJ 50 MG in SODIUM CHLORIDE 0.9% 100 ML IV PRN (09:48)
[2019-11-21 14:49] LABS: Albumin 3.1 G/DL (3.4-5.0); Bilirubin,Direct 2.11 MG/DL (0.0-0.20); Bilirubin,Indirect 4.1 MG/DL (0.0-1.0); Bilirubin,Total 6.2 MG/DL (0.2-1.0); Total Protein 7.1 G/DL (6.4-8.3)
[2019-11-21] MEDS ORDERED: MAGNESIUM HYDROXIDE SUSP 30 ML UDCUP PO ONE (15:50)
[2019-11-21] MEDS ORDERED: diphenhydrAMINE 50 MG/1 ML VIAL IV ONE (17:42)
[2019-11-21] MEDS ORDERED: ACETAMINOPHEN 500 MG TABLET ONE (17:45)
[2019-11-21] MEDS ORDERED: ACETAMINOPHEN 500 MG TABLET PO ONE (18:24)
[2019-11-21] MEDS: ALPRAZolam 0.25 MG TABLET PO PRN (19:57)
[2019-11-21] MEDS: diphenhydrAMINE CAP 25 MG CAPSULE PO PRN (19:58)
[2019-11-21] MEDS: FOLIC ACID 1 MG TABLET PO SCH (20:00)
[2019-11-21] MEDS: DOCUSATE SODIUM 100 MG CAPSULE PO SCH (20:00)
[2019-11-21] MEDS: POLYETHYLENE GLYCOL POWDER 17 GM PACK PO SCH (20:01)
[2019-11-21] MEDS: SENNA 8.6 MG TABLET PO SCH (20:04)
[2019-11-22] MEDS: diphenhydrAMINE CAP 25 MG CAPSULE PO PRN ×2 (01:43→21:07)
[2019-11-22] MEDS: fentaNYL 100 MCG/2 ML VIAL IV PRN ×4 (01:43→21:08)
[2019-11-22 05:49] LABS: Basophils % 0.2 % (0.0-0.8); Hematocrit 26.4 VOL% (35.7-47.0); Hemoglobin 8.9 GM/DL (12.0-16.0); Immature Granulocytes Absolute 0.24 #; Lymphocytes # 2.2 10*3/uL (1.4-4.0); Lymphocytes % 18.2 % (21.3-54.2); Mean Corpuscular HGB Conc 33.7 GM/DL (32-36); Mean Platelet Volume 13.2 FL (9.6-12.0); Monocytes % 8.5 % (1.7-12.7); NRBC # 4.72 10*3/uL; Neutrophils % 71.1 % (38.7-73.9); Platelet Count 145 T/CUMM (130-400); Red Blood Count 2.81 MC/CUMM (3.8-5.5); Red Cell Distribution Width 22.1 % (9.3-17.3)
[2019-11-22 06:10] LABS: Albumin 3.2 G/DL (3.4-5.0); Bilirubin,Total 4.6 MG/DL (0.2-1.0); Calcium 8.8 MG/DL (8.5-10.1); Osmolality,Calculated 287.3 MOS/KG (273-304); Total Protein 7.6 G/DL (6.4-8.3)
[2019-11-22 06:21] LABS: Band Neutrophils 1 % (0-10); Lymphocytes 13 % (20-55); Metamyelocytes 3 %; Nucleated Red Blood Cells 75 (0-5); Platelet Estimate Decreased; Segmented Neutrophils 79 % (50-85); Total Cells Counted 100
[2019-11-22 06:22] LABS: Acanthocytes 1+; Anisocytosis 3+; Atypical Lymphocytes Few; Macrocytosis 2+; Microcytosis 1+; Polychromasia Few; Sickle Cells 3+
[2019-11-22 06:23] LABS: Elliptocytes 1+; Howell-Jolly Bodies 1+; Hypochromasia 2+; Ovalocytes Few; Poikilocytosis 3+; Target Cells 2+
[2019-11-22] MEDS: POLYETHYLENE GLYCOL POWDER 17 GM PACK PO SCH ×2 (08:38→21:10)
[2019-11-22] MEDS: APIXABAN 5 MG TABLET PO SCH ×2 (08:38→21:07)
[2019-11-22] MEDS: MONTELUKAST 10 MG TABLET PO SCH (08:38)
[2019-11-22] MEDS: GABAPENTIN 300 MG CAPSULE PO SCH ×2 (08:38→21:06)
[2019-11-22] MEDS: DULoxetine 30 MG CAPSULE PO SCH (08:38)
[2019-11-22] MEDS: methylPREDNISolone SOD SUC 125 MG/2 ML VIAL IV SCH ×2 (08:38→21:07)
[2019-11-22] MEDS: PANTOPRAZOLE 40 MG TABLET PO SCH (08:39)
[2019-11-22] MEDS: DOCUSATE SODIUM 100 MG CAPSULE PO SCH ×2 (08:39→21:06)
[2019-11-22] MEDS: amLODIPine 10 MG TABLET PO SCH (08:39)
[2019-11-22] MEDS: VANCOMYCIN INJ 1,500 MG in SODIUM CHLORIDE 0.9% 500 ML IV SCH ×2 (11:27→23:58)
[2019-11-22] MEDS: SODIUM CHLORIDE 0.9% 1,000 ML IV SCH ×2 (13:36→21:13)
[2019-11-22] MEDS: ONDANSETRON 4 MG/2 ML VIAL IV PRN (13:37)
[2019-11-22] MEDS ORDERED: ACETAMINOPHEN 325 MG TABLET PO SCH (15:30)
[2019-11-22] MEDS ORDERED: diphenhydrAMINE 50 MG/1 ML VIAL IV SCH (15:30)
[2019-11-22] MEDS: SENNA 8.6 MG TABLET PO SCH (21:07)
[2019-11-22] MEDS: ALPRAZolam 0.25 MG TABLET PO PRN (21:07)
[2019-11-22] MEDS: FOLIC ACID 1 MG TABLET PO SCH (21:07)
[2019-11-23] MEDS: fentaNYL 100 MCG/2 ML VIAL IV PRN ×4 (05:25→21:28)
[2019-11-23 05:53] LABS: Basophils % 0.3 % (0.0-0.8); Hematocrit 29.8 VOL% (35.7-47.0); Hemoglobin 10.1 GM/DL (12.0-16.0); Immature Granulocytes % 1.7 %; Immature Granulocytes Absolute 0.24 #; Lymphocytes # 1.6 10*3/uL (1.4-4.0); Lymphocytes % 11.6 % (21.3-54.2); Mean Corpuscular HGB Conc 33.9 GM/DL (32-36); Mean Corpuscular Volume 95.2 FL (87-102); Mean Platelet Volume 12.3 FL (9.6-12.0); Monocytes % 6.6 % (1.7-12.7); NRBC # 5.62 10*3/uL; Neutrophils % 79.8 % (38.7-73.9); Platelet Count 201 T/CUMM (130-400); Red Blood Count 3.13 MC/CUMM (3.8-5.5); Red Cell Distribution Width 23.2 % (9.3-17.3); White Blood Count 14.1 T/CUMM (4-12)
[2019-11-23 06:04] LABS: Albumin 3.1 G/DL (3.4-5.0); Bilirubin,Total 3.7 MG/DL (0.2-1.0); Calcium 8.3 MG/DL (8.5-10.1); Osmolality,Calculated 287.3 MOS/KG (273-304); Total Protein 7.3 G/DL (6.4-8.3)
[2019-11-23 06:14] LABS: Macrocytosis Slight; Pappenheimer Bodies Slight; Platelet Estimate Adequate; Polychromasia Slight; Sickle Cells Few
[2019-11-23 06:15] LABS: Howell-Jolly Bodies Few; Hypochromasia 1+; Target Cells Few
[2019-11-23] MEDS: MONTELUKAST 10 MG TABLET PO SCH (08:41)
[2019-11-23] MEDS: PANTOPRAZOLE 40 MG TABLET PO SCH (08:41)
[2019-11-23] MEDS: DULoxetine 30 MG CAPSULE PO SCH (08:41)
[2019-11-23] MEDS: GABAPENTIN 300 MG CAPSULE PO SCH ×2 (08:41→21:21)
[2019-11-23] MEDS: APIXABAN 5 MG TABLET PO SCH ×2 (08:41→21:22)
[2019-11-23] MEDS: DOCUSATE SODIUM 100 MG CAPSULE PO SCH ×2 (08:43→21:21)
[2019-11-23] MEDS: amLODIPine 10 MG TABLET PO SCH (08:44)
[2019-11-23] MEDS: fentaNYL 75 MCG/HR PATCH TRANSDERM SCH (08:44)
[2019-11-23] MEDS: POLYETHYLENE GLYCOL POWDER 17 GM PACK PO SCH ×2 (08:45→21:21)
[2019-11-23] MEDS: methylPREDNISolone SOD SUC 125 MG/2 ML VIAL IV SCH ×2 (08:51→21:19)
[2019-11-23] MEDS: SODIUM CHLORIDE 0.9% 1,000 ML IV SCH ×2 (10:02→19:09)
[2019-11-23] MEDS: VANCOMYCIN INJ 1,500 MG in SODIUM CHLORIDE 0.9% 500 ML IV SCH ×2 (10:59→23:46)
[2019-11-23] MEDS: FOLIC ACID 1 MG TABLET PO SCH (21:21)
[2019-11-23] MEDS: SENNA 8.6 MG TABLET PO SCH (21:21)
[2019-11-24] MEDS: SODIUM CHLORIDE 0.9% 1,000 ML IV SCH ×2 (05:12→17:24)
[2019-11-24 05:57] LABS: Basophils % 0.2 % (0.0-0.8); Hematocrit 30.9 VOL% (35.7-47.0); Hemoglobin 10.4 GM/DL (12.0-16.0); Immature Granulocytes % 1.5 %; Immature Granulocytes Absolute 0.19 #; Lymphocytes # 1.2 10*3/uL (1.4-4.0); Lymphocytes % 9.5 % (21.3-54.2); Mean Corpuscular HGB Conc 33.7 GM/DL (32-36); Mean Corpuscular Volume 96.3 FL (87-102); Mean Platelet Volume 12.2 FL (9.6-12.0); Monocytes % 6.7 % (1.7-12.7); NRBC # 4.65 10*3/uL; Neutrophils % 82.1 % (38.7-73.9); Platelet Count 217 T/CUMM (130-400); Red Blood Count 3.21 MC/CUMM (3.8-5.5); Red Cell Distribution Width 24.2 % (9.3-17.3)
[2019-11-24 06:25] LABS: Albumin 3.2 G/DL (3.4-5.0); Bilirubin,Total 3.7 MG/DL (0.2-1.0); Calcium 8.5 MG/DL (8.5-10.1); Osmolality,Calculated 282.5 MOS/KG (273-304); Total Protein 7.2 G/DL (6.4-8.3)
[2019-11-24 06:40] LABS: Lymphocytes 12 % (20-55); Nucleated Red Blood Cells 40 (0-5); Segmented Neutrophils 80 % (50-85); Total Cells Counted 100
[2019-11-24 06:41] LABS: Elliptocytes Few; Howell-Jolly Bodies Slight; Hypochromasia 1+; Macrocytosis Slight; Platelet Estimate Adequate; Polychromasia Slight; Sickle Cells 1+; Target Cells Few
[2019-11-24] MEDS: fentaNYL 100 MCG/2 ML VIAL IV PRN ×3 (08:53→22:59)
[2019-11-24] MEDS: PANTOPRAZOLE 40 MG TABLET PO SCH (08:54)
[2019-11-24] MEDS: GABAPENTIN 300 MG CAPSULE PO SCH ×2 (08:54→20:48)
[2019-11-24] MEDS: MONTELUKAST 10 MG TABLET PO SCH (08:55)
[2019-11-24] MEDS: APIXABAN 5 MG TABLET PO SCH ×2 (08:55→20:48)
[2019-11-24] MEDS: DULoxetine 30 MG CAPSULE PO SCH (08:55)
[2019-11-24] MEDS: amLODIPine 10 MG TABLET PO SCH (08:55)
[2019-11-24] MEDS: DOCUSATE SODIUM 100 MG CAPSULE PO SCH ×2 (08:55→20:48)
[2019-11-24] MEDS: POLYETHYLENE GLYCOL POWDER 17 GM PACK PO SCH ×2 (08:56→20:49)
[2019-11-24] MEDS: methylPREDNISolone SOD SUC 125 MG/2 ML VIAL IV SCH ×2 (08:56→20:45)
[2019-11-24] MEDS: VANCOMYCIN INJ 1,500 MG in SODIUM CHLORIDE 0.9% 500 ML IV SCH (11:08)
[2019-11-24] MEDS: FOLIC ACID 1 MG TABLET PO SCH (20:48)
[2019-11-24] MEDS: SENNA 8.6 MG TABLET PO SCH (20:48)
[2019-11-25] MEDS: SODIUM CHLORIDE 0.9% 1,000 ML IV SCH ×2 (01:25→09:50)
[2019-11-25 04:33] LABS: Basophils % 0.1 % (0.0-0.8); Hematocrit 32.4 VOL% (35.7-47.0); Hemoglobin 10.6 GM/DL (12.0-16.0); Immature Granulocytes Absolute 0.11 #; Lymphocytes # 0.8 10*3/uL (1.4-4.0); Lymphocytes % 7.5 % (21.3-54.2); Mean Corpuscular HGB Conc 32.7 GM/DL (32-36); Mean Corpuscular Volume 97.3 FL (87-102); Mean Platelet Volume 10.6 FL (9.6-12.0); Monocytes % 8.1 % (1.7-12.7); NRBC # 2.93 10*3/uL; Neutrophils % 83.3 % (38.7-73.9); Platelet Count 208 T/CUMM (130-400); Red Blood Count 3.33 MC/CUMM (3.8-5.5); Red Cell Distribution Width 24.2 % (9.3-17.3); White Blood Count 11.3 T/CUMM (4-12)
[2019-11-25 04:50] LABS: Albumin 3.3 G/DL (3.4-5.0); Bilirubin,Total 3.6 MG/DL (0.2-1.0); Calcium 8.8 MG/DL (8.5-10.1); Osmolality,Calculated 282.8 MOS/KG (273-304); Total Protein 7.5 G/DL (6.4-8.3)
[2019-11-25 04:58] LABS: Howell-Jolly Bodies Slight; Hypochromasia 1+; Pappenheimer Bodies Slight; Platelet Estimate Adequate; Sickle Cells Slight
[2019-11-25 04:59] LABS: Macrocytosis Slight
[2019-11-25] MEDS ORDERED: VANCOMYCIN INJ 1,500 MG in SODIUM CHLORIDE 0.9% 500 ML IV SCH (06:00)
[2019-11-25] MEDS: DULoxetine 30 MG CAPSULE PO SCH (09:46)
[2019-11-25] MEDS: DOCUSATE SODIUM 100 MG CAPSULE PO SCH (09:46)
[2019-11-25] MEDS: APIXABAN 5 MG TABLET PO SCH (09:47)
[2019-11-25] MEDS: GABAPENTIN 300 MG CAPSULE PO SCH (09:47)
[2019-11-25] MEDS: methylPREDNISolone SOD SUC 125 MG/2 ML VIAL IV SCH (09:47)
[2019-11-25] MEDS: amLODIPine 10 MG TABLET PO SCH (09:47)
[2019-11-25] MEDS: MONTELUKAST 10 MG TABLET PO SCH (09:48)
[2019-11-25] MEDS: POLYETHYLENE GLYCOL POWDER 17 GM PACK PO SCH (09:48)
[2019-11-25] MEDS: PANTOPRAZOLE 40 MG TABLET PO SCH (09:48)
[2019-11-25 11:58] VITALS: BP 164/88
[2019-11-25] MEDS ORDERED: HEPARIN LOCK FLUSH 500 UNIT/5 ML SYRINGE IV ONE (12:03)
== END 2019-11-25 13:52 | disposition home health service (06) | DRG 812 ==
LOC: EDUNIT# → EDBD → N.ED 04:54 → SUATTDRO 07:39 → N.EDINP 07:39 → N.4E 09:58
PROVIDERS: ADMIT Hospitalist; ATTEND Internal Medicine

== ENCOUNTER 2020-02-10 03:36 | Inpatient (IN) ==
[2020-02-10] MEDS ORDERED: SODIUM CHLORIDE 0.9% 1,000 ML IV STA (03:50)
[2020-02-10 04:16] LABS: Basophils # 0.1 10*3/uL (0.0-0.2); Basophils % 0.4 % (0.0-0.8); Eosinophils # 0.1 10*3/uL (0.0-0.87); Eosinophils % 0.5 % (0.00-10.9); Hematocrit 19.1 VOL% (35.7-47.0); Hemoglobin 6.8 GM/DL (12.0-16.0); Immature Granulocytes % 4.8 %; Lymphocytes # 4.4 10*3/uL (1.4-4.0); Lymphocytes % 26.4 % (21.3-54.2); Mean Corpuscular HGB Conc 35.6 GM/DL (32-36); Mean Corpuscular Volume 101.1 FL (87-102); Mean Platelet Volume 10.7 FL (9.6-12.0); NRBC # 1.15 10*3/uL; Neutrophils % 51.9 % (38.7-73.9); Platelet Count 196 T/CUMM (130-400); Red Blood Count 1.89 MC/CUMM (3.8-5.5); Red Cell Distribution Width 26.5 % (9.3-17.3); White Blood Count 16.8 T/CUMM (4-12)
[2020-02-10 04:37] LABS: Albumin 3.5 G/DL (3.4-5.0); Bilirubin,Total 8.5 MG/DL (0.2-1.0); Calcium 8.5 MG/DL (8.5-10.1); Osmolality,Calculated 280.7 MOS/KG (273-304); Total Protein 7.8 G/DL (6.4-8.3)
[2020-02-10 04:47] LABS: Anisocytosis 2+; Hypochromasia 2+; Macrocytosis 1+; Microcytosis 2+; Nucleated Red Blood Cells 8 (0-5)
[2020-02-10 04:48] LABS: Ovalocytes 1+; Platelet Estimate Adequate; Polychromasia 2+; Sickle Cells 2+; Target Cells 1+
[2020-02-10] MEDS ORDERED: GLUCAGON 1 MG VIAL IM PRN (04:57)
[2020-02-10] MEDS ORDERED: DEXTROSE 50% 25 GM/50 ML SYRINGE IV PRN (04:57)
[2020-02-10] MEDS ORDERED: SODIUM CHLORIDE 0.9% 1,000 ML IV PRN ×4 (04:57→08:24)
[2020-02-10] MEDS ORDERED: ACETAMINOPHEN 325 MG TABLET PO PRN (05:03)
[2020-02-10] MEDS ORDERED: hydrALAZINE 20 MG/1 ML VIAL IV PRN (05:03)
[2020-02-10] MEDS ORDERED: diphenhydrAMINE CAP 25 MG CAPSULE PO PRN (05:03)
[2020-02-10] MEDS ORDERED: NICOTINE 21 MG/24 HR PATCH TRANSDERM PRN (05:03)
[2020-02-10] MEDS ORDERED: PROMETHAZINE 25 MG/1 ML VIAL IM PRN (05:03)
[2020-02-10] MEDS ORDERED: ALUMINUM/MAGNES/SIMETH MAX STR 30 ML UDCUP PO PRN (05:03)
[2020-02-10] MEDS ORDERED: guaiFENesin/DM ER 600-30 MG TABLET PO PRN (05:03)
[2020-02-10] MEDS ORDERED: fentaNYL 100 MCG/2 ML VIAL IV STA (05:39)
[2020-02-10 06:34] LABS: Apearance,Urine CLEAR (Clear); Bacteria,Urine Occasional /HPF (Few); Bilirubin,Urine Negative (Negative); Blood, Urine Small mg/dL (Negative); Glucose,Urine (UA) Negative (Negative); Hyaline Casts,Urine 1 /LPF (0-3); Ketones,Urine Negative (Negative); Mucus,Urine Occasional /LPF (Occasional); Nitrite,Urine Negative (Negative); Protein,Urine Negative; RBC,Urine 2 /HPF (0-4); Squamous Epithelial Cell,Urine Occasional /HPF (0-10); Urine Color Yellow (Yellow); Urine Specific Gravity 1.006 (1.001-1.035); Urine Urobilinogen < 2.0 EU/DL (0.2-1.0); WBC,Urine 4 /HPF (0-6)
[2020-02-10] MEDS: fentaNYL 100 MCG/2 ML VIAL IV PRN ×8 (08:37→23:27)
[2020-02-10] MEDS: SODIUM CHLORIDE 0.9% 1,000 ML IV SCH ×4 (08:46→23:30)
[2020-02-10] MEDS: ONDANSETRON 4 MG/2 ML VIAL IV PRN ×2 (09:00→16:20)
[2020-02-10] MEDS ORDERED: fentaNYL 25 MCG/HR PATCH TRANSDERM SCH (09:00)
[2020-02-10] MEDS: DULoxetine 30 MG CAPSULE PO SCH (09:01)
[2020-02-10] MEDS: GABAPENTIN 300 MG CAPSULE PO SCH ×3 (09:01→20:13)
[2020-02-10] MEDS: MONTELUKAST 10 MG TABLET PO SCH (09:01)
[2020-02-10] MEDS: amLODIPine 10 MG TABLET PO SCH (09:01)
[2020-02-10] MEDS: CIPROFLOXACIN 500 MG TABLET PO SCH ×2 (09:01→20:13)
[2020-02-10] MEDS: predniSONE 20 MG TABLET PO SCH (09:01)
[2020-02-10] MEDS ORDERED: fentaNYL 50 MCG/HR PATCH TRANSDERM SCH (18:48)
[2020-02-10] MEDS ORDERED: fentaNYL 50 MCG/HR PATCH TRANSDERM ONE (18:51)
[2020-02-11] MEDS: fentaNYL 100 MCG/2 ML VIAL IV PRN ×7 (05:57→23:56)
[2020-02-11] MEDS: ONDANSETRON 4 MG/2 ML VIAL IV PRN ×2 (06:03→11:15)
[2020-02-11 06:48] LABS: Basophils # 0.1 10*3/uL (0.0-0.2); Basophils % 0.3 % (0.0-0.8); Eosinophils % 0.2 % (0.00-10.9); Hematocrit 18.3 VOL% (35.7-47.0); Immature Granulocytes % 2.2 %; Immature Granulocytes Absolute 0.37 #; Lymphocytes # 5.1 10*3/uL (1.4-4.0); Lymphocytes % 29.9 % (21.3-54.2); Mean Corpuscular HGB Conc 34.4 GM/DL (32-36); Mean Corpuscular Volume 105.2 FL (87-102); Mean Platelet Volume 10.1 FL (9.6-12.0); Monocytes % 15.5 % (1.7-12.7); NRBC # 1.64 10*3/uL; Neutrophils % 51.9 % (38.7-73.9); Platelet Count 186 T/CUMM (130-400); Red Blood Count 1.74 MC/CUMM (3.8-5.5); White Blood Count 17.1 T/CUMM (4-12)
[2020-02-11 07:02] LABS: Hemoglobin 6.3 GM/DL (12.0-16.0)
[2020-02-11 07:04] LABS: Hypochromasia 1+; Macrocytosis Slight; Platelet Estimate Adequate; Polychromasia Slight; Sickle Cells 1+
[2020-02-11 07:05] LABS: Howell-Jolly Bodies Slight; Pappenheimer Bodies Few; Target Cells Few
[2020-02-11 07:12] LABS: Albumin 3.2 G/DL (3.4-5.0); Bilirubin,Direct 2.05 MG/DL (0.0-0.20); Total Protein 7.2 G/DL (6.4-8.3)
[2020-02-11 07:13] LABS: Albumin 3.2 G/DL (3.4-5.0); Bilirubin,Total 6.9 MG/DL (0.2-1.0); Calcium 8.5 MG/DL (8.5-10.1); Osmolality,Calculated 281.3 MOS/KG (273-304); Total Protein 7.2 G/DL (6.4-8.3)
[2020-02-11] MEDS: MONTELUKAST 10 MG TABLET PO SCH (08:13)
[2020-02-11] MEDS: amLODIPine 10 MG TABLET PO SCH (08:13)
[2020-02-11] MEDS: GABAPENTIN 300 MG CAPSULE PO SCH ×3 (08:13→20:38)
[2020-02-11] MEDS: DULoxetine 30 MG CAPSULE PO SCH (08:13)
[2020-02-11] MEDS: CIPROFLOXACIN 500 MG TABLET PO SCH ×2 (08:13→20:38)
[2020-02-11 08:28] LABS: Band Neutrophils 3 % (0-10); Segmented Neutrophils 51 % (50-85); Total Cells Counted 100
[2020-02-11 08:29] LABS: Lymphocytes 24 % (20-55); Metamyelocytes 4 %
[2020-02-11] MEDS: SODIUM CHLORIDE 0.9% 1,000 ML IV SCH ×3 (09:20→18:30)
[2020-02-11] MEDS ORDERED: diphenhydrAMINE 50 MG/1 ML VIAL IV ONE (12:51)
[2020-02-11] MEDS ORDERED: DEXAMETHASONE 10 MG/1 ML VIAL IV ONE (12:52)
[2020-02-11] MEDS ORDERED: ACETAMINOPHEN 325 MG TABLET PO ONE (12:52)
[2020-02-11 19:17] LABS: Hematocrit 25.2 VOL% (35.7-47.0); Hemoglobin 8.6 GM/DL (12.0-16.0)
[2020-02-12] MEDS: SODIUM CHLORIDE 0.9% 1,000 ML IV SCH ×2 (01:04→05:29)
[2020-02-12] MEDS: fentaNYL 100 MCG/2 ML VIAL IV PRN ×3 (02:44→09:32)
[2020-02-12 06:14] LABS: Basophils % 0.1 % (0.0-0.8); Hematocrit 24.5 VOL% (35.7-47.0); Hemoglobin 8.4 GM/DL (12.0-16.0); Immature Granulocytes % 1.2 %; Immature Granulocytes Absolute 0.12 #; Lymphocytes # 1.9 10*3/uL (1.4-4.0); Lymphocytes % 18.7 % (21.3-54.2); Mean Corpuscular HGB Conc 34.3 GM/DL (32-36); Mean Corpuscular Volume 99.6 FL (87-102); Mean Platelet Volume 11.2 FL (9.6-12.0); Monocytes % 16.1 % (1.7-12.7); NRBC # 2.21 10*3/uL; Neutrophils % 63.9 % (38.7-73.9); Platelet Count 222 T/CUMM (130-400); Red Blood Count 2.46 MC/CUMM (3.8-5.5); Red Cell Distribution Width 24.1 % (9.3-17.3); White Blood Count 10.1 T/CUMM (4-12)
[2020-02-12 06:22] LABS: Albumin 3.4 G/DL (3.4-5.0); Bilirubin,Direct 1.88 MG/DL (0.0-0.20); Bilirubin,Indirect 4.5 MG/DL (0.0-1.0); Bilirubin,Total 6.4 MG/DL (0.2-1.0); Calcium 8.4 MG/DL (8.5-10.1); Osmolality,Calculated 281.4 MOS/KG (273-304); Total Protein 7.3 G/DL (6.4-8.3)
[2020-02-12 06:40] LABS: Band Neutrophils 1 % (0-10); Hypochromasia 1+; Lymphocytes 21 % (20-55); Nucleated Red Blood Cells 30 (0-5); Segmented Neutrophils 64 % (50-85); Total Cells Counted 100
[2020-02-12 06:41] LABS: Anisocytosis 1+; Macrocytosis 1+; Pappenheimer Bodies Few; Polychromasia Few; Sickle Cells 1+; Target Cells Few
[2020-02-12] MEDS ORDERED: MAGNESIUM SULF RIDER 2 GM in PREMIX 1 EACH IV PRN (07:57)
[2020-02-12] MEDS ORDERED: MAGNESIUM SULF RIDER 4 GM in PREMIX 1 EACH IV PRN (07:57)
[2020-02-12 08:06] VITALS: BP 147/78
[2020-02-12] MEDS: MONTELUKAST 10 MG TABLET PO SCH (09:31)
[2020-02-12] MEDS: DULoxetine 30 MG CAPSULE PO SCH (09:31)
[2020-02-12] MEDS: CIPROFLOXACIN 500 MG TABLET PO SCH (09:31)
[2020-02-12] MEDS: amLODIPine 10 MG TABLET PO SCH (09:31)
[2020-02-12] MEDS: predniSONE 20 MG TABLET PO SCH (09:31)
[2020-02-12] MEDS: GABAPENTIN 300 MG CAPSULE PO SCH (09:32)
== END 2020-02-12 10:55 | disposition home health service (06) | DRG 812 ==
LOC: EDUNIT# → EDBD → N.ED 03:36 → SUATTDRO 04:57 → N.EDINP 04:57 → N.TELEN 06:42 → N.TELES 10:13
PROVIDERS: ADMIT Internal Medicine; ATTEND Internal Medicine Geriatric Medicine

== ENCOUNTER 2020-03-11 02:38 | Inpatient (IN) ==
[2020-03-11] MEDS ORDERED: SODIUM CHLORIDE 0.9% 1,000 ML IV STA (02:58)
[2020-03-11 03:08] LABS: Basophils # 0.1 10*3/uL (0.0-0.2); Basophils % 0.4 % (0.0-0.8); Eosinophils # 0.2 10*3/uL (0.0-0.87); Eosinophils % 1.4 % (0.00-10.9); Hemoglobin 6.7 GM/DL (12.0-16.0); Immature Granulocytes % 5.1 %; Immature Granulocytes Absolute 0.71 #; Lymphocytes # 2.9 10*3/uL (1.4-4.0); Lymphocytes % 20.6 % (21.3-54.2); Mean Corpuscular HGB Conc 33.5 GM/DL (32-36); Mean Corpuscular Volume 102.6 FL (87-102); Mean Platelet Volume 10.3 FL (9.6-12.0); Monocytes % 13.4 % (1.7-12.7); NRBC # 0.45 10*3/uL; Neutrophils % 59.1 % (38.7-73.9); Platelet Count 173 T/CUMM (130-400); Red Blood Count 1.95 MC/CUMM (3.8-5.5); Red Cell Distribution Width 23.5 % (9.3-17.3)
[2020-03-11 03:16] LABS: INR 1.1; PT Patient Result 11.4 SECS (9.8-11.9)
[2020-03-11] MEDS ORDERED: fentaNYL 100 MCG/2 ML VIAL IV STA (03:24)
[2020-03-11] MEDS ORDERED: ONDANSETRON 4 MG/2 ML VIAL IV ONE (03:24)
[2020-03-11 03:26] LABS: Albumin 3.2 G/DL (3.4-5.0); Bilirubin,Total 6.2 MG/DL (0.2-1.0); Calcium 7.9 MG/DL (8.5-10.1); Osmolality,Calculated 278.7 MOS/KG (273-304); Total Protein 7.2 G/DL (6.4-8.3)
[2020-03-11 03:32] LABS: Band Neutrophils 5 % (0-10); Eosinophils 3 % (0-10); Lymphocytes 29 % (20-55); Metamyelocytes 2 %; Nucleated Red Blood Cells 3 (0-5); Segmented Neutrophils 53 % (50-85); Total Cells Counted 100
[2020-03-11 03:33] LABS: Platelet Estimate Normal; Polychromasia Few; Sickle Cells 1+
[2020-03-11 03:34] LABS: Ovalocytes Slight; Target Cells 1+
[2020-03-11 03:35] LABS: Anisocytosis 2+; Macrocytosis Slight; Microcytosis 1+
[2020-03-11] MEDS ORDERED: GLUCAGON 1 MG VIAL IM PRN (05:04)
[2020-03-11] MEDS ORDERED: DEXTROSE 50% 25 GM/50 ML VIAL IV PRN (05:04)
[2020-03-11] MEDS ORDERED: guaiFENesin/DM ER 600-30 MG TABLET PO PRN (05:44)
[2020-03-11] MEDS ORDERED: hydrALAZINE 20 MG/1 ML VIAL IV PRN (05:44)
[2020-03-11] MEDS ORDERED: NICOTINE 21 MG/24 HR PATCH TRANSDERM PRN (05:44)
[2020-03-11] MEDS ORDERED: diphenhydrAMINE CAP 25 MG CAPSULE PO PRN (05:44)
[2020-03-11] MEDS ORDERED: ACETAMINOPHEN 325 MG TABLET PO PRN (05:44)
[2020-03-11] MEDS ORDERED: ONDANSETRON 4 MG/2 ML VIAL IV PRN (05:44)
[2020-03-11] MEDS ORDERED: SODIUM CHLORIDE 0.9% 1,000 ML IV PRN (05:58)
[2020-03-11] MEDS: SODIUM CHLORIDE 0.9% 1,000 ML IV SCH ×2 (07:35→16:57)
[2020-03-12] MEDS: SODIUM CHLORIDE 0.9% 1,000 ML IV SCH ×4 (01:31→17:35)
[2020-03-12] MEDS ORDERED: methylPREDNISolone SOD SUC 40 MG/1 ML VIAL IV ONE (08:57)
[2020-03-12] MEDS ORDERED: diphenhydrAMINE 50 MG/1 ML VIAL IV ONE (08:57)
[2020-03-12 17:34] VITALS: BP 125/61
== END 2020-03-12 18:35 | disposition home or self-care (01) | DRG 812 ==
LOC: EDUNIT# → EDBD → N.ED 02:38 → N.EDINP 05:44 → N.TELES 11:52
PROVIDERS: ADMIT Internal Medicine Geriatric Medicine; ATTEND Internal Medicine Geriatric Medicine

== ENCOUNTER 2020-04-08 22:47 | Inpatient (IN) ==
[2020-04-08] MEDS ORDERED: SODIUM CHLORIDE 0.9% 1,000 ML IV STA (23:35)
[2020-04-08 23:40] LABS: Basophils % 0.3 % (0.0-0.8); Hematocrit 20.5 VOL% (35.7-47.0); Immature Granulocytes % 3.1 %; Immature Granulocytes Absolute 0.44 #; Lymphocytes # 2.9 10*3/uL (1.4-4.0); Lymphocytes % 20.1 % (21.3-54.2); Mean Corpuscular HGB Conc 34.1 GM/DL (32-36); Mean Corpuscular Volume 102.5 FL (87-102); Mean Platelet Volume 10.9 FL (9.6-12.0); Monocytes % 12.9 % (1.7-12.7); NRBC # 1.09 10*3/uL; Neutrophils % 63.6 % (38.7-73.9); Platelet Count 199 T/CUMM (130-400); Red Cell Distribution Width 24.5 % (9.3-17.3); White Blood Count 14.3 T/CUMM (4-12)
[2020-04-08 23:52] LABS: Albumin 3.6 G/DL (3.4-5.0); Bilirubin,Total 6.8 MG/DL (0.2-1.0); Calcium 8.3 MG/DL (8.5-10.1); Osmolality,Calculated 285.5 MOS/KG (273-304); Total Protein 7.9 G/DL (6.4-8.3)
[2020-04-09 00:58] LABS: Apearance,Urine CLEAR (Clear); Bacteria,Urine Occasional /HPF (Few); Bilirubin,Urine Negative (Negative); Blood, Urine Small mg/dL (Negative); Glucose,Urine (UA) Negative (Negative); Hyaline Casts,Urine 5 /LPF (0-3); Ketones,Urine Negative (Negative); Mucus,Urine Occasional /LPF (Occasional); Nitrite,Urine Negative (Negative); Protein,Urine 30 MG/DL; RBC,Urine 3 /HPF (0-4); Squamous Epithelial Cell,Urine Occasional /HPF (0-10); Urine Color Amber (Yellow); Urine Specific Gravity 1.012 (1.001-1.035); WBC,Urine 18 /HPF (0-6)
[2020-04-09] MEDS ORDERED: cefTRIAXone 1,000 MG in SODIUM CHLORIDE 0.9% 100 ML IV STA (01:11)
[2020-04-09] MEDS ORDERED: ALBUTEROL 2.5 MG/3 ML NEB RESP TX PRN (01:27)
[2020-04-09] MEDS ORDERED: NICOTINE 21 MG/24 HR PATCH TRANSDERM PRN (01:27)
[2020-04-09] MEDS ORDERED: GLUCAGON 1 MG VIAL IM PRN (01:27)
[2020-04-09] MEDS ORDERED: PROMETHAZINE 25 MG/1 ML VIAL IM PRN (01:27)
[2020-04-09] MEDS ORDERED: hydrALAZINE 20 MG/1 ML VIAL IV PRN (01:27)
[2020-04-09] MEDS ORDERED: DEXTROSE 50% 25 GM/50 ML VIAL IV PRN (01:27)
[2020-04-09] MEDS ORDERED: diphenhydrAMINE CAP 25 MG CAPSULE PO PRN (01:27)
[2020-04-09] MEDS ORDERED: ZALEPLON 5 MG CAPSULE PO PRN (01:27)
[2020-04-09] MEDS ORDERED: guaiFENesin/DM ER 600-30 MG TABLET PO PRN (01:27)
[2020-04-09] MEDS ORDERED: ACETAMINOPHEN 325 MG TABLET PO PRN (01:27)
[2020-04-09] MEDS ORDERED: SODIUM CHLORIDE 0.9% 1,000 ML IV PRN ×2 (01:42→20:16)
[2020-04-09] MEDS ORDERED: fentaNYL 100 MCG/2 ML VIAL IV STA (01:54)
[2020-04-09] MEDS ORDERED: AZITHROMYCIN INJ 500 MG in SODIUM CHLORIDE 0.9% 250 ML IV SCH (02:00)
[2020-04-09 02:21] LABS: Lymphocytes 29 % (20-55); Nucleated Red Blood Cells 6 (0-5); Segmented Neutrophils 56 % (50-85); Total Cells Counted 100
[2020-04-09 02:22] LABS: Anisocytosis 1+; Howell-Jolly Bodies Few; Ovalocytes 1+; Platelet Estimate Normal; Sickle Cells 1+
[2020-04-09 02:22] LABS: Barbiturates Screen,Urine Negative (Negative); Benzodiazepines Screen,Urine Negative (Negative); Cannabinoid Screen,Urine Negative (Negative); Opiate Screen,Urine Positive (Negative); Phencyclidine Screen,Urine Negative (Negative)
[2020-04-09] MEDS: SODIUM CHLORIDE 0.9% 1,000 ML IV SCH ×3 (04:29→19:23)
[2020-04-09 05:20] LABS: Basophils # 0.1 10*3/uL (0.0-0.2); Basophils % 0.3 % (0.0-0.8); Eosinophils % 0.2 % (0.00-10.9); Hematocrit 19.2 VOL% (35.7-47.0); Hemoglobin 6.7 GM/DL (12.0-16.0); Immature Granulocytes % 1.6 %; Immature Granulocytes Absolute 0.28 #; Lymphocytes # 4.6 10*3/uL (1.4-4.0); Lymphocytes % 26.5 % (21.3-54.2); Mean Corpuscular HGB Conc 34.9 GM/DL (32-36); Mean Corpuscular Volume 102.1 FL (87-102); Mean Platelet Volume 11.1 FL (9.6-12.0); Monocytes % 14.2 % (1.7-12.7); NRBC # 1.19 10*3/uL; Neutrophils % 57.2 % (38.7-73.9); Platelet Count 188 T/CUMM (130-400); Red Blood Count 1.88 MC/CUMM (3.8-5.5); Red Cell Distribution Width 24.1 % (9.3-17.3); White Blood Count 17.4 T/CUMM (4-12)
[2020-04-09 05:41] LABS: Hypochromasia 1+
[2020-04-09 05:42] LABS: Anisocytosis 1+; Macrocytosis 1+; Ovalocytes Slight; Polychromasia Few; Target Cells 1+
[2020-04-09 05:43] LABS: Pappenheimer Bodies Slight; Platelet Estimate Adequate
[2020-04-09 05:44] LABS: Sickle Cells 1+
[2020-04-09 05:50] LABS: Calcium 8.3 MG/DL (8.5-10.1); Osmolality,Calculated 281.4 MOS/KG (273-304)
[2020-04-09] MEDS: DOCUSATE SODIUM 100 MG CAPSULE PO SCH ×2 (08:35→22:14)
[2020-04-09] MEDS: AZITHROMYCIN 250 MG TABLET PO SCH (08:35)
[2020-04-09] MEDS: PANTOPRAZOLE 40 MG TABLET PO SCH (08:36)
[2020-04-09] MEDS ORDERED: fentaNYL 25 MCG/HR PATCH TRANSDERM SCH (09:00)
[2020-04-09] MEDS: fentaNYL 100 MCG/2 ML VIAL IV PRN ×4 (11:35→22:11)
[2020-04-09] MEDS: ONDANSETRON 4 MG/2 ML VIAL IV PRN ×2 (11:42→22:11)
[2020-04-09] MEDS ORDERED: ACETAMINOPHEN 325 MG TABLET PO ONE (19:12)
[2020-04-09] MEDS ORDERED: diphenhydrAMINE 50 MG/1 ML VIAL IV ONE (19:13)
[2020-04-09] MEDS ORDERED: DEXAMETHASONE INJ 10 MG in SODIUM CHLORIDE 0.9% 50 ML IV ONE (19:13)
[2020-04-09] MEDS ORDERED: DEXAMETHASONE 10 MG/1 ML VIAL IV ONE (19:30)
[2020-04-10] MEDS ORDERED: cefTRIAXone 1,000 MG in SYRINGE 1 EACH IV SCH (02:00)
[2020-04-10] MEDS: SODIUM CHLORIDE 0.9% 1,000 ML IV SCH (05:13)
[2020-04-10 08:40] LABS: Basophils % 0.2 % (0.0-0.8); Hematocrit 26.6 VOL% (35.7-47.0); Immature Granulocytes % 1.7 %; Immature Granulocytes Absolute 0.14 #; Lymphocytes # 1.3 10*3/uL (1.4-4.0); Lymphocytes % 15.2 % (21.3-54.2); Mean Corpuscular HGB Conc 33.5 GM/DL (32-36); Mean Corpuscular Volume 101.5 FL (87-102); Mean Platelet Volume 11.3 FL (9.6-12.0); Monocytes % 3.6 % (1.7-12.7); NRBC # 1.55 10*3/uL; Neutrophils % 79.3 % (38.7-73.9); Platelet Count 196 T/CUMM (130-400); Red Blood Count 2.62 MC/CUMM (3.8-5.5); Red Cell Distribution Width 22.7 % (9.3-17.3)
[2020-04-10 08:41] LABS: Hemoglobin 8.9 GM/DL (12.0-16.0); White Blood Count 8.4 T/CUMM (4-12)
[2020-04-10] MEDS: DOCUSATE SODIUM 100 MG CAPSULE PO SCH (08:49)
[2020-04-10] MEDS: PANTOPRAZOLE 40 MG TABLET PO SCH (08:49)
[2020-04-10] MEDS: AZITHROMYCIN 250 MG TABLET PO SCH (08:49)
[2020-04-10 08:50] LABS: Lymphocytes 18 % (20-55); Nucleated Red Blood Cells 12 (0-5); Segmented Neutrophils 78 % (50-85); Total Cells Counted 100
[2020-04-10 08:51] LABS: Elliptocytes Few; Hypochromasia 2+; Macrocytosis Slight; Platelet Estimate Adequate; Sickle Cells 1+; Target Cells Few
[2020-04-10 08:52] LABS: Howell-Jolly Bodies Few; Pappenheimer Bodies Few; Polychromasia Slight
[2020-04-10 11:27] VITALS: BP 138/77
[2020-04-10] MEDS ORDERED: HEPARIN LOCK FLUSH 500 UNIT/5 ML SYRINGE IV PRN (12:08)
== END 2020-04-10 12:25 | disposition home or self-care (01) | DRG 812 ==
LOC: EDBD → EDUNIT# → N.EDINP 22:47 → N.ED 22:47 → SUATTDRO 04-09 01:27 → N.3E 04-09 02:40 → N.4E 04-09 09:34
PROVIDERS: ADMIT Internal Medicine; ATTEND Internal Medicine

== ENCOUNTER 2020-05-19 01:52 | Observation (INO) ==
[2020-05-19] MEDS ORDERED: SODIUM CHLORIDE 0.9% 1,000 ML IV STA (02:26)
[2020-05-19] MEDS ORDERED: fentaNYL 100 MCG/2 ML VIAL IV STA (02:26)
[2020-05-19] MEDS ORDERED: ONDANSETRON 4 MG/2 ML VIAL IV STA (02:27)
[2020-05-19 02:35] LABS: Basophils % 0.3 % (0.0-0.8); Hematocrit 21.6 VOL% (35.7-47.0); Hemoglobin 7.4 GM/DL (12.0-16.0); Immature Granulocytes % 3.6 %; Immature Granulocytes Absolute 0.41 #; Lymphocytes # 1.6 10*3/uL (1.4-4.0); Mean Corpuscular HGB Conc 34.3 GM/DL (32-36); Mean Platelet Volume 11.6 FL (9.6-12.0); Monocytes % 7.8 % (1.7-12.7); NRBC # 0.82 10*3/uL; Neutrophils % 74.3 % (38.7-73.9); Platelet Count 197 T/CUMM (130-400); Red Blood Count 2.16 MC/CUMM (3.8-5.5); Red Cell Distribution Width 24.8 % (9.3-17.3); White Blood Count 11.3 T/CUMM (4-12)
[2020-05-19 02:52] LABS: Albumin 3.5 G/DL (3.4-5.0); Bilirubin,Total 7.2 MG/DL (0.2-1.0); Calcium 8.5 MG/DL (8.5-10.1); Osmolality,Calculated 280.7 MOS/KG (273-304)
[2020-05-19] MEDS ORDERED: MYLANTA/LIDO VISC 2:1 300 ML BOTTLE SWISH/SWAL PRN (03:47)
[2020-05-19] MEDS ORDERED: ACETAMINOPHEN 325 MG TABLET PO PRN (03:47)
[2020-05-19] MEDS ORDERED: diphenhydrAMINE CAP 25 MG CAPSULE PO PRN (03:47)
[2020-05-19] MEDS ORDERED: ALPRAZolam 0.25 MG TABLET PO PRN (03:47)
[2020-05-19] MEDS ORDERED: ALUMINUM/MAGNES/SIMETH MAX STR 30 ML UDCUP PO PRN (03:47)
[2020-05-19] MEDS ORDERED: MAGNESIUM HYDROXIDE SUSP 30 ML UDCUP PO PRN (03:47)
[2020-05-19] MEDS ORDERED: LOPERAMIDE 2 MG CAPSULE PO PRN ×2 (03:47)
[2020-05-19] MEDS ORDERED: TEMAZEPAM 7.5 MG CAPSULE PO PRN (03:47)
[2020-05-19] MEDS ORDERED: MYLANTA/LIDO VISC 2:1 300 ML BOTTLE SWISH/SPIT PRN (03:47)
[2020-05-19] MEDS ORDERED: SODIUM CHLORIDE 0.9% 1,000 ML IV SCH (03:47)
[2020-05-19] MEDS ORDERED: guaiFENesin 200 MG/10 ML UDCUP PO PRN (03:47)
[2020-05-19] MEDS ORDERED: LACTULOSE 20 GM/30 ML UDCUP PO PRN (03:47)
[2020-05-19] MEDS ORDERED: SODIUM CHLORIDE 0.9% 1,000 ML IV PRN (03:47)
[2020-05-19 04:53] LABS: Band Neutrophils 1 % (0-10); Hypochromasia 1+; Lymphocytes 12 % (20-55); Macrocytosis Slight; Nucleated Red Blood Cells 8 (0-5); Platelet Estimate Adequate; Polychromasia Slight; Segmented Neutrophils 77 % (50-85); Sickle Cells 1+; Total Cells Counted 100
[2020-05-19 04:54] LABS: Howell-Jolly Bodies Few
[2020-05-19 08:14] LABS: Basophils % 0.2 % (0.0-0.8); Hematocrit 21.1 VOL% (35.7-47.0); Hemoglobin 7.2 GM/DL (12.0-16.0); Immature Granulocytes % 1.5 %; Lymphocytes # 2.9 10*3/uL (1.4-4.0); Lymphocytes % 21.6 % (21.3-54.2); Mean Corpuscular HGB Conc 34.1 GM/DL (32-36); Mean Platelet Volume 11.3 FL (9.6-12.0); Monocytes % 12.1 % (1.7-12.7); NRBC # 0.82 10*3/uL; Neutrophils % 64.6 % (38.7-73.9); Platelet Count 201 T/CUMM (130-400); Red Blood Count 2.11 MC/CUMM (3.8-5.5); Red Cell Distribution Width 24.7 % (9.3-17.3); White Blood Count 13.4 T/CUMM (4-12)
[2020-05-19 08:18] LABS: INR 1.1; PT Patient Result 11.5 SECS (9.8-11.9)
[2020-05-19 08:20] LABS: Hypochromasia 1+; Lymphocytes 19 % (20-55); Nucleated Red Blood Cells 4 (0-5); Ovalocytes Slight; Platelet Estimate Adequate; Segmented Neutrophils 72 % (50-85); Sickle Cells 1+; Total Cells Counted 100
[2020-05-19 08:21] LABS: Howell-Jolly Bodies Slight; Macrocytosis Slight; Pappenheimer Bodies Slight; Polychromasia Slight; Target Cells Few
[2020-05-19 08:30] LABS: Albumin 3.4 G/DL (3.4-5.0); Bilirubin,Total 6.9 MG/DL (0.2-1.0); Calcium 8.5 MG/DL (8.5-10.1); Osmolality,Calculated 282.3 MOS/KG (273-304); Total Protein 8.3 G/DL (6.4-8.3)
[2020-05-19] MEDS ORDERED: NICOTINE 21 MG/24 HR PATCH TRANSDERM PRN (08:45)
[2020-05-19] MEDS ORDERED: predniSONE 20 MG TABLET PO SCH (09:00)
[2020-05-19] MEDS: amLODIPine 5 MG TABLET PO SCH ×2 (09:05→20:04)
[2020-05-19] MEDS: DULoxetine 30 MG CAPSULE PO SCH (09:05)
[2020-05-19] MEDS: GABAPENTIN 300 MG CAPSULE PO SCH ×3 (09:05→20:04)
[2020-05-19] MEDS: PANTOPRAZOLE 40 MG TABLET PO SCH (09:05)
[2020-05-19] MEDS: fentaNYL 100 MCG/2 ML VIAL IV PRN ×3 (09:07→17:27)
[2020-05-19] MEDS: DEXTROSE 5% NACL 0.45% 1,000 ML IV SCH ×2 (09:07→15:48)
[2020-05-19] MEDS: DOCUSATE SODIUM 100 MG CAPSULE PO SCH (14:18)
[2020-05-19] MEDS: ONDANSETRON 4 MG/2 ML VIAL IV PRN (14:18)
[2020-05-19] MEDS ORDERED: ACETAMINOPHEN 325 MG TABLET PO ONE (18:00)
[2020-05-19] MEDS ORDERED: DEXAMETHASONE 10 MG/1 ML VIAL IV ONE (18:01)
[2020-05-19] MEDS ORDERED: diphenhydrAMINE 50 MG/1 ML VIAL IV ONE (18:01)
[2020-05-19] MEDS ORDERED: DEXAMETHASONE 10 MG/1 ML VIAL ONE (18:03)
[2020-05-20] MEDS: fentaNYL 100 MCG/2 ML VIAL IV PRN ×2 (00:28→10:13)
[2020-05-20] MEDS: ONDANSETRON 4 MG/2 ML VIAL IV PRN (00:36)
[2020-05-20] MEDS: DEXTROSE 5% NACL 0.45% 1,000 ML IV SCH ×2 (01:10→08:10)
[2020-05-20 06:26] LABS: Basophils % 0.2 % (0.0-0.8); Hematocrit 26.1 VOL% (35.7-47.0); Hemoglobin 8.6 GM/DL (12.0-16.0); Immature Granulocytes % 1.9 %; Lymphocytes # 1.7 10*3/uL (1.4-4.0); Lymphocytes % 16.7 % (21.3-54.2); Mean Corpuscular Volume 100.4 FL (87-102); Mean Platelet Volume 11.2 FL (9.6-12.0); Monocytes % 8.5 % (1.7-12.7); NRBC # 0.78 10*3/uL; Neutrophils % 72.7 % (38.7-73.9); Platelet Count 194 T/CUMM (130-400); White Blood Count 10.3 T/CUMM (4-12)
[2020-05-20 06:34] LABS: Albumin 3.3 G/DL (3.4-5.0); Bilirubin,Total 5.8 MG/DL (0.2-1.0); Calcium 8.5 MG/DL (8.5-10.1); Osmolality,Calculated 280.8 MOS/KG (273-304); Total Protein 7.9 G/DL (6.4-8.3)
[2020-05-20 06:50] LABS: Elliptocytes Few; Howell-Jolly Bodies Slight; Hypochromasia 1+; Macrocytosis Slight; Pappenheimer Bodies Slight; Polychromasia Slight; Sickle Cells 1+; Target Cells Few
[2020-05-20 06:51] LABS: Platelet Estimate Adequate
[2020-05-20] MEDS: DOCUSATE SODIUM 100 MG CAPSULE PO SCH (10:03)
[2020-05-20] MEDS: DULoxetine 30 MG CAPSULE PO SCH (10:03)
[2020-05-20] MEDS: PANTOPRAZOLE 40 MG TABLET PO SCH (10:03)
[2020-05-20] MEDS: amLODIPine 5 MG TABLET PO SCH (10:03)
[2020-05-20] MEDS: GABAPENTIN 300 MG CAPSULE PO SCH (10:03)
[2020-05-20] MEDS ORDERED: HEPARIN LOCK FLUSH 500 UNIT/5 ML SYRINGE IV ONE (11:20)
[2020-05-20 15:31] VITALS: BP 127/71
== END 2020-05-20 12:43 | disposition home or self-care (01) ==
LOC: EDUNIT# → EDBD → N.EDINP 01:52 → N.ED 01:52 → N.4E 08:35
PROVIDERS: ADMIT Specialist; ATTEND Specialist

== ENCOUNTER 2020-06-21 04:00 | Observation (INO) ==
[2020-06-21] MEDS ORDERED: SODIUM CHLORIDE 0.9% 1,000 ML IV STA (04:07)
[2020-06-21 04:34] LABS: Basophils # 0.1 10*3/uL (0.0-0.2); Basophils % 0.6 % (0.0-0.8); Eosinophils # 0.1 10*3/uL (0.0-0.87); Eosinophils % 0.6 % (0.00-10.9); Hematocrit 19.5 VOL% (35.7-47.0); Hemoglobin 6.7 GM/DL (12.0-16.0); Immature Granulocytes % 3.7 %; Immature Granulocytes Absolute 0.65 #; Lymphocytes # 5.2 10*3/uL (1.4-4.0); Lymphocytes % 29.2 % (21.3-54.2); Mean Corpuscular HGB Conc 34.4 GM/DL (32-36); Mean Corpuscular Volume 103.2 FL (87-102); Mean Platelet Volume 10.9 FL (9.6-12.0); Monocytes % 15.3 % (1.7-12.7); NRBC # 1.93 10*3/uL; Neutrophils % 50.6 % (38.7-73.9); Platelet Count 193 T/CUMM (130-400); Red Blood Count 1.89 MC/CUMM (3.8-5.5); Red Cell Distribution Width 24.6 % (9.3-17.3); White Blood Count 17.7 T/CUMM (4-12)
[2020-06-21] MEDS ORDERED: fentaNYL 100 MCG/2 ML VIAL IV STA (04:48)
[2020-06-21] MEDS ORDERED: ONDANSETRON 4 MG/2 ML VIAL IV ONE (04:48)
[2020-06-21 04:52] LABS: Eosinophils 1 % (0-10); Lymphocytes 39 % (20-55); Myelocytes 1 %; Nucleated Red Blood Cells 19 (0-5); Platelet Estimate Normal; Segmented Neutrophils 52 % (50-85); Total Cells Counted 100
[2020-06-21 04:53] LABS: Hypochromasia 1+; Macrocytosis Slight; Polychromasia Few; Sickle Cells Few; Target Cells Few
[2020-06-21 04:54] LABS: Howell-Jolly Bodies Few; Ovalocytes Slight
[2020-06-21 05:07] LABS: Albumin 3.4 G/DL (3.4-5.0); Bilirubin,Total 8.7 MG/DL (0.2-1.0); Calcium 8.8 MG/DL (8.5-10.1); Osmolality,Calculated 277.5 MOS/KG (273-304); Total Protein 7.8 G/DL (6.4-8.3)
[2020-06-21] MEDS ORDERED: ACETAMINOPHEN 325 MG TABLET PO PRN (05:11)
[2020-06-21] MEDS ORDERED: SODIUM CHLORIDE 0.9% 1,000 ML IV PRN ×2 (05:14→13:54)
[2020-06-21] MEDS ORDERED: fentaNYL 100 MCG/2 ML VIAL IV SCH (05:30)
[2020-06-21] MEDS: SODIUM CHLORIDE 0.9% 1,000 ML IV SCH (06:01)
[2020-06-21] MEDS: fentaNYL 100 MCG/2 ML VIAL IV PRN ×6 (07:40→21:56)
[2020-06-21] MEDS: ONDANSETRON 4 MG/2 ML VIAL IV PRN ×2 (07:45→22:01)
[2020-06-21] MEDS ORDERED: fentaNYL 25 MCG/HR PATCH TRANSDERM SCH (12:30)
[2020-06-21] MEDS ORDERED: ACETAMINOPHEN 325 MG TABLET PO ONE (13:15)
[2020-06-21] MEDS ORDERED: diphenhydrAMINE 50 MG/1 ML VIAL IV ONE (13:16)
[2020-06-21] MEDS ORDERED: DEXAMETHASONE 10 MG/1 ML VIAL IV ONE (13:16)
[2020-06-22] MEDS: SODIUM CHLORIDE 0.9% 1,000 ML IV SCH (01:34)
[2020-06-22 06:02] LABS: Basophils % 0.2 % (0.0-0.8); Hematocrit 23.9 VOL% (35.7-47.0); Hemoglobin 8.1 GM/DL (12.0-16.0); Immature Granulocytes Absolute 0.11 #; Lymphocytes # 1.3 10*3/uL (1.4-4.0); Lymphocytes % 12.1 % (21.3-54.2); Mean Corpuscular HGB Conc 33.9 GM/DL (32-36); Mean Corpuscular Volume 100.4 FL (87-102); Mean Platelet Volume 11.4 FL (9.6-12.0); NRBC # 2.52 10*3/uL; Neutrophils % 73.7 % (38.7-73.9); Platelet Count 199 T/CUMM (130-400); Red Blood Count 2.38 MC/CUMM (3.8-5.5)
[2020-06-22 06:33] LABS: Albumin 3.1 G/DL (3.4-5.0); Bilirubin,Total 8.3 MG/DL (0.2-1.0); Calcium 8.8 MG/DL (8.5-10.1); Osmolality,Calculated 282.3 MOS/KG (273-304); Total Protein 7.7 G/DL (6.4-8.3)
[2020-06-22 06:37] LABS: Anisocytosis 1+; Macrocytosis 1+
[2020-06-22 06:38] LABS: Hypochromasia 1+; Ovalocytes Slight; Polychromasia Few; Sickle Cells Few
[2020-06-22 06:39] LABS: Platelet Estimate Adequate
[2020-06-22 12:22] VITALS: BP 153/75
[2020-06-22] MEDS ORDERED: HEPARIN LOCK FLUSH 500 UNIT/5 ML SYRINGE IV ONE (13:05)
== END 2020-06-22 13:50 | disposition home or self-care (01) ==
LOC: EDBD → EDUNIT# → N.EDINP 04:00 → N.ED 04:00 → N.4E 06:52
PROVIDERS: ADMIT Specialist; ATTEND Specialist

== ENCOUNTER 2020-12-11 15:41 | Observation (INO) ==
[2020-12-11] MEDS ORDERED: HEPARIN LOCK FLUSH 500 UNIT/5 ML SYRINGE IV PRN (15:56)
[2020-12-11] MEDS: ONDANSETRON 4 MG/2 ML VIAL IV PRN ×2 (16:20→22:04)
[2020-12-11] MEDS: fentaNYL 100 MCG/2 ML VIAL IV PRN ×3 (17:51→22:01)
[2020-12-11] MEDS: SODIUM BICARB INJ 100 MEQ in DEXTROSE 5% 1,000 ML IV SCH (20:44)
[2020-12-12] MEDS: SODIUM BICARB INJ 100 MEQ in DEXTROSE 5% 1,000 ML IV SCH (04:14)
[2020-12-12 09:06] VITALS: BP 168/90
[2020-12-12 09:06] LABS: Bilirubin,Total 6.8 MG/DL (0.2-1.0); Calcium 8.5 MG/DL (8.5-10.1); Osmolality,Calculated 272.8 MOS/KG (273-304); Potassium 3.6 MMOL/L (3.5-5.1); Total Protein 7.9 G/DL (6.4-8.3)
[2020-12-12 09:23] LABS: Basophils % 0.1 % (0.0-0.8); Eosinophils % 0.1 % (0.00-10.9); Hematocrit 26.7 VOL% (35.7-47.0); Hemoglobin 9.1 GM/DL (12.0-16.0); Immature Granulocytes % 0.6 %; Lymphocytes # 5.8 10*3/uL (1.4-4.0); Lymphocytes % 34.3 % (21.3-54.2); Mean Corpuscular HGB Conc 34.1 GM/DL (32-36); Mean Corpuscular Volume 97.8 FL (87-102); Mean Platelet Volume 11.5 FL (9.6-12.0); Monocytes % 11.1 % (1.7-12.7); NRBC # 1.71 10*3/uL; Neutrophils % 53.8 % (38.7-73.9); Platelet Count 204 T/CUMM (130-400); Red Blood Count 2.73 MC/CUMM (3.8-5.5); Red Cell Distribution Width 26.8 % (9.3-17.3); White Blood Count 16.8 T/CUMM (4-12)
[2020-12-12 10:15] LABS: Anisocytosis 3+; Band Neutrophils 2 % (0-10); Lymphocytes 32 % (20-55); Macrocytosis 2+; Nucleated Red Blood Cells 21 (0-5); Platelet Estimate Normal; Poikilocytosis 1+; Segmented Neutrophils 55 % (50-85); Smudge Cells Few; Total Cells Counted 100
[2020-12-12 10:16] LABS: Ovalocytes Few; Sickle Cells 1+; Stomatocytes Slight; Target Cells 1+
== END 2020-12-12 10:48 | disposition home or self-care (01) ==
LOC: INTOOBSV 15:41 → N.4E 15:41
PROVIDERS: ADMIT Specialist; ATTEND Specialist

== ENCOUNTER 2020-12-26 02:10 | Observation (INO) ==
[2020-12-26] MEDS: fentaNYL 100 MCG/2 ML VIAL IV PRN ×10 (03:42→23:26)
[2020-12-26] MEDS ORDERED: MYLANTA/LIDO VISC 2:1 300 ML BOTTLE SWISH/SWAL PRN (03:48)
[2020-12-26] MEDS ORDERED: TEMAZEPAM 7.5 MG CAPSULE PO PRN (03:48)
[2020-12-26] MEDS ORDERED: LOPERAMIDE 2 MG CAPSULE PO PRN ×2 (03:48)
[2020-12-26] MEDS ORDERED: chlorproMAZINE INJ 50 MG in SODIUM CHLORIDE 0.9% 100 ML IV PRN (03:48)
[2020-12-26] MEDS ORDERED: guaiFENesin 200 MG/10 ML UDCUP PO PRN (03:48)
[2020-12-26] MEDS ORDERED: PROMETHAZINE INJ 25 MG in SODIUM CHLORIDE 0.9% 50 ML IV PRN (03:48)
[2020-12-26] MEDS ORDERED: BENZTROPINE 2 MG/2 ML AMP IV PRN (03:48)
[2020-12-26] MEDS ORDERED: chlorproMAZINE 25 MG TABLET PO PRN (03:48)
[2020-12-26] MEDS ORDERED: ALPRAZolam 0.25 MG TABLET PO PRN (03:48)
[2020-12-26] MEDS ORDERED: LACTULOSE 20 GM/30 ML UDCUP PO PRN (03:48)
[2020-12-26] MEDS ORDERED: diphenhydrAMINE CAP 25 MG CAPSULE PO PRN (03:48)
[2020-12-26] MEDS ORDERED: MAGNESIUM HYDROXIDE SUSP 30 ML UDCUP PO PRN (03:48)
[2020-12-26] MEDS ORDERED: chlorproMAZINE INJ 25 MG in SODIUM CHLORIDE 0.9% 100 ML IV PRN (03:48)
[2020-12-26] MEDS ORDERED: MYLANTA/LIDO VISC 2:1 300 ML BOTTLE SWISH/SPIT PRN (03:48)
[2020-12-26] MEDS ORDERED: ACETAMINOPHEN 325 MG TABLET PO PRN (03:48)
[2020-12-26] MEDS ORDERED: ALUMINUM/MAGNES/SIMETH MAX STR 30 ML UDCUP PO PRN (03:48)
[2020-12-26] MEDS ORDERED: ONDANSETRON 4 MG/2 ML VIAL IV PRN (03:48)
[2020-12-26 04:54] LABS: Basophils # 0.1 10*3/uL (0.0-0.2); Basophils % 0.3 % (0.0-0.8); Eosinophils % 0.1 % (0.00-10.9); Hematocrit 21.7 VOL% (35.7-47.0); Hemoglobin 7.3 GM/DL (12.0-16.0); Immature Granulocytes % 2.8 %; Immature Granulocytes Absolute 0.45 #; Lymphocytes # 4.3 10*3/uL (1.4-4.0); Mean Corpuscular HGB Conc 33.6 GM/DL (32-36); Mean Corpuscular Volume 101.9 FL (87-102); Mean Platelet Volume 11.4 FL (9.6-12.0); NRBC # 1.15 10*3/uL; Neutrophils % 56.8 % (38.7-73.9); Platelet Count 206 T/CUMM (130-400); Red Blood Count 2.13 MC/CUMM (3.8-5.5); Red Cell Distribution Width 24.5 % (9.3-17.3); White Blood Count 15.8 T/CUMM (4-12)
[2020-12-26 05:16] LABS: Albumin 3.1 G/DL (3.4-5.0); Bilirubin,Total 6.2 MG/DL (0.2-1.0); Calcium 8.5 MG/DL (8.5-10.1); Osmolality,Calculated 278.5 MOS/KG (273-304); Potassium 4.2 MMOL/L (3.5-5.1); Total Protein 8.2 G/DL (5.0-7.5)
[2020-12-26 05:44] LABS: Platelet Estimate Normal
[2020-12-26 05:46] LABS: Anisocytosis 3+; Poikilocytosis 1+; Polychromasia 1+
[2020-12-26 05:47] LABS: Sickle Cells 1+; Target Cells Few
[2020-12-26] MEDS: SODIUM BICARB INJ 50 MEQ in DEXTROSE 5% 1,000 ML IV SCH ×3 (05:50→20:21)
[2020-12-26] MEDS ORDERED: SODIUM CHLORIDE 0.9% 1,000 ML IV PRN (07:21)
[2020-12-26] MEDS ORDERED: fentaNYL 25 MCG/HR PATCH TRANSDERM SCH (11:22)
[2020-12-26] MEDS ORDERED: ACETAMINOPHEN 325 MG TABLET PO ONE (22:35)
[2020-12-26] MEDS ORDERED: diphenhydrAMINE 50 MG/1 ML VIAL IV ONE (22:35)
[2020-12-26] MEDS ORDERED: DEXAMETHASONE 10 MG/1 ML VIAL IV ONE (22:35)
[2020-12-26] MEDS ORDERED: fentaNYL 50 MCG/HR PATCH TRANSDERM SCH (23:45)
[2020-12-27] MEDS: fentaNYL 100 MCG/2 ML VIAL IV PRN ×3 (01:37→10:15)
[2020-12-27 08:58] LABS: Basophils % 0.2 % (0.0-0.8); Hematocrit 30.8 VOL% (35.7-47.0); Immature Granulocytes % 1.3 %; Immature Granulocytes Absolute 0.12 #; Lymphocytes # 1.9 10*3/uL (1.4-4.0); Mean Corpuscular HGB Conc 33.8 GM/DL (32-36); Mean Corpuscular Volume 98.7 FL (87-102); Mean Platelet Volume 11.2 FL (9.6-12.0); Monocytes % 2.2 % (1.7-12.7); NRBC # 1.71 10*3/uL; Neutrophils % 75.3 % (38.7-73.9); Platelet Count 231 T/CUMM (130-400); Red Cell Distribution Width 23.7 % (9.3-17.3)
[2020-12-27 09:05] LABS: Hemoglobin 10.4 GM/DL (12.0-16.0); Red Blood Count 3.12 MC/CUMM (3.8-5.5); White Blood Count 9.2 T/CUMM (4-12)
[2020-12-27 09:22] LABS: Albumin 3.4 G/DL (3.4-5.0); Bilirubin,Total 6.8 MG/DL (0.2-1.0); Calcium 8.8 MG/DL (8.5-10.1); Osmolality,Calculated 278.8 MOS/KG (273-304); Potassium 5.3 MMOL/L (3.5-5.1); Total Protein 8.6 G/DL (5.0-7.5)
[2020-12-27 09:29] LABS: Anisocytosis 3+; Band Neutrophils 5 % (0-10); Lymphocytes 20 % (20-55); Nucleated Red Blood Cells 20 (0-5); Platelet Estimate Normal; Poikilocytosis 1+; Polychromasia 1+; Segmented Neutrophils 74 % (50-85); Sickle Cells 1+; Target Cells Few; Total Cells Counted 100
[2020-12-27 09:30] LABS: Macrocytosis 2+
[2020-12-27] MEDS: SODIUM BICARB INJ 50 MEQ in DEXTROSE 5% 1,000 ML IV SCH ×2 (09:51→10:52)
[2020-12-27 11:59] VITALS: BP 134/64
[2020-12-27] MEDS ORDERED: HEPARIN LOCK FLUSH 500 UNIT/5 ML SYRINGE IV ONE (13:17)
== END 2020-12-27 13:23 | disposition home or self-care (01) ==
LOC: N.4E
PROVIDERS: ADMIT Specialist; ATTEND Specialist

== ENCOUNTER 2021-02-19 12:12 | Inpatient (IN) ==
[2021-02-17] MEDS: SODIUM CHLORIDE 0.9% 1,000 ML IV SCH ×2 (14:35→20:42)
[2021-02-17] MEDS: fentaNYL 100 MCG/2 ML VIAL IV PRN ×2 (17:38→22:12)
[2021-02-18] MEDS: SODIUM CHLORIDE 0.9% 1,000 ML IV SCH ×4 (01:37→19:28)
[2021-02-18] MEDS: ONDANSETRON 4 MG/2 ML VIAL IV PRN (01:38)
[2021-02-18] MEDS: fentaNYL 100 MCG/2 ML VIAL IV PRN ×6 (02:58→19:27)
[2021-02-19] MEDS: SODIUM CHLORIDE 0.9% 1,000 ML IV SCH ×5 (00:11→22:26)
[2021-02-19] MEDS: fentaNYL 100 MCG/2 ML VIAL IV PRN ×7 (05:30→22:53)
[2021-02-19] MEDS: amLODIPine 5 MG TABLET PO SCH ×2 (08:45→22:26)
[2021-02-19] MEDS: GABAPENTIN 300 MG CAPSULE PO SCH ×3 (08:46→22:26)
[2021-02-19] MEDS: DULoxetine 30 MG CAPSULE PO SCH (08:46)
[2021-02-19 10:05] LABS: Basophils # 0.1 10*3/uL (0.0-0.2); Basophils % 0.3 % (0.0-0.8); Eosinophils # 0.1 10*3/uL (0.0-0.87); Eosinophils % 0.7 % (0.00-10.9); Hematocrit 24.5 VOL% (35.7-47.0); Hemoglobin 8.2 GM/DL (12.0-16.0); Immature Granulocytes % 0.6 %; Lymphocytes # 5.6 10*3/uL (1.4-4.0); Lymphocytes % 34.4 % (21.3-54.2); Mean Corpuscular HGB Conc 33.5 GM/DL (32-36); Mean Corpuscular Volume 92.5 FL (87-102); Mean Platelet Volume 11.8 FL (9.6-12.0); Monocytes % 12.5 % (1.7-12.7); NRBC # 0.45 10*3/uL; Neutrophils % 51.5 % (38.7-73.9); Platelet Count 191 T/CUMM (130-400); Red Blood Count 2.65 MC/CUMM (3.8-5.5); Red Cell Distribution Width 24.8 % (9.3-17.3); White Blood Count 16.2 T/CUMM (4-12)
[2021-02-19 10:23] LABS: Albumin 3.1 G/DL (3.4-5.0); Calcium 8.5 MG/DL (8.5-10.1); Osmolality,Calculated 280.4 MOS/KG (273-304); Potassium 4.5 MMOL/L (3.5-5.1); Total Protein 7.7 G/DL (6.4-8.2)
[2021-02-19 10:24] LABS: Eosinophils 2 % (0-10); Hypochromasia 1+; Lymphocytes 36 % (20-55); Nucleated Red Blood Cells 4 (0-5); Segmented Neutrophils 55 % (50-85); Total Cells Counted 100
[2021-02-19 10:25] LABS: Anisocytosis 1+; Macrocytosis 1+; Polychromasia Slight
[2021-02-19 10:26] LABS: Ovalocytes Slight; Pappenheimer Bodies Slight; Target Cells Few
[2021-02-19 10:27] LABS: Sickle Cells Few
[2021-02-19] MEDS: fentaNYL 50 MCG/HR PATCH TRANSDERM SCH (11:35)
[2021-02-19] MEDS: predniSONE 50 MG TABLET PO SCH ×2 (11:41→22:55)
[~2021-02-19 12:12] MED LIST: ACETAMINOPHEN 325 MG TABLET PO PRN; ALPRAZolam 0.25 MG TABLET PO PRN; ALUMINUM/MAGNES/SIMETH MAX STR 30 ML UDCUP PO PRN; BENZTROPINE 2 MG/2 ML AMP IV PRN; LACTULOSE 20 GM/30 ML UDCUP PO PRN; LOPERAMIDE 2 MG CAPSULE PO PRN; MYLANTA/LIDO VISC 2:1 300 ML BOTTLE SWISH/SPIT PRN; MYLANTA/LIDO VISC 2:1 300 ML BOTTLE SWISH/SWAL PRN; PROMETHAZINE INJ 25 MG in SODIUM CHLORIDE 0.9% 50 ML IV PRN; TEMAZEPAM 7.5 MG CAPSULE PO PRN; chlorproMAZINE 25 MG TABLET PO PRN; chlorproMAZINE INJ 25 MG in SODIUM CHLORIDE 0.9% 100 ML IV PRN; chlorproMAZINE INJ 50 MG in SODIUM CHLORIDE 0.9% 100 ML IV PRN; guaiFENesin 200 MG/10 ML UDCUP PO PRN
[2021-02-19] MEDS: MAGNESIUM HYDROXIDE SUSP 30 ML UDCUP PO PRN (14:12)
[2021-02-20] MEDS: diphenhydrAMINE CAP 25 MG CAPSULE PO PRN ×2 (02:19→06:06)
[2021-02-20] MEDS: SODIUM CHLORIDE 0.9% 1,000 ML IV SCH ×5 (03:33→19:47)
[2021-02-20] MEDS: fentaNYL 100 MCG/2 ML VIAL IV PRN ×8 (05:24→23:57)
[2021-02-20 05:25] LABS: Basophils # 0.1 10*3/uL (0.0-0.2); Basophils % 0.3 % (0.0-0.8); Eosinophils # 0.1 10*3/uL (0.0-0.87); Eosinophils % 0.4 % (0.00-10.9); Hematocrit 23.3 VOL% (35.7-47.0); Hemoglobin 7.8 GM/DL (12.0-16.0); Immature Granulocytes % 1.4 %; Immature Granulocytes Absolute 0.26 #; Lymphocytes # 7.1 10*3/uL (1.4-4.0); Lymphocytes % 39.2 % (21.3-54.2); Mean Corpuscular HGB Conc 33.5 GM/DL (32-36); Mean Corpuscular Volume 95.1 FL (87-102); Mean Platelet Volume 11.6 FL (9.6-12.0); Monocytes % 11.8 % (1.7-12.7); NRBC # 0.58 10*3/uL; Neutrophils % 46.9 % (38.7-73.9); Platelet Count 199 T/CUMM (130-400); Red Blood Count 2.45 MC/CUMM (3.8-5.5); Red Cell Distribution Width 25.2 % (9.3-17.3); White Blood Count 18.1 T/CUMM (4-12)
[2021-02-20 05:49] LABS: Albumin 3.3 G/DL (3.4-5.0); Bilirubin,Total 4.3 MG/DL (0.2-1.0); Calcium 8.4 MG/DL (8.5-10.1); Osmolality,Calculated 280.3 MOS/KG (273-304); Potassium 3.9 MMOL/L (3.5-5.1); Total Protein 7.4 G/DL (6.4-8.2)
[2021-02-20 06:42] LABS: Platelet Estimate Normal
[2021-02-20 06:43] LABS: Anisocytosis 2+; Poikilocytosis 1+; Polychromasia Slight; Sickle Cells 1+
[2021-02-20 06:44] LABS: Macrocytosis Slight; Target Cells Few
[2021-02-20] MEDS: amLODIPine 5 MG TABLET PO SCH ×2 (09:07→21:31)
[2021-02-20] MEDS: GABAPENTIN 300 MG CAPSULE PO SCH ×3 (09:07→21:31)
[2021-02-20] MEDS: DULoxetine 30 MG CAPSULE PO SCH (09:07)
[2021-02-20] MEDS: predniSONE 50 MG TABLET PO SCH ×3 (09:09→21:31)
[2021-02-20] MEDS ORDERED: SODIUM CHLORIDE 0.9% 1,000 ML IV PRN (15:24)
[2021-02-20] MEDS ORDERED: methylPREDNISolone SOD SUC 125 MG/2 ML VIAL IV ONE (22:48)
[2021-02-20] MEDS ORDERED: diphenhydrAMINE 50 MG/1 ML VIAL IV ONE (22:50)
[2021-02-20] MEDS: ONDANSETRON 4 MG/2 ML VIAL IV PRN (23:57)
[2021-02-21] MEDS: SODIUM CHLORIDE 0.9% 1,000 ML IV SCH ×6 (01:06→22:33)
[2021-02-21] MEDS: fentaNYL 100 MCG/2 ML VIAL IV PRN ×4 (03:11→13:42)
[2021-02-21 06:48] LABS: Basophils % 0.1 % (0.0-0.8); Hemoglobin 9.9 GM/DL (12.0-16.0); Immature Granulocytes % 1.4 %; Immature Granulocytes Absolute 0.13 #; Lymphocytes # 1.8 10*3/uL (1.4-4.0); Lymphocytes % 18.9 % (21.3-54.2); Mean Corpuscular Volume 93.8 FL (87-102); Monocytes % 1.6 % (1.7-12.7); NRBC # 1.12 10*3/uL; Platelet Count 227 T/CUMM (130-400); Red Cell Distribution Width 23.3 % (9.3-17.3); White Blood Count 9.5 T/CUMM (4-12)
[2021-02-21 07:01] LABS: Albumin 3.4 G/DL (3.4-5.0); Bilirubin,Total 4.6 MG/DL (0.2-1.0); Calcium 8.8 MG/DL (8.5-10.1); Osmolality,Calculated 281.5 MOS/KG (273-304); Potassium 4.3 MMOL/L (3.5-5.1); Total Protein 8.1 G/DL (6.4-8.2)
[2021-02-21 07:28] LABS: Band Neutrophils 5 % (0-10); Lymphocytes 17 % (20-55); Nucleated Red Blood Cells 21 (0-5); Platelet Estimate Normal; Segmented Neutrophils 76 % (50-85); Sickle Cells 1+; Total Cells Counted 100
[2021-02-21 07:29] LABS: Anisocytosis 3+; Macrocytosis 1+; Poikilocytosis 1+; Polychromasia 1+; Target Cells Few
[2021-02-21] MEDS: amLODIPine 5 MG TABLET PO SCH ×2 (09:30→21:40)
[2021-02-21] MEDS: DULoxetine 30 MG CAPSULE PO SCH (09:31)
[2021-02-21] MEDS: GABAPENTIN 300 MG CAPSULE PO SCH ×3 (09:31→21:40)
[2021-02-21] MEDS: predniSONE 50 MG TABLET PO SCH ×2 (09:33→21:40)
[2021-02-21] MEDS: diphenhydrAMINE CAP 25 MG CAPSULE PO PRN ×2 (15:30→21:41)
[2021-02-21] MEDS: MAGNESIUM HYDROXIDE SUSP 30 ML UDCUP PO PRN (23:20)
[2021-02-22] MEDS: SODIUM CHLORIDE 0.9% 1,000 ML IV SCH ×3 (04:08→12:34)
[2021-02-22 05:01] LABS: Basophils % 0.2 % (0.0-0.8); Hematocrit 29.8 VOL% (35.7-47.0); Hemoglobin 10.3 GM/DL (12.0-16.0); Immature Granulocytes % 0.7 %; Immature Granulocytes Absolute 0.09 #; Lymphocytes # 1.9 10*3/uL (1.4-4.0); Mean Corpuscular HGB Conc 34.6 GM/DL (32-36); Mean Corpuscular Volume 93.7 FL (87-102); Monocytes % 8.1 % (1.7-12.7); NRBC # 1.26 10*3/uL; Platelet Count 208 T/CUMM (130-400); Red Blood Count 3.18 MC/CUMM (3.8-5.5); Red Cell Distribution Width 24.9 % (9.3-17.3); White Blood Count 12.8 T/CUMM (4-12)
[2021-02-22 05:24] LABS: Howell-Jolly Bodies Slight; Hypochromasia 1+; Macrocytosis Slight; Polychromasia Slight; Sickle Cells Few
[2021-02-22 05:25] LABS: Elliptocytes Few; Platelet Estimate Adequate
[2021-02-22 05:33] LABS: Albumin 3.4 G/DL (3.4-5.0); Bilirubin,Total 6.3 MG/DL (0.2-1.0); Calcium 9.1 MG/DL (8.5-10.1); Osmolality,Calculated 285.3 MOS/KG (273-304); Total Protein 7.6 G/DL (6.4-8.2)
[2021-02-22] MEDS ORDERED: HEPARIN LOCK FLUSH 500 UNIT/5 ML SYRINGE IV ONE (09:25)
[2021-02-22 11:37] VITALS: BP 155/83
[2021-02-22] MEDS: amLODIPine 5 MG TABLET PO SCH (12:33)
[2021-02-22] MEDS: DULoxetine 30 MG CAPSULE PO SCH (12:33)
[2021-02-22] MEDS: predniSONE 50 MG TABLET PO SCH (12:33)
[2021-02-22] MEDS: GABAPENTIN 300 MG CAPSULE PO SCH (12:33)
[2021-02-22] MEDS: fentaNYL 50 MCG/HR PATCH TRANSDERM SCH (12:33)
== END 2021-02-22 12:45 | disposition home or self-care (01) | DRG 812 ==
LOC: N.4E → N.EDINP
PROVIDERS: ADMIT Specialist; ATTEND Specialist

== ENCOUNTER 2021-12-12 15:36 | Inpatient (IN) ==
[2021-12-12] MEDS ORDERED: SODIUM CHLORIDE 0.9% 1,000 ML IV STA (16:34)
[2021-12-12] MEDS ORDERED: fentaNYL 100 MCG/2 ML VIAL IV STA (16:34)
[2021-12-12] MEDS ORDERED: ONDANSETRON 4 MG/2 ML VIAL IV ONE (16:34)
[2021-12-12 17:11] LABS: Basophils # 0.1 10*3/uL (0.0-0.2); Basophils % 0.4 % (0.0-0.8); Eosinophils # 0.3 10*3/uL (0.0-0.87); Hematocrit 19.6 VOL% (35.7-47.0); Hemoglobin 6.8 GM/DL (12.0-16.0); Immature Granulocytes % 0.9 %; Immature Granulocytes Absolute 0.13 #; Mean Corpuscular HGB Conc 34.7 GM/DL (32-36); Mean Corpuscular Volume 91.2 FL (87-102); Monocytes % 16.9 % (1.7-12.7); NRBC # 0.59 10*3/uL; Neutrophils % 46.8 % (38.7-73.9); Platelet Count 156 T/CUMM (130-400); Red Blood Count 2.15 MC/CUMM (3.8-5.5)
[2021-12-12 17:32] LABS: Bilirubin,Total 7.5 MG/DL (0.20-1.00); Calcium 8.8 MG/DL (8.5-10.1); Osmolality,Calculated 276.8 MOS/KG (273-304); Potassium 3.7 MMOL/L (3.5-5.1); Total Protein 7.9 G/DL (6.4-8.2)
[2021-12-12 17:36] LABS: Atypical Lymphocytes Few; Elliptocytes Few; Eosinophils 2 % (0-10); Lymphocytes 35 % (20-55); Nucleated Red Blood Cells 3 (0-5); Platelet Estimate Adequate; Segmented Neutrophils 49 % (50-85); Sickle Cells Few; Total Cells Counted 100
[2021-12-12 17:37] LABS: Anisocytosis 2+; Hypochromia 2+; Poikilocytosis 1+; Polychromasia 1+; Schistocytes Few
[2021-12-12 17:38] LABS: Microcytosis 1+; Ovalocytes Few; Stomatocytes Few; Target Cells 2+
[2021-12-12] MEDS ORDERED: NALOXONE 0.4 MG/ML VIAL IV PRN (17:44)
[2021-12-12] MEDS ORDERED: SODIUM CHLORIDE 0.9% 1,000 ML IV PRN ×2 (17:44→18:00)
[2021-12-12] MEDS ORDERED: HYDROmorphone PCA 30 MG/30 ML SYRINGE IV SCH (18:00)
[2021-12-12] MEDS ORDERED: fentaNYL 25 MCG/HR PATCH TRANSDERM SCH (18:00)
[2021-12-12] MEDS ORDERED: ONDANSETRON 4 MG/2 ML VIAL IV PRN (18:01)
[2021-12-12] MEDS ORDERED: GLUCAGON 1 MG VIAL IM PRN (18:01)
[2021-12-12] MEDS ORDERED: ACETAMINOPHEN 325 MG TABLET PO PRN (18:01)
[2021-12-12] MEDS ORDERED: DEXTROSE 10% 250 ML BAG IV PRN (18:11)
[2021-12-12] MEDS ORDERED: LACTATED RINGERS 1,000 ML IV SCH (18:30)
[2021-12-12] MEDS ORDERED: HYDROCORTISONE 100 MG VIAL IV ONE (19:42)
[2021-12-12] MEDS ORDERED: ACETAMINOPHEN 325 MG TABLET PO ONE (19:42)
[2021-12-12] MEDS ORDERED: diphenhydrAMINE CAP 25 MG CAPSULE PO ONE (20:00)
[2021-12-12] MEDS ORDERED: ENOXAPARIN 40 MG/0.4 ML SYRINGE SUBCUT SCH (21:00)
[2021-12-12] MEDS: DOCUSATE SODIUM 100 MG CAPSULE PO SCH (23:32)
[2021-12-12] MEDS: amLODIPine 5 MG TABLET PO SCH (23:33)
[2021-12-13] MEDS ORDERED: KETOROLAC 30 MG/1 ML VIAL IV ONE (00:26)
[2021-12-13 05:31] LABS: Basophils % 0.3 % (0.0-0.8); Hematocrit 24.7 VOL% (35.7-47.0); Hemoglobin 8.3 GM/DL (12.0-16.0); Immature Granulocytes % 1.3 %; Immature Granulocytes Absolute 0.11 #; Lymphocytes % 23.5 % (21.3-54.2); Mean Corpuscular HGB Conc 33.6 GM/DL (32-36); Mean Corpuscular Volume 88.5 FL (87-102); Mean Platelet Volume 11.6 FL (9.6-12.0); Monocytes % 6.8 % (1.7-12.7); NRBC # 0.48 10*3/uL; Neutrophils % 68.1 % (38.7-73.9); Platelet Count 165 T/CUMM (130-400); Red Blood Count 2.79 MC/CUMM (3.8-5.5); Red Cell Distribution Width 26.8 % (9.3-17.3); White Blood Count 8.6 T/CUMM (4-12)
[2021-12-13 05:46] LABS: Albumin 2.9 G/DL (3.4-5.0); Bilirubin,Total 6.6 MG/DL (0.20-1.00); Calcium 8.9 MG/DL (8.5-10.1); Osmolality,Calculated 279.7 MOS/KG (273-304); Potassium 4.7 MMOL/L (3.5-5.1); Total Protein 7.8 G/DL (6.4-8.2)
[2021-12-13 05:59] LABS: Hypochromia 2+; Microcytosis 1+; Sickle Cells Few; Target Cells Few
[2021-12-13 06:00] LABS: Anisocytosis 1+; Pappenheimer Bodies Slight; Platelet Estimate Adequate; Polychromasia Few
[2021-12-13] MEDS ORDERED: DULoxetine 30 MG CAPSULE PO SCH (09:00)
[2021-12-13] MEDS: DOCUSATE SODIUM 100 MG CAPSULE PO SCH (09:12)
[2021-12-13] MEDS: amLODIPine 5 MG TABLET PO SCH (09:13)
[2021-12-13 11:33] VITALS: BP 158/86
[2021-12-13] MEDS ORDERED: HEPARIN LOCK FLUSH 500 UNIT/5 ML SYRINGE IV ONE (12:02)
== END 2021-12-13 11:58 | disposition home or self-care (01) | DRG 812 ==
LOC: N.ED 15:36 → N.EDINP 18:01 → SUATTDRO 18:01 → N.EDINP 12-13 12:18
PROVIDERS: ADMIT Emergency Medicine; ATTEND Internal Medicine

== ENCOUNTER 2022-01-15 12:00 | Inpatient (IN) ==
[2022-01-15] MEDS ORDERED: ONDANSETRON 4 MG/2 ML VIAL IV STA (12:34)
[2022-01-15] MEDS ORDERED: fentaNYL 100 MCG/2 ML VIAL IV STA (12:34)
[2022-01-15] MEDS ORDERED: SODIUM CHLORIDE 0.9% 1,000 ML IV STA (12:34)
[2022-01-15 13:11] LABS: Basophils # 0.1 10*3/uL (0.0-0.2); Basophils % 0.5 % (0.0-0.8); Eosinophils # 0.1 10*3/uL (0.0-0.87); Eosinophils % 0.7 % (0.00-10.9); Hematocrit 19.9 VOL% (35.7-47.0); Hemoglobin 6.9 GM/DL (12.0-16.0); Immature Granulocytes % 0.8 %; Immature Granulocytes Absolute 0.11 #; Lymphocytes # 3.1 10*3/uL (1.4-4.0); Lymphocytes % 21.4 % (21.3-54.2); Mean Corpuscular HGB Conc 34.7 GM/DL (32-36); Mean Corpuscular Volume 86.5 FL (87-102); Mean Platelet Volume 11.8 FL (9.6-12.0); Monocytes % 13.6 % (1.7-12.7); NRBC # 0.77 10*3/uL; Platelet Count 200 T/CUMM (130-400); Red Cell Distribution Width 35.3 % (9.3-17.3); White Blood Count 14.5 T/CUMM (4-12)
[2022-01-15] MEDS ORDERED: SODIUM CHLORIDE 0.9% 1,000 ML IV PRN ×3 (13:32→14:57)
[2022-01-15 13:36] LABS: Albumin 2.7 G/DL (3.4-5.0); Osmolality,Calculated 274.7 MOS/KG (273-304); Potassium 3.9 MMOL/L (3.5-5.1)
[2022-01-15 13:40] LABS: Bilirubin,Total 12.7 MG/DL (0.20-1.00)
[2022-01-15 13:49] LABS: Anisocytosis 2+; Elliptocytes 1+; Macrocytosis 2+; Poikilocytosis 3+; Polychromasia 2+; Sickle Cells 2+; Target Cells 2+
[2022-01-15 13:50] LABS: Microcytosis 1+; Platelet Estimate Normal
[2022-01-15] MEDS ORDERED: PROMETHAZINE 25 MG/1 ML VIAL IM PRN (14:47)
[2022-01-15] MEDS ORDERED: DEXTROSE 50% 25 GM/50 ML VIAL IV PRN (14:47)
[2022-01-15] MEDS ORDERED: GLUCAGON 1 MG VIAL IM PRN ×2 (14:47)
[2022-01-15] MEDS ORDERED: ONDANSETRON 4 MG/2 ML VIAL IV PRN (14:47)
[2022-01-15] MEDS: SODIUM CHLORIDE 0.9% 1,000 ML IV SCH (15:00)
[2022-01-15] MEDS ORDERED: DEXTROSE 10% 250 ML BAG IV PRN (15:02)
[2022-01-15] MEDS: GABAPENTIN 300 MG CAPSULE PO SCH ×2 (15:21→20:40)
[2022-01-15] MEDS: ENOXAPARIN 40 MG/0.4 ML SYRINGE SUBCUT SCH (17:21)
[2022-01-15] MEDS: fentaNYL 100 MCG/HR PATCH TRANSDERM SCH (17:28)
[2022-01-15] MEDS: INSULIN LISPRO 100 UNIT/ML SUBCUT SCH ×2 (17:51→20:05)
[2022-01-15] MEDS: DOXYCYCLINE HYCLATE 100 MG CAPSULE PO SCH (20:40)
[2022-01-15 22:50] LABS: Mucus,Urine Occasional /LPF (Occasional); RBC,Urine 3 /HPF (0-4); Squamous Epithelial Cell,Urine Occasional /HPF (0-10)
[2022-01-15 22:52] LABS: Protein,Urine Trace mg/dL (Negative); Urine Appearance Clear (Clear); Urine Color Yellow (Yellow); Urine Specific Gravity 1.015 (1.001-1.035)
[2022-01-15 22:53] LABS: Bilirubin,Urine Moderate mg/dL (Negative); Blood, Urine Trace mg/dL (Negative); Glucose,Urine (UA) Negative (Negative); Ketones,Urine Negative (Negative); Nitrite,Urine Negative (Negative)
[2022-01-16] MEDS: SODIUM CHLORIDE 0.9% 1,000 ML IV SCH ×4 (00:02→18:13)
[2022-01-16 05:43] LABS: Basophils # 0.1 10*3/uL (0.0-0.2); Basophils % 0.5 % (0.0-0.8); Eosinophils # 0.2 10*3/uL (0.0-0.87); Eosinophils % 1.4 % (0.00-10.9); Hematocrit 18.7 VOL% (35.7-47.0); Immature Granulocytes Absolute 0.14 #; Lymphocytes # 3.2 10*3/uL (1.4-4.0); Lymphocytes % 22.4 % (21.3-54.2); Mean Corpuscular HGB Conc 34.2 GM/DL (32-36); Mean Platelet Volume 12.5 FL (9.6-12.0); Monocytes % 16.5 % (1.7-12.7); NRBC # 0.65 10*3/uL; Neutrophils % 58.2 % (38.7-73.9); Red Cell Distribution Width 35.9 % (9.3-17.3); White Blood Count 14.5 T/CUMM (4-12)
[2022-01-16 05:57] LABS: Platelet Count 156 T/CUMM (130-400)
[2022-01-16 05:58] LABS: Hemoglobin 6.4 GM/DL (12.0-16.0)
[2022-01-16 06:06] LABS: Eosinophils 4 % (0-10); Hypochromia 1+; Lymphocytes 14 % (20-55); Macrocytosis Slight; Nucleated Red Blood Cells 4 (0-5); Platelet Estimate Adequate; Segmented Neutrophils 64 % (50-85); Sickle Cells 1+; Target Cells Few; Total Cells Counted 100
[2022-01-16 06:07] LABS: Howell-Jolly Bodies Slight; Pappenheimer Bodies Slight
[2022-01-16 06:09] LABS: Albumin 2.3 G/DL (3.4-5.0); Bilirubin,Total 11.8 MG/DL (0.20-1.00); Calcium 8.5 MG/DL (8.5-10.1); Osmolality,Calculated 272.7 MOS/KG (273-304); Risk Ratio 11.5; Thyroid Stimulating Hormone 5.64 uIU/ml (0.358-3.74); Total Protein 7.3 G/DL (6.4-8.2); VLDL Cholesterol 35.8 MG/DL
[2022-01-16] MEDS: GABAPENTIN 300 MG CAPSULE PO SCH ×3 (08:58→20:26)
[2022-01-16] MEDS: amLODIPine 5 MG TABLET PO SCH (08:58)
[2022-01-16] MEDS: PANTOPRAZOLE 40 MG TABLET PO SCH (08:58)
[2022-01-16] MEDS: DOXYCYCLINE HYCLATE 100 MG CAPSULE PO SCH ×2 (09:03→20:26)
[2022-01-16] MEDS: DULoxetine 30 MG CAPSULE PO SCH (09:11)
[2022-01-16] MEDS: INSULIN LISPRO 100 UNIT/ML SUBCUT SCH ×4 (09:11→21:08)
[2022-01-16] MEDS ORDERED: ZALEPLON 5 MG CAPSULE PO PRN (11:49)
[2022-01-16] MEDS: ENOXAPARIN 40 MG/0.4 ML SYRINGE SUBCUT SCH (16:38)
[2022-01-17] MEDS: SODIUM CHLORIDE 0.9% 1,000 ML IV SCH ×4 (02:09→18:14)
[2022-01-17 05:11] LABS: Basophils # 0.1 10*3/uL (0.0-0.2); Basophils % 0.5 % (0.0-0.8); Eosinophils # 0.1 10*3/uL (0.0-0.87); Eosinophils % 0.8 % (0.00-10.9); Immature Granulocytes % 1.9 %; Immature Granulocytes Absolute 0.32 #; Lymphocytes # 3.9 10*3/uL (1.4-4.0); Lymphocytes % 23.3 % (21.3-54.2); Mean Corpuscular HGB Conc 34.8 GM/DL (32-36); Monocytes % 18.2 % (1.7-12.7); NRBC # 1.01 10*3/uL; Neutrophils % 55.3 % (38.7-73.9); Platelet Count 140 T/CUMM (130-400); Red Blood Count 1.85 MC/CUMM (3.8-5.5); Red Cell Distribution Width 35.4 % (9.3-17.3); White Blood Count 16.8 T/CUMM (4-12)
[2022-01-17 05:14] LABS: Hematocrit 16.1 VOL% (35.7-47.0); Hemoglobin 5.6 GM/DL (12.0-16.0)
[2022-01-17 05:29] LABS: Albumin 2.4 G/DL (3.4-5.0); Calcium 8.3 MG/DL (8.5-10.1); Free T4 (Free Thyroxine) 1.73 NG/DL (0.76-1.46); Osmolality,Calculated 274.7 MOS/KG (273-304); Potassium 4.2 MMOL/L (3.5-5.1); Total Protein 6.9 G/DL (6.4-8.2)
[2022-01-17 05:31] LABS: Eosinophils 2 % (0-10); Hypochromia 1+; Lymphocytes 28 % (20-55); Nucleated Red Blood Cells 8 (0-5); Segmented Neutrophils 53 % (50-85); Total Cells Counted 100
[2022-01-17 05:32] LABS: Polychromasia Few; Target Cells 1+
[2022-01-17 05:33] LABS: Pappenheimer Bodies Slight; Sickle Cells 1+
[2022-01-17 05:35] LABS: Anisocytosis 1+; Microcytosis 1+; Platelet Estimate Adequate
[2022-01-17 05:36] LABS: Ovalocytes Slight
[2022-01-17 05:38] LABS: Bilirubin,Total 13.9 MG/DL (0.20-1.00)
[2022-01-17] MEDS: PANTOPRAZOLE 40 MG TABLET PO SCH (08:00)
[2022-01-17] MEDS: DULoxetine 30 MG CAPSULE PO SCH (08:00)
[2022-01-17] MEDS: GABAPENTIN 300 MG CAPSULE PO SCH ×3 (08:00→20:55)
[2022-01-17] MEDS: amLODIPine 5 MG TABLET PO SCH (08:00)
[2022-01-17] MEDS: DOXYCYCLINE HYCLATE 100 MG CAPSULE PO SCH ×2 (08:03→20:55)
[2022-01-17] MEDS ORDERED: MAGNESIUM HYDROXIDE SUSP 30 ML UDCUP PO ONE (10:30)
[2022-01-17] MEDS ORDERED: AZITHROMYCIN INJ 250 MG in SODIUM CHLORIDE 0.9% 250 ML IV SCH (11:00)
[2022-01-17] MEDS: INSULIN LISPRO 100 UNIT/ML SUBCUT SCH ×4 (11:25→20:55)
[2022-01-17] MEDS: cefTRIAXone 1,000 MG in SODIUM CHLORIDE 0.9% 100 ML IV SCH (12:17)
[2022-01-17] MEDS: CHOLECALCIFEROL 1,000 UNIT TABLET PO SCH (12:17)
[2022-01-17] MEDS ORDERED: diphenhydrAMINE CAP 50 MG CAPSULE PO ONE ×2 (13:30→16:11)
[2022-01-17] MEDS ORDERED: methylPREDNISolone SOD SUC 125 MG/2 ML VIAL IV ONE ×2 (13:30→16:11)
[2022-01-17] MEDS: FAMOTIDINE 20 MG TABLET PO SCH ×2 (13:49→20:55)
[2022-01-17] MEDS: ENOXAPARIN 40 MG/0.4 ML SYRINGE SUBCUT SCH (17:13)
[2022-01-18 04:04] LABS: Basophils % 0.2 % (0.0-0.8); Hematocrit 23.6 VOL% (35.7-47.0); Hemoglobin 8.2 GM/DL (12.0-16.0); Immature Granulocytes % 1.9 %; Immature Granulocytes Absolute 0.17 #; Lymphocytes # 1.7 10*3/uL (1.4-4.0); Lymphocytes % 19.2 % (21.3-54.2); Mean Corpuscular HGB Conc 34.7 GM/DL (32-36); Mean Corpuscular Volume 83.4 FL (87-102); Mean Platelet Volume 11.8 FL (9.6-12.0); Monocytes % 3.2 % (1.7-12.7); NRBC # 1.54 10*3/uL; Neutrophils % 75.5 % (38.7-73.9); Platelet Count 158 T/CUMM (130-400); Red Blood Count 2.83 MC/CUMM (3.8-5.5); Red Cell Distribution Width 29.7 % (9.3-17.3); White Blood Count 8.9 T/CUMM (4-12)
[2022-01-18 04:28] LABS: Hypochromia 1+; Lymphocytes 16 % (20-55); Microcytosis 1+; Myelocytes 1 %; Nucleated Red Blood Cells 15 (0-5); Segmented Neutrophils 78 % (50-85); Total Cells Counted 100
[2022-01-18 04:29] LABS: Ovalocytes Slight; Polychromasia Slight; Target Cells Few
[2022-01-18 04:30] LABS: Anisocytosis 1+; Pappenheimer Bodies Slight; Platelet Estimate Adequate; Sickle Cells Few
[2022-01-18 04:31] LABS: Albumin 2.5 G/DL (3.4-5.0); Calcium 8.8 MG/DL (8.5-10.1); Osmolality,Calculated 274.1 MOS/KG (273-304); Potassium 4.6 MMOL/L (3.5-5.1); Total Protein 7.6 G/DL (6.4-8.2)
[2022-01-18 04:39] LABS: Bilirubin,Total 17.1 MG/DL (0.20-1.00)
[2022-01-18] MEDS: SODIUM CHLORIDE 0.9% 1,000 ML IV SCH ×3 (05:52→17:53)
[2022-01-18] MEDS: LEVOTHYROXINE 125 MCG TABLET PO SCH (05:52)
[2022-01-18] MEDS ORDERED: MAGNESIUM HYDROXIDE SUSP 30 ML UDCUP PO PRN (09:00)
[2022-01-18] MEDS: DULoxetine 30 MG CAPSULE PO SCH (09:08)
[2022-01-18] MEDS: amLODIPine 5 MG TABLET PO SCH (09:08)
[2022-01-18] MEDS: CHOLECALCIFEROL 1,000 UNIT TABLET PO SCH (09:08)
[2022-01-18] MEDS: FAMOTIDINE 20 MG TABLET PO SCH ×2 (09:08→20:09)
[2022-01-18] MEDS: GABAPENTIN 300 MG CAPSULE PO SCH ×3 (09:08→20:09)
[2022-01-18] MEDS: DOXYCYCLINE HYCLATE 100 MG CAPSULE PO SCH ×2 (09:18→20:09)
[2022-01-18] MEDS: INSULIN LISPRO 100 UNIT/ML SUBCUT SCH ×4 (09:18→21:17)
[2022-01-18] MEDS: cefTRIAXone 1,000 MG in SODIUM CHLORIDE 0.9% 100 ML IV SCH (11:04)
[2022-01-18] MEDS: fentaNYL 100 MCG/HR PATCH TRANSDERM SCH (11:04)
[2022-01-18] MEDS: POLYETHYLENE GLYCOL POWDER 17 GM PACK PO SCH (11:05)
[2022-01-18] MEDS: ENOXAPARIN 40 MG/0.4 ML SYRINGE SUBCUT SCH (15:18)
[2022-01-19] MEDS: SODIUM CHLORIDE 0.9% 1,000 ML IV SCH ×2 (02:42→09:19)
[2022-01-19 04:44] LABS: Basophils % 0.1 % (0.0-0.8); Hematocrit 22.1 VOL% (35.7-47.0); Hemoglobin 7.5 GM/DL (12.0-16.0); Immature Granulocytes % 1.1 %; Immature Granulocytes Absolute 0.16 #; Lymphocytes # 2.9 10*3/uL (1.4-4.0); Lymphocytes % 20.7 % (21.3-54.2); Mean Corpuscular HGB Conc 33.9 GM/DL (32-36); Mean Corpuscular Volume 86.3 FL (87-102); Mean Platelet Volume 11.6 FL (9.6-12.0); Monocytes % 14.7 % (1.7-12.7); NRBC # 1.59 10*3/uL; Neutrophils % 63.4 % (38.7-73.9); Platelet Count 144 T/CUMM (130-400); Red Blood Count 2.56 MC/CUMM (3.8-5.5); White Blood Count 14.2 T/CUMM (4-12)
[2022-01-19 05:04] LABS: Albumin 2.5 G/DL (3.4-5.0); Calcium 8.8 MG/DL (8.5-10.1); Osmolality,Calculated 276.8 MOS/KG (273-304); Potassium 4.5 MMOL/L (3.5-5.1); Total Protein 7.5 G/DL (6.4-8.2)
[2022-01-19 05:07] LABS: Band Neutrophils 2 % (0-10); Lymphocytes 21 % (20-55); Nucleated Red Blood Cells 18 (0-5); Segmented Neutrophils 63 % (50-85); Total Cells Counted 100
[2022-01-19 05:08] LABS: Hypochromia 1+; Microcytosis 1+; Polychromasia Few; Target Cells Few
[2022-01-19 05:09] LABS: Bilirubin,Total 15.4 MG/DL (0.20-1.00); Ovalocytes Few; Pappenheimer Bodies Slight; Sickle Cells Few
[2022-01-19 05:10] LABS: Anisocytosis 1+
[2022-01-19] MEDS: LEVOTHYROXINE 125 MCG TABLET PO SCH (05:53)
[2022-01-19] MEDS ORDERED: fentaNYL 100 MCG/2 ML VIAL IV PRN (08:10)
[2022-01-19] MEDS: INSULIN LISPRO 100 UNIT/ML SUBCUT SCH ×4 (08:52→21:21)
[2022-01-19] MEDS: POLYETHYLENE GLYCOL POWDER 17 GM PACK PO SCH (09:04)
[2022-01-19] MEDS: CHOLECALCIFEROL 1,000 UNIT TABLET PO SCH (09:04)
[2022-01-19] MEDS: FAMOTIDINE 20 MG TABLET PO SCH ×2 (09:04→21:20)
[2022-01-19] MEDS: amLODIPine 5 MG TABLET PO SCH (09:05)
[2022-01-19] MEDS: GABAPENTIN 300 MG CAPSULE PO SCH ×3 (09:05→21:20)
[2022-01-19] MEDS: DOXYCYCLINE HYCLATE 100 MG CAPSULE PO SCH ×2 (09:05→21:20)
[2022-01-19] MEDS: DULoxetine 30 MG CAPSULE PO SCH (09:09)
[2022-01-19] MEDS ORDERED: SODIUM CHLORIDE 0.9% 1,000 ML IV PRN (09:34)
[2022-01-19] MEDS: cefTRIAXone 1,000 MG in SODIUM CHLORIDE 0.9% 100 ML IV SCH (11:16)
[2022-01-19] MEDS: SODIUM BICARB INJ 50 MEQ in DEXTROSE 5% 1,000 ML IV SCH (11:17)
[2022-01-19] MEDS ORDERED: ACETAMINOPHEN 325 MG TABLET PO ONE (12:04)
[2022-01-19] MEDS ORDERED: diphenhydrAMINE 50 MG/1 ML VIAL IV ONE (12:09)
[2022-01-19] MEDS ORDERED: DEXAMETHASONE 10 MG/1 ML VIAL IV ONE (12:10)
[2022-01-19] MEDS: ENOXAPARIN 40 MG/0.4 ML SYRINGE SUBCUT SCH (16:52)
[2022-01-20] MEDS: SODIUM BICARB INJ 50 MEQ in DEXTROSE 5% 1,000 ML IV SCH ×2 (04:27→04:28)
[2022-01-20] MEDS: LEVOTHYROXINE 125 MCG TABLET PO SCH (06:20)
[2022-01-20 07:13] LABS: Basophils % 0.1 % (0.0-0.8); Hematocrit 29.3 VOL% (35.7-47.0); Hemoglobin 10.2 GM/DL (12.0-16.0); Immature Granulocytes % 1.2 %; Immature Granulocytes Absolute 0.16 #; Lymphocytes % 15.2 % (21.3-54.2); Mean Corpuscular HGB Conc 34.8 GM/DL (32-36); Mean Corpuscular Volume 83.5 FL (87-102); Monocytes % 13.8 % (1.7-12.7); NRBC # 1.77 10*3/uL; Neutrophils % 69.7 % (38.7-73.9); Platelet Count 128 T/CUMM (130-400); Red Blood Count 3.51 MC/CUMM (3.8-5.5); Red Cell Distribution Width 27.7 % (9.3-17.3); White Blood Count 13.5 T/CUMM (4-12)
[2022-01-20 07:33] LABS: Albumin 2.6 G/DL (3.4-5.0); Calcium 9.5 MG/DL (8.5-10.1); Osmolality,Calculated 276.8 MOS/KG (273-304); Potassium 4.4 MMOL/L (3.5-5.1)
[2022-01-20 07:38] LABS: Bilirubin,Total 17.8 MG/DL (0.20-1.00)
[2022-01-20 07:47] LABS: Band Neutrophils 7 % (0-10); Lymphocytes 16 % (20-55); Nucleated Red Blood Cells 33 (0-5); Platelet Estimate Adequate; Segmented Neutrophils 66 % (50-85); Total Cells Counted 100
[2022-01-20 07:48] LABS: Anisocytosis 3+; Burr Cells 1+; Macrocytosis 2+; Poikilocytosis 1+; Sickle Cells 1+; Smudge Cells 1+
[2022-01-20 07:49] LABS: Polychromasia Slight; Target Cells 2+
[2022-01-20] MEDS ORDERED: hydrALAZINE 20 MG/1 ML VIAL IV PRN (07:54)
[2022-01-20] MEDS: INSULIN LISPRO 100 UNIT/ML SUBCUT SCH ×2 (08:09→12:59)
[2022-01-20] MEDS: CHOLECALCIFEROL 1,000 UNIT TABLET PO SCH (09:22)
[2022-01-20] MEDS: FAMOTIDINE 20 MG TABLET PO SCH (09:22)
[2022-01-20] MEDS: GABAPENTIN 300 MG CAPSULE PO SCH (09:22)
[2022-01-20] MEDS: amLODIPine 10 MG TABLET PO SCH ×2 (09:22→11:05)
[2022-01-20] MEDS: POLYETHYLENE GLYCOL POWDER 17 GM PACK PO SCH (09:23)
[2022-01-20] MEDS: DOXYCYCLINE HYCLATE 100 MG CAPSULE PO SCH (09:30)
[2022-01-20] MEDS: cefTRIAXone 1,000 MG in SODIUM CHLORIDE 0.9% 100 ML IV SCH (09:34)
[2022-01-20] MEDS: DULoxetine 30 MG CAPSULE PO SCH (09:46)
[2022-01-20] MEDS ORDERED: HEPARIN LOCK FLUSH 500 UNIT/5 ML SYRINGE IV ONE (12:23)
[2022-01-20 12:56] VITALS: BP 136/77
== END 2022-01-20 12:46 | disposition home health service (06) | DRG 811 ==
LOC: N.ED 12:00 → N.TELES 14:47 → SUATTDRO 14:47 → N.TELES 15:53
PROVIDERS: ADMIT Phlebology; ATTEND Internal Medicine

== ENCOUNTER 2022-02-14 11:39 | Inpatient (IN) ==
[2022-02-14] MEDS ORDERED: ONDANSETRON 4 MG/2 ML VIAL IV STA (17:45)
[2022-02-14] MEDS ORDERED: fentaNYL 100 MCG/2 ML VIAL IV STA (17:46)
[2022-02-14] MEDS ORDERED: fentaNYL 100 MCG/2 ML VIAL ONE (17:47)
[2022-02-14] MEDS ORDERED: ONDANSETRON 4 MG/2 ML VIAL ONE (17:47)
[2022-02-14 17:49] LABS: Basophils # 0.1 10*3/uL (0.0-0.2); Basophils % 0.5 % (0.0-0.8); Eosinophils # 0.2 10*3/uL (0.0-0.87); Hematocrit 20.3 VOL% (35.7-47.0); Hemoglobin 7.1 GM/DL (12.0-16.0); Immature Granulocytes % 0.9 %; Immature Granulocytes Absolute 0.13 #; Lymphocytes # 3.9 10*3/uL (1.4-4.0); Lymphocytes % 26.8 % (21.3-54.2); Mean Corpuscular Volume 88.6 FL (87-102); Mean Platelet Volume 11.4 FL (9.6-12.0); Monocytes # 2.4 10*3/uL (0.11-0.8); Monocytes % 16.3 % (1.7-12.7); NRBC # 0.34 10*3/uL; Neutrophils % 54.5 % (38.7-73.9); Platelet Count 191 T/CUMM (130-400); Red Blood Count 2.29 MC/CUMM (3.8-5.5); Red Cell Distribution Width 31.3 % (9.3-17.3); White Blood Count 14.6 T/CUMM (4-12)
[2022-02-14 18:06] LABS: Albumin 2.8 G/DL (3.4-5.0); Bilirubin,Total 10.8 MG/DL (0.20-1.00); Osmolality,Calculated 282.3 MOS/KG (273-304); Potassium 4.4 MMOL/L (3.5-5.1); Total Protein 8.3 G/DL (6.4-8.2)
[2022-02-14] MEDS ORDERED: SODIUM CHLORIDE 0.9% 1,000 ML IV PRN (18:20)
[2022-02-14 18:23] LABS: Atypical Lymphocytes Few; Eosinophils 1 % (0-10); Lymphocytes 29 % (20-55); Total Cells Counted 100
[2022-02-14 18:24] LABS: Anisocytosis 1+; Hypochromia 1+
[2022-02-14 18:25] LABS: Basophilic Stippling Few
[2022-02-14 18:27] LABS: Polychromasia Few; Target Cells Few
[2022-02-14 18:28] LABS: Elliptocytes Few; Sickle Cells Slight; Stomatocytes Slight
[2022-02-14 18:29] LABS: Platelet Estimate Normal
[2022-02-14] MEDS ORDERED: GLUCAGON 1 MG VIAL IM PRN (19:01)
[2022-02-14] MEDS ORDERED: DEXTROSE 10% 250 ML BAG IV PRN (19:07)
[2022-02-14] MEDS ORDERED: diphenhydrAMINE 50 MG/1 ML VIAL IV STA (19:27)
[2022-02-14] MEDS ORDERED: DEXAMETHASONE INJ 10 MG in SODIUM CHLORIDE 0.9% 50 ML IV ONE (19:27)
[2022-02-14] MEDS: SODIUM CHLORIDE 0.9% 1,000 ML IV SCH (19:50)
[2022-02-14] MEDS ORDERED: ACETAMINOPHEN 325 MG TABLET PO ONE (20:28)
[2022-02-14] MEDS: ENOXAPARIN 40 MG/0.4 ML SYRINGE SUBCUT SCH (21:16)
[2022-02-14] MEDS: INSULIN REGULAR 100 UNIT/ML SUBCUT SCH (21:19)
[2022-02-14] MEDS: fentaNYL 100 MCG/2 ML VIAL IV PRN (22:13)
[2022-02-15] MEDS ORDERED: fentaNYL 100 MCG/HR PATCH TRANSDERM SCH (02:00)
[2022-02-15] MEDS: SODIUM CHLORIDE 0.9% 1,000 ML IV SCH ×3 (04:15→18:52)
[2022-02-15 04:17] LABS: Basophils % 0.2 % (0.0-0.8); Immature Granulocytes % 0.5 %; Immature Granulocytes Absolute 0.04 #; Neutrophils % 83.6 % (38.7-73.9)
[2022-02-15 04:26] LABS: Hematocrit 25.8 VOL% (35.7-47.0); Lymphocytes # 1.3 10*3/uL (1.4-4.0); Lymphocytes % 14.7 % (21.3-54.2); Mean Corpuscular HGB Conc 34.9 GM/DL (32-36); Mean Corpuscular Volume 89.6 FL (87-102); Mean Platelet Volume 11.8 FL (9.6-12.0); Monocytes # 0.1 10*3/uL (0.11-0.8); NRBC # 0.31 10*3/uL; Platelet Count 196 T/CUMM (130-400); Red Cell Distribution Width 26.4 % (9.3-17.3)
[2022-02-15 04:28] LABS: Red Blood Count 2.88 MC/CUMM (3.8-5.5); White Blood Count 8.8 T/CUMM (4-12)
[2022-02-15 04:42] LABS: Lymphocytes 6 % (20-55); Nucleated Red Blood Cells 4 (0-5); Total Cells Counted 100
[2022-02-15 04:43] LABS: Albumin 2.8 G/DL (3.4-5.0); Bilirubin,Total 10.7 MG/DL (0.20-1.00); Calcium 8.9 MG/DL (8.5-10.1); Hypochromia Slight; Macrocytosis Slight; Osmolality,Calculated 283.4 MOS/KG (273-304); Platelet Estimate Adequate; Polychromasia Slight; Potassium 4.5 MMOL/L (3.5-5.1); Sickle Cells Slight; Target Cells Few; Total Protein 8.1 G/DL (6.4-8.2)
[2022-02-15] MEDS: amLODIPine 5 MG TABLET PO SCH ×2 (09:00→21:26)
[2022-02-15] MEDS: PANTOPRAZOLE 40 MG TABLET PO SCH (09:00)
[2022-02-15] MEDS: DOXYCYCLINE HYCLATE 100 MG CAPSULE PO SCH ×2 (09:00→21:27)
[2022-02-15] MEDS: GABAPENTIN 300 MG CAPSULE PO SCH ×3 (09:00→21:26)
[2022-02-15] MEDS: INSULIN REGULAR 100 UNIT/ML SUBCUT SCH ×4 (09:31→21:26)
[2022-02-15] MEDS: ursodioL 300 MG CAPSULE PO SCH ×2 (11:45→21:25)
[2022-02-15] MEDS: fentaNYL 100 MCG/2 ML VIAL IV PRN (18:49)
[2022-02-15] MEDS: ENOXAPARIN 40 MG/0.4 ML SYRINGE SUBCUT SCH (21:26)
[2022-02-15] MEDS ORDERED: ONDANSETRON 4 MG/2 ML VIAL IV PRN (23:29)
[2022-02-16] MEDS: SODIUM CHLORIDE 0.9% 1,000 ML IV SCH ×2 (03:13→14:19)
[2022-02-16 07:22] LABS: Basophils # 0.1 10*3/uL (0.0-0.2); Basophils % 0.5 % (0.0-0.8); Eosinophils # 0.1 10*3/uL (0.0-0.87); Eosinophils % 0.5 % (0.00-10.9); Hematocrit 24.9 VOL% (35.7-47.0); Hemoglobin 8.6 GM/DL (12.0-16.0); Immature Granulocytes % 0.5 %; Immature Granulocytes Absolute 0.08 #; Lymphocytes # 5.7 10*3/uL (1.4-4.0); Lymphocytes % 37.4 % (21.3-54.2); Mean Corpuscular HGB Conc 34.5 GM/DL (32-36); Mean Corpuscular Volume 90.2 FL (87-102); Mean Platelet Volume 11.7 FL (9.6-12.0); Monocytes # 2.2 10*3/uL (0.11-0.8); Monocytes % 14.6 % (1.7-12.7); NRBC # 0.33 10*3/uL; Neutrophils % 46.5 % (38.7-73.9); Platelet Count 187 T/CUMM (130-400); Red Blood Count 2.76 MC/CUMM (3.8-5.5); Red Cell Distribution Width 27.2 % (9.3-17.3); White Blood Count 15.2 T/CUMM (4-12)
[2022-02-16 07:39] LABS: Albumin 2.6 G/DL (3.4-5.0); Bilirubin,Total 9.3 MG/DL (0.20-1.00); Calcium 9.1 MG/DL (8.5-10.1); Osmolality,Calculated 273.8 MOS/KG (273-304); Potassium 4.4 MMOL/L (3.5-5.1); Total Protein 7.8 G/DL (6.4-8.2)
[2022-02-16 07:42] LABS: Elliptocytes Few; Howell-Jolly Bodies Slight; Hypochromia Slight; Platelet Estimate Adequate; Sickle Cells Slight; Target Cells Few
[2022-02-16 07:43] LABS: Macrocytosis Slight; Polychromasia Slight
[2022-02-16] MEDS ORDERED: DOXYCYCLINE HYCLATE 100 MG CAPSULE PO SCH (08:00)
[2022-02-16 08:19] VITALS: BP 131/70
[2022-02-16] MEDS ORDERED: metFORMIN 500 MG TABLET PO SCH (09:00)
[2022-02-16] MEDS ORDERED: PANTOPRAZOLE 40 MG TABLET PO SCH (09:00)
[2022-02-16] MEDS: amLODIPine 5 MG TABLET PO SCH (09:51)
[2022-02-16] MEDS: PANTOPRAZOLE 40 MG TABLET PO SCH (09:51)
[2022-02-16] MEDS: ursodioL 300 MG CAPSULE PO SCH (09:51)
[2022-02-16] MEDS: GABAPENTIN 300 MG CAPSULE PO SCH (09:51)
[2022-02-16] MEDS: INSULIN REGULAR 100 UNIT/ML SUBCUT SCH ×2 (11:09→14:18)
== END 2022-02-16 14:11 | disposition home or self-care (01) | DRG 812 ==
LOC: N.ED 11:39 → N.EDINP 18:17 → N.3E 02-15 14:19
PROVIDERS: ADMIT Family Medicine; ATTEND Family Medicine

== ENCOUNTER 2022-03-14 09:00 | Inpatient (IN) ==
[2022-03-14] MEDS ORDERED: SODIUM CHLORIDE 0.9% 1,000 ML IV STA (10:25)
[2022-03-14 10:33] LABS: Basophils # 0.1 10*3/uL (0.0-0.2); Basophils % 0.6 % (0.0-0.8); Eosinophils # 0.1 10*3/uL (0.0-0.87); Hematocrit 19.6 VOL% (35.7-47.0); Hemoglobin 6.8 GM/DL (12.0-16.0); Immature Granulocytes Absolute 0.14 #; Lymphocytes % 21.2 % (21.3-54.2); Mean Corpuscular HGB Conc 34.7 GM/DL (32-36); Mean Corpuscular Volume 87.9 FL (87-102); Mean Platelet Volume 12.1 FL (9.6-12.0); Monocytes # 2.4 10*3/uL (0.11-0.8); Monocytes % 16.7 % (1.7-12.7); NRBC # 0.23 10*3/uL; Neutrophils % 59.5 % (38.7-73.9); Platelet Count 187 T/CUMM (130-400); Red Blood Count 2.23 MC/CUMM (3.8-5.5); Red Cell Distribution Width 27.2 % (9.3-17.3); White Blood Count 14.1 T/CUMM (4-12)
[2022-03-14 10:42] LABS: Albumin 2.4 G/DL (3.4-5.0); Calcium 8.7 MG/DL (8.5-10.1); Osmolality,Calculated 278.7 MOS/KG (273-304); Potassium 3.8 MMOL/L (3.5-5.1); Total Protein 7.7 G/DL (6.4-8.2)
[2022-03-14 10:46] LABS: Bilirubin,Total 12.1 MG/DL (0.20-1.00)
[2022-03-14 11:06] LABS: Hyaline Casts,Urine 1 /LPF (0-3); Mucus,Urine Occasional /LPF (Occasional); RBC,Urine 1 /HPF (0-4); Squamous Epithelial Cell,Urine Occasional /HPF (0-10)
[2022-03-14 11:08] LABS: Glucose,Urine (UA) Negative (Negative); Protein,Urine 30 mg/dL (Negative); Urine Appearance Clear (Clear); Urine Color Amber (Yellow); Urine Specific Gravity 1.015 (1.001-1.035)
[2022-03-14 11:09] LABS: Bilirubin,Urine Large mg/dL (Negative); Blood, Urine Trace mg/dL (Negative); Ketones,Urine Negative (Negative); Nitrite,Urine Negative (Negative)
[2022-03-14 11:16] LABS: Eosinophils 6 % (0-10); Howell-Jolly Bodies Slight; Hypochromia 1+; Lymphocytes 14 % (20-55); Macrocytosis Slight; Nucleated Red Blood Cells 3 (0-5); Platelet Estimate Adequate; Polychromasia Slight; Sickle Cells Slight; Target Cells Few; Total Cells Counted 100
[2022-03-14 11:24] LABS: Barbiturates Screen,Urine Negative (Negative); Benzodiazepines Screen,Urine Negative (Negative); Cannabinoid Screen,Urine Negative (Negative); Opiate Screen,Urine Positive (Negative); Phencyclidine Screen,Urine Negative (Negative)
[2022-03-14] MEDS ORDERED: ONDANSETRON 4 MG/2 ML VIAL IV STA (11:38)
[2022-03-14] MEDS ORDERED: fentaNYL 100 MCG/2 ML VIAL IV STA (11:38)
[2022-03-14] MEDS ORDERED: DEXTROSE 50% 25 GM/50 ML VIAL IV PRN (12:37)
[2022-03-14] MEDS ORDERED: GLUCAGON 1 MG VIAL IM PRN ×2 (12:37→12:39)
[2022-03-14] MEDS ORDERED: SODIUM CHLORIDE 0.9% 1,000 ML IV PRN (12:37)
[2022-03-14] MEDS ORDERED: diphenhydrAMINE 50 MG/1 ML VIAL IV PRN (12:39)
[2022-03-14] MEDS ORDERED: BISACODYL 5 MG TABLET PO PRN (12:39)
[2022-03-14] MEDS ORDERED: ACETAMINOPHEN 325 MG TABLET PO PRN (12:39)
[2022-03-14] MEDS ORDERED: ONDANSETRON 4 MG/2 ML VIAL IV PRN (12:39)
[2022-03-14] MEDS ORDERED: fentaNYL 100 MCG/2 ML VIAL IV PRN (12:42)
[2022-03-14] MEDS ORDERED: methylPREDNISolone SOD SUC 125 MG/2 ML VIAL IV ONE (12:45)
[2022-03-14] MEDS ORDERED: DEXTROSE 10% 250 ML BAG IV PRN (12:46)
[2022-03-14] MEDS ORDERED: LACTATED RINGERS 1,000 ML IV SCH (13:00)
[2022-03-14] MEDS ORDERED: ENOXAPARIN 40 MG/0.4 ML SYRINGE SUBCUT SCH (14:00)
[2022-03-14] MEDS ORDERED: fentaNYL 25 MCG/HR PATCH TRANSDERM SCH (15:00)
[2022-03-14] MEDS: GABAPENTIN 300 MG CAPSULE PO SCH ×2 (15:07→21:08)
[2022-03-14] MEDS: DOXYCYCLINE HYCLATE 100 MG CAPSULE PO SCH (21:08)
[2022-03-14] MEDS: DOCUSATE SODIUM 100 MG CAPSULE PO SCH (21:08)
[2022-03-15 05:42] LABS: Basophils % 0.1 % (0.0-0.8); Hematocrit 27.3 VOL% (35.7-47.0); Hemoglobin 9.3 GM/DL (12.0-16.0); Immature Granulocytes % 0.7 %; Immature Granulocytes Absolute 0.06 #; Lymphocytes % 22.9 % (21.3-54.2); Mean Corpuscular HGB Conc 34.1 GM/DL (32-36); Mean Corpuscular Volume 86.7 FL (87-102); Mean Platelet Volume 12.3 FL (9.6-12.0); Monocytes # 0.4 10*3/uL (0.11-0.8); Monocytes % 4.1 % (1.7-12.7); NRBC # 0.32 10*3/uL; Neutrophils % 72.2 % (38.7-73.9); Platelet Count 211 T/CUMM (130-400); Red Blood Count 3.15 MC/CUMM (3.8-5.5); Red Cell Distribution Width 24.9 % (9.3-17.3); White Blood Count 8.9 T/CUMM (4-12)
[2022-03-15 06:00] LABS: Albumin 2.5 G/DL (3.4-5.0); Bilirubin,Total 11.9 MG/DL (0.20-1.00); Calcium 9.1 MG/DL (8.5-10.1); Osmolality,Calculated 280.7 MOS/KG (273-304); Potassium 4.8 MMOL/L (3.5-5.1); Total Protein 8.1 G/DL (6.4-8.2)
[2022-03-15 06:09] LABS: Target Cells Few
[2022-03-15 06:10] LABS: Anisocytosis 1+; Macrocytosis 1+; Ovalocytes Slight; Sickle Cells Slight
[2022-03-15 06:11] LABS: Pappenheimer Bodies Slight; Platelet Estimate Normal; Polychromasia Slight
[2022-03-15 08:13] VITALS: BP 156/67
[2022-03-15] MEDS: DOXYCYCLINE HYCLATE 100 MG CAPSULE PO SCH (08:31)
[2022-03-15] MEDS: GABAPENTIN 300 MG CAPSULE PO SCH (08:31)
[2022-03-15] MEDS: DOCUSATE SODIUM 100 MG CAPSULE PO SCH (08:31)
[2022-03-15] MEDS ORDERED: amLODIPine 5 MG TABLET PO SCH (09:00)
[2022-03-15] MEDS ORDERED: PANTOPRAZOLE 40 MG TABLET PO SCH (09:00)
== END 2022-03-15 10:58 | disposition home or self-care (01) | DRG 812 ==
LOC: N.ED 09:00 → N.EDINP 12:38 → SUATTDRO 12:38 → N.5E 13:24
PROVIDERS: ADMIT Internal Medicine; ATTEND Internal Medicine

== ENCOUNTER 2022-04-30 07:36 | Inpatient (IN) ==
[2022-04-30] MEDS ORDERED: SODIUM CHLORIDE 0.9% 1,000 ML IV STA (08:30)
[2022-04-30] MEDS ORDERED: HYDROmorphone 1 MG/1 ML SYRINGE ONE (08:47)
[2022-04-30] MEDS ORDERED: ONDANSETRON 4 MG/2 ML VIAL ONE (08:47)
[2022-04-30 08:52] LABS: Basophils % 0.2 % (0.0-0.8); Eosinophils % 0.1 % (0.00-10.9); Hematocrit 18.7 VOL% (35.7-47.0); Hemoglobin 6.6 GM/DL (12.0-16.0); Immature Granulocytes % 1.2 %; Immature Granulocytes Absolute 0.26 #; Lymphocytes # 5.3 10*3/uL (1.4-4.0); Lymphocytes % 25.5 % (21.3-54.2); Mean Corpuscular HGB Conc 35.3 GM/DL (32-36); Mean Corpuscular Volume 86.6 FL (87-102); Mean Platelet Volume 11.6 FL (9.6-12.0); Monocytes # 3.2 10*3/uL (0.11-0.8); Monocytes % 15.5 % (1.7-12.7); NRBC # 0.61 10*3/uL; Neutrophils % 57.5 % (38.7-73.9); Platelet Count 199 T/CUMM (130-400); Red Blood Count 2.16 MC/CUMM (3.8-5.5); Red Cell Distribution Width 33.6 % (9.3-17.3); White Blood Count 20.9 T/CUMM (4-12)
[2022-04-30 08:55] LABS: Albumin 2.2 G/DL (3.4-5.0); Osmolality,Calculated 280.5 MOS/KG (273-304); Potassium 4.5 MMOL/L (3.5-5.1); Total Protein 7.9 G/DL (6.4-8.2)
[2022-04-30 08:58] LABS: Bilirubin,Total 13.6 MG/DL (0.20-1.00)
[2022-04-30] MEDS ORDERED: fentaNYL 100 MCG/2 ML VIAL ONE (09:03)
[2022-04-30] MEDS ORDERED: fentaNYL 100 MCG/2 ML VIAL IV STA (09:15)
[2022-04-30 09:16] LABS: Anisocytosis 1+; Lymphocytes 23 % (20-55); Myelocytes 1 %; Nucleated Red Blood Cells 6 (0-5); Polychromasia 1+
[2022-04-30] MEDS ORDERED: ONDANSETRON 4 MG/2 ML VIAL IV STA (09:18)
[2022-04-30 09:19] LABS: Ovalocytes Few; Pappenheimer Bodies 1+
[2022-04-30 09:20] LABS: Target Cells 2+
[2022-04-30 09:21] LABS: Sickle Cells Slight
[2022-04-30 09:22] LABS: Platelet Estimate Adequate; Total Cells Counted 100
[2022-04-30] MEDS ORDERED: SODIUM CHLORIDE 0.9% 1,000 ML IV PRN ×2 (10:00→12:50)
[2022-04-30 10:28] LABS: Mucus,Urine Occasional /LPF (Occasional); RBC,Urine <1 /HPF (0-4); Squamous Epithelial Cell,Urine Occasional /HPF (0-10)
[2022-04-30 10:29] LABS: Bilirubin,Urine Large mg/dL (Negative); Blood, Urine Negative (Negative); Glucose,Urine (UA) Negative (Negative); Ketones,Urine Negative (Negative); Nitrite,Urine Negative (Negative); Protein,Urine Trace mg/dL (Negative); Urine Appearance Clear (Clear); Urine Color Dark yellow (Yellow); Urine Specific Gravity 1.015 (1.001-1.035); Urine pH 5.5 (4.5-8.0)
[2022-04-30] MEDS ORDERED: LACTULOSE 20 GM/30 ML UDCUP PO PRN (10:52)
[2022-04-30] MEDS ORDERED: ALUMINUM/MAGNES/SIMETH MAX STR 30 ML UDCUP PO PRN (10:52)
[2022-04-30] MEDS ORDERED: ACETAMINOPHEN 325 MG TABLET PO PRN ×2 (10:52→11:21)
[2022-04-30] MEDS ORDERED: ONDANSETRON 4 MG/2 ML VIAL IV PRN (10:52)
[2022-04-30] MEDS ORDERED: DOCUSATE SODIUM 100 MG CAPSULE PO PRN (10:52)
[2022-04-30] MEDS ORDERED: GLUCAGON 1 MG VIAL IM PRN (10:52)
[2022-04-30] MEDS ORDERED: fentaNYL 100 MCG/2 ML VIAL IV PRN ×2 (10:52→12:51)
[2022-04-30] MEDS ORDERED: DEXTROSE 10% 250 ML BAG IV PRN (11:05)
[2022-04-30] MEDS ORDERED: methylPREDNISolone SOD SUC 125 MG/2 ML VIAL IV PRN (11:22)
[2022-04-30] MEDS ORDERED: diphenhydrAMINE 50 MG/1 ML VIAL IV PRN (11:24)
[2022-04-30] MEDS ORDERED: fentaNYL 25 MCG/HR PATCH TRANSDERM SCH (12:00)
[2022-04-30] MEDS ORDERED: ENOXAPARIN 40 MG/0.4 ML SYRINGE SUBCUT SCH (12:00)
[2022-04-30] MEDS: LACTATED RINGERS 1,000 ML IV SCH ×2 (12:12→23:15)
[2022-04-30] MEDS: INSULIN LISPRO 100 UNIT/ML SUBCUT SCH ×3 (14:16→23:15)
[2022-04-30] MEDS: amLODIPine 5 MG TABLET PO SCH (23:14)
[2022-04-30] MEDS: GABAPENTIN 300 MG CAPSULE PO SCH (23:14)
[2022-05-01 06:12] LABS: Hematocrit 24.3 VOL% (35.7-47.0); Hemoglobin 8.5 GM/DL (12.0-16.0); Immature Granulocytes % 1.1 %; Immature Granulocytes Absolute 0.11 #; Lymphocytes % 20.1 % (21.3-54.2); Mean Corpuscular Volume 86.2 FL (87-102); Monocytes # 0.7 10*3/uL (0.11-0.8); Monocytes % 7.1 % (1.7-12.7); NRBC # 0.62 10*3/uL; Neutrophils % 71.7 % (38.7-73.9); Platelet Count 168 T/CUMM (130-400); Red Blood Count 2.82 MC/CUMM (3.8-5.5); Red Cell Distribution Width 29.8 % (9.3-17.3); White Blood Count 9.9 T/CUMM (4-12)
[2022-05-01] MEDS: LACTATED RINGERS 1,000 ML IV SCH (06:31)
[2022-05-01 06:41] LABS: Albumin 2.2 G/DL (3.4-5.0); Osmolality,Calculated 266.5 MOS/KG (273-304); Total Protein 8.2 G/DL (6.4-8.2); VLDL Cholesterol 41.6 MG/DL
[2022-05-01 06:48] LABS: Bilirubin,Total 14.2 MG/DL (0.20-1.00); Potassium 8.1 MMOL/L (3.5-5.1)
[2022-05-01 08:33] LABS: Platelet Estimate Normal; Polychromasia Slight; Target Cells 2+
[2022-05-01 08:41] LABS: Albumin 2.2 G/DL (3.4-5.0); Calcium 9.2 MG/DL (8.5-10.1); Osmolality,Calculated 275.8 MOS/KG (273-304); Potassium 5.5 MMOL/L (3.5-5.1); Total Protein 8.1 G/DL (6.4-8.2)
[2022-05-01 08:43] LABS: Bilirubin,Total 13.9 MG/DL (0.20-1.00)
[2022-05-01] MEDS ORDERED: PANTOPRAZOLE 40 MG TABLET PO SCH (09:00)
[2022-05-01] MEDS: amLODIPine 5 MG TABLET PO SCH (09:54)
[2022-05-01] MEDS: GABAPENTIN 300 MG CAPSULE PO SCH (09:55)
[2022-05-01] MEDS: INSULIN LISPRO 100 UNIT/ML SUBCUT SCH ×2 (11:02→16:40)
[2022-05-01] MEDS ORDERED: DOCUSATE SODIUM 100 MG CAPSULE PO PRN (12:38)
[2022-05-01 13:02] VITALS: BP 139/69
[2022-05-01] MEDS ORDERED: metFORMIN 500 MG TABLET PO SCH (17:00)
[2022-05-02] MEDS ORDERED: FLUCONAZOLE 100 MG TABLET PO SCH (09:00)
[2022-05-02] MEDS ORDERED: PANTOPRAZOLE 40 MG TABLET PO SCH (09:00)
== END 2022-05-01 13:58 | disposition home or self-care (01) | DRG 812 ==
LOC: N.ED 07:36 → SUATTDRO 10:52 → N.EDINP 10:52 → N.TELEN 11:50
PROVIDERS: ADMIT Internal Medicine; ATTEND Emergency Medicine

== ENCOUNTER 2022-05-17 11:00 | Observation (INO) ==
[2022-05-17] MEDS ORDERED: SODIUM CHLORIDE 0.9% 1,000 ML IV STA (15:01)
[2022-05-17] MEDS ORDERED: fentaNYL 100 MCG/2 ML VIAL IV STA (15:01)
[2022-05-17 15:44] LABS: Basophils % 0.2 % (0.0-0.8); Eosinophils # 0.1 10*3/uL (0.0-0.87); Eosinophils % 0.6 % (0.00-10.9); Hematocrit 19.3 VOL% (35.7-47.0); Hemoglobin 7.1 GM/DL (12.0-16.0); Immature Granulocytes % 2.1 %; Immature Granulocytes Absolute 0.47 #; Lymphocytes # 3.5 10*3/uL (1.4-4.0); Lymphocytes % 15.7 % (21.3-54.2); Mean Corpuscular HGB Conc 36.8 GM/DL (32-36); Mean Corpuscular Volume 83.9 FL (87-102); Monocytes # 3.7 10*3/uL (0.11-0.8); Monocytes % 16.4 % (1.7-12.7); NRBC # 0.37 10*3/uL; Platelet Count 156 T/CUMM (130-400); Red Cell Distribution Width 33.4 % (9.3-17.3); White Blood Count 22.3 T/CUMM (4-12)
[2022-05-17 16:04] LABS: Albumin 2.5 G/DL (3.4-5.0); Calcium 9.3 MG/DL (8.5-10.1); Osmolality,Calculated 276.8 MOS/KG (273-304); Potassium 4.3 MMOL/L (3.5-5.1); Total Protein 7.5 G/DL (6.4-8.2)
[2022-05-17 16:05] LABS: Band Neutrophils 1 % (0-10); Eosinophils 1 % (0-10); Lymphocytes 14 % (20-55); Metamyelocytes 1 %; Nucleated Red Blood Cells 7 (0-5)
[2022-05-17 16:06] LABS: Anisocytosis 2+; Bilirubin,Total 21.2 MG/DL (0.20-1.00)
[2022-05-17 16:07] LABS: Target Cells 1+
[2022-05-17 16:08] LABS: Sickle Cells Slight
[2022-05-17 16:09] LABS: Polychromasia Few
[2022-05-17 16:11] LABS: Pappenheimer Bodies 1+; Platelet Estimate Decreased
[2022-05-17 16:13] LABS: Ovalocytes Slight; Total Cells Counted 100
[2022-05-17] MEDS ORDERED: ONDANSETRON 4 MG/2 ML VIAL IV PRN (16:56)
[2022-05-17] MEDS ORDERED: GLUCAGON 1 MG VIAL IM PRN (16:56)
[2022-05-17] MEDS ORDERED: hydrALAZINE 20 MG/1 ML VIAL IV PRN (16:56)
[2022-05-17] MEDS ORDERED: DOCUSATE SODIUM 100 MG CAPSULE PO PRN (17:01)
[2022-05-17] MEDS ORDERED: SODIUM CHLORIDE 0.9% 1,000 ML IV PRN ×2 (17:02→19:01)
[2022-05-17] MEDS ORDERED: DEXTROSE 10% 250 ML BAG IV PRN (17:07)
[2022-05-17] MEDS: LACTATED RINGERS 1,000 ML IV SCH (17:57)
[2022-05-17] MEDS ORDERED: ACETAMINOPHEN 325 MG TABLET PO ONE (19:14)
[2022-05-17] MEDS ORDERED: methylPREDNISolone SOD SUC 125 MG/2 ML VIAL IV ONE (19:16)
[2022-05-17] MEDS ORDERED: diphenhydrAMINE CAP 50 MG CAPSULE PO ONE (19:17)
[2022-05-17] MEDS: INSULIN REGULAR 100 UNIT/ML SUBCUT SCH (22:00)
[2022-05-17] MEDS: GABAPENTIN 300 MG CAPSULE PO SCH (22:11)
[2022-05-17] MEDS: amLODIPine 5 MG TABLET PO SCH (22:11)
[2022-05-18] MEDS ORDERED: SODIUM CHLORIDE 0.9% 1,000 ML IV PRN (06:45)
[2022-05-18 07:36] LABS: Amorphous Crystals,Urine Occasional /HPF (Few); Bilirubin,Urine Large mg/dL (Negative); Blood, Urine Negative (Negative); Glucose,Urine (UA) 100 mg/dL (Negative); Hyaline Casts,Urine 1 /LPF (0-3); Ketones,Urine Negative (Negative); Mucus,Urine Occasional /LPF (Occasional); Nitrite,Urine Negative (Negative); Protein,Urine 30 mg/dL (Negative); RBC,Urine 2 /HPF (0-4); Squamous Epithelial Cell,Urine Occasional /HPF (0-10); Urine Appearance Clear (Clear); Urine Color Amber (Yellow); Urine Specific Gravity 1.015 (1.001-1.035); Urine pH 5.5 (4.5-8.0)
[2022-05-18 07:41] LABS: Hematocrit 23.2 VOL% (35.7-47.0); Hemoglobin 8.3 GM/DL (12.0-16.0)
[2022-05-18 07:42] LABS: Hemoglobin 8.1 GM/DL (12.0-16.0); Immature Granulocytes % 1.3 %; Immature Granulocytes Absolute 0.18 #; Lymphocytes # 0.9 10*3/uL (1.4-4.0); Lymphocytes % 6.4 % (21.3-54.2); Mean Corpuscular HGB Conc 35.2 GM/DL (32-36); Mean Corpuscular Volume 87.5 FL (87-102); Monocytes # 0.3 10*3/uL (0.11-0.8); Monocytes % 1.9 % (1.7-12.7); NRBC # 0.23 10*3/uL; Neutrophils % 90.4 % (38.7-73.9); Platelet Count 156 T/CUMM (130-400); Red Blood Count 2.63 MC/CUMM (3.8-5.5); Red Cell Distribution Width 29.2 % (9.3-17.3); White Blood Count 13.5 T/CUMM (4-12)
[2022-05-18] MEDS ORDERED: oxyCODONE/ACETAMINOPHEN 5-325 MG TABLET PO PRN (07:51)
[2022-05-18 08:00] LABS: Albumin 2.2 G/DL (3.4-5.0); Calcium 8.5 MG/DL (8.5-10.1); Osmolality,Calculated 284.5 MOS/KG (273-304); Potassium 4.9 MMOL/L (3.5-5.1); Risk Ratio 16.58; Total Protein 7.2 G/DL (6.4-8.2); VLDL Cholesterol 50.2 MG/DL
[2022-05-18 08:06] LABS: Bilirubin,Total 21.5 MG/DL (0.20-1.00)
[2022-05-18] MEDS ORDERED: PANTOPRAZOLE 40 MG TABLET PO SCH (09:00)
[2022-05-18] MEDS: amLODIPine 5 MG TABLET PO SCH (09:34)
[2022-05-18] MEDS: GABAPENTIN 300 MG CAPSULE PO SCH (09:34)
[2022-05-18] MEDS: INSULIN REGULAR 100 UNIT/ML SUBCUT SCH ×2 (09:36→14:17)
[2022-05-18 12:06] VITALS: BP 131/62
[2022-05-18] MEDS: LACTATED RINGERS 1,000 ML IV SCH (14:17)
[2022-05-18] MEDS ORDERED: HEPARIN LOCK FLUSH 500 UNIT/5 ML SYRINGE IV PRN (14:19)
[2022-05-18] MEDS ORDERED: HEPARIN LOCK FLUSH 500 UNIT/5 ML SYRINGE IV SCH (14:30)
== END 2022-05-18 14:50 | disposition home or self-care (01) ==
LOC: N.ED 11:00 → N.EDINP 11:00 → SUATTDRO 16:56 → N.5E 19:16
PROVIDERS: ADMIT Internal Medicine; ATTEND Family Medicine

== ENCOUNTER 2022-06-03 17:26 | Inpatient (IN) ==
[2022-06-03 18:48] LABS: Basophils % 0.1 % (0.0-0.8); Eosinophils % 0.1 % (0.00-10.9); Hematocrit 21.5 VOL% (35.7-47.0); Hemoglobin 7.8 GM/DL (12.0-16.0); Immature Granulocytes % 2.5 %; Immature Granulocytes Absolute 0.41 #; Lymphocytes # 1.7 10*3/uL (1.4-4.0); Lymphocytes % 10.3 % (21.3-54.2); Mean Corpuscular HGB Conc 36.3 GM/DL (32-36); Mean Platelet Volume 9.8 FL (9.6-12.0); Monocytes # 2.6 10*3/uL (0.11-0.8); Monocytes % 15.9 % (1.7-12.7); NRBC # 0.68 10*3/uL; Neutrophils % 71.1 % (38.7-73.9); Platelet Count 216 T/CUMM (130-400); Red Blood Count 2.56 MC/CUMM (3.8-5.5); Red Cell Distribution Width 29.5 % (9.3-17.3); White Blood Count 16.6 T/CUMM (4-12)
[2022-06-03 18:51] LABS: Urine Color Brown (Yellow)
[2022-06-03 18:52] LABS: Bilirubin,Urine Large mg/dL (Negative); Blood, Urine Negative (Negative); Glucose,Urine (UA) 100 mg/dL (Negative); Ketones,Urine Trace mg/dL (Negative); Nitrite,Urine Negative (Negative); Protein,Urine 100 mg/dL (Negative); Urine Appearance Clear (Clear); Urine pH 5.5 (4.5-8.0)
[2022-06-03 18:53] LABS: RBC,Urine <1 /HPF (0-4)
[2022-06-03 19:01] LABS: Barbiturates Screen,Urine Negative (Negative); Benzodiazepines Screen,Urine Negative (Negative); Cannabinoid Screen,Urine Negative (Negative); Opiate Screen,Urine Positive (Negative); Phencyclidine Screen,Urine Negative (Negative)
[2022-06-03 19:13] LABS: Eosinophils 2 % (0-10); Lymphocytes 12 % (20-55); Nucleated Red Blood Cells 6 /100 WBC (0-5); Total Cells Counted 100
[2022-06-03 19:14] LABS: Target Cells 1+
[2022-06-03 19:15] LABS: Anisocytosis 2+
[2022-06-03 19:16] LABS: Howell-Jolly Bodies Slight; Hypochromia 1+; Polychromasia Few; Sickle Cells Slight
[2022-06-03 19:17] LABS: Acanthocytes Few; Elliptocytes Few; Platelet Estimate Normal; Poikilocytosis 1+; Schistocytes Slight
[2022-06-03 19:18] LABS: Alanine Aminotransferase 103 U/L (13-56); Albumin 2.3 G/DL (3.4-5.0); Alkaline Phosphatase 192 U/L (45-117); Aspartate Amino Transferase 252 U/L (0-37); Blood Urea Nitrogen 53 MG/DL (7-18); Calcium 10.2 MG/DL (8.5-10.1); Carbon Dioxide 17 MMOL/L (21-32); Chloride 119 MMOL/L (98-107); Glucose 91 MG/DL (74-106); Osmolality,Calculated 301.7 MOS/KG (273-304); Potassium 4.2 MMOL/L (3.5-5.1); Sodium 145 MMOL/L (136-145); Total Protein 6.7 G/DL (6.4-8.2)
[2022-06-03] MEDS ORDERED: LACTULOSE 20 GM/30 ML UDCUP PO STA (19:55)
[2022-06-03] MEDS ORDERED: GLUCAGON 1 MG VIAL IM PRN (20:48)
[2022-06-03] MEDS ORDERED: DEXTROSE 10% 250 ML BAG IV PRN (20:48)
[2022-06-03] MEDS ORDERED: ONDANSETRON 4 MG/2 ML VIAL IV PRN (20:48)
[2022-06-03] MEDS ORDERED: hydrALAZINE 20 MG/1 ML VIAL IV PRN (20:48)
[2022-06-03] MEDS: RIFAXIMIN 550 MG TABLET PO SCH (22:38)
[2022-06-03] MEDS: LACTULOSE 20 GM/30 ML UDCUP PO SCH (23:06)
[2022-06-04] MEDS: ALBUTEROL/IPRATROPIUM 3 ML NEB RESP TX SCH ×4 (00:33→21:36)
[2022-06-04] MEDS: fentaNYL 50 MCG/HR PATCH TRANSDERM SCH (03:19)
[2022-06-04] MEDS: LACTULOSE 20 GM/30 ML UDCUP PO SCH ×3 (05:38→17:18)
[2022-06-04] MEDS ORDERED: DEXTROSE 10% 250 ML BAG IV PRN (06:48)
[2022-06-04] MEDS: INSULIN LISPRO 100 UNIT/ML SUBCUT SCH ×4 (08:17→20:19)
[2022-06-04] MEDS: PANTOPRAZOLE 40 MG TABLET PO SCH (08:22)
[2022-06-04] MEDS: amLODIPine 5 MG TABLET PO SCH (08:22)
[2022-06-04] MEDS: RIFAXIMIN 550 MG TABLET PO SCH ×3 (08:22→21:09)
[2022-06-04] MEDS ORDERED: DIAZEPAM 10 MG/2 ML SYRINGE IV PRN (14:00)
[2022-06-04] MEDS ORDERED: fentaNYL 100 MCG/2 ML VIAL IV PRN (14:00)
[2022-06-05] MEDS: ALBUTEROL/IPRATROPIUM 3 ML NEB RESP TX SCH ×4 (00:31→19:53)
[2022-06-05] MEDS: LACTULOSE 20 GM/30 ML UDCUP PO SCH ×4 (00:57→17:21)
[2022-06-05] MEDS: INSULIN LISPRO 100 UNIT/ML SUBCUT SCH ×4 (07:29→20:45)
[2022-06-05] MEDS: RIFAXIMIN 550 MG TABLET PO SCH ×2 (08:22→20:53)
[2022-06-05] MEDS: PANTOPRAZOLE 40 MG TABLET PO SCH (08:22)
[2022-06-05] MEDS: amLODIPine 5 MG TABLET PO SCH (08:22)
[2022-06-05] MEDS ORDERED: LORazepam 0.5 MG TABLET PO PRN (10:23)
[2022-06-05] MEDS: DIAZEPAM 5 MG TABLET PO PRN (12:12)
[2022-06-06] MEDS: LACTULOSE 20 GM/30 ML UDCUP PO SCH ×5 (00:14→23:08)
[2022-06-06] MEDS: ALBUTEROL/IPRATROPIUM 3 ML NEB RESP TX SCH ×5 (01:00→20:47)
[2022-06-06 06:07] LABS: Basophils % 0.2 % (0.0-0.8); Hematocrit 23.6 VOL% (35.7-47.0); Hemoglobin 8.5 GM/DL (12.0-16.0); Immature Granulocytes % 3.4 %; Immature Granulocytes Absolute 0.68 #; Lymphocytes # 1.1 10*3/uL (1.4-4.0); Lymphocytes % 5.6 % (21.3-54.2); Mean Corpuscular Volume 82.8 FL (87-102); Mean Platelet Volume 9.6 FL (9.6-12.0); Monocytes # 3.9 10*3/uL (0.11-0.8); Monocytes % 19.5 % (1.7-12.7); NRBC # 4.95 10*3/uL; Neutrophils % 71.3 % (38.7-73.9); Platelet Count 234 T/CUMM (130-400); Red Blood Count 2.85 MC/CUMM (3.8-5.5); Red Cell Distribution Width 30.9 % (9.3-17.3)
[2022-06-06 06:33] LABS: Lymphocytes 7 % (20-55); Nucleated Red Blood Cells 31 /100 WBC (0-5); Platelet Estimate Adequate; Total Cells Counted 100
[2022-06-06 06:34] LABS: Howell-Jolly Bodies Few; Hypochromia Slight; Macrocytosis Slight; Pappenheimer Bodies Slight; Sickle Cells Slight; Target Cells Few
[2022-06-06 07:08] LABS: Albumin 2.3 G/DL (3.4-5.0); Calcium 10.2 MG/DL (8.5-10.1); Osmolality,Calculated 328.3 MOS/KG (273-304); Potassium 3.9 MMOL/L (3.5-5.1); Total Protein 7.3 G/DL (6.4-8.2)
[2022-06-06] MEDS: INSULIN LISPRO 100 UNIT/ML SUBCUT SCH ×4 (10:26→20:47)
[2022-06-06] MEDS: PANTOPRAZOLE 40 MG TABLET PO SCH (10:26)
[2022-06-06] MEDS: amLODIPine 5 MG TABLET PO SCH (10:26)
[2022-06-06] MEDS: RIFAXIMIN 550 MG TABLET PO SCH ×2 (10:26→20:15)
[2022-06-06] MEDS: DIAZEPAM 5 MG TABLET PO PRN (17:50)
[2022-06-07] MEDS: ALBUTEROL/IPRATROPIUM 3 ML NEB RESP TX SCH ×4 (00:24→19:25)
[2022-06-07] MEDS: fentaNYL 50 MCG/HR PATCH TRANSDERM SCH (02:08)
[2022-06-07] MEDS: LACTULOSE 20 GM/30 ML UDCUP PO SCH ×4 (05:21→23:03)
[2022-06-07] MEDS: INSULIN LISPRO 100 UNIT/ML SUBCUT SCH ×3 (09:56→21:57)
[2022-06-07] MEDS: RIFAXIMIN 550 MG TABLET PO SCH ×2 (09:57→21:57)
[2022-06-07] MEDS: PANTOPRAZOLE 40 MG TABLET PO SCH (09:57)
[2022-06-07] MEDS: amLODIPine 5 MG TABLET PO SCH (09:57)
[2022-06-08] MEDS: ALBUTEROL/IPRATROPIUM 3 ML NEB RESP TX SCH ×4 (00:08→20:24)
[2022-06-08] MEDS: LACTULOSE 20 GM/30 ML UDCUP PO SCH ×3 (05:50→19:04)
[2022-06-08] MEDS: INSULIN LISPRO 100 UNIT/ML SUBCUT SCH ×4 (09:41→23:56)
[2022-06-08] MEDS: amLODIPine 5 MG TABLET PO SCH (09:42)
[2022-06-08] MEDS: PANTOPRAZOLE 40 MG TABLET PO SCH (09:42)
[2022-06-08] MEDS: RIFAXIMIN 550 MG TABLET PO SCH ×2 (09:42→23:57)
[2022-06-09] MEDS: LACTULOSE 20 GM/30 ML UDCUP PO SCH ×2 (00:30→05:55)
[2022-06-09] MEDS: ALBUTEROL/IPRATROPIUM 3 ML NEB RESP TX SCH (01:12)
[2022-06-09] MEDS: RIFAXIMIN 550 MG TABLET PO SCH (09:05)
[2022-06-09] MEDS: amLODIPine 5 MG TABLET PO SCH (09:05)
[2022-06-09] MEDS: PANTOPRAZOLE 40 MG TABLET PO SCH (09:05)
[2022-06-09] MEDS: INSULIN LISPRO 100 UNIT/ML SUBCUT SCH (09:05)
[2022-06-09 09:09] VITALS: BP 88/48
== END 2022-06-09 08:04 | disposition expired | DRG 442 ==
LOC: EDUNIT# → EDBD → N.ED 17:26 → SUATTDRO 20:48 → N.EDINP 20:48 → N.3E 21:48 → N.TELEN 06-08 16:07
PROVIDERS: ADMIT Internal Medicine; ATTEND Specialist